=== PATIENT | male | born 1950 | race Caucasian/White ===

== ENCOUNTER → 2020-01-28 08:16 | Outpatient (BNVA) | payer MEDICARE, OTHER, SELFPAY | PROVIDERS: PCP Internal Medicine; Visit Provider Internal Medicine | DX: I48.0 Paroxysmal atrial fibrillation (principal); Z51.81 Encounter for therapeutic drug level monitoring; Z79.01 Long term (current) use of anticoagulants | CPT/HCPCS: 85610; 99211 ==

== ENCOUNTER → 2020-02-11 08:03 | Outpatient (BNVA) | payer MEDICARE, OTHER, SELFPAY | PROVIDERS: PCP Internal Medicine; Visit Provider Internal Medicine | DX: I48.0 Paroxysmal atrial fibrillation (principal); Z51.81 Encounter for therapeutic drug level monitoring; Z79.01 Long term (current) use of anticoagulants | CPT/HCPCS: 85610; 99211 ==

== ENCOUNTER → 2020-03-03 08:35 | Outpatient (BNVA) | payer MEDICARE, OTHER, SELFPAY | PROVIDERS: PCP Internal Medicine; Referring Provider Internal Medicine; Visit Provider Internal Medicine | DX: I48.0 Paroxysmal atrial fibrillation (principal); Z51.81 Encounter for therapeutic drug level monitoring; Z79.01 Long term (current) use of anticoagulants | CPT/HCPCS: 85610; 99211 ==

== ENCOUNTER → 2020-03-31 08:09 | Outpatient (BNVA) | payer MEDICARE, OTHER, SELFPAY | PROVIDERS: PCP Internal Medicine; Visit Provider Internal Medicine | DX: I48.0 Paroxysmal atrial fibrillation (principal); Z79.01 Long term (current) use of anticoagulants; Z51.81 Encounter for therapeutic drug level monitoring | CPT/HCPCS: 85610; 99211 ==

== ENCOUNTER → 2020-04-13 08:26 | Outpatient (REF) | payer MEDICARE, OTHER, SELFPAY ==
--- NOTE | 2020-04-13 08:30 | CA_ITS ---
Transthoracic Echocardiogram Patient (Last, First, Middle): Rashawn Pérez T Gender: Male Date of : 1950 Age: 70 Procedure Date: 04/13/2020 Procedure Type: Transthoracic Echocardiogram Location: OP Height: 175.26 cm Weight: 95.26 kg BSA: 2.11 m2 Heart Rate: bpm BP: 128 / 80 mmHg Regional Agronomist: Referring MD: Nam Sanches MD Symptoms: I48.19 PERSISTENT A FIB Study Quality: Fair ECG Rhythm: Atrial Fibrillation Conclusions: - The left ventricular systolic function is normal. The visually estimated ejection fraction is between 55-60%. - No obvious valvular pathology seen on this study. Findings Left Ventricle Normal left ventricular cavity size. There is normal left ventricular wall thickness. The left ventricular systolic function is normal. The visually estimated ejection fraction is between 55-60%. There is no evidence of regional wall motion abnormalities. Diastolic function is indeterminate on the basis of available data. Right Ventricle There is normal right ventricular systolic function. Top normal right ventricular size. Atria The left atrium is normal in size. The right atrium is normal in size. Aortic Valve There is a normal trileaflet aortic valve. There is no aortic valve stenosis. There is no aortic valve regurgitation. Mitral Valve The mitral valve appears normal. There is trace mitral valve regurgitation. There is no mitral valve stenosis. Pulmonic Valve The pulmonic valve was not well visualized. Tricuspid Valve Normal tricuspid valve structure. There is mild tricuspid valve regurgitation. The pulmonary artery systolic pressure is normal. Great Vessels The aortic annulus, sinuses of valsalva, and asc aorta are normal in size. Venous The inferior vena cava is mildly dilated and collapses greater than 50% with inspiration. Pericardium/Pleural There is no evidence of pericardial effusion. Prior Study Comparison No significant change compared to prior study dated: 04/15/2018. Recommendations, Care & Conclusions No obvious valvular pathology seen on this study. Measurements 2D Linear Measurements IVSd: 1.30 0.6-0.9/0.6-1.0 cm LVIDd: 4.16 3.9-5.3/4.2-5.9 cm LVIDd Index: 1.97 2.4-3.2/2.2-3.1 cm/m2 LVIDs: 2.67 2.0-3.6 cm LVPWd: 1.34 0.7-1.1 cm Ao Root: 3.60 2.1-3.5 cm LA Diam: 3.70 2.7-3.8/3.0-4.0 cm LAIDs Index: 1.75 1.5-2.3 cm/m2 LV Mass: 252.14 67-162/88-224 g LV Mass Index: 119.50 43-95/49-115 g/m2 LVOT Diam: 2.40 3.0+(-)1.3 cm Mitral Valve MV Pk E: 0.90 MV Decel Time: 174.00 E'Lateral: 13.80 E'Medial: 11.10 E/E' Med: 8.10 E/E' Lat: 6.50 PHT: 51.00 MVA PHT: 4.31 Decel Rush: 5.15 Aortic Valve AoV Pk Óscar: 1.18 AoV Mn Óscar: 0.87 AoV VTI: 0.27 AoV Pk Grad: 6.00 Aov Mn Grad: 4.00 LARYR Cont.VTI: 2.90 LVOT LVOT Pk Óscar: 0.84 LVOT Mn Óscar: 0.53 LVOT VTI: 0.17 LVOT Pk Grad: 3.00 LVOT Mn Grad: 1.00 LVOT Diam: 2.40 LVOT Area: 4.52 Diastolic Function MV Pk E: 0.90 E'Medial: 11.10 E/E' Med: 8.10 E' Laterial: 13.80 E/E' Lat: 6.50 Tricuspid Valve TR Pk Óscar: 2.44 TR Pk Grad: 24.00 RA Press: 8.00 RVSP: 32.00 Great Vessels Aorta Ao Root-2D: 3.60 2.0-3.7 cm Ao Asc: 3.10 2.1-3.4 cm Pulmonary Valve PV Pk Óscar: 1.17 Peak PV Grad: 5.00 Updated in Other Vendor System with Status of Final Nam Sanches MD electronically signed on 04/13/2020 12:55:23 PM with status of Final
--- NOTE | 2020-04-13 09:30 | ECG_ITS ---
Hook-up date: 2020-04-13 09:27:00 Duration: 27:20:00 Test Indications: PERSISTANT ATRIAL FIB Medications: 037039 QRS complexes 65 Ventricular ectopics which represent <1 % of total QRS comp. * Supraventricular ectopics which represent % of total QRS comp. * Paced QRS complexs which represent % of total QRS comp. VENTRICULAR ECTOPY 65 Isolated 0 Bigeminal Cycles 0 Couplets 0 Runs 0 Beats in Runs * Beats LONGEST at * BPM at :: -- * Beats FASTEST at * BPM at :: -- SUPRAVENTRICULAR ECTOPY * Isolated * Couplets * Runs * Beats in Runs * Beats LONGEST at * BPM at :: -- * Beats FASTEST at * BPM at :: -- HEART RATES 37 MIN at 10:37:44 2020-04-13 75 AVG 134 MAX at 06:21:37 2020-04-14 LONGEST RR 2.3360 secs at 05:13:14 2020-04-14 S-T LEVELS Channel 1 - 128 mm at 09:27:00 2020-04-13 - 128 mm at 09:27:00 2020-04-13 Channel 2 - 128 mm at 09:27:00 2020-04-13 - 128 mm at 09:27:00 2020-04-13 Channel 3 - 128 mm at 02:84:61 -- - 128 mm at 02:84:61 Basic rhythm Atrial fibrillation Rate is adequately controlled Rare Premature ventricular complexes Patient did not report any symptoms in the diary Referred By: Nam Sanches Overread By: MARGUERITE CASTILLO MD
== END ==
LOC: HO.CARD 08:26
PROVIDERS: PCP Internal Medicine; Visit Provider Internal Medicine
DX: I48.19 Other persistent atrial fibrillation (principal)
CPT/HCPCS: 93225; 93226; 93306

== ENCOUNTER 2020-04-14 06:08 | Outpatient (REF) | payer MEDICARE, OTHER, SELFPAY ==
[2020-04-14 11:16] LABS: MANUAL DIFF FLAG NO
[2020-04-14 11:31] LABS: Basophils Absolute Auto 0.1 X10*3/uL (0.0-0.2); Basophils Percent Auto 0.9 % (0-2); Eosinophils Absolute Auto 0.3 X10*3/uL (0.0-0.4); Eosinophils Percent Auto 3.8 % (0-4); Hematocrit 51.4 % (42-52); Hemoglobin 17.6 g/dl (14.0-18.0); Imm Gran Abs Auto 0.05 X10*3/uL (0.00-0.03); Imm Gran Pct Auto 0.6 % (0.0-0.4); Lymphocytes Absolute Auto 2.3 X10*3/uL (1.2-4.9); Lymphocytes Percent Auto 24.9 % (20-40); Mean Corpuscular HGB Conc 34.2 g/dl (31.0-36.0); Mean Corpuscular Hemoglobin 30.5 pg (27.0-33.0); Mean Corpuscular Volume 89.1 fL (80-98); Mean Platelet Volume 10.1 fL (9.4-12.4); Monocytes Absolute Auto 0.8 X10*3/uL (0.1-1.2); Monocytes Percent Auto 8.5 % (2-11); Neutrophils Absolute Auto 5.6 X10*3/uL (2.0-8.3); Neutrophils Percent Auto 61.3 % (45-73); Platelet Count 294 X10*3/uL (160-400); Red Blood Count 5.77 X10*6/uL (4.60-5.80); Red Cell Distribution Width 13.1 % (11.0-16.0); White Blood Count 9.1 X10*3/uL (4.8-10.8)
[2020-04-14 11:38] LABS: Glucose Urine UA NEG (NEG); Leukocyte Esterase Urine NEG (NEG); Nitrite Urine NEG (NEG); PH 6.5 (5.0-8.0); Urine Blood 2+ (NEG); Urine Ketones NEG (NEG); Urine Protein TRACE MG/DL (NEG-TRACE)
[2020-04-14 11:46] LABS: Appearance Urine CLEAR; Color Urine YELLOW
[2020-04-14 12:02] LABS: Squamous Epithelial Cell Urine TRACE /LPF; WBC Urine 0 /HPF (0-4)
[2020-04-14 12:16] LABS: Alanine Aminotransferase 35 U/L (0-40); Albumin Level 4.3 g/dL (3.5-5.0); Alkaline Phosphatase 86 U/L (39-117); Anion Gap 19 (12-20); Aspartate Amino Transferase 21 U/L (5-37); Bilirubin Total 0.7 mg/dL (0.0-1.0); Blood Urea Nitrogen 28 mg/dL (9-16); Calcium 8.9 mg/dL (8.4-10.2); Carbon Dioxide 22 mmol/L (22-29); Chloride 104 mmol/L (96-108); Cholesterol 235 mg/dL; Estimated Glomerular Filt Rate > 60; Glucose Random 94 mg/dL (60-115); HDL Cholesterol 33 mg/dL; LDL Cholesterol Calculated 124 mg/dl; Sodium 141 mmol/L (135-145); Total Protein 7.4 g/dL (6.5-8.0); Triglycerides 394 mg/dL
[2020-04-14 12:19] LABS: Prostate Specific Antigen < 0.05 ng/mL (<0.05-4.0)
== END 2020-04-14 06:09 | disposition home or self-care (01) ==
LOC: HO.HMGCLDS 06:08
PROVIDERS: PCP Internal Medicine; Visit Provider Urology
DX: C61 Malignant neoplasm of prostate (principal)
CPT/HCPCS: 36415; 80053; 80061; 81001; 84153; 84443; 85025

== ENCOUNTER → 2020-04-28 08:06 | Outpatient (BNVA) | payer MEDICARE, OTHER, SELFPAY | PROVIDERS: PCP Internal Medicine; Visit Provider Internal Medicine | DX: I48.0 Paroxysmal atrial fibrillation (principal); Z79.01 Long term (current) use of anticoagulants; Z51.81 Encounter for therapeutic drug level monitoring | CPT/HCPCS: 85610; 99211 ==

== ENCOUNTER → 2020-05-06 08:17 | Outpatient (BNVA) | payer MEDICARE, OTHER, SELFPAY | PROVIDERS: PCP Internal Medicine; Visit Provider Internal Medicine | DX: I48.19 Other persistent atrial fibrillation (principal); I48.3 Typical atrial flutter; I10 Essential (primary) hypertension | CPT/HCPCS: 93005; 99212 ==

== ENCOUNTER → 2020-05-26 08:04 | Outpatient (BNVA) | payer MEDICARE, OTHER, SELFPAY | PROVIDERS: PCP Internal Medicine; Visit Provider Internal Medicine | DX: I48.0 Paroxysmal atrial fibrillation (principal); Z51.81 Encounter for therapeutic drug level monitoring; Z79.01 Long term (current) use of anticoagulants | CPT/HCPCS: 85610; 99211 ==

== ENCOUNTER → 2020-06-09 08:20 | Outpatient (BNVA) | payer MEDICARE, OTHER, SELFPAY | PROVIDERS: PCP Internal Medicine; Visit Provider Internal Medicine | DX: I48.0 Paroxysmal atrial fibrillation (principal); Z51.81 Encounter for therapeutic drug level monitoring; Z79.01 Long term (current) use of anticoagulants | CPT/HCPCS: 85610; 99211 ==

== ENCOUNTER → 2020-07-07 08:07 | Outpatient (BNVA) | payer MEDICARE, OTHER, SELFPAY | PROVIDERS: PCP Internal Medicine; Visit Provider Internal Medicine | DX: I48.0 Paroxysmal atrial fibrillation (principal); Z51.81 Encounter for therapeutic drug level monitoring; Z79.01 Long term (current) use of anticoagulants | CPT/HCPCS: 85610; 99211 ==

== ENCOUNTER → 2020-08-04 08:08 | Outpatient (BNVA) | payer MEDICARE, OTHER, SELFPAY | PROVIDERS: PCP Internal Medicine; Visit Provider Internal Medicine | DX: I48.0 Paroxysmal atrial fibrillation (principal); Z51.81 Encounter for therapeutic drug level monitoring; Z79.01 Long term (current) use of anticoagulants | CPT/HCPCS: 85610; 99211 ==

== ENCOUNTER → 2020-09-01 08:02 | Outpatient (BNVA) | payer MEDICARE, OTHER, SELFPAY | PROVIDERS: PCP Internal Medicine; Visit Provider Internal Medicine | DX: I48.0 Paroxysmal atrial fibrillation (principal); Z51.81 Encounter for therapeutic drug level monitoring; Z79.01 Long term (current) use of anticoagulants | CPT/HCPCS: 85610; 99211 ==

== ENCOUNTER → 2020-09-29 08:02 | Outpatient (BNVA) | payer MEDICARE, OTHER, SELFPAY | PROVIDERS: PCP Internal Medicine; Visit Provider Internal Medicine | DX: I48.0 Paroxysmal atrial fibrillation (principal); Z51.81 Encounter for therapeutic drug level monitoring; Z79.01 Long term (current) use of anticoagulants | CPT/HCPCS: 85610; 99211 ==

== ENCOUNTER → 2020-10-13 08:45 | Outpatient (BNVA) | payer MEDICARE, OTHER, SELFPAY | PROVIDERS: PCP Internal Medicine; Visit Provider Internal Medicine | DX: I48.0 Paroxysmal atrial fibrillation (principal); Z51.81 Encounter for therapeutic drug level monitoring; Z79.01 Long term (current) use of anticoagulants | CPT/HCPCS: 85610; 99211 ==

== ENCOUNTER → 2020-11-17 08:01 | Outpatient (BNVA) | payer MEDICARE, OTHER, SELFPAY | PROVIDERS: PCP Internal Medicine; Visit Provider Internal Medicine | DX: I48.0 Paroxysmal atrial fibrillation (principal); Z51.81 Encounter for therapeutic drug level monitoring; Z79.01 Long term (current) use of anticoagulants | CPT/HCPCS: 85610; 99211 ==

== ENCOUNTER → 2020-12-22 08:04 | Outpatient (BNVA) | payer MEDICARE, OTHER, SELFPAY | PROVIDERS: PCP Internal Medicine; Visit Provider Internal Medicine | DX: I48.0 Paroxysmal atrial fibrillation (principal); Z51.81 Encounter for therapeutic drug level monitoring; Z79.01 Long term (current) use of anticoagulants | CPT/HCPCS: 85610; 99211 ==

== ENCOUNTER → 2020-12-31 12:53 | Outpatient (BNV) | payer MEDICARE, OTHER, SELFPAY | PROVIDERS: PCP Internal Medicine; Referring Provider Internal Medicine; Visit Provider Internal Medicine | DX: E83.110 Hereditary hemochromatosis (principal) | CPT/HCPCS: 99204; 99213; 99214 ==

== ENCOUNTER 2021-01-21 09:57 | Outpatient (REF) | payer MEDICARE, OTHER, SELFPAY | END 2021-01-21 09:58 | disposition home or self-care (01) | LOC: HO.BBR 09:57 | PROVIDERS: PCP Internal Medicine; Visit Provider Internal Medicine | DX: Z13.89 Encounter for screening for other disorder (principal) ==

== ENCOUNTER → 2021-01-26 08:01 | Outpatient (BNVA) | payer MEDICARE, OTHER, SELFPAY | PROVIDERS: PCP Internal Medicine; Visit Provider Internal Medicine | DX: I48.0 Paroxysmal atrial fibrillation (principal); Z51.81 Encounter for therapeutic drug level monitoring; Z79.01 Long term (current) use of anticoagulants | CPT/HCPCS: 85610; 99211 ==

== ENCOUNTER 2021-02-23 08:45 | Outpatient (REF) | payer MEDICARE, OTHER, SELFPAY | END 2021-02-23 08:46 | disposition home or self-care (01) | LOC: HO.BBR 08:45 | PROVIDERS: Visit Provider Internal Medicine | DX: I48.0 Paroxysmal atrial fibrillation (principal); E83.110 Hereditary hemochromatosis; Z51.81 Encounter for therapeutic drug level monitoring; Z79.01 Long term (current) use of anticoagulants | CPT/HCPCS: 85610; 99211 ==

== ENCOUNTER 2021-03-23 08:31 | Outpatient (REF) | payer MEDICARE, OTHER, SELFPAY | END 2021-03-23 08:32 | disposition home or self-care (01) | LOC: HO.BBR 08:31 | PROVIDERS: Visit Provider Internal Medicine | DX: I48.0 Paroxysmal atrial fibrillation (principal); E83.110 Hereditary hemochromatosis; Z51.81 Encounter for therapeutic drug level monitoring; Z79.01 Long term (current) use of anticoagulants | CPT/HCPCS: 85610; 99211 ==

== ENCOUNTER 2021-04-20 08:31 | Outpatient (REF) | payer MEDICARE, OTHER, SELFPAY | END 2021-04-20 08:32 | disposition home or self-care (01) | LOC: HO.BBR 08:31 | PROVIDERS: Visit Provider Internal Medicine | DX: E83.110 Hereditary hemochromatosis (principal) | CPT/HCPCS: 85610; 99211 ==

== ENCOUNTER → 2021-05-05 08:25 | Outpatient (BNVA) | payer MEDICARE, OTHER, SELFPAY | PROVIDERS: PCP Internal Medicine; Referring Provider Internal Medicine; Visit Provider Internal Medicine | DX: I48.19 Other persistent atrial fibrillation (principal); I48.3 Typical atrial flutter; I10 Essential (primary) hypertension; I45.4 Nonspecific intraventricular block; G47.33 Obstructive sleep apnea (adult) (pediatric) | CPT/HCPCS: 93005; 99212 ==

== ENCOUNTER 2021-05-18 08:34 | Outpatient (REF) | payer MEDICARE, OTHER, SELFPAY | END 2021-05-18 08:35 | disposition home or self-care (01) | LOC: HO.BBR 08:34 | PROVIDERS: Visit Provider Internal Medicine | DX: I48.0 Paroxysmal atrial fibrillation (principal); E83.110 Hereditary hemochromatosis; Z51.81 Encounter for therapeutic drug level monitoring; Z79.01 Long term (current) use of anticoagulants | CPT/HCPCS: 85610; 99211 ==

== ENCOUNTER → 2021-06-15 08:02 | Outpatient (BNVA) | payer MEDICARE, OTHER, SELFPAY | PROVIDERS: PCP Internal Medicine; Visit Provider Internal Medicine | DX: I48.0 Paroxysmal atrial fibrillation (principal); Z51.81 Encounter for therapeutic drug level monitoring; Z79.01 Long term (current) use of anticoagulants | CPT/HCPCS: 85610 ==

== ENCOUNTER 2021-07-13 08:50 | Outpatient (REF) | payer MEDICARE, OTHER, SELFPAY | END 2021-07-13 08:51 | disposition home or self-care (01) | LOC: HO.BBR 08:50 | PROVIDERS: Visit Provider Internal Medicine | DX: I48.0 Paroxysmal atrial fibrillation (principal); E83.119 Hemochromatosis, unspecified; Z51.81 Encounter for therapeutic drug level monitoring; Z79.01 Long term (current) use of anticoagulants | CPT/HCPCS: 85610; 99211 ==

== ENCOUNTER → 2021-07-27 08:07 | Outpatient (BNVA) | payer MEDICARE, OTHER, SELFPAY | PROVIDERS: PCP Internal Medicine; Visit Provider Internal Medicine | DX: I48.0 Paroxysmal atrial fibrillation (principal); Z79.01 Long term (current) use of anticoagulants; Z51.81 Encounter for therapeutic drug level monitoring | CPT/HCPCS: 85610; 99211 ==

== ENCOUNTER → 2021-08-10 08:05 | Outpatient (BNVA) | payer MEDICARE, OTHER, SELFPAY | PROVIDERS: PCP Internal Medicine; Visit Provider Internal Medicine | DX: I48.0 Paroxysmal atrial fibrillation (principal); Z79.01 Long term (current) use of anticoagulants; Z51.81 Encounter for therapeutic drug level monitoring | CPT/HCPCS: 85610; 99211 ==

== ENCOUNTER 2021-09-14 11:12 | Outpatient (REF) | payer MEDICARE, OTHER, SELFPAY | END 2021-09-14 11:13 | disposition home or self-care (01) | LOC: HO.BBR 11:12 | PROVIDERS: Visit Provider Internal Medicine | DX: E83.110 Hereditary hemochromatosis (principal); I48.0 Paroxysmal atrial fibrillation; Z51.81 Encounter for therapeutic drug level monitoring; Z79.01 Long term (current) use of anticoagulants | CPT/HCPCS: 85610; 99211 ==

== ENCOUNTER → 2021-10-12 08:17 | Outpatient (BNVA) | payer MEDICARE, OTHER, SELFPAY | PROVIDERS: PCP Internal Medicine; Visit Provider Internal Medicine | DX: I48.0 Paroxysmal atrial fibrillation (principal); Z51.81 Encounter for therapeutic drug level monitoring; Z79.01 Long term (current) use of anticoagulants | CPT/HCPCS: 85610; 99211 ==

== ENCOUNTER 2021-11-09 08:36 | Outpatient (REF) | payer MEDICARE, OTHER, SELFPAY | END 2021-11-09 08:37 | disposition home or self-care (01) | LOC: HO.BBR 08:36 | PROVIDERS: Visit Provider Internal Medicine | DX: E83.110 Hereditary hemochromatosis (principal); I48.0 Paroxysmal atrial fibrillation; Z51.81 Encounter for therapeutic drug level monitoring; Z79.01 Long term (current) use of anticoagulants | CPT/HCPCS: 85610; 99211 ==

== ENCOUNTER → 2021-12-07 08:05 | Outpatient (BNVA) | payer MEDICARE, OTHER, SELFPAY | PROVIDERS: PCP Internal Medicine; Visit Provider Internal Medicine | DX: I48.0 Paroxysmal atrial fibrillation (principal); Z51.81 Encounter for therapeutic drug level monitoring; Z79.01 Long term (current) use of anticoagulants | CPT/HCPCS: 85610; 99211 ==

== ENCOUNTER → 2022-01-04 08:06 | Outpatient (BNVA) | payer MEDICARE, OTHER, SELFPAY | PROVIDERS: PCP Internal Medicine; Visit Provider Internal Medicine | DX: I48.0 Paroxysmal atrial fibrillation (principal); Z79.01 Long term (current) use of anticoagulants; Z51.81 Encounter for therapeutic drug level monitoring | CPT/HCPCS: 85610; 99211 ==

== ENCOUNTER → 2022-02-01 08:21 | Outpatient (BNVA) | payer MEDICARE, OTHER, SELFPAY | PROVIDERS: PCP Internal Medicine; Visit Provider Internal Medicine | DX: I48.0 Paroxysmal atrial fibrillation (principal); Z79.01 Long term (current) use of anticoagulants; Z51.81 Encounter for therapeutic drug level monitoring | CPT/HCPCS: 85610; 99211 ==

== ENCOUNTER 2022-02-09 08:04 | Outpatient (REF) | payer MEDICARE, OTHER, SELFPAY | END 2022-02-09 08:05 | disposition home or self-care (01) | LOC: HO.BBR 08:04 | PROVIDERS: Visit Provider Internal Medicine | DX: Z13.89 Encounter for screening for other disorder (principal) ==

== ENCOUNTER → 2022-03-01 10:37 | Outpatient (BNVA) | payer MEDICARE, OTHER, SELFPAY | PROVIDERS: PCP Internal Medicine; Visit Provider Internal Medicine | DX: I48.0 Paroxysmal atrial fibrillation (principal); Z79.01 Long term (current) use of anticoagulants; Z51.81 Encounter for therapeutic drug level monitoring | CPT/HCPCS: 85610; 99211 ==

== ENCOUNTER 2022-03-22 09:57 | Inpatient (IN) | payer MEDICARE, OTHER, SELFPAY ==
--- NOTE | ~2022-03-22 | CT_ITS ---
EXAMINATION: CT ELBOW LEFT WITH IV CONTRAST CLINICAL INFORMATION: Swelling, pain, erythema. COMPARISON: Ultrasound imaging from 03/22/2022. TECHNIQUE: Multidetector CT imaging examination of the left elbow performed with intravenous administration of 80 mL Omnipaque 350. This CT examination was performed using dose optimization techniques as appropriate, variously including the following: *Automated exposure control. *Adjustment of mA and/or kV according to patient size (this includes techniques or standardized protocols for targeted exams where dose is matched to indication/reason for exam, i.e., extremities or head). *Use of iterative reconstruction technique. DLP: 114 mGy-cm FINDINGS: There is edema of subcutaneous tissues of the visualized upper arm, elbow and forearm. The edema is worst along the posterior aspect of the extremity and is most pronounced around the region of the posterior elbow and olecranon. The complex multiseptated collection located posterior to the olecranon on recent ultrasound imaging is not optimally visualized on this CT examination since it blends in with surrounding subcutaneous tissue edema and there is no evidence of a thickened hyperenhancing rim. The area of the collection measures approximately 5 x 1.8 x 6 cm. No soft tissue gas or radiopaque foreign body. The muscles of the extremity have normal attenuation. No evidence of intramuscular or intermuscular fluid collection. Alignment is normal at the elbow. The radiocapitellar and ulnohumeral joints are normal. No erosions or periostitis. No elbow joint effusion. CT/CT elbow LT w IV con IMPRESSION: * Diffuse edema of the visualized extremity is likely from cellulitis. * Complex fluid collection at the level of the olecranon bursa is more clearly seen on recent ultrasound images than on this CT examination. The collection does not appear to have a hyperenhancing thickened rim. Nevertheless, consider the possibility of an infected olecranon bursitis. * The underlying bones are normal. No evidence of septic arthritis or osteomyelitis.
--- NOTE | ~2022-03-22 | US_ITS ---
EXAMINATION: US VENOUS WITH DOPPLER UPPER EXTREMITY, LEFT CLINICAL INFORMATION: Pain, swelling, redness. COMPARISON: None TECHNIQUE: Ultrasound of the upper extremity is performed using compression sonography and color and pulse Doppler flow with assessment of augmentation of flow. There is also imaging and Doppler assessment of the jugular and subclavian veins. Spectral analysis with color-flow imaging is performed. FINDINGS: Grayscale images and duplex Doppler images show normal appearance of the left internal jugular, subclavian and axillary veins. Within the upper arm, the cephalic, basilic and brachial veins are normal. No superficial or deep vein thrombosis. Within the forearm, the radial and ulnar veins are compressible. There is edema within subcutaneous tissues of the arm. A complex collection located posterior to the olecranon measures 3.8 x 1.2 x 4.2 cm. If there was a recent fall/trauma, then this could represent hematoma. Alternatively, soft tissue abscess or infected or inflamed olecranon bursa would be considered. US/US venous duplex UE LT IMPRESSION: * No evidence of superficial or deep vein thrombosis in the left upper extremity. * There is soft tissue edema of the arm and a 3.8 x 1.2 x 4.2 cm complex collection is present in the expected location of the olecranon bursa. This could represent an infected olecranon bursa, if in the proper clinical context.
--- NOTE | 2022-03-22 10:04 | ED_ITS ---
HPI - General Adult General Chief complaint: General Medical Stated complaint: L Arm Redness Swelling Time Seen by Provider: 03/22/22 10:00 Source: patient Mode of arrival: wheelchair Limitations: no limitations History of Present Illness HPI narrative: Patient is a 72 year old assigned male at with a history of atrial fibrillation and hemochromatosis presenting to the emergency department today with left arm swelling. Patient states that he has been on antibiotics for cellulitis that he started on Sunday but it is not getting better. Patient states that his arm has continued to swell. Patient denies any dizziness, lightheadedness, abdominal pain, nausea, vomiting, fever, chills, blurry vision, double vision, loss of vision, chest pain, difficulty breathing, shortness of breath, back pain, night sweats, pain with urination, increased urinary frequency, increased urinary urgency, blood in his urine or stool, syncope or a near syncopal episode, recent trauma or falls, bowel incontinence, bladder incontinence, bowel retention, bladder retention, or any other complaints at this time. Onset (ago): day(s) Location: left and upper extremity Radiation: non-radiation Severity: moderate Severity scale (1-10): 5 Relieving factors: none Exacerbating factors: none Associated symptoms: denies other symptoms Treatments prior to arrival: none Related Data Home Medications Medication Instructions Recorded Confirmed dexlansoprazole 60 mg 60 mg PO BEDTIME 05/06/20 03/22/22 capsule,biphase delayed release (Dexilant) irbesartan 150 1 tab PO DAILY 05/06/20 03/22/22 mg-hydrochlorothiazide 12.5 mg tablet (Avalide) atorvastatin 10 mg tablet (Lipitor) 10 mg PO DAILY 12/22/20 03/22/22 warfarin 5 mg tablet (Jantoven) 5 mg PO DAILY 05/03/21 03/22/22 warfarin 5 mg tablet (Jantoven) 2.5 mg PO SUTUWEFRSA@1800 03/22/22 03/22/22 warfarin 5 mg tablet (Jantoven) 5 mg PO MOTH@1800 03/22/22 03/22/22 Previous Rx's Medication Instructions Recorded diltiazem HCl 360 mg 360 mg PO DAILY #90 caps 08/03/21 capsule,extended release 24 hr (Cardizem CD) cephalexin 500 mg capsule 1,000 mg PO BID 10 days #40 caps 03/20/22 Allergies Allergy/AdvReac Type Severity Reaction Status Date / Time lisinopril AdvReac Unknown cough Verified 03/20/22 10:24 Review of Systems Constitutional: Constitutional: Reports no additional constitutional complaints, Denies chills, Denies fever(s) and Denies night sweats Eyes: Eyes: Reports no additional eye complaints, Denies blurry vision, Denies change in vision, Denies diplopia, Denies eye discharge, Denies loss of vision and Denies eye pain ENT: Denies dizziness Cardiovascular: Cardiovascular: Reports no additional cardiovascular complaints, Denies chest pain, Denies lightheadedness, Denies Loss of Consciousness and Denies dyspnea Respiratory: Respiratory: Reports no additional respiratory complaints and Denies dyspnea Gastrointestinal: Gastrointestinal: Reports no additional gastrointestinal complaints, Denies abdominal pain, Denies melena, Denies hematochezia, Denies change in bowel habits and Denies change in stool character Genitourinary: Genitourinary: Reports no additional male genitourinary complaints, Denies hematuria, Denies oliguria, Denies difficulty urinating, Denies dysuria, Denies urinary frequency, Denies urinary hesitancy, Denies urinary incontinence and Denies urinary urgency Musculoskeletal: Musculoskeletal: Reports no additional musculoskeletal complaints, Denies numbness and Denies tingling Comments: left arm swelling Neurologic: Denies dizziness, Denies loss of vision, Denies numbness and Denies tingling Psychiatric: Psychiatric: Reports no additional psychiatric complaints Endocrine: Endocrine: Reports no additional endocrine complaints Hematologic/Lymphatic: Hematologic/Lymphatic: Reports no additional hematologic/lymphatic complaints Allergic/Immunologic: Allergic/Immunologic: Reports no additional allergic/immunologic complaints [facility] Past Medical History Attestation statement: The following information was validated with the patient. Source: old records reviewed and nursing notes reviewed Medical History Essential hypertension Hemochromatosis GABBIE (obstructive sleep apnea) Persistent atrial fibrillation Typical atrial flutter Surgical History History of prostate surgery (~10/2016) Family History Family History Father HTN (hypertension) Mother No problems noted. 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 [employer] Current occupational exposures/hazards: Yes (Stress) Sexual orientation: Straight/Heterosexual Gender identity: Male Physical Exam ED Vital Signs: Vital Signs - 24 hr 03/22/22 11:52 Temperature 97.9 F Pulse Rate 93 Respiratory Rate 18 Blood Pressure 112/71 Pulse Oximetry 95 Oxygen Delivery Method Room Air BMI result Body Mass Index 31.0 Const General: cooperative, no acute distress, alert and awake Nutritional Appearance: well nourished Orientation/consciousness: patient oriented x3 Limitations: no limitations HENMT Head: Yes normal to inspection and Yes atraumatic Ears: hearing grossly normal bilaterally and external ears normal General nose exam: Normal external nose present, no nasal discharge noted and no epistaxis Face and sinus: Yes normal facial exam, No abrasion and No laceration Mouth: Normal oral and palatal mucosa present, no drooling and no muffled voice Eyes General: appearance normal, both eyes and all related structures Periorbital: periorbital findings normal Eyelids: Yes eyelids normal Conjunctivae: conjunctivae normal Pupils: Equal, round and reactive pupils present EOM: EOMs intact bilaterally Neck Neck: Yes normal visual inspection, Yes full ROM and Yes no lymphadenopathy Chest Chest palpation & inspection: normal inspection of the chest Resp Effort & Inspection: normal respiratory effort and able to speak in complete sentences Auscultation: clear to auscultation bilaterally Cardio Rate: regular rate Rhythm: regular rhythm GI Inspection: Yes normal to inspection Skin Other: erythema, swelling, warmth present to the left elbow with diffuse swelling of the entire left upper extremity and streaking redness Neuro General: patient oriented x3 and moves all extremities Cranial nerves: Yes Equal, round and reactive pupils present Cognition (Neuro): normal cognition Motor exam (neuro): 5/5 motor strength present throughout Sensory Exam: Normal double simultaneous stimulation for sensation Coordination: cxmpxi-av-cpet test normal Extrem General: Yes normal to inspection, Yes full ROM and Yes capillary refill normal Psych Appearance: grossly normal Mental Status: mental status grossly normal Affect: normal affect Attitude: cooperative Thought process: Normal thought process present Thought content: Normal thought content present Insight: Good insight present (Psych) Medications Administered Discontinued Medications Generic Name Dose Route Start Last Admin Trade Name Ruma PRN Reason Stop Dose Admin Sodium Chloride 1,000 mls @ 999 mls/hr 03/22/22 12:30 03/22/22 15:35 Ns IV 03/22/22 13:30 Infused .Q1H1M TOMMY Infusion Piperacillin Sod/Tazobactam 50 mls @ 100 mls/hr 03/22/22 13:15 03/22/22 15:36 Sod 3.375 gm/ Sodium Chloride IV 03/22/22 13:44 Infused ONCE ONE Infusion Iohexol 100 ml 03/22/22 12:53 03/22/22 12:54 Iohexol 350 Mg/Ml 100 Ml Infus..Btl IV 03/22/22 12:54 80 ml ONCE ONE Administration Medical Decision Making Medical Decision Making MDM Narrative: Patient is a 72 year old assigned male at with a history of atrial fibrillation and hemochromatosis presenting to the emergency department today with left elbow pain. Patient's physical exam showed erythema and swelling of the left upper extremity. Patient's blood work showed an elevated WBC count of 15.5, ESR of 46, CRP of 22.67, and an initial lactic acid of 2.2 with a repeat of 1.4 after 1 liter of fluids.Patient's left upper extremity US showed soft tissue edema of the arm and a 3.8x1.2x4.2 complex collection in the expected location of the olecranon bursa which could represent an infected olecranon bursa. Patient's left elbow CT showed similar findings. I spoke to orthopedics who came and examined the patient and recommended not to tap the elbow but rather medically admit and they'd follow along on the case. Spoke to the hospitalist team who agreed to admission. Patient's clinical presentation is not consistent with sepsis. Patient was given IV Zosyn. I explained my physical exam findings as well as all test results to the patient. I answered all questions asked by the patient. Patient verbalized agreement and understanding with this treatment plan and admission. Differential Diagnosis Differential Diagnoses: The differential diagnosis associated with the presentation includes cellulitis Lab Data MDM Lab Attestation statement: I reviewed the patient's lab results. Result Diagrams: 03/22/22 11:37 03/22/22 11:37 Labs: Lab Results 03/22/22 03/22/22 03/22/22 Range/Units 11:37 11:37 11:37 WBC 15.5 H (4.8-10.8) X10*3/uL RBC 5.28 (4.60-5.80) X10*6/uL Hgb 13.8 L (14.0-18.0) g/dl Hct 42.4 (42.0-52.0) % MCV 80.3 (80.0-98.0) fL MCH 26.1 L (27.0-33.0) pg MCHC 32.5 (31.0-36.0) g/dl RDW 15.0 (11.0-16.0) % Plt Count 357 (160-400) X10*3/uL MPV 9.2 L (9.4-12.4) fL Immature Gran % (Auto) 0.7 H (0.0-0.4) % Neut % (Auto) 79.7 H (45-73) % Lymph % (Auto) 9.3 L (20-40) % [place] % (Auto) 9.2 (2-11) % Eos % (Auto) 0.6 (0-4) % Baso % (Auto) 0.5 (0-2) % Lymph # (Auto) 1.5 (1.2-4.9) X10*3/uL [place] # (Auto) 1.4 H (0.1-1.2) X10*3/uL Eos # (Auto) 0.1 (0.0-0.4) X10*3/uL Baso # (Auto) 0.1 (0.0-0.2) X10*3/uL Abs Immat Gran (auto) 0.11 H (0.00-0.03) X10*3/uL Absolute Neuts (auto) 12.4 H (2.0-8.3) x10*3/uL Absolute Nucleated RBC 0.000 (0.0-0.012) X10*3/uL Nucleated RBC % (auto) 0.0 (0.0-0.2) /100WBC ESR 46 H (0-15) MM/HR PT 32.6 H (10.0-13.1) SEC INR 2.7 H (0.9-1.1) APTT 48.7 H (26.0-36.4) SEC Sodium (135-145) mmol/L Potassium (3.3-5.1) mmol/L Chloride (96-108) mmol/L Carbon Dioxide (22-29) mmol/L Anion Gap (12-20) BUN (9-16) mg/dL Creatinine (0.5-1.4) mg/dL Estim Creat Clear Calc Estimated GFR Random Glucose (60-115) mg/dL Lactic Acid (0.5-2.0) mmol/L Lactic Acid F/U @ 2Hr (0.5-2.0) mmol/L Calcium (8.4-10.2) mg/dL Magnesium (1.6-2.6) mg/dL Total Bilirubin (0.0-1.0) mg/dL AST (5-37) U/L ALT (0-40) U/L Alkaline Phosphatase (39-117) U/L C-Reactive Protein (< or = 0.50) mg/dL Total Protein (6.5-8.0) g/dL Albumin (3.5-5.0) g/dL COVID-19 (BHANU) (Negative) COVID-19 Clin Com 03/22/22 03/22/22 03/22/22 Range/Units 11:37 11:37 11:39 WBC (4.8-10.8) X10*3/uL RBC (4.60-5.80) X10*6/uL Hgb (14.0-18.0) g/dl Hct (42.0-52.0) % MCV (80.0-98.0) fL MCH (27.0-33.0) pg MCHC (31.0-36.0) g/dl RDW (11.0-16.0) % Plt Count (160-400) X10*3/uL MPV (9.4-12.4) fL Immature Gran % (Auto) (0.0-0.4) % Neut % (Auto) (45-73) % Lymph % (Auto) (20-40) % [place] % (Auto) (2-11) % Eos % (Auto) (0-4) % Baso % (Auto) (0-2) % Lymph # (Auto) (1.2-4.9) X10*3/uL [place] # (Auto) (0.1-1.2) X10*3/uL Eos # (Auto) (0.0-0.4) X10*3/uL Baso # (Auto) (0.0-0.2) X10*3/uL Abs Immat Gran (auto) (0.00-0.03) X10*3/uL Absolute Neuts (auto) (2.0-8.3) x10*3/uL Absolute Nucleated RBC (0.0-0.012) X10*3/uL Nucleated RBC % (auto) (0.0-0.2) /100WBC ESR (0-15) MM/HR PT (10.0-13.1) SEC INR (0.9-1.1) APTT (26.0-36.4) SEC Sodium 138 (135-145) mmol/L Potassium 3.6 (3.3-5.1) mmol/L Chloride 102 (96-108) mmol/L Carbon Dioxide 25 (22-29) mmol/L Anion Gap 15 (12-20) BUN 24 H (9-16) mg/dL Creatinine 1.39 (0.5-1.4) mg/dL Estim Creat Clear Calc 56.3 Estimated GFR 51 Random Glucose 99 (60-115) mg/dL Lactic Acid 2.2 H* (0.5-2.0) mmol/L Lactic Acid F/U @ 2Hr (0.5-2.0) mmol/L Calcium 9.4 (8.4-10.2) mg/dL Magnesium 2.1 (1.6-2.6) mg/dL Total Bilirubin 0.9 (0.0-1.0) mg/dL AST 13 (5-37) U/L ALT 17 (0-40) U/L Alkaline Phosphatase 89 (39-117) U/L C-Reactive Protein 22.67 H (< or = 0.50) mg/dL Total Protein 7.1 (6.5-8.0) g/dL Albumin 4.2 (3.5-5.0) g/dL COVID-19 (BHANU) Negative (Negative) COVID-19 Clin Com See Note 03/22/22 Range/Units 14:09 WBC (4.8-10.8) X10*3/uL RBC (4.60-5.80) X10*6/uL Hgb (14.0-18.0) g/dl Hct (42.0-52.0) % MCV (80.0-98.0) fL MCH (27.0-33.0) pg MCHC (31.0-36.0) g/dl RDW (11.0-16.0) % Plt Count (160-400) X10*3/uL MPV (9.4-12.4) fL Immature Gran % (Auto) (0.0-0.4) % Neut % (Auto) (45-73) % Lymph % (Auto) (20-40) % [place] % (Auto) (2-11) % Eos % (Auto) (0-4) % Baso % (Auto) (0-2) % Lymph # (Auto) (1.2-4.9) X10*3/uL [place] # (Auto) (0.1-1.2) X10*3/uL Eos # (Auto) (0.0-0.4) X10*3/uL Baso # (Auto) (0.0-0.2) X10*3/uL Abs Immat Gran (auto) (0.00-0.03) X10*3/uL Absolute Neuts (auto) (2.0-8.3) x10*3/uL Absolute Nucleated RBC (0.0-0.012) X10*3/uL Nucleated RBC % (auto) (0.0-0.2) /100WBC ESR (0-15) MM/HR PT (10.0-13.1) SEC INR (0.9-1.1) APTT (26.0-36.4) SEC Sodium (135-145) mmol/L Potassium (3.3-5.1) mmol/L Chloride (96-108) mmol/L Carbon Dioxide (22-29) mmol/L Anion Gap (12-20) BUN (9-16) mg/dL Creatinine (0.5-1.4) mg/dL Estim Creat Clear Calc Estimated GFR Random Glucose (60-115) mg/dL Lactic Acid (0.5-2.0) mmol/L Lactic Acid F/U @ 2Hr 1.4 (0.5-2.0) mmol/L Calcium (8.4-10.2) mg/dL Magnesium (1.6-2.6) mg/dL Total Bilirubin (0.0-1.0) mg/dL AST (5-37) U/L ALT (0-40) U/L Alkaline Phosphatase (39-117) U/L C-Reactive Protein (< or = 0.50) mg/dL Total Protein (6.5-8.0) g/dL Albumin (3.5-5.0) g/dL COVID-19 (BHANU) (Negative) COVID-19 Clin Com Radiology Impression Discussion of test interpretation with radiology: I have reviewed the radiologist's reading. Radiologist Impression: EXAMINATION:? US VENOUS WITH DOPPLER UPPER EXTREMITY, LEFT CLINICAL INFORMATION:? Pain, swelling, redness. COMPARISON:? None TECHNIQUE: Ultrasound of the upper extremity is performed using compression sonography and color and pulse Doppler flow with assessment of augmentation of flow. There is also imaging and Doppler assessment of the jugular and subclavian veins. Spectral analysis with color-flow imaging is performed. FINDINGS: Grayscale images and duplex Doppler images show normal appearance of the left internal jugular, subclavian and axillary veins. Within the upper arm, the cephalic, basilic and brachial veins are normal. No superficial or deep vein thrombosis. Within the forearm, the radial and ulnar veins are compressible. There is edema within subcutaneous tissues of the arm. A complex collection located posterior to the olecranon measures 3.8 x 1.2 x 4.2 cm. If there was a recent fall/trauma, then this could represent hematoma. Alternatively, soft tissue abscess or infected or inflamed olecranon bursa would be considered. US/US venous duplex UE LT IMPRESSION: *? No evidence of superficial or deep vein thrombosis in the left upper extremity. *? There is soft tissue edema of the arm and a 3.8 x 1.2 x 4.2 cm complex collection is present in the expected location of the olecranon bursa. This could represent an infected olecranon bursa, if in the proper clinical context. Dictated By: Bobby Garcia MD Signed By: Electronically signed by Bobby Garcia MD 03/22/22 1156 EXAMINATION: CT ELBOW LEFT WITH IV CONTRAST CLINICAL INFORMATION: Swelling, pain, erythema.? COMPARISON: Ultrasound imaging from 03/22/2022.? TECHNIQUE: Multidetector CT imaging examination of the left elbow performed with intravenous administration of 80 mL Omnipaque 350. This CT examination was performed using dose optimization techniques as appropriate, variously including the following: *Automated exposure control. *Adjustment of mA and/or kV according to patient size (this includes techniques or standardized protocols for targeted exams where dose is matched to indication/reason for exam, i.e., extremities or head). *Use of iterative reconstruction technique. DLP: 114 mGy-cm FINDINGS: There is edema of subcutaneous tissues of the visualized upper arm, elbow and forearm. The edema is worst along the posterior aspect of the extremity and is most pronounced around the region of the posterior elbow and olecranon. The complex multiseptated collection located posterior to the olecranon on recent ultrasound imaging is not optimally visualized on this CT examination since it blends in with surrounding subcutaneous tissue edema and there is no evidence of a thickened hyperenhancing rim. The area of the collection measures approximately 5 x 1.8 x 6 cm. No soft tissue gas or radiopaque foreign body. The muscles of the extremity have normal attenuation. No evidence of intramuscular or intermuscular fluid collection. Alignment is normal at the elbow. The radiocapitellar and ulnohumeral joints are normal. No erosions or periostitis. No elbow joint effusion.? CT/CT elbow LT w IV con IMPRESSION: *? Diffuse edema of the visualized extremity is likely from cellulitis. ? *? Complex fluid collection at the level of the olecranon bursa is more clearly seen on recent ultrasound images than on this CT examination. The collection does not appear to have a hyperenhancing thickened rim. Nevertheless, consider the possibility of an infected olecranon bursitis. *? The underlying bones are normal. No evidence of septic arthritis or osteomyelitis. Dictated By: Bobby Garcia MD Signed By: Electronically signed by Bobby Garcia MD 03/22/22 5981 Critical Care Time Critical Care Time Critical Care Time: Yes Total Critical Care Time: 30 Attestation: I spent 30 minutes of Critical Care Time with this patient. This does not include time spent on separately reported billable procedures. Discharge Plan Discharge Clinical Impression: Cellulitis of left arm Patient Disposition: Admitted As Inpatient
[2022-03-22 11:52] VITALS: BP 112/71; PULSE 93; RESP 18; TEMP 36.6; O2SAT 95; BMI 31.0
[2022-03-22 11:54] LABS: MANUAL DIFF FLAG NO
--- NOTE | 2022-03-22 11:55 | PHA.MEDREC ---
Pharmacy Consult ? Medication Reconciliation Pharmacy has completed the medication reconciliation.
[2022-03-22 11:57] LABS: Basophils Absolute Auto 0.1 X10*3/uL (0.0-0.2); Basophils Percent Auto 0.5 % (0-2); Eosinophils Absolute Auto 0.1 X10*3/uL (0.0-0.4); Eosinophils Percent Auto 0.6 % (0-4); Hematocrit 42.4 % (42.0-52.0); Hemoglobin 13.8 g/dl (14.0-18.0); Imm Gran Abs Auto 0.11 X10*3/uL (0.00-0.03); Imm Gran Pct Auto 0.7 % (0.0-0.4); Lymphocytes Absolute Auto 1.5 X10*3/uL (1.2-4.9); Lymphocytes Percent Auto 9.3 % (20-40); Mean Corpuscular HGB Conc 32.5 g/dl (31.0-36.0); Mean Corpuscular Hemoglobin 26.1 pg (27.0-33.0); Mean Corpuscular Volume 80.3 fL (80.0-98.0); Mean Platelet Volume 9.2 fL (9.4-12.4); Monocytes Absolute Auto 1.4 X10*3/uL (0.1-1.2); Monocytes Percent Auto 9.2 % (2-11); Neutrophils Absolute Auto 12.4 x10*3/uL (2.0-8.3); Neutrophils Percent Auto 79.7 % (45-73); Platelet Count 357 X10*3/uL (160-400); Red Blood Count 5.28 X10*6/uL (4.60-5.80); White Blood Count 15.5 X10*3/uL (4.8-10.8)
[2022-03-22 11:59] LABS: INTERNATIONAL NORM RATIO 2.7 (0.9-1.1); Prothrombin Time 32.6 SEC (10.0-13.1)
[2022-03-22 12:01] LABS: Partial Thromboplastin Time 48.7 SEC (26.0-36.4)
[2022-03-22 12:22] LABS: Alanine Aminotransferase 17 U/L (0-40); Albumin Level 4.2 g/dL (3.5-5.0); Alkaline Phosphatase 89 U/L (39-117); Anion Gap 15 (12-20); Aspartate Amino Transferase 13 U/L (5-37); Blood Urea Nitrogen 24 mg/dL (9-16); C Reactive Protein 22.67 mg/dL (< or = 0.50); Calcium 9.4 mg/dL (8.4-10.2); Carbon Dioxide 25 mmol/L (22-29); Chloride 102 mmol/L (96-108); Creatinine Clr Calc Pharmacy 56.3; Estimated Glomerular Filt Rate 51; Glucose Random 99 mg/dL (60-115); Magnesium 2.1 mg/dL (1.6-2.6); Potassium 3.6 mmol/L (3.3-5.1); Sodium 138 mmol/L (135-145); Total Protein 7.1 g/dL (6.5-8.0)
[2022-03-22 12:28] LABS: Lactic Acid 2.2 mmol/L (0.5-2.0)
[2022-03-22 12:41] LABS: Erythrocyte Sedimentation Rate 46 MM/HR (0-15)
[2022-03-22 12:48] LABS: COVID-19 Test Negative (Negative); IDNOW Serial# BCCEAD1C
[2022-03-22] MEDS: iohexoL 350 MG/ML 100 ML INFUS..BTL IV (12:54)
[2022-03-22] MEDS: Piperacillin Sodium/Tazobactam 3.375 GM in 0.9 % Sodium Chloride 50 ML IV (13:16)
[2022-03-22] MEDS: 0.9 % Sodium Chloride 1,000 ML 999 ML IV (13:37)
[2022-03-22 13:50] LABS: Reflex Lactate? Lactic Acid Added
[2022-03-22 14:09] LABS: Bilirubin Total 0.9 mg/dL (0.0-1.0)
[2022-03-22 14:41] LABS: ~Lactic Acid-LAB USE ONLY 1.4 mmol/L (0.5-2.0)
--- NOTE | 2022-03-22 14:41 | PM.IMHP ---
History of Present Illness Date of Service: 03/22/22 Chief Complaint: arm and elbow swelling and pain, redness 72 year male with past medical history as noted below who present with pain, redness and swelling of the left arm, elbow since last weekend. He cannot point to any trauma or insect bite, on Sunday (2 days ago) he went to an urgent care clinic and was prescribed antibitoics but it has gotten worse and therefore came to ED. WBC is 15, lactic 2.2. CT of the arm/elbow show Complex fluid collection at the level of the olecranon bursa with posibility for infection. Ortho has assessed and recommend no intervention at this time. Given Zosyn Review of Systems Review of Systems: Gen: no fever Resp: no sob, no cough CV: no chest, no RAI, no leg edema GI: No n/v, no abd pain Neuro: No confusion MSK: left arm/wlbow swelling Yes all other systems are reviewed and are negative [facility] Medical History Essential hypertension Hemochromatosis GABBIE (obstructive sleep apnea) Persistent atrial fibrillation Typical atrial flutter Family History Father HTN (hypertension) Mother No problems noted. Surgical History History of prostate surgery (~10/2016) Social History Household Members: Spouse Housing: House Are you a primary workforce investment act career manager to a significant other at home: No Do you presently have visiting nurse or other home services: No Alcohol intake: never Patient Tobacco Use Status: Never used Tobacco Smoked in Last 30 Days: No Use of substances other than those prescribed or required for medical reasons: No Currently Displaying Signs/Symptoms of Drug Intoxication Withdrawal: No Have you been hit, kicked, punched, or otherwise hurt by someone within the past year? If so, by whom?: No Do you feel safe in your current relationship?: Yes Is there a partner from a previous relationship who is making you feel unsafe now?: No Are you made to feel afraid or neglected: No Advance Directives: Yes Advance Directives Information Provided: No Advance Directives on File: No Advance Directives Date on File: 03/23/22 Do you have thoughts of harming others: None Do you have a plan to hurt others: No Plan Recently lost weight without trying: No How much weight loss: Not applicable Eating poorly because of decreased appetite: No Nutrition screen score: 0 Nutrition Risks: No Nutritional Risk Poor oral hygiene: No service: No Current occupational status: retired 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 [employer] Current occupational exposures/hazards: Yes (Stress) Sexual orientation: Straight/Heterosexual Gender identity: Male Meds Allergies Allergy/AdvReac Type Severity Reaction Status Date / Time lisinopril AdvReac Unknown cough Verified 03/20/22 10:24 Active Medications: Current Medications Pharmacy Consult (Consult Rx Perform Med Rec) 1 each MISCELLANE ONCE PRN PRN Reason: Will be admitted Home Medications Medication Instructions Recorded Confirmed Last Taken Type dexlansoprazole 60 mg 60 mg PO BEDTIME 05/06/20 03/22/22 03/21/22 History capsule,biphase delayed release (Dexilant) irbesartan 150 1 tab PO DAILY 05/06/20 03/22/22 03/22/22 History mg-hydrochlorothiazide 12.5 mg tablet (Avalide) atorvastatin 10 mg tablet (Lipitor) 10 mg PO DAILY 12/22/20 03/22/22 03/22/22 History warfarin 5 mg tablet (Jantoven) 5 mg PO DAILY 05/03/21 03/22/22 Unknown History warfarin 5 mg tablet (Jantoven) 2.5 mg PO SUTUWEFRSA@1800 03/22/22 03/22/22 03/21/22 History warfarin 5 mg tablet (Jantoven) 5 mg PO MOTH@1800 03/22/22 03/22/22 03/20/22 History Physical Exam Vital Signs and Narrative: Vital Signs: Last Vital Signs Temp 97.9 F 03/22/22 11:52 Pulse 93 03/22/22 11:52 Resp 18 03/22/22 11:52 BP 112/71 03/22/22 11:52 Pulse Ox 95 03/22/22 11:52 O2 Del Method 03/22/22 11:52 BMI result Body Mass Index 31.0 Const: Other: Constitutional: Alert, in no distress, overweight. Mental Status: Oriented to person, place and time. Eyes: Pupils are equal, round and reactive to light. Ear, Nose and Throat: Oropharynx clear, mucous membranes moist. Ears and nose without eformities. Trachea midline. Respiratory: Clear to auscultation. No wheezing, rales or rhonchi. Cardiovascular: S1 S2 regular. No murmurs, rubs or gallops. Gastrointestinal: Abdomen soft, non-tender, non-distended. Normal bowel sounds.? Neurologic: Cranial nerves II-XII grossly intact. No focal neurological deficits. Moves all extremities spontaneously.? Skin: No rashes or lesions.? Musculoskeletal: No cyanosis or clubbing. marked swelling of the left arm with large effusion at the elbow with surface renedss extending to the arm Psychiatric: Normal mood and affect? Results Labs CBC and Chem 7: 03/22/22 11:37 03/22/22 11:37 Labs: Laboratory Results - last 24 hr 03/22/22 03/22/22 03/22/22 11:37 11:37 11:37 MCV 80.3 MCH 26.1 L MCHC 32.5 RDW 15.0 Plt Count 357 MPV 9.2 L Immature Gran % (Auto) 0.7 H Neut % (Auto) 79.7 H Lymph % (Auto) 9.3 L [place] % (Auto) 9.2 Eos % (Auto) 0.6 Baso % (Auto) 0.5 Lymph # (Auto) 1.5 [place] # (Auto) 1.4 H Eos # (Auto) 0.1 Baso # (Auto) 0.1 Abs Immat Gran (auto) 0.11 H Absolute Neuts (auto) 12.4 H Absolute Nucleated RBC 0.000 Nucleated RBC % (auto) 0.0 ESR 46 H PT 32.6 H INR 2.7 H APTT 48.7 H Anion Gap Estim Creat Clear Calc Estimated GFR Random Glucose Lactic Acid Calcium Magnesium Total Bilirubin AST ALT Alkaline Phosphatase C-Reactive Protein Total Protein Albumin COVID-19 (BHANU) COVID-19 Clin Com 03/22/22 03/22/22 03/22/22 11:37 11:37 11:39 MCV MCH MCHC RDW Plt Count MPV Immature Gran % (Auto) Neut % (Auto) Lymph % (Auto) [place] % (Auto) Eos % (Auto) Baso % (Auto) Lymph # (Auto) [place] # (Auto) Eos # (Auto) Baso # (Auto) Abs Immat Gran (auto) Absolute Neuts (auto) Absolute Nucleated RBC Nucleated RBC % (auto) ESR PT INR APTT Anion Gap 15 Estim Creat Clear Calc 56.3 Estimated GFR 51 Random Glucose 99 Lactic Acid 2.2 H* Calcium 9.4 Magnesium 2.1 Total Bilirubin 0.9 AST 13 ALT 17 Alkaline Phosphatase 89 C-Reactive Protein 22.67 H Total Protein 7.1 Albumin 4.2 COVID-19 (BHANU) Negative COVID-19 Clin Com See Note Imaging Radiologist's Impressions: Impressions Venous Duplex 03/22/22 11:11 IMPRESSION: * No evidence of superficial or deep vein thrombosis in the left upper extremity. * There is soft tissue edema of the arm and a 3.8 x 1.2 x 4.2 cm complex collection is present in the expected location of the olecranon bursa. This could represent an infected olecranon bursa, if in the proper clinical context. Elbow CT 03/22/22 12:52 IMPRESSION: * Diffuse edema of the visualized extremity is likely from cellulitis. * Complex fluid collection at the level of the olecranon bursa is more clearly seen on recent ultrasound images than on this CT examination. The collection does not appear to have a hyperenhancing thickened rim. Nevertheless, consider the possibility of an infected olecranon bursitis. * The underlying bones are normal. No evidence of septic arthritis or osteomyelitis. Assessment and Plan (1) Severe sepsis: Status: Acute (2) Cellulitis of left arm: Status: Acute Plan 72/m PAF, HTN, hereditary hemochomatosis, GABBIE here with Sepsis, left arm cellulitis and olecranon bursitisis 1/Severe sepsis (lactic 2.2, HR 99, WBC15) /dt 2/Left arm cellulitis and olecranon bursitis -Failed outpatient Abx -Vanco + Zosyn -follow cultures -Ortho consult -ID consult -APAP +Oxycodone for pain 3/Paroxysmal A-fib -continue cardizem for rate control -coumadin for stroke prevention -will discuss changing to eliquis or xarelto 4/HTN--continue Irbesartan, HCTZ and Cardizem 5/HLD-Lipitor 6/GABBIE--CPAP if uses one at home 6/DVT prophylaxis, coumadin [facility] 2 midnights for management of sepsis with IV Abx and monitoring for response, having faied oral Abx. Time Spent With Patient Time: Total time managing care of this patient today ____ minutes. Quality Stroke Does the patient have a stroke diagnosis?: No VTE Prior VTE?: No VTE Risk Level:: Medical - moderate - high VTE Device Contraindication: Treatment Not Indicated VTE Drug Contraindication: N/A - Med Ordered
[2022-03-22] MEDS: 0.9 % Sodium Chloride Flush 3 ML SYRINGE IVFLUSH (17:15)
[2022-03-22 18:20] VITALS: BP 121/62; PULSE 99; RESP 20; O2SAT 95
[2022-03-22] MEDS: Warfarin Sodium 2.5 MG TABLET PO (18:20)
[2022-03-22] MEDS: Omeprazole 40 MG CAPSULE.DR PO (20:35)
[2022-03-22 22:10] VITALS: BP 121/66; PULSE 101; TEMP 37.3; O2SAT 97
--- NOTE | 2022-03-22 22:20 | MHC.CM.PN ---
IMM 03/22. CM met with admitted patient with bed assignment pending. A&Ox4. Lives with /HCP Sari Pérez ([phone]). HCP not on file. Copy requested. Pfizer x4. No DME/services. D/C plan: Home without services. will transport. CM will follow for any discharge planning needs.
[2022-03-23] MEDS: Acetaminophen 325 MG TABLET 650 MG PO (00:40)
[2022-03-23] MEDS: Melatonin 3 MG TABLET 6 MG PO (00:42)
[2022-03-23 01:26] VITALS: BMI 31.8
[2022-03-23 01:36] VITALS: BP 138/64; PULSE 113; RESP 18; TEMP 36.7; O2SAT 94
[2022-03-23 06:01] LABS: INTERNATIONAL NORM RATIO 2.7 (0.9-1.1); Prothrombin Time 32.5 SEC (10.0-13.1)
[2022-03-23 08:00] VITALS: BP 118/59; PULSE 90; RESP 19; TEMP 37.1; O2SAT 97
[2022-03-23] MEDS: dilTIAZem HCL CD 180 MG CAP.ER.24H 360 MG PO (08:09)
[2022-03-23] MEDS: hydroCHLOROthiazide 12.5 MG TABLET PO (08:09)
[2022-03-23] MEDS: Atorvastatin Calcium 10 MG TABLET PO (08:09)
--- NOTE | 2022-03-23 09:57 | HO.PM.IMPN ---
Subjective Subjective Date of Service: 03/23/22 Interval History: f/u on cellulitis of the arm/elbow on left side interval history: swelling and pain is midly better Review of Systems Gen: no fever Resp: no sob, no cough CV: no chest, no RAI, no leg edema GI: No n/v, no abd pain Neuro: No confusion MSK: left arm/wlbow swelling Physical Exam Vital Signs: Vital Signs: Last Vital Signs Temp 98.8 F 03/23/22 08:00 Pulse 90 03/23/22 08:00 Resp 19 03/23/22 08:00 BP 118/59 L 03/23/22 08:00 Pulse Ox 97 03/23/22 08:00 O2 Del Method 03/23/22 08:00 O2 Flow Rate 2.0 03/23/22 08:00 BMI result Body Mass Index 31.8 Const: Other: General: AO X 3, no acute distress Resp: CTA bilateral CVS: S1,S2,RRR GI: +BS, NT, no distention Skin: No rash Neuro: motor grossly intact Musculoskeletal: No cyanosis or clubbing. marked swelling of the left arm with large effusion at the elbow with surface renedss extending to the arm--full ROM Psychiatric: Normal mood and affect? Objective Data Active Medications Acetaminophen (Acetaminophen 325 Mg Tablet) 650 mg PO Q6H PRN PRN Reason: Pain, Mild (Pain Scale 1-3) Last Admin: 03/23/22 00:40 Dose: 650 mg Documented By: RAAD Atorvastatin Calcium (Atorvastatin Calcium 10 Mg Tablet) 10 mg PO DAILY [facility] Last Admin: 03/23/22 08:09 Dose: 10 mg Documented By: GRETTA Diltiazem HCl (Diltiazem Hcl Cd 180 Mg Cap.Er.24h) 360 mg PO DAILY [facility]; Protocol Last Admin: 03/23/22 08:09 Dose: 360 mg Documented By: GRETTA Hydrochlorothiazide (Hydrochlorothiazide 12.5 Mg Tablet) 12.5 mg PO DAILY [facility]; Protocol Last Admin: 03/23/22 08:09 Dose: 12.5 mg Documented By: GRETTA Vancomycin HCl 1,250 mg/ (Sodium Chloride) 250 mls @ 166.667 mls/hr IV Q24H [facility] Vancomycin HCl (Vancomycin/Ns) 2,000 mg in 520 mls @ 260 mls/hr IV ONCE ONE Stop: 03/23/22 11:33 Piperacillin Sod/Tazobactam (Sod 3.375 gm/ Sodium Chloride) 50 mls @ 100 mls/hr IV Q6H [facility] Melatonin (Melatonin 3 Mg Tablet) 6 mg PO BEDTIME PRN PRN Reason: Insomnia Last Admin: 03/23/22 00:42 Dose: 6 mg Documented By: RAAD Omeprazole (Omeprazole 40 Mg Capsule.Dr) 40 mg PO DAILY@0630 [facility] Last Admin: 03/23/22 05:34 Dose: Not Given Documented By: JANET Non-Admin Reason: pt would like to take in the evening Ondansetron HCl (Ondansetron Hcl 4 Mg/2 Ml Vial) 4 mg IVPUSH Q8H PRN PRN Reason: Nausea and Vomiting Oxycodone HCl (Oxycodone Hcl Immed Release 5 Mg Tablet) 5 mg PO Q6H PRN PRN Reason: Pain, Severe (Pain Scale 7-10) Pharmacy Consult (Consult Rx Perform Med Rec) 1 each MISCELLANE ONCE PRN PRN Reason: Will be admitted Pharmacy Consult (Consult Rx Vancomycin Dosing) 1 each MISCELLANE DAILY PRN PRN Reason: Consult order Sodium Chloride (0.9 % Sodium Chloride Flush 3 Ml Syringe) 3 ml IVFLUSH QSHIFT [facility] Last Admin: 03/23/22 00:00 Dose: 3 ml Documented By: RAAD Comments: 3mL not available in carts. Given from 10 mL syringe Warfarin Sodium (Warfarin Sodium 2.5 Mg Tablet) 2.5 mg PO SUTUWEFRSA@1800 [facility] Last Admin: 03/22/22 18:20 Dose: 2.5 mg Documented By: CEDRIC-JAJAICL Warfarin Sodium (Warfarin Sodium 5 Mg Tablet) 5 mg PO MOTH@1800 [facility] Labs CBC & Chem 7: 03/22/22 11:37 03/22/22 11:37 Labs: Laboratory Results - last 24 hr 03/22/22 03/22/22 03/22/22 11:37 11:37 11:37 MCV 80.3 MCH 26.1 L MCHC 32.5 RDW 15.0 Plt Count 357 MPV 9.2 L Immature Gran % (Auto) 0.7 H Neut % (Auto) 79.7 H Lymph % (Auto) 9.3 L [place] % (Auto) 9.2 Eos % (Auto) 0.6 Baso % (Auto) 0.5 Lymph # (Auto) 1.5 [place] # (Auto) 1.4 H Eos # (Auto) 0.1 Baso # (Auto) 0.1 Abs Immat Gran (auto) 0.11 H Absolute Neuts (auto) 12.4 H Absolute Nucleated RBC 0.000 Nucleated RBC % (auto) 0.0 ESR 46 H PT 32.6 H INR 2.7 H APTT 48.7 H Anion Gap Estim Creat Clear Calc Estimated GFR Random Glucose Lactic Acid Lactic Acid F/U @ 2Hr Calcium Magnesium Total Bilirubin AST ALT Alkaline Phosphatase C-Reactive Protein Total Protein Albumin COVID-19 (BHANU) COVID-[employer] 03/22/22 03/22/22 03/22/22 11:37 11:37 11:39 MCV MCH MCHC RDW Plt Count MPV Immature Gran % (Auto) Neut % (Auto) Lymph % (Auto) [place] % (Auto) Eos % (Auto) Baso % (Auto) Lymph # (Auto) [place] # (Auto) Eos # (Auto) Baso # (Auto) Abs Immat Gran (auto) Absolute Neuts (auto) Absolute Nucleated RBC Nucleated RBC % (auto) ESR PT INR APTT Anion Gap 15 Estim Creat Clear Calc 56.3 Estimated GFR 51 Random Glucose 99 Lactic Acid 2.2 H* Lactic Acid F/U @ 2Hr Calcium 9.4 Magnesium 2.1 Total Bilirubin 0.9 AST 13 ALT 17 Alkaline Phosphatase 89 C-Reactive Protein 22.67 H Total Protein 7.1 Albumin 4.2 COVID-19 (BHANU) Negative COVID-[facility]DE[facility] [employer] See Note 03/22/22 03/23/22 14:09 05:25 MCV MCH MCHC RDW Plt Count MPV Immature Gran % (Auto) Neut % (Auto) Lymph % (Auto) [place] % (Auto) Eos % (Auto) Baso % (Auto) Lymph # (Auto) [place] # (Auto) Eos # (Auto) Baso # (Auto) Abs Immat Gran (auto) Absolute Neuts (auto) Absolute Nucleated RBC Nucleated RBC % (auto) ESR PT 32.5 H INR 2.7 H APTT Anion Gap Estim Creat Clear Calc Estimated GFR Random Glucose Lactic Acid Lactic Acid F/U @ 2Hr 1.4 Calcium Magnesium Total Bilirubin AST ALT Alkaline Phosphatase C-Reactive Protein Total Protein Albumin COVID-19 (BHANU) COVID-19 Clin Com Assessment and Plan (1) Cellulitis of left arm: Status: Acute (2) Severe sepsis: Status: Acute Plan 72/m PAF, HTN, hereditary hemochomatosis, GABBIE here with Sepsis, left arm cellulitis and olecranon bursitisis 1/Severe sepsis (lactic 2.2, HR 99, WBC15) /dt , sepsis now resolved. 2/Left arm cellulitis and olecranon bursitis -Failed outpatient Abx -Vanco + Zosyn -follow cultures -Ortho consult--no indication for tap -ID consult -APAP +Oxycodone for pain 3/Paroxysmal A-fib -continue cardizem for rate control -coumadin for stroke prevention -INR 2.7, decrease coumadin to 2.5 in light of Abx use 4/HTN--continue Irbesartan, HCTZ and Cardizem 5/HLD-Lipitor 6/GABBIE--CPAP if uses one at home 6/DVT prophylaxis, coumadin Need for inpatient: management of sepsis with IV Abx and monitoring for response, having faied oral Abx. Time Spent With Patient Time: Total time managing care of this patient today ____ minutes. Quality Stroke Does the patient have a stroke diagnosis?: No VTE Prior VTE?: No VTE Risk Level:: Medical - moderate - high VTE Device Contraindication: Treatment Not Indicated VTE Drug Contraindication: N/A - Med Ordered
[2022-03-23 09:58] LABS: Creatinine Clr Calc Pharmacy 62.8; Estimated Glomerular Filt Rate 57
--- NOTE | 2022-03-23 10:12 | PHA.PROG ---
Admission Date/Time: March 22, 2022 15:21 Indication: Left arm cellulitis/sepsis Weight in k.7 kg Adjusted body weight in K.5 kg [place] body weight in K.7 kg Obesity Dosing Indication % IBW: 138% Serum Creatinine - Last 168 Hours 03/22/22 03/23/22 11:37 05:40 Creatinine 1.39 1.26 Estimated CrCl and GFR - Last 168 Hours 03/22/22 03/23/22 11:37 05:40 Estim Creat Clear Calc 56.3 62.8 Estimated GFR 51 57 Vancomycin Loading Dose: 2000 mg (20.4 mg/kg) Current Vancomycin Dosing Regimen: 1250 mg Q24H Date and Time for next Vancomycin Level to be drawn: 03/25 @ 0800 Pharmacist Comments on Vancomycin Plan: Patient is obese due to %IBW > 130% therefore patient need careful monitor due to high volume of distribution. Patient received loading dose vancomycin 2000 mg on 03/23 2@ 0957. Maintenance dose vanco 1250 mg q24h is scheduld to start 03/24 @ 1000. Expected AUC 495 with a trough of 13.1. Pharmacy will monitor renal funcion daily Level to be drawn prior to 3rd to dose to [facility] for safety. Guillermina Avilez PharmD Vancomycin dosing will take advantage of [employer] as a clinical decision support tool that uses Bayesian modeling to calculate individual patient's pharmacokinetic parameters and forecast the patient's drug concentration time course with the target goal AUC 24 range of 400 - 600 mg/L/hr.
[2022-03-23 10:16] LABS: Hematocrit 39.5 % (42.0-52.0); Hemoglobin 13.1 g/dl (14.0-18.0); Mean Corpuscular HGB Conc 33.2 g/dl (31.0-36.0); Mean Corpuscular Hemoglobin 26.5 pg (27.0-33.0); Mean Platelet Volume 9.2 fL (9.4-12.4); Platelet Count 348 X10*3/uL (160-400); Red Blood Count 4.94 X10*6/uL (4.60-5.80); Red Cell Distribution Width 14.9 % (11.0-16.0); White Blood Count 11.6 X10*3/uL (4.8-10.8)
[2022-03-23] MEDS: Piperacillin Sodium/Tazobactam 3.375 GM in 0.9 % Sodium Chloride 50 ML IV ×3 (12:16→21:36)
[2022-03-23] MEDS: Valsartan 80 MG TABLET PO (12:48)
[2022-03-23 15:29] VITALS: BP 147/63; PULSE 87; RESP 16; TEMP 36.5; O2SAT 96
[2022-03-23] MEDS: 0.9 % Sodium Chloride Flush 3 ML SYRINGE IVFLUSH ×3 (16:16→21:37)
[2022-03-23] MEDS: Warfarin Sodium 5 MG TABLET PO (17:56)
[2022-03-23 19:39] VITALS: BP 132/58; PULSE 99; RESP 18; TEMP 36.8; O2SAT 97
[2022-03-24] MEDS: Piperacillin Sodium/Tazobactam 3.375 GM in 0.9 % Sodium Chloride 50 ML IV ×4 (05:24→21:05)
[2022-03-24] MEDS: Omeprazole 40 MG CAPSULE.DR PO (05:24)
[2022-03-24 06:18] LABS: Creatinine Clr Calc Pharmacy 55.4; Estimated Glomerular Filt Rate 49
[2022-03-24 06:29] LABS: INTERNATIONAL NORM RATIO 2.8 (0.9-1.1); Prothrombin Time 33.4 SEC (10.0-13.1)
--- NOTE | 2022-03-24 07:13 | HE.PHANOTE ---
MAGED CRAWFORD CONTINUE CURRENT DOSE, NEXT LEVEL DUE 03/25 @0800 WATCH SCR DUE TO RISE KURT
--- NOTE | 2022-03-24 07:34 | PM.PNORT ---
Subjective Subjective Date of Service: 03/24/22 Interval history: Left elbow continues to improve on IV abx. Patient reports he has less pain, redness and has regained more motion in the hand, wrist, and elbow. No overnight events. No additional complaints. Physical Exam Vital Signs: Vital Signs: Last Vital Signs Temp 98.2 F 03/23/22 19:39 Pulse 99 03/23/22 19:39 Resp 18 03/23/22 19:39 BP 132/58 L 03/23/22 19:39 Pulse Ox 97 03/23/22 19:39 O2 Del Method 03/23/22 19:39 O2 Flow Rate 2.0 03/23/22 08:00 BMI result Body Mass Index 31.8 Const: General: cooperative, healthy appearing and no acute distress Resp: Effort & Inspection: normal respiratory effort and able to speak in complete sentences Cardio: Rate: regular rate Peripheral pulses: Peripheral pulses 2+ throughout GI: Palpation (GI): Soft to palpation Skin: Lesions: no lesions Rashes: no rashes Extrem: Other: Left elbow and forearm erythema and edema. Improved since yesterdays exam. Left elbow able to flex, extend, pronate and supinate without discomfort. Able to flex and extend at the wrist. Able to make a closed fist. NVI. Procedures Date of Service Date of Service: 03/24/22 Progress Note: A&P Assessment and plan (1) Cellulitis of left arm: Status: Acute Assessment and Plan: Continue IV abx Continue gentle ROM of the elbow hand and wrist Elevate Pain management as needed No additional orthopedic intervention needed at this time Time Spent With Patient Time: Total time managing care of this patient today ____ minutes. Quality Stroke Does the patient have a stroke diagnosis?: No VTE Prior VTE?: No VTE Risk Level:: Medical - moderate - high VTE Device Contraindication: Treatment Not Indicated VTE Drug Contraindication: N/A - Med Ordered
--- NOTE | 2022-03-24 07:49 | PM.CNOR ---
History of Present Illness HPI Consult date: 03/23/22 Chief complaint: Sepsis Narrative: 72 year male who presented to the ED with pain, redness and swelling of the left arm, elbow since last weekend. He cannot point to any trauma or insect bite, on Sunday (2 days ago) he went to an urgent care clinic and was prescribed antibitoics but it has gotten worse and therefore came to ED.? WBC is 15, lactic 2.2. CT of the arm/elbow show?Complex fluid collection at the level of the olecranon bursa with posibility for infection. he was Given Zosyn in the ED, admission for continued iv abx and ortho was consulted for further recommendations. Review of Systems Constitutional: Constitutional: Reports as per [facility] Past Medical History Medical History Essential hypertension Hemochromatosis GABBIE (obstructive sleep apnea) Persistent atrial fibrillation Typical atrial flutter Family History Family History Father HTN (hypertension) Mother No problems noted. Surgical History Surgical History History of prostate surgery (~10/2016) Social History Social History Household Members: Spouse Housing: House Are you a primary nurse wound care to a significant other at home: No Do you presently have visiting nurse or other home services: No Alcohol intake: never Patient Tobacco Use Status: Never used Tobacco Smoked in Last 30 Days: No Use of substances other than those prescribed or required for medical reasons: No Currently Displaying Signs/Symptoms of Drug Intoxication Withdrawal: No Have you been hit, kicked, punched, or otherwise hurt by someone within the past year? If so, by whom?: No Do you feel safe in your current relationship?: Yes Is there a partner from a previous relationship who is making you feel unsafe now?: No Are you made to feel afraid or neglected: No Advance Directives: Yes Advance Directives Information Provided: No Advance Directives on File: No Advance Directives Date on File: 03/23/22 Do you have thoughts of harming others: None Do you have a plan to hurt others: No Plan Recently lost weight without trying: No How much weight loss: Not applicable Eating poorly because of decreased appetite: No Nutrition screen score: 0 Nutrition Risks: No Nutritional Risk Poor oral hygiene: No service: No Current occupational status: retired 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 [employer] Current occupational exposures/hazards: Yes (Stress) Sexual orientation: Straight/Heterosexual Gender identity: Male Meds Allergies Allergy/AdvReac Type Severity Reaction Status Date / Time lisinopril AdvReac Unknown cough Verified 03/20/22 10:24 Active Medications: Current Medications Acetaminophen (Acetaminophen 325 Mg Tablet) 650 mg PO Q6H PRN PRN Reason: Pain, Mild (Pain Scale 1-3) Last Admin: 03/23/22 00:40 Dose: 650 mg Atorvastatin Calcium (Atorvastatin Calcium 10 Mg Tablet) 10 mg PO DAILY [facility] Last Admin: 03/23/22 08:09 Dose: 10 mg Diltiazem HCl (Diltiazem Hcl Cd 180 Mg Cap.Er.24h) 360 mg PO DAILY [facility]; Protocol Last Admin: 03/23/22 08:09 Dose: 360 mg Hydrochlorothiazide (Hydrochlorothiazide 12.5 Mg Tablet) 12.5 mg PO DAILY [facility]; Protocol Last Admin: 03/23/22 08:09 Dose: 12.5 mg Vancomycin HCl 1,250 mg/ (Sodium Chloride) 250 mls @ 166.667 mls/hr IV Q24H [facility] Piperacillin Sod/Tazobactam (Sod 3.375 gm/ Sodium Chloride) 50 mls @ 100 mls/hr IV Q6H [facility] Last Infusion: 03/24/22 06:36 Dose: Infused Melatonin (Melatonin 3 Mg Tablet) 6 mg PO BEDTIME PRN PRN Reason: Insomnia Last Admin: 03/23/22 00:42 Dose: 6 mg Omeprazole (Omeprazole 40 Mg Capsule.Dr) 40 mg PO DAILY@0630 [facility] Last Admin: 03/24/22 05:24 Dose: 40 mg Ondansetron HCl (Ondansetron Hcl 4 Mg/2 Ml Vial) 4 mg IVPUSH Q8H PRN PRN Reason: Nausea and Vomiting Oxycodone HCl (Oxycodone Hcl Immed Release 5 Mg Tablet) 5 mg PO Q6H PRN PRN Reason: Pain, Severe (Pain Scale 7-10) Pharmacy Consult (Consult Rx Perform Med Rec) 1 each MISCELLANE ONCE PRN PRN Reason: Will be admitted Pharmacy Consult (Consult Rx Vancomycin Dosing) 1 each MISCELLANE DAILY PRN PRN Reason: Consult order Sodium Chloride (0.9 % Sodium Chloride Flush 3 Ml Syringe) 3 ml IVFLUSH QSHIFT [facility] Last Admin: 03/23/22 21:37 Dose: 3 ml Warfarin Sodium (Warfarin Sodium 2.5 Mg Tablet) 2.5 mg PO SUTUWEFRSA@1800 [facility] Last Admin: 03/22/22 18:20 Dose: 2.5 mg Warfarin Sodium (Warfarin Sodium 5 Mg Tablet) 5 mg PO MOTH@1800 [facility] Last Admin: 03/23/22 17:56 Dose: 5 mg Home Medications Medication Instructions Recorded Confirmed Last Taken Type dexlansoprazole 60 mg 60 mg PO BEDTIME 05/06/20 03/22/22 03/21/22 History capsule,biphase delayed release (Dexilant) irbesartan 150 1 tab PO DAILY 05/06/20 03/22/22 03/22/22 History mg-hydrochlorothiazide 12.5 mg tablet (Avalide) atorvastatin 10 mg tablet (Lipitor) 10 mg PO DAILY 12/22/20 03/22/22 03/22/22 History warfarin 5 mg tablet (Jantoven) 5 mg PO DAILY 05/03/21 03/22/22 Unknown History warfarin 5 mg tablet (Jantoven) 2.5 mg PO SUTUWEFRSA@1800 03/22/22 03/22/22 03/21/22 History warfarin 5 mg tablet (Jantoven) 5 mg PO MOTH@1800 03/22/22 03/22/22 03/20/22 History Physical Exam Vital Signs: Vital Signs: Last Vital Signs Temp 98.2 F 03/23/22 19:39 Pulse 99 03/23/22 19:39 Resp 18 03/23/22 19:39 BP 132/58 L 03/23/22 19:39 Pulse Ox 97 03/23/22 19:39 O2 Del Method 03/23/22 19:39 O2 Flow Rate 2.0 03/23/22 08:00 BMI result Body Mass Index 31.8 Const: General: cooperative, healthy appearing, comfortable and no acute distress Extrem: Other: ?Left elbow diffuse redness and swelling over the olecranon and into the forearm. No significant pain over the olecranon bura. No fluctulance. He is able to range the elbow without pain. He can flex and extend the wrist without pain. He is able to make a fist and extend all digits. NVI. Results Labs Result Diagrams: 03/23/22 10:06 03/24/22 05:17 Labs: Abnormal lab results 03/23/22 03/24/22 03/24/22 Range/Units 10:06 05:17 05:17 WBC 11.6 H (4.8-10.8) X10*3/uL Hgb 13.1 L (14.0-18.0) g/dl Hct 39.5 L (42.0-52.0) % MCH 26.5 L (27.0-33.0) pg MPV 9.2 L (9.4-12.4) fL PT 33.4 H (10.0-13.1) SEC INR 2.8 H (0.9-1.1) Creatinine 1.43 H (0.5-1.4) mg/dL H & H 03/22/22 03/23/22 Range/Units 11:37 10:06 Hgb 13.8 L 13.1 L (14.0-18.0) g/dl Hct 42.4 39.5 L (42.0-52.0) % Coagulation 03/22/22 03/23/22 03/24/22 Range/Units 11:37 05:25 05:17 INR 2.7 H 2.7 H 2.8 H (0.9-1.1) All other labs normal. Assessment and Plan (1) Cellulitis of left arm: Status: Acute Plan In the absence of pain with ROM or fluctulance, absence of pain over the olecranon, this does not appear to be a septic process, rather cellulitis. I would recommend continued ROM to tolerance, iv abx, elevation . He does feel his symptoms have improved since he started iv abx. If symptoms worsen, will re-eval. Time Spent With Patient Time: Total time managing care of this patient today ____ minutes. Procedures Date of Service Date of Service: 03/24/22
[2022-03-24 07:52] VITALS: BP 119/61; PULSE 89; RESP 17; TEMP 36.7; O2SAT 96
[2022-03-24] MEDS: hydroCHLOROthiazide 12.5 MG TABLET PO (09:19)
[2022-03-24] MEDS: Atorvastatin Calcium 10 MG TABLET PO (09:19)
[2022-03-24] MEDS: dilTIAZem HCL CD 180 MG CAP.ER.24H 360 MG PO (09:19)
[2022-03-24] MEDS: 0.9 % Sodium Chloride Flush 3 ML SYRINGE IVFLUSH ×3 (09:21→21:08)
--- NOTE | 2022-03-24 09:38 | HO.PM.IMPN ---
Subjective Subjective Date of Service: 03/24/22 Interval History: f/u on cellulitis of the arm/elbow on left side interval history: swelling and pain is better, better ROM Review of Systems Gen: no fever Resp: no sob, no cough CV: no chest, no RAI, no leg edema GI: No n/v, no abd pain Neuro: No confusion MSK: left arm/wlbow swelling Physical Exam Vital Signs: Vital Signs: Last Vital Signs Temp 98.1 F 03/24/22 07:52 Pulse 89 03/24/22 07:52 Resp 17 03/24/22 07:52 BP 119/61 03/24/22 07:52 Pulse Ox 96 03/24/22 07:52 O2 Del Method 03/24/22 07:52 O2 Flow Rate 2.0 03/23/22 08:00 BMI result Body Mass Index 31.8 Const: Other: General: AO X 3, no acute distress Resp: CTA bilateral CVS: S1,S2,RRR GI: +BS, NT, no distention Skin: No rash Neuro: motor grossly intact Musculoskeletal: No cyanosis or clubbing. less swelling of the left arm with large effusion at the elbow with surface renedss extending to the arm--full ROM Psychiatric: Normal mood and affect? Objective Data Active Medications Acetaminophen (Acetaminophen 325 Mg Tablet) 650 mg PO Q6H PRN PRN Reason: Pain, Mild (Pain Scale 1-3) Last Admin: 03/23/22 00:40 Dose: 650 mg Documented By: RAAD Atorvastatin Calcium (Atorvastatin Calcium 10 Mg Tablet) 10 mg PO DAILY [facility] Last Admin: 03/24/22 09:19 Dose: 10 mg Documented By: LEISA Diltiazem HCl (Diltiazem Hcl Cd 180 Mg Cap.Er.24h) 360 mg PO DAILY [facility]; Protocol Last Admin: 03/24/22 09:19 Dose: 360 mg Documented By: LEISA Hydrochlorothiazide (Hydrochlorothiazide 12.5 Mg Tablet) 12.5 mg PO DAILY [facility]; Protocol Last Admin: 03/24/22 09:19 Dose: 12.5 mg Documented By: LEISA Vancomycin HCl 1,250 mg/ (Sodium Chloride) 250 mls @ 166.667 mls/hr IV Q24H [facility] Piperacillin Sod/Tazobactam (Sod 3.375 gm/ Sodium Chloride) 50 mls @ 100 mls/hr IV Q6H [facility] Last Admin: 03/24/22 09:20 Dose: 100 mls/hr Documented By: LEISA Melatonin (Melatonin 3 Mg Tablet) 6 mg PO BEDTIME PRN PRN Reason: Insomnia Last Admin: 03/23/22 00:42 Dose: 6 mg Documented By: RAAD Omeprazole (Omeprazole 40 Mg Capsule.Dr) 40 mg PO DAILY@0630 [facility] Last Admin: 03/24/22 05:24 Dose: 40 mg Documented By: SANDIP Ondansetron HCl (Ondansetron Hcl 4 Mg/2 Ml Vial) 4 mg IVPUSH Q8H PRN PRN Reason: Nausea and Vomiting Oxycodone HCl (Oxycodone Hcl Immed Release 5 Mg Tablet) 5 mg PO Q6H PRN PRN Reason: Pain, Severe (Pain Scale 7-10) Pharmacy Consult (Consult Rx Perform Med Rec) 1 each MISCELLANE ONCE PRN PRN Reason: Will be admitted Pharmacy Consult (Consult Rx Vancomycin Dosing) 1 each MISCELLANE DAILY PRN PRN Reason: Consult order Sodium Chloride (0.9 % Sodium Chloride Flush 3 Ml Syringe) 3 ml IVFLUSH QSHIFT [facility] Last Admin: 03/24/22 09:21 Dose: 3 ml Documented By: LEISA Warfarin Sodium (Warfarin Sodium 2.5 Mg Tablet) 2.5 mg PO SUTUWEFRSA@1800 [facility] Last Admin: 03/22/22 18:20 Dose: 2.5 mg Documented By: CEDRIC-ANICL Warfarin Sodium (Warfarin Sodium 5 Mg Tablet) 5 mg PO MOTH@1800 [facility] Last Admin: 03/23/22 17:56 Dose: 5 mg Documented By: DABA Labs CBC & Chem 7: 03/23/22 10:06 03/24/22 05:17 Labs: Laboratory Results - last 24 hr 03/23/22 03/23/22 03/24/22 05:40 10:06 05:17 MCV 80.0 MCH 26.5 L MCHC 33.2 RDW 14.9 Plt Count 348 MPV 9.2 L Absolute Nucleated RBC 0.000 Nucleated RBC % (auto) 0.0 PT 33.4 H INR 2.8 H Estim Creat Clear Calc 62.8 Estimated GFR 57 03/24/22 05:17 MCV MCH MCHC RDW Plt Count MPV Absolute Nucleated RBC Nucleated RBC % (auto) PT INR Estim Creat Clear Calc 55.4 Estimated GFR 49 Microbiology Microbiology Results: Microbiology 03/22/22 11:45 Blood Culture - Preliminary Blood - Venous No growth after 24 hours. 03/22/22 11:37 Blood Culture - Preliminary Blood - Venous No growth after 24 hours. Assessment and Plan (1) Cellulitis of left arm: Status: Acute (2) Severe sepsis: Status: Acute Plan 72/m PAF, HTN, hereditary hemochomatosis, GABBIE here with Sepsis, left arm cellulitis and olecranon bursitisis 1/Severe sepsis (lactic 2.2, HR 99, WBC15) /dt , sepsis now resolved. 2/Left arm cellulitis and olecranon bursitis, improving -Failed outpatient Abx -Vanco + Zosyn D2, IV Abx for at least 1 more day then reassess for PO -follow cultures -Ortho consult--No indication for intervention -ID consult -APAP +Oxycodone for pain 3/Paroxysmal A-fib -continue cardizem for rate control -coumadin for stroke prevention -INR 2.7, coumadin adjust for INR 2 to 3 4/HTN--continue Irbesartan, HCTZ and Cardizem 5/HLD-Lipitor 6/GABBIE--CPAP if uses one at home 6/DVT prophylaxis, coumadin Need for inpatient: management of sepsis with IV Abx and monitoring for response, having faied oral Abx. Time Spent With Patient Time: Total time managing care of this patient today ____ minutes. Quality Stroke Does the patient have a stroke diagnosis?: No VTE Prior VTE?: No VTE Risk Level:: Medical - moderate - high VTE Device Contraindication: Treatment Not Indicated VTE Drug Contraindication: N/A - Med Ordered
[2022-03-24] MEDS: vancomycin HCL 1,250 MG in 0.9 % Sodium Chloride 250 ML 166.67 MG IV (10:16)
--- NOTE | 2022-03-24 11:29 | MHC.CM.PN ---
Addendum entered by Eula Wagner RN 03/24/22 11:34: IMM DELIVERED 03/24/22 IN ANTIC OF W/E D/C. Original Note: EMR REVIEWED, PER HOSPITALIST JALEN PT WILL REMAIN INPT OVERNIGHT FOR IV ABX AND WILL D/C TOMORROW 03/25 ON ORAL ABX W/ FOR TRANSPORT.
--- NOTE | 2022-03-24 12:25 | P.CNID_ITS ---
History of Present Illness Data of Consult Service Date: 03/24/22 Requesting physician: Horacio Garrido Primary Care Provider: Favian Davis MD HPI Reason for consult: left arm swelling,bursa He presents with left arm swelling and redness for last week. He reports being on antibiotics for three days. He has no fever or chills now. Review of Systems Review of Systems: Yes unobtainable due to endotracheal tube PMFSH Past Medical History Medical History Essential hypertension Hemochromatosis GABBIE (obstructive sleep apnea) Persistent atrial fibrillation Typical atrial flutter Family History Family History Father HTN (hypertension) Mother No problems noted. Family history: reviewed and not pertinent Surgical History Surgical History History of prostate surgery (~10/2016) Social History Social History Household Members: Spouse Housing: House Are you a primary vp care management to a significant other at home: No Do you presently have visiting nurse or other home services: No Alcohol intake: never Patient Tobacco Use Status: Never used Tobacco Smoked in Last 30 Days: No Use of substances other than those prescribed or required for medical reasons: No Currently Displaying Signs/Symptoms of Drug Intoxication Withdrawal: No Have you been hit, kicked, punched, or otherwise hurt by someone within the past year? If so, by whom?: No Do you feel safe in your current relationship?: Yes Is there a partner from a previous relationship who is making you feel unsafe now?: No Are you made to feel afraid or neglected: No Advance Directives: Yes Advance Directives Information Provided: No Advance Directives on File: No Advance Directives Date on File: 03/23/22 Do you have thoughts of harming others: None Do you have a plan to hurt others: No Plan Recently lost weight without trying: No How much weight loss: Not applicable Eating poorly because of decreased appetite: No Nutrition screen score: 0 Nutrition Risks: No Nutritional Risk Poor oral hygiene: No service: No Current occupational status: retired 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 [employer] Current occupational exposures/hazards: Yes (Stress) Sexual orientation: Straight/Heterosexual Gender identity: Male Meds Allergies Allergy/AdvReac Type Severity Reaction Status Date / Time lisinopril AdvReac Unknown cough Verified 03/20/22 10:24 Active Medications: Current Medications Acetaminophen (Acetaminophen 325 Mg Tablet) 650 mg PO Q6H PRN PRN Reason: Pain, Mild (Pain Scale 1-3) Last Admin: 03/23/22 00:40 Dose: 650 mg Atorvastatin Calcium (Atorvastatin Calcium 10 Mg Tablet) 10 mg PO DAILY [facility] Last Admin: 03/24/22 09:19 Dose: 10 mg Diltiazem HCl (Diltiazem Hcl Cd 180 Mg Cap.Er.24h) 360 mg PO DAILY [facility]; Protocol Last Admin: 03/24/22 09:19 Dose: 360 mg Hydrochlorothiazide (Hydrochlorothiazide 12.5 Mg Tablet) 12.5 mg PO DAILY [facility]; Protocol Last Admin: 03/24/22 09:19 Dose: 12.5 mg Vancomycin HCl 1,250 mg/ (Sodium Chloride) 250 mls @ 166.667 mls/hr IV Q24H [facility] Last Infusion: 03/24/22 11:57 Dose: Infused Piperacillin Sod/Tazobactam (Sod 3.375 gm/ Sodium Chloride) 50 mls @ 100 mls/hr IV Q6H [facility] Last Infusion: 03/24/22 10:21 Dose: Infused Melatonin (Melatonin 3 Mg Tablet) 6 mg PO BEDTIME PRN PRN Reason: Insomnia Last Admin: 03/23/22 00:42 Dose: 6 mg Omeprazole (Omeprazole 40 Mg Capsule.Dr) 40 mg PO DAILY@0630 [facility] Last Admin: 03/24/22 05:24 Dose: 40 mg Ondansetron HCl (Ondansetron Hcl 4 Mg/2 Ml Vial) 4 mg IVPUSH Q8H PRN PRN Reason: Nausea and Vomiting Oxycodone HCl (Oxycodone Hcl Immed Release 5 Mg Tablet) 5 mg PO Q6H PRN PRN Reason: Pain, Severe (Pain Scale 7-10) Pharmacy Consult (Consult Rx Perform Med Rec) 1 each MISCELLANE ONCE PRN PRN Reason: Will be admitted Pharmacy Consult (Consult Rx Vancomycin Dosing) 1 each MISCELLANE DAILY PRN PRN Reason: Consult order Sodium Chloride (0.9 % Sodium Chloride Flush 3 Ml Syringe) 3 ml IVFLUSH QSHIFT [facility] Last Admin: 03/24/22 09:21 Dose: 3 ml Warfarin Sodium (Warfarin Sodium 2.5 Mg Tablet) 2.5 mg PO SUTUWEFRSA@1800 [facility] Last Admin: 03/22/22 18:20 Dose: 2.5 mg Warfarin Sodium (Warfarin Sodium 5 Mg Tablet) 5 mg PO MOTH@1800 [facility] Last Admin: 03/23/22 17:56 Dose: 5 mg Home Medications Medication Instructions Recorded Confirmed Last Taken Type dexlansoprazole 60 mg 60 mg PO BEDTIME 05/06/20 03/22/22 03/21/22 History capsule,biphase delayed release (Dexilant) irbesartan 150 1 tab PO DAILY 05/06/20 03/22/22 03/22/22 History mg-hydrochlorothiazide 12.5 mg tablet (Avalide) atorvastatin 10 mg tablet (Lipitor) 10 mg PO DAILY 12/22/20 03/22/22 03/22/22 History warfarin 5 mg tablet (Jantoven) 5 mg PO DAILY 05/03/21 03/22/22 Unknown History warfarin 5 mg tablet (Jantoven) 2.5 mg PO SUTUWEFRSA@1800 03/22/22 03/22/22 03/21/22 History warfarin 5 mg tablet (Jantoven) 5 mg PO MOTH@1800 03/22/22 03/22/22 03/20/22 History Physical Exam Vital Signs: Vital Signs: Last Vital Signs Temp 98.1 F 03/24/22 07:52 Pulse 89 03/24/22 07:52 Resp 17 03/24/22 07:52 BP 119/61 03/24/22 07:52 Pulse Ox 96 03/24/22 07:52 O2 Del Method 03/24/22 07:52 O2 Flow Rate 2.0 03/23/22 08:00 BMI result Body Mass Index 31.8 Const: General: cooperative HEENT: Head: Yes normal to inspection Face and sinus: Yes normal facial exam Mouth: Normal oral and palatal mucosa present Teeth and gingiva: dentition normal Eyes: General: appearance normal, both eyes and all related structures Pupils: Equal, round and reactive pupils present Resp: Effort & Inspection: normal respiratory effort Cardio: Rate: regular rate Rhythm: regular rhythm GI: Palpation (GI): Soft to palpation and nontender : General: Yes no CVA tenderness Back/Spine/Pelvis: Back: no CVA tenderness Skin: Other: left arm reddened and swollen some bursa swelling as well Neuro: General: moves all extremities Cranial nerves: Yes Equal, round and reactive pupils present Extrem: General: Yes normal to inspection Psych: Appearance: grossly normal Results Labs CBC & Chem 7: 03/23/22 10:06 03/24/22 05:17 Labs: BMP 03/24/22 05:17 Creatinine 1.43 H Microbiology Microbiology Results: Microbiology 03/22/22 11:45 Blood - Venous Blood Culture - Preliminary No growth after 24 hours. 03/22/22 11:37 Blood - Venous Blood Culture - Preliminary No growth after 24 hours. Assessment and Plan (1) Cellulitis of left arm: Status: Acute He is immunocompromised due to hemochromatosis Gram positive and gram negative possible He has negative cultures (2) Hereditary hemochromatosis: Status: Chronic (3) Severe sepsis: Status: Acute Plan Would continue Zosyn and Vancomycin Await cultures Orthopedic or Surgery followup make sure no compartment syndrome or bursal drainage needed. Time Spent With Patient Time: Total time managing care of this patient today ____ minutes.
[2022-03-24 15:01] VITALS: BP 140/73; PULSE 85; RESP 18; TEMP 36.6; O2SAT 98
[2022-03-24] MEDS: Warfarin Sodium 2.5 MG TABLET PO (18:17)
[2022-03-24 19:20] VITALS: BP 137/62; PULSE 95; RESP 18; TEMP 37.6; O2SAT 95
[2022-03-25 04:00] VITALS: BP 110/48; PULSE 84; RESP 18; TEMP 37.2; O2SAT 94
[2022-03-25] MEDS: Piperacillin Sodium/Tazobactam 3.375 GM in 0.9 % Sodium Chloride 50 ML IV ×4 (05:05→20:07)
[2022-03-25] MEDS: Omeprazole 40 MG CAPSULE.DR PO (05:36)
[2022-03-25 08:00] VITALS: BP 129/65; PULSE 94; RESP 16; TEMP 36.2; O2SAT 97
[2022-03-25 09:00] LABS: INTERNATIONAL NORM RATIO 2.8 (0.9-1.1)
[2022-03-25] MEDS: 0.9 % Sodium Chloride Flush 3 ML SYRINGE IVFLUSH ×2 (09:02→16:10)
[2022-03-25] MEDS: Atorvastatin Calcium 10 MG TABLET PO (09:03)
[2022-03-25] MEDS: dilTIAZem HCL CD 180 MG CAP.ER.24H 360 MG PO (09:03)
[2022-03-25 09:09] LABS: Creatinine Clr Calc Pharmacy 62.8; Estimated Glomerular Filt Rate 57
[2022-03-25 09:13] LABS: Vancomycin Random 6.5 mcg/mL (15-20)
--- NOTE | 2022-03-25 10:03 | HE.PHANOTE ---
Vancomycin Dosing Addendum Patients Scr came back down from 1.43 to 1.26. PAtients level came back this morning at 6.5 mg/L. Increased dose to 1500mg Q24H. Will monitor renal function, next draw to be 03/26 @0800 to ensure efficacy vs safety. Predicted AUC 434 mg/L/hr.
[2022-03-25] MEDS: vancomycin HCL 1,500 MG in 0.9 % Sodium Chloride 500 ML 333.33 MG IV (10:11)
--- NOTE | 2022-03-25 10:31 | P.PNIM_ITS ---
Subjective Subjective Date of Service: 03/25/22 Interval History: f/u on cellulitis of the arm/elbow on left side Review of Systems swelling and pain is improving but still significant swellin/erythema, better ROM no fevers Physical Exam Vital Signs: Vital Signs: Last Vital Signs Temp 97.2 F 03/25/22 08:00 Pulse 94 03/25/22 08:00 Resp 16 03/25/22 08:00 BP 129/65 03/25/22 08:00 Pulse Ox 97 03/25/22 08:00 O2 Del Method 03/25/22 08:00 O2 Flow Rate 2.0 03/23/22 08:00 BMI result Body Mass Index 31.8 General: Awake ,alert, no acute distress Resp:?air enrty fair ,no rales or wheezin CVS: S1,S2,RRR GI: +BS, NT, no distention,soft. Musculoskeletal: No cyanosis or clubbing. less swelling of the left arm with large effusion at the elbow with surface renedss extending to the arm--full ROM Psychiatric: Normal mood and affect? Neuro:moves all ext Objective Data Active Medications Acetaminophen (Acetaminophen 325 Mg Tablet) 650 mg PO Q6H PRN PRN Reason: Pain, Mild (Pain Scale 1-3) Last Admin: 03/23/22 00:40 Dose: 650 mg Documented By: RAAD Atorvastatin Calcium (Atorvastatin Calcium 10 Mg Tablet) 10 mg PO DAILY [facility] Last Admin: 03/25/22 09:03 Dose: 10 mg Documented By: MASOOD Diltiazem HCl (Diltiazem Hcl Cd 180 Mg Cap.Er.24h) 360 mg PO DAILY [facility]; Protocol Last Admin: 03/25/22 09:03 Dose: 360 mg Documented By: MASOOD Hydrochlorothiazide (Hydrochlorothiazide 12.5 Mg Tablet) 12.5 mg PO DAILY [facility]; Protocol Last Admin: 03/24/22 09:19 Dose: 12.5 mg Documented By: LEISA Piperacillin Sod/Tazobactam (Sod 3.375 gm/ Sodium Chloride) 50 mls @ 100 mls/hr IV Q6H [facility] Last Infusion: 03/25/22 09:32 Dose: 0 mls/hr Documented By: MASOOD Vancomycin HCl 1,500 mg/ (Sodium Chloride) 500 mls @ 333.333 mls/hr IV Q24H [facility] Last Admin: 03/25/22 10:11 Dose: 333.33 mls/hr Documented By: MASOOD Melatonin (Melatonin 3 Mg Tablet) 6 mg PO BEDTIME PRN PRN Reason: Insomnia Last Admin: 03/23/22 00:42 Dose: 6 mg Documented By: RAAD Omeprazole (Omeprazole 40 Mg Capsule.Dr) 40 mg PO DAILY@0630 [facility] Last Admin: 03/25/22 05:36 Dose: 40 mg Documented By: SANDIP Ondansetron HCl (Ondansetron Hcl 4 Mg/2 Ml Vial) 4 mg IVPUSH Q8H PRN PRN Reason: Nausea and Vomiting Oxycodone HCl (Oxycodone Hcl Immed Release 5 Mg Tablet) 5 mg PO Q6H PRN PRN Reason: Pain, Severe (Pain Scale 7-10) Pharmacy Consult (Consult Rx Perform Med Rec) 1 each MISCELLANE ONCE PRN PRN Reason: Will be admitted Pharmacy Consult (Consult Rx Vancomycin Dosing) 1 each MISCELLANE DAILY PRN PRN Reason: Consult order Sodium Chloride (0.9 % Sodium Chloride Flush 3 Ml Syringe) 3 ml IVFLUSH QSHIFT [facility] Last Admin: 03/25/22 09:02 Dose: 3 ml Documented By: MASOOD Warfarin Sodium (Warfarin Sodium 2.5 Mg Tablet) 2.5 mg PO SUTUWEFRSA@1800 [facility] Last Admin: 03/24/22 18:17 Dose: 2.5 mg Documented By: LEISA Warfarin Sodium (Warfarin Sodium 5 Mg Tablet) 5 mg PO MOTH@1800 [facility] Last Admin: 03/23/22 17:56 Dose: 5 mg Documented By: GRETTA Labs CBC & Chem 7: 03/23/22 10:06 03/25/22 08:03 Labs: Laboratory Results - last 24 hr 03/25/22 03/25/22 03/25/22 08:03 08:03 08:03 PT 33.0 H INR 2.8 H Estim Creat Clear Calc 62.8 Estimated GFR 57 Random Vancomycin 6.5 L Microbiology Microbiology Results: Microbiology 03/22/22 11:37 Blood Culture - Preliminary Blood - Venous No growth after 48 hours. 03/22/22 11:45 Blood Culture - Preliminary Blood - Venous No growth after 48 hours. Assessment and Plan (1) Cellulitis of left arm: Status: Acute Plan 72/m PAF, HTN, hereditary hemochomatosis, GABBIE here with Sepsis, left arm cellulitis and olecranon bursitisis 1/Severe sepsis (lactic 2.2, HR 94,? WBC11) /dt , sepsis now resolved. 2/Left arm cellulitis and olecranon bursitis, improving -Failed outpatient Abx -Vanco + Zosyn D3. -follow cultures -Ortho consult--No indication for intervention -ID consult-continue iv antibiotics,pain management with APAP +Oxycodone for pain. 3/Paroxysmal A-fib -continue cardizem for rate control -coumadin for stroke prevention -INR 2.8, coumadin adjust for INR? 2 to 3 4/HTN--continue Irbesartan,? HCTZ and Cardizem 5/HLD-Lipitor 6/GABBIE--CPAP if uses one at home 6/DVT prophylaxis, coumadin Need for inpatient:? management of sepsis with IV Abx and monitoring for response, having faied oral Abx. Time Spent With Patient Time: Total time managing care of this patient today ____ minutes. Quality Stroke Does the patient have a stroke diagnosis?: No VTE Prior VTE?: No VTE Risk Level:: Medical - moderate - high VTE Device Contraindication: Treatment Not Indicated VTE Drug Contraindication: N/A - Med Ordered
[2022-03-25 15:04] VITALS: BP 113/53; PULSE 73; RESP 18; O2SAT 95
[2022-03-25] MEDS: Warfarin Sodium 2.5 MG TABLET PO (17:37)
[2022-03-25 19:40] VITALS: BP 114/60; PULSE 87; RESP 18; TEMP 36.9; O2SAT 99
[2022-03-26 03:13] VITALS: BP 121/78; PULSE 70; RESP 18; TEMP 37.2; O2SAT 95
[2022-03-26] MEDS: Omeprazole 40 MG CAPSULE.DR PO (05:39)
[2022-03-26] MEDS: Piperacillin Sodium/Tazobactam 3.375 GM in 0.9 % Sodium Chloride 50 ML IV ×4 (05:39→20:59)
[2022-03-26 06:16] LABS: INTERNATIONAL NORM RATIO 2.6 (0.9-1.1); Prothrombin Time 31.4 SEC (10.0-13.1)
[2022-03-26 06:45] LABS: Creatinine Clr Calc Pharmacy 61.4; Estimated Glomerular Filt Rate 55
[2022-03-26 07:34] VITALS: BP 145/65; PULSE 75; RESP 18; TEMP 36.5; O2SAT 97
[2022-03-26 08:23] LABS: Vancomycin Trough 7.7 mcg/mL (10.0-20.0)
--- NOTE | 2022-03-26 09:03 | HE.PHANOTE ---
VANCOMYCIN DOSING ADJUSTMENT BASED ON SCR OF 1.29 AND TROUGH OF 7.7 DOSE ADJUSTED TO 750Q 12 WITH POTENTIAL TO INCREASE TO 1000Q 12 ON 03/27 IF TROUGH COMES BACK LOW AGAIN. NEXT TROUGH 03/27 @ 0800
[2022-03-26] MEDS: dilTIAZem HCL CD 180 MG CAP.ER.24H 360 MG PO (09:20)
[2022-03-26] MEDS: Atorvastatin Calcium 10 MG TABLET PO (09:20)
[2022-03-26] MEDS: 0.9 % Sodium Chloride Flush 3 ML SYRINGE IVFLUSH ×3 (09:20→20:59)
[2022-03-26] MEDS: vancomycin HCL 750 MG in 0.9 % Sodium Chloride 250 ML 265 MG IV ×2 (10:04→21:29)
--- NOTE | 2022-03-26 11:03 | HO.PM.IMPN ---
Subjective Subjective Date of Service: 03/26/22 Interval History: f/u on cellulitis of the arm/elbow on left side Review of Systems swelling and pain is improving but still significant swellin/erythema, better ROM no fevers Physical Exam Vital Signs: Vital Signs: Last Vital Signs Temp 97.7 F 03/26/22 07:34 Pulse 75 03/26/22 07:34 Resp 18 03/26/22 07:34 BP 145/65 H 03/26/22 07:34 Pulse Ox 97 03/26/22 07:34 O2 Del Method 03/26/22 07:34 O2 Flow Rate 2.0 03/23/22 08:00 BMI result Body Mass Index 31.8 General: Awake ,alert, no acute distress Resp:?air enrty fair ,no rales or wheezin CVS: S1,S2,RRR GI: +BS, NT, no distention,soft. Musculoskeletal: No cyanosis or clubbing. less swelling of the left arm with large effusion at the elbow with surface renedss extending to the arm--full ROM Psychiatric: Normal mood and affect? Neuro:moves all ext Objective Data Active Medications Acetaminophen (Acetaminophen 325 Mg Tablet) 650 mg PO Q6H PRN PRN Reason: Pain, Mild (Pain Scale 1-3) Last Admin: 03/23/22 00:40 Dose: 650 mg Documented By: RAAD Atorvastatin Calcium (Atorvastatin Calcium 10 Mg Tablet) 10 mg PO DAILY [facility] Last Admin: 03/26/22 09:20 Dose: 10 mg Documented By: MASOOD Diltiazem HCl (Diltiazem Hcl Cd 180 Mg Cap.Er.24h) 360 mg PO DAILY [facility]; Protocol Last Admin: 03/26/22 09:20 Dose: 360 mg Documented By: MASOOD Hydrochlorothiazide (Hydrochlorothiazide 12.5 Mg Tablet) 12.5 mg PO DAILY [facility]; Protocol Last Admin: 03/24/22 09:19 Dose: 12.5 mg Documented By: LEISA Piperacillin Sod/Tazobactam (Sod 3.375 gm/ Sodium Chloride) 50 mls @ 100 mls/hr IV Q6H [facility] Last Infusion: 03/26/22 09:54 Dose: 0 mls/hr Documented By: MASOOD Vancomycin HCl 750 mg/ Sodium (Chloride) 265 mls @ 265 mls/hr IV Q12H [facility] Last Admin: 03/26/22 10:04 Dose: 265 mls/hr Documented By: MASOOD Melatonin (Melatonin 3 Mg Tablet) 6 mg PO BEDTIME PRN PRN Reason: Insomnia Last Admin: 03/23/22 00:42 Dose: 6 mg Documented By: RAAD Omeprazole (Omeprazole 40 Mg Capsule.Dr) 40 mg PO DAILY@0630 [facility] Last Admin: 03/26/22 05:39 Dose: 40 mg Documented By: SERGIO Ondansetron HCl (Ondansetron Hcl 4 Mg/2 Ml Vial) 4 mg IVPUSH Q8H PRN PRN Reason: Nausea and Vomiting Oxycodone HCl (Oxycodone Hcl Immed Release 5 Mg Tablet) 5 mg PO Q6H PRN PRN Reason: Pain, Severe (Pain Scale 7-10) Pharmacy Consult (Consult Rx Perform Med Rec) 1 each MISCELLANE ONCE PRN PRN Reason: Will be admitted Pharmacy Consult (Consult Rx Vancomycin Dosing) 1 each MISCELLANE DAILY PRN PRN Reason: Consult order Sodium Chloride (0.9 % Sodium Chloride Flush 3 Ml Syringe) 3 ml IVFLUSH QSHIFT [facility] Last Admin: 03/26/22 09:20 Dose: 3 ml Documented By: MASOOD Warfarin Sodium (Warfarin Sodium 2.5 Mg Tablet) 2.5 mg PO SUTUWEFRSA@1800 [facility] Last Admin: 03/25/22 17:37 Dose: 2.5 mg Documented By: MASOOD Warfarin Sodium (Warfarin Sodium 5 Mg Tablet) 5 mg PO MOTH@1800 [facility] Last Admin: 03/23/22 17:56 Dose: 5 mg Documented By: GRETTA Labs CBC & Chem 7: 03/23/22 10:06 03/26/22 05:43 Labs: Laboratory Results - last 24 hr 03/26/22 03/26/22 03/26/22 05:43 05:43 07:47 PT 31.4 H INR 2.6 H Estim Creat Clear Calc 61.4 Estimated GFR 55 Vancomycin Trough 7.7 L Assessment and Plan (1) Cellulitis of left arm: Status: Acute Plan 72/m PAF, HTN, hereditary hemochomatosis, GABBIE here with Sepsis, left arm cellulitis and olecranon bursitisis 1/Severe sepsis (lactic 2.2, HR 94,? WBC11) /dt , sepsis now resolved. 2/Left arm cellulitis and olecranon bursitis, improving -Failed outpatient Abx -Vanco + Zosyn D3. -follow cultures -Ortho consult--No indication for intervention -ID consult-continue iv antibiotics,pain management with APAP +Oxycodone for pain. 3/Paroxysmal A-fib -continue cardizem for rate control -coumadin for stroke prevention -INR 2.8, coumadin adjust for INR? 2 to 3 4/HTN--continue Irbesartan,? HCTZ and Cardizem 5/HLD-Lipitor 6/GABBIE--CPAP if uses one at home 6/DVT prophylaxis, coumadin Need for inpatient:? management of sepsis with IV Abx and monitoring for response, having faied oral Abx. Time Spent With Patient Time: Total time managing care of this patient today ____ minutes. Quality Stroke Does the patient have a stroke diagnosis?: No VTE Prior VTE?: No VTE Risk Level:: Medical - moderate - high VTE Device Contraindication: Treatment Not Indicated VTE Drug Contraindication: N/A - Med Ordered
[2022-03-26 15:12] VITALS: BP 111/51; PULSE 75; RESP 18; TEMP 36.8; O2SAT 95
[2022-03-26] MEDS: Warfarin Sodium 2.5 MG TABLET PO (17:09)
[2022-03-26 19:40] VITALS: BP 130/76; PULSE 82; RESP 18; TEMP 36.6; O2SAT 95
[2022-03-26] MEDS: Acetaminophen 325 MG TABLET 650 MG PO (22:38)
[2022-03-27 04:00] VITALS: BP 115/63; PULSE 99; RESP 18; TEMP 36.6; O2SAT 95
[2022-03-27] MEDS: Piperacillin Sodium/Tazobactam 3.375 GM in 0.9 % Sodium Chloride 50 ML IV ×2 (05:01→09:52)
[2022-03-27] MEDS: Omeprazole 40 MG CAPSULE.DR PO (05:37)
[2022-03-27 07:51] VITALS: BP 117/58; PULSE 82; RESP 18; TEMP 36.9; O2SAT 96
[2022-03-27] MEDS: dilTIAZem HCL CD 180 MG CAP.ER.24H 360 MG PO (08:29)
[2022-03-27] MEDS: Atorvastatin Calcium 10 MG TABLET PO (08:29)
[2022-03-27] MEDS: 0.9 % Sodium Chloride Flush 3 ML SYRINGE IVFLUSH ×2 (08:29→15:08)
[2022-03-27 08:31] LABS: INTERNATIONAL NORM RATIO 2.3 (0.9-1.1); Prothrombin Time 27.7 SEC (10.0-13.1)
[2022-03-27 08:47] LABS: Creatinine Clr Calc Pharmacy 66.5; Estimated Glomerular Filt Rate > 60; Vancomycin Random 9.9 mcg/mL (15-20)
--- NOTE | 2022-03-27 08:56 | HE.PHANOTE ---
Re: vanco dosing Trough came back at 9.9 and scr is decreased to 1.19. Increasing to 1000 mg q12 hours and will recheck trough tomorrow morning. Expecting AUC of 448 after 2 doses today.
[2022-03-27] MEDS: vancomycin HCL 1,000 MG in 0.9 % Sodium Chloride 250 ML 270 MG IV (10:28)
[2022-03-27] MEDS: Amoxicillin/Potassium Clav 875 MG TABLET PO (15:05)
[2022-03-27] MEDS: Doxycycline Monohydrate 100 MG CAPSULE PO (15:05)
[2022-03-27 15:32] VITALS: BP 125/68; PULSE 90; RESP 16; TEMP 36.7; O2SAT 97
--- NOTE | 2022-03-27 16:20 | P.DS_ITS ---
DS: Providers Provider Date of Service: 03/27/22 Date of admission: 03/22/22 15:21 Primary care physician: Favian Davis MD Consults: 03/22/22 15:21 Consult to Orthopedics Routine Consulting Provider: Uvaldo Cline Reason for consultation: Left elbow bursitis Has provider been notified: No 03/22/22 15:24 Consult to Infectious Diseases Routine Consulting Provider: Kennedi Rosario Reason for consultation: Cellulitis, bursitis Has provider been notified: No DS: Diagnosis Discharge Diagnosis (1) Cellulitis of left arm: Status: Acute DS: Summary Hospital Course Hospital Course: 72 year male with past medical history as noted below who present with pain, redness and swelling of the left arm, elbow since last weekend. He cannot point to any trauma or insect bite, on Sunday (2 days ago) he went to an urgent care clinic and was prescribed antibitoics but it has gotten worse and therefore came to ED.? WBC is 15, lactic 2.2. CT of the arm/elbow show?Complex fluid collection at the level of the olecranon bursa with posibility for infection. Ortho has assessed and recommend no intervention at this time. Given Zosyn. Hospital course: Patient was admitted for sepsis secondary to cellulitis: Started on IV antibiotics, seen by Ortho cellulitis area seems to be improved significantly, blood culture negative, no fever but WBC count trending down,seen by orthopedics and infectious disease upon discharge -patient cellulitis seems improved ,no further intervention at present, going home with p.o. antibiotics, please complete the course. Above management discussed the patient detail and he understand and in agreement with the above plan. Assessment and plan coordination time spent 50 minute. Time Spent with Patient Time attestation: Total time managing care of this patient today ____ minutes. Discharge coordination time: Greater than 30 minutes Quality: Safe Use of Opioids Does Pt have an Active Cancer Diagnosis on the Problem List?: No Quality: Stroke Does the patient have a stroke diagnosis?: No Physical Exam Vital Signs: Vital Signs: Last Vital Signs Temp 98.1 F 03/27/22 15:32 Pulse 90 03/27/22 15:32 Resp 16 03/27/22 15:32 BP 125/68 03/27/22 15:32 Pulse Ox 97 03/27/22 15:32 O2 Del Method 03/27/22 15:32 O2 Flow Rate 2.0 03/23/22 08:00 BMI result Body Mass Index 31.8 General: Awake ,alert, no acute distress Resp:?air enrty fair ,no rales or wheezin CVS: S1,S2,RRR GI: +BS, NT, no distention,soft. Musculoskeletal: arm erythema/swelling seems to be improved significantly. Psychiatric: Normal mood and affect? Neuro:moves all ext DS: Data Data Completed and Pending Labs on day of discharge: Laboratory Results - last 24 hr 03/27/22 03/27/22 03/27/22 08:02 08:02 08:02 PT 27.7 H INR 2.3 H Creatinine 1.19 Estim Creat Clear Calc 66.5 Estimated GFR > 60 Random Vancomycin 9.9 L Imaging Chest x-ray: Radiologist's impression: ITS Impressions Venous Duplex 03/22/22 11:11 IMPRESSION: * No evidence of superficial or deep vein thrombosis in the left upper extremity. * There is soft tissue edema of the arm and a 3.8 x 1.2 x 4.2 cm complex collection is present in the expected location of the olecranon bursa. This could represent an infected olecranon bursa, if in the proper clinical context. Elbow CT 03/22/22 12:52 IMPRESSION: * Diffuse edema of the visualized extremity is likely from cellulitis. * Complex fluid collection at the level of the olecranon bursa is more clearly seen on recent ultrasound images than on this CT examination. The collection does not appear to have a hyperenhancing thickened rim. Nevertheless, consider the possibility of an infected olecranon bursitis. * The underlying bones are normal. No evidence of septic arthritis or osteomyelitis. Discharge Plan Discharge Anticipated Discharge Date/Time: 03/27/22 10:26 Patient Disposition: Home, Self-Care Discharge Diagnosis: cellulitis Referrals: Favian Davis MD [Primary Care Provider] - 1 Week Discharge Medications: New doxycycline hyclate 100 mg capsule 100 mg PO BID Qty: 14 0RF amoxicillin-pot clavulanate 875-125 mg tablet 1 tab PO BID Qty: 14 0RF Continued diltiazem HCl [Cardizem CD] 360 mg capsule,extended release 24hr 360 mg PO DAILY Qty: 90 3RF warfarin [Jantoven] 5 mg tablet 5 mg PO DAILY Protocol: Dose Management Condition: Sunday (Week One) Dose/Route: 2.5 mg Instruction: 0.5 x 5 mg tablets Condition: Sunday Dose/Route: 5 mg Instruction: 1 x 5 mg tablet Condition: Sunday Dose/Route: 2.5 mg Instruction: 0.5 x 5 mg tablets Condition: Sunday Dose/Route: 2.5 mg Instruction: 0.5 x 5 mg tablets Condition: Dose/Route: 5 mg Instruction: 1 x 5 mg tablet Condition: Sunday Dose/Route: 2.5 mg Instruction: 0.5 x 5 mg tablets Condition: Sunday Dose/Route: 2.5 mg Instruction: 0.5 x 5 mg tablets Condition: Sunday ( Two) Dose/Route: 2.5 mg Instruction: 0.5 x 5 mg tablets Condition: Sunday Dose/Route: 5 mg Instruction: 1 x 5 mg tablet Condition: Sunday Dose/Route: 2.5 mg Instruction: 0.5 x 5 mg tablets Condition: Sunday Dose/Route: 2.5 mg Instruction: 0.5 x 5 mg tablets Condition: Dose/Route: 5 mg Instruction: 1 x 5 mg tablet Condition: Sunday Dose/Route: 2.5 mg Instruction: 0.5 x 5 mg tablets Condition: Sunday Dose/Route: 2.5 mg Instruction: 0.5 x 5 mg tablets Protocol Text: Adjustment Start Date: Sunday03/01/22 INR Value: 2.0 INR Date: 03/01/22 Recheck Date: 03/29/22 Rx Instructions: 2.5MG Sun, 5MG Sun SAT warfarin [Jantoven] 5 mg tablet 2.5 mg PO SUTUWEFRSA@1800 warfarin [Jantoven] 5 mg tablet 5 mg PO MOTH@1800 Dexilant 60 mg capsule,biphase delayed releas 60 mg PO BEDTIME irbesartan-hydrochlorothiazide [Avalide] 150-12.5 mg tablet 1 tab PO DAILY atorvastatin [Lipitor] 10 mg tablet 10 mg PO DAILY Discontinued cephalexin 500 mg capsule 1,000 mg PO BID 10 Days Qty: 40 0RF Discharge Orders: Discharge Order (Routine); Ordered 03/27/22 Ordered By: Seth Lares Diet: Advance to usual diet Activity on Discharge: As tolerated Stand Alone Forms: Patient Portal Discharge page Care Plan Goals: Patient was admitted for sepsis secondary to cellulitis: Started on IV a ntibiotics, seen by Ortho cellulitis area seems to be improved significantly, blood culture negative, no fever but WBC count trending down: Patient seems to be improving significantly, going home with p.o. antibiotics, please complete the course. Above management discussed the patient detail and he understand and in agreement with the above plan. Health Concerns: As above. Plan of Treatment: As above. Assessment: As above. Patient Instructions: Cellulitis (DC)
== END 2022-03-27 17:04 | disposition home or self-care (01) | DRG 872 ==
LOC: HO.ED 12:08 → HO.EDOVER 15:28 → HO.S3 03-23 00:43
PROVIDERS: Physician Assistant Medical; Admitting Provider Internal Medicine; Emergency Provider Student in an Organized Health Care Education/Training Program; PCP Internal Medicine; Visit Provider Internal Medicine
DX: A41.9 Sepsis, unspecified organism (principal); L03.114 Cellulitis of left upper limb; R65.20 Severe sepsis without septic shock; E83.110 Hereditary hemochromatosis; G47.33 Obstructive sleep apnea (adult) (pediatric); I48.0 Paroxysmal atrial fibrillation; E78.5 Hyperlipidemia, unspecified; I10 Essential (primary) hypertension; Z20.822 Contact with and (suspected) exposure to COVID-19; Z88.8 Allergy status to other drugs, medicaments and biological substances; Z79.01 Long term (current) use of anticoagulants; Z79.899 Other long term (current) drug therapy
CPT/HCPCS: 36415; 73201; 80053; 80202; 82565; 83605; 83735; 85025; 85027; 85610; 85652; 85730; 86140; 87040; 87635; 93971; 99285; J2543; J3370; Q9967

== ENCOUNTER → 2022-03-29 08:14 | Outpatient (BNVA) | payer MEDICARE, OTHER, SELFPAY | PROVIDERS: PCP Internal Medicine; Visit Provider Internal Medicine | DX: I48.0 Paroxysmal atrial fibrillation (principal); Z79.01 Long term (current) use of anticoagulants; Z51.81 Encounter for therapeutic drug level monitoring | CPT/HCPCS: 85610; 99211 ==

== ENCOUNTER → 2022-04-04 08:28 | Outpatient (BNVA) | payer MEDICARE, OTHER, SELFPAY | PROVIDERS: PCP Internal Medicine; Visit Provider Internal Medicine | DX: I48.0 Paroxysmal atrial fibrillation (principal); Z79.01 Long term (current) use of anticoagulants; Z51.81 Encounter for therapeutic drug level monitoring | CPT/HCPCS: 85610; 99211 ==

== ENCOUNTER → 2022-04-07 16:04 | Outpatient (BNVA) | payer MEDICARE, OTHER, SELFPAY | PROVIDERS: PCP Internal Medicine; Visit Provider Internal Medicine | DX: Z79.01 Long term (current) use of anticoagulants (principal) ==

== ENCOUNTER → 2022-04-12 13:20 | Outpatient (BNVA) | payer MEDICARE, OTHER, SELFPAY | PROVIDERS: PCP Internal Medicine; Visit Provider Internal Medicine | DX: I48.0 Paroxysmal atrial fibrillation (principal); Z79.01 Long term (current) use of anticoagulants; Z51.81 Encounter for therapeutic drug level monitoring | CPT/HCPCS: 85610; 99211 ==

== ENCOUNTER → 2022-04-19 08:07 | Outpatient (BNVA) | payer MEDICARE, OTHER, SELFPAY | PROVIDERS: PCP Internal Medicine; Visit Provider Internal Medicine | DX: I48.0 Paroxysmal atrial fibrillation (principal); Z79.01 Long term (current) use of anticoagulants; Z51.81 Encounter for therapeutic drug level monitoring | CPT/HCPCS: 85610; 99211 ==

== ENCOUNTER → 2022-05-08 08:02 | Outpatient (BNVA) | payer MEDICARE, OTHER, SELFPAY | PROVIDERS: PCP Internal Medicine; Referring Provider Internal Medicine; Visit Provider Internal Medicine | DX: I48.91 Unspecified atrial fibrillation (principal); I48.3 Typical atrial flutter; I45.4 Nonspecific intraventricular block; I10 Essential (primary) hypertension; G47.33 Obstructive sleep apnea (adult) (pediatric) | CPT/HCPCS: 93005; 99212 ==

== ENCOUNTER → 2022-05-17 08:19 | Outpatient (BNVA) | payer MEDICARE, OTHER, SELFPAY | PROVIDERS: PCP Internal Medicine; Visit Provider Internal Medicine | DX: I48.0 Paroxysmal atrial fibrillation (principal); Z79.01 Long term (current) use of anticoagulants; Z51.81 Encounter for therapeutic drug level monitoring | CPT/HCPCS: 85610; 99211 ==

== ENCOUNTER → 2022-05-31 08:34 | Outpatient (BNVA) | payer MEDICARE, OTHER, SELFPAY | PROVIDERS: PCP Internal Medicine; Visit Provider Internal Medicine | DX: I48.0 Paroxysmal atrial fibrillation (principal); Z79.01 Long term (current) use of anticoagulants; Z51.81 Encounter for therapeutic drug level monitoring | CPT/HCPCS: 85610; 99211 ==

== ENCOUNTER → 2022-06-28 08:16 | Outpatient (BNVA) | payer MEDICARE, OTHER, SELFPAY | PROVIDERS: PCP Internal Medicine; Visit Provider Internal Medicine | DX: I48.0 Paroxysmal atrial fibrillation (principal); Z79.01 Long term (current) use of anticoagulants; Z51.81 Encounter for therapeutic drug level monitoring | CPT/HCPCS: 85610; 99211 ==

== ENCOUNTER → 2022-07-12 08:43 | Outpatient (BNVA) | payer MEDICARE, OTHER, SELFPAY | PROVIDERS: PCP Internal Medicine; Visit Provider Internal Medicine | DX: I48.0 Paroxysmal atrial fibrillation (principal); Z79.01 Long term (current) use of anticoagulants; Z51.81 Encounter for therapeutic drug level monitoring | CPT/HCPCS: 85610; 99211 ==

== ENCOUNTER → 2022-08-09 08:33 | Outpatient (BNVA) | payer MEDICARE, OTHER, SELFPAY | PROVIDERS: PCP Internal Medicine; Visit Provider Internal Medicine | DX: I48.0 Paroxysmal atrial fibrillation (principal); Z79.01 Long term (current) use of anticoagulants; Z51.81 Encounter for therapeutic drug level monitoring | CPT/HCPCS: 85610; 99211 ==

== ENCOUNTER → 2022-09-06 08:34 | Outpatient (BNVA) | payer MEDICARE, OTHER, SELFPAY | PROVIDERS: PCP Internal Medicine; Visit Provider Internal Medicine | DX: I48.0 Paroxysmal atrial fibrillation (principal); Z79.01 Long term (current) use of anticoagulants; Z51.81 Encounter for therapeutic drug level monitoring | CPT/HCPCS: 85610; 99211 ==

== ENCOUNTER → 2022-10-04 08:07 | Outpatient (BNVA) | payer MEDICARE, OTHER, SELFPAY | PROVIDERS: PCP Internal Medicine; Visit Provider Internal Medicine | DX: I48.0 Paroxysmal atrial fibrillation (principal); Z79.01 Long term (current) use of anticoagulants; Z51.81 Encounter for therapeutic drug level monitoring | CPT/HCPCS: 85610; 99211 ==

== ENCOUNTER 2022-11-02 08:02 | Outpatient (AMB) | payer MEDICARE, OTHER, SELFPAY ==
--- NOTE | 2022-11-02 08:07 | MHC.OFFVISCO ---
Intake Intake Visit Reasons: Anticoagulation Allergies lisinopril Adverse Reaction (Unknown, Verified 11/02/22 08:03) cough Medication List - Last Reconciled 11/02/22 by Melissa Pierce RN atorvastatin (Lipitor) 10 mg PO DAILY dexlansoprazole (Dexilant) 60 mg PO BEDTIME diltiazem HCl (Cardizem CD) 360 mg PO DAILY irbesartan-hydrochlorothiazide 150-12.5 mg (Avalide) 1 tab PO DAILY warfarin (Jantoven) 5 mg See Protocol PO DAILY Nursing Note INR: 2.4- in therapeutic range Medications and supplements reviewed- no changes No changes in health, diet, medications, or supplements, Denies any signs and symptoms of bleeding or bruising or clotting. Bleeding, bruising, clotting discussed Nutritional guidance given Dose: 5mg x 2, 2.5mg x 5 F/U INR: 4 weeks Patient verbalizes understanding of instructions given Anti-Coag Initial Assessment Social Hx Patient Tobacco Use Status: Never used Tobacco alcohol intake: never Coding Level of Care Code Est Patient Level 1 Diagnoses Current use of anticoagulant therapy Z79.01 Assessment & Plan Assessment & Plan (1) Current use of anticoagulant therapy: Code(s): Z79.01 - manager terminal (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
[2022-11-02 08:08] LABS: Prothrombin Time Whole Bld POC 28.5 sec (11.1-13.5); ~PT, ~INR - Anti Coag Clinic 2.4 (0.9-1.1)
== END 2022-11-02 08:14 | disposition home or self-care (01) ==
LOC: HO.ACS 08:02
PROVIDERS: PCP Internal Medicine; Visit Provider Internal Medicine
DX: Z79.01 Long term (current) use of anticoagulants (principal)

== ENCOUNTER → 2022-11-02 08:02 | Outpatient (BNVA) | payer MEDICARE, OTHER, SELFPAY | PROVIDERS: PCP Internal Medicine; Visit Provider Internal Medicine | DX: I48.0 Paroxysmal atrial fibrillation (principal); Z79.01 Long term (current) use of anticoagulants; Z51.81 Encounter for therapeutic drug level monitoring | CPT/HCPCS: 85610; 99211 ==

== ENCOUNTER 2022-11-29 07:56 | Outpatient (AMB) | payer MEDICARE, OTHER, SELFPAY ==
[2022-11-29 08:12] LABS: Prothrombin Time Whole Bld POC 27.9 sec (11.1-13.5); ~PT, ~INR - Anti Coag Clinic 2.3 (0.9-1.1)
--- NOTE | 2022-11-29 08:19 | MHC.OFFVISCO ---
Intake Intake Visit Reasons: Anticoagulation Allergies lisinopril Adverse Reaction (Unknown, Verified 11/29/22 08:07) cough Medication List - Last Reconciled 11/29/22 by Yanni Hong RN atorvastatin (Lipitor) 10 mg PO DAILY dexlansoprazole (Dexilant) 60 mg PO BEDTIME diltiazem HCl (Cardizem CD) 360 mg PO DAILY irbesartan-hydrochlorothiazide 150-12.5 mg (Avalide) 1 tab PO DAILY warfarin (Jantoven) 5 mg See Protocol PO DAILY Nursing Note NO CP,SOB,DIET/MED CHANGES,FALLS OR SX OF BLEEDING. CONTINUE PRESDERNT DOSE AND FOLLOW-UP IN 4 WEEKS. GOOD UNDERSTANDING OF DOSING INSTR,. Anti-Coag Initial Assessment Social Hx Patient Tobacco Use Status: Never used Tobacco alcohol intake: never Coding Level of Care Code Est Patient Level 1 Diagnoses Current use of anticoagulant therapy Z79.01 Assessment & Plan Assessment & Plan (1) Current use of anticoagulant therapy: Code(s): Z79.01 - termination clerk (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
== END 2022-11-29 08:22 | disposition home or self-care (01) ==
LOC: HO.ACS 07:56
PROVIDERS: PCP Internal Medicine; Visit Provider Internal Medicine
DX: Z79.01 Long term (current) use of anticoagulants (principal)

== ENCOUNTER → 2022-11-29 07:56 | Outpatient (BNVA) | payer MEDICARE, OTHER, SELFPAY | PROVIDERS: PCP Internal Medicine; Visit Provider Internal Medicine | DX: I48.0 Paroxysmal atrial fibrillation (principal); Z51.81 Encounter for therapeutic drug level monitoring; Z79.01 Long term (current) use of anticoagulants | CPT/HCPCS: 85610; 99211 ==

== ENCOUNTER 2022-12-27 08:05 | Outpatient (AMB) | payer MEDICARE, OTHER, SELFPAY ==
--- NOTE | 2022-12-27 08:09 | MHC.OFFVISCO ---
Intake Intake Visit Reasons: Anticoagulation Allergies lisinopril Adverse Reaction (Unknown, Verified 12/27/22 08:06) cough Medication List - Last Reconciled 12/27/22 by Melissa Pierce RN atorvastatin (Lipitor) 10 mg PO DAILY dexlansoprazole (Dexilant) 60 mg PO BEDTIME diltiazem HCl (Cardizem CD) 360 mg PO DAILY irbesartan-hydrochlorothiazide 150-12.5 mg (Avalide) 1 tab PO DAILY warfarin (Jantoven) 5 mg See Protocol PO DAILY Nursing Note INR: 3.0- in therapeutic range Medications and supplements reviewed- no changes No changes in health, diet, medications, or supplements, Denies any signs and symptoms of bleeding or bruising or clotting. Bleeding, bruising, clotting discussed Nutritional guidance given - eat greens today Dose: 5mg x 2, 2.5mg x 5 F/U INR: 4 weeks Patient verbalizes understanding of instructions given Anti-Coag Initial Assessment Social Hx Patient Tobacco Use Status: Never used Tobacco alcohol intake: never Coding Level of Care Code Est Patient Level 1 Diagnoses Current use of anticoagulant therapy Z79.01 Results AMB INR Fingerstick AMB INR Fingerstick 3.0 Last Edit by Melissa Pierce RN on 12/27/22 08:11 Assessment & Plan Assessment & Plan (1) Current use of anticoagulant therapy: Code(s): Z79.01 - senior care (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
[2022-12-27 08:10] LABS: Prothrombin Time Whole Bld POC 35.5 sec (11.1-13.5)
== END 2022-12-27 08:14 | disposition home or self-care (01) ==
LOC: HO.ACS 08:05
PROVIDERS: PCP Internal Medicine; Visit Provider Internal Medicine
DX: Z79.01 Long term (current) use of anticoagulants (principal)

== ENCOUNTER → 2022-12-27 08:05 | Outpatient (BNVA) | payer MEDICARE, OTHER, SELFPAY | PROVIDERS: PCP Internal Medicine; Visit Provider Internal Medicine | DX: I48.0 Paroxysmal atrial fibrillation (principal); Z79.01 Long term (current) use of anticoagulants; Z51.81 Encounter for therapeutic drug level monitoring | CPT/HCPCS: 85610; 99211 ==

== ENCOUNTER 2023-01-24 08:01 | Outpatient (AMB) | payer MEDICARE, OTHER, SELFPAY ==
--- NOTE | 2023-01-24 08:11 | MHC.OFFVISCO ---
Intake Intake Visit Reasons: Anticoagulation Allergies lisinopril Adverse Reaction (Unknown, Verified 01/24/23 08:08) cough Medication List - Last Reconciled 01/24/23 by Melissa Pierce RN atorvastatin (Lipitor) 10 mg PO DAILY dexlansoprazole (Dexilant) 60 mg PO BEDTIME diltiazem HCl (Cardizem CD) 360 mg PO DAILY irbesartan-hydrochlorothiazide 150-12.5 mg (Avalide) 1 tab PO DAILY warfarin (Jantoven) 5 mg See Protocol PO DAILY Nursing Note INR: 2.3- in therapeutic range Medications and supplements reviewed- pt had flu and covid booster approx 2 weeks ago No changes in health, diet, medications, or supplements, Denies any signs and symptoms of bleeding or bruising or clotting. Bleeding, bruising, clotting discussed Nutritional guidance given Dose: 5mg x 2, 2.5mg x 5 F/U INR: 4 weeks Patient verbalizes understanding of instructions given Anti-Coag Initial Assessment Social Hx Patient Tobacco Use Status: Never used Tobacco alcohol intake: never Coding Level of Care Code Est Patient Level 1 Diagnoses Current use of anticoagulant therapy Z79.01 Results AMB INR Fingerstick AMB INR Fingerstick 2.3 Last Edit by Melissa Pierce RN on 01/24/23 08:13 Assessment & Plan Assessment & Plan (1) Current use of anticoagulant therapy: Code(s): Z79.01 - intermission coordinator (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
[2023-01-24 08:13] LABS: Prothrombin Time Whole Bld POC 27.4 sec (11.1-13.5); ~PT, ~INR - Anti Coag Clinic 2.3 (0.9-1.1)
== END 2023-01-24 08:16 | disposition home or self-care (01) ==
LOC: HO.ACS 08:01
PROVIDERS: PCP Internal Medicine; Visit Provider Internal Medicine
DX: Z79.01 Long term (current) use of anticoagulants (principal)

== ENCOUNTER → 2023-01-24 08:01 | Outpatient (BNVA) | payer MEDICARE, OTHER, SELFPAY | PROVIDERS: PCP Internal Medicine; Visit Provider Internal Medicine | DX: I48.0 Paroxysmal atrial fibrillation (principal); Z79.01 Long term (current) use of anticoagulants; Z51.81 Encounter for therapeutic drug level monitoring | CPT/HCPCS: 85610; 99211 ==

== ENCOUNTER 2023-02-21 08:05 | Outpatient (AMB) | payer MEDICARE, OTHER, SELFPAY ==
--- NOTE | 2023-02-21 08:14 | MHC.OFFVISCO ---
Intake Intake Visit Reasons: Anticoagulation Allergies lisinopril Adverse Reaction (Unknown, Verified 02/21/23 08:08) cough Medication List - Last Reconciled 02/21/23 by Melissa Pierce RN atorvastatin (Lipitor) 10 mg PO DAILY dexlansoprazole (Dexilant) 60 mg PO BEDTIME diltiazem HCl (Cardizem CD) 360 mg PO DAILY irbesartan-hydrochlorothiazide 150-12.5 mg (Avalide) 1 tab PO DAILY warfarin (Jantoven) 5 mg See Protocol PO DAILY Nursing Note INR 1.9-? out of therapeutic range of 2-3 denies missed dose, unsure why inr is low, may have not done correct dosing last week Medications and supplements reviewed Patient status: no c.o Medications or supplements: no changes Diet: same Denies any signs and symptoms of bleeding or clotting or unusual bruising Bleeding, bruising, clotting discussed Nutritional guidance given: no greens for 2 days, will eat a red today Dose: 5mg today then cont reg dosing 5mg x 2, 2.5mg x 5 F/U INR Date : pt req 4 weeks?? Patient verbalizing understanding of instructions given. Anti-Coag Initial Assessment Social Hx Patient Tobacco Use Status: Never used Tobacco alcohol intake: never Coding Level of Care Code Est Patient Level 1 Diagnoses Current use of anticoagulant therapy Z79.01 Results AMB INR Fingerstick AMB INR Fingerstick 1.9 Last Edit by Melissa Pierce RN on 02/21/23 08:15 Assessment & Plan Assessment & Plan (1) Current use of anticoagulant therapy: Code(s): Z79.01 - correction (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
[2023-02-22 13:34] LABS: Prothrombin Time Whole Bld POC 23.1 sec (11.1-13.5); ~PT, ~INR - Anti Coag Clinic 1.9 (0.9-1.1)
== END 2023-02-21 08:21 | disposition home or self-care (01) ==
LOC: HO.ACS 08:05
PROVIDERS: PCP Internal Medicine; Visit Provider Internal Medicine
DX: Z79.01 Long term (current) use of anticoagulants (principal)

== ENCOUNTER → 2023-02-21 08:05 | Outpatient (BNVA) | payer MEDICARE, OTHER, SELFPAY | PROVIDERS: PCP Internal Medicine; Visit Provider Internal Medicine | DX: I48.0 Paroxysmal atrial fibrillation (principal); Z79.01 Long term (current) use of anticoagulants; Z51.81 Encounter for therapeutic drug level monitoring | CPT/HCPCS: 85610; 99211 ==

== ENCOUNTER 2023-03-21 08:09 | Outpatient (AMB) | payer MEDICARE, OTHER, SELFPAY ==
--- NOTE | 2023-03-21 08:17 | MHC.OFFVISCO ---
Intake Intake Visit Reasons: Anticoagulation Allergies lisinopril Adverse Reaction (Unknown, Verified 03/21/23 08:09) cough Medication List - Last Reconciled 03/21/23 by Melissa Pierce RN amoxicillin 875 mg PO BID atorvastatin (Lipitor) 10 mg PO DAILY dexlansoprazole (Dexilant) 60 mg PO BEDTIME diltiazem HCl (Cardizem CD) 360 mg PO DAILY irbesartan-hydrochlorothiazide 150-12.5 mg (Avalide) 1 tab PO DAILY warfarin (Jantoven) 5 mg See Protocol PO DAILY Nursing Note INR: 2.1- in therapeutic range of 2-3 Medications and supplements reviewed- pt cont on amoxicillin- 2 more days for sinus infection No changes in health, diet, medications, or supplements, Denies any signs and symptoms of bleeding or bruising or clotting. Bleeding, bruising, clotting discussed Nutritional guidance given Dose: 2.5mg x 5, 5mg x 2 F/U INR: 2 weeks due to antibiotics Patient verbalizes understanding of instructions given Anti-Coag Initial Assessment Social Hx Patient Tobacco Use Status: Never used Tobacco alcohol intake: never Coding Level of Care Code Est Patient Level 1 Diagnoses Current use of anticoagulant therapy Z79.01 Assessment & Plan Assessment & Plan (1) Current use of anticoagulant therapy: Code(s): Z79.01 - rat exterminator (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
[2023-03-21 08:18] LABS: Prothrombin Time Whole Bld POC 25.3 sec (11.1-13.5); ~PT, ~INR - Anti Coag Clinic 2.1 (0.9-1.1)
== END 2023-03-21 08:23 | disposition home or self-care (01) ==
LOC: HO.ACS 08:09
PROVIDERS: PCP Internal Medicine; Visit Provider Internal Medicine
DX: Z79.01 Long term (current) use of anticoagulants (principal)

== ENCOUNTER → 2023-03-21 08:09 | Outpatient (BNVA) | payer MEDICARE, OTHER, SELFPAY | PROVIDERS: PCP Internal Medicine; Visit Provider Internal Medicine | DX: I48.0 Paroxysmal atrial fibrillation (principal); Z79.01 Long term (current) use of anticoagulants; Z51.81 Encounter for therapeutic drug level monitoring | CPT/HCPCS: 85610; 99211 ==

== ENCOUNTER 2023-04-03 08:19 | Outpatient (AMB) | payer MEDICARE, OTHER, SELFPAY ==
--- NOTE | 2023-04-03 08:25 | MHC.OFFVISCO ---
Intake Intake Visit Reasons: Anticoagulation Allergies lisinopril Adverse Reaction (Unknown, Verified 04/03/23 08:19) cough Medication List - Last Reconciled 04/03/23 by Melissa Pierce RN atorvastatin (Lipitor) 10 mg PO DAILY dexlansoprazole (Dexilant) 60 mg PO BEDTIME diltiazem HCl (Cardizem CD) 360 mg PO DAILY irbesartan-hydrochlorothiazide 150-12.5 mg (Avalide) 1 tab PO DAILY warfarin (Jantoven) 5 mg See Protocol PO DAILY Nursing Note INR: 2.4- in therapeutic range of 2-3 Medications and supplements reviewed- no changes- pt post antibiotics 2 weeks No changes in health, diet, medications, or supplements, Denies any signs and symptoms of bleeding or bruising or clotting. Bleeding, bruising, clotting discussed Nutritional guidance given Dose: 5mg x 2, 2.5mg x 5 F/U INR: 4 weeks Patient verbalizes understanding of instructions given Anti-Coag Initial Assessment Social Hx Patient Tobacco Use Status: Never used Tobacco alcohol intake: never Coding Level of Care Code Est Patient Level 1 Diagnoses Current use of anticoagulant therapy Z79.01 Results AMB INR Fingerstick AMB INR Fingerstick 2.4 Last Edit by Melissa Pierce RN on 04/03/23 08:26 Assessment & Plan Assessment & Plan (1) Current use of anticoagulant therapy: Code(s): Z79.01 - terminal block assembler (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
[2023-04-03 08:27] LABS: Prothrombin Time Whole Bld POC 28.3 sec (11.1-13.5); ~PT, ~INR - Anti Coag Clinic 2.4 (0.9-1.1)
== END 2023-04-03 08:30 | disposition home or self-care (01) ==
LOC: HO.ACS 08:19
PROVIDERS: PCP Internal Medicine; Visit Provider Internal Medicine
DX: Z79.01 Long term (current) use of anticoagulants (principal)

== ENCOUNTER → 2023-04-03 08:19 | Outpatient (BNVA) | payer MEDICARE, OTHER, SELFPAY | PROVIDERS: PCP Internal Medicine; Visit Provider Internal Medicine | DX: I48.0 Paroxysmal atrial fibrillation (principal); Z51.81 Encounter for therapeutic drug level monitoring; Z79.01 Long term (current) use of anticoagulants | CPT/HCPCS: 85610; 99211 ==

== ENCOUNTER 2023-05-02 08:00 | Outpatient (AMB) | payer MEDICARE, OTHER, SELFPAY ==
--- NOTE | 2023-05-02 08:09 | MHC.OFFVISCO ---
Intake Intake Visit Reasons: Anticoagulation Allergies lisinopril Adverse Reaction (Unknown, Verified 05/02/23 08:05) cough Medication List - Last Reconciled 05/02/23 by Melissa Pierce RN atorvastatin (Lipitor) 10 mg PO DAILY dexlansoprazole (Dexilant) 60 mg PO BEDTIME diltiazem HCl (Cardizem CD) 360 mg PO DAILY irbesartan-hydrochlorothiazide 150-12.5 mg (Avalide) 1 tab PO DAILY warfarin (Jantoven) 5 mg See Protocol PO DAILY Nursing Note INR: 2.6- in therapeutic range of 2-3 Medications and supplements reviewed- no changes No changes in health, diet, medications, or supplements, Denies any signs and symptoms of bleeding or bruising or clotting. Bleeding, bruising, clotting discussed Nutritional guidance given Dose: 5mg x 2, 2.5mg x 5 F/U INR: 4 weeks Patient verbalizes understanding of instructions given Anti-Coag Initial Assessment Social Hx Patient Tobacco Use Status: Never used Tobacco alcohol intake: never Coding Level of Care Code Est Patient Level 1 Diagnoses Current use of anticoagulant therapy Z79.01 Assessment & Plan Assessment & Plan (1) Current use of anticoagulant therapy: Code(s): Z79.01 - halfway (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
[2023-05-02 08:10] LABS: ~PT, ~INR - Anti Coag Clinic 2.6 (0.9-1.1)
== END 2023-05-02 08:32 | disposition home or self-care (01) ==
LOC: HO.ACS 08:00
PROVIDERS: PCP Internal Medicine; Visit Provider Internal Medicine
DX: Z79.01 Long term (current) use of anticoagulants (principal)

== ENCOUNTER → 2023-05-02 08:00 | Outpatient (BNVA) | payer MEDICARE, OTHER, SELFPAY | PROVIDERS: PCP Internal Medicine; Visit Provider Internal Medicine | DX: I48.0 Paroxysmal atrial fibrillation (principal); Z79.01 Long term (current) use of anticoagulants; Z51.81 Encounter for therapeutic drug level monitoring | CPT/HCPCS: 85610; 99211 ==

== ENCOUNTER 2023-05-09 08:02 | Outpatient (AMB) | payer MEDICARE, OTHER, SELFPAY ==
[2023-05-09 08:29] VITALS: BP 126/56; PULSE 94; BMI 31.3
--- NOTE | 2023-05-09 08:29 | MHC.OFFVIS ---
Intake Vital Signs 05/09/23 08:29 Height 5 ft 9 in Weight 211 lb 10.3 oz BMI 31.3 BP 126/56 L Blood Pressure Location Lt brachial Position Sitting Pulse 94 Intake Visit Reasons: 1Y follow up Intake Note: 1 year follow up w/ EKG Documentation Designer Required: No Accompanied by: Self / Same As Patient Allergies lisinopril Adverse Reaction (Unknown, Verified 05/09/23 08:29) cough Medication List - Last Reconciled 05/09/23 by Nam Sanches MD atorvastatin (Lipitor) 10 mg PO DAILY dexlansoprazole (Dexilant) 60 mg PO BEDTIME diltiazem HCl (Cardizem CD) 360 mg PO DAILY irbesartan-hydrochlorothiazide 150-12.5 mg (Avalide) 1 tab PO DAILY warfarin (Jantoven) 5 mg See Protocol PO DAILY HPI HPI Comments History of Present Illness Details Rashawn returns for follow-up regarding atrial fibrillation. He states that he is doing fine. He is playing golf, softball extra with no issues. No shortness of breath or palpitations or any other cardiac complaints. [facility] Medical History Essential hypertension Hemochromatosis GABBIE (obstructive sleep apnea) Persistent atrial fibrillation Typical atrial flutter Surgical History History of prostate surgery (~10/2016) Family History Father HTN (hypertension) Mother No problems noted. Social History Household Members: Spouse Housing: House Are you a primary progressive care manager to a significant other at home: No Do you presently have visiting nurse or other home services: No Alcohol intake: never Patient Tobacco Use Status: Never used Tobacco Advance Directives Date on File: 03/23/22 service: No Current occupational status: retired Current occupation: [employer] at [employer] Current occupational exposures/hazards: Yes (Stress) Sexual orientation: Straight/Heterosexual Gender identity: Male Review of Systems Const Denies weakness ENT Denies dizziness Card Denies chest pain, Denies chest pain with activity, Denies syncope, Denies rapid heart rate, Denies pedal edema, Denies edema, Denies leg edema, Denies lightheadedness, Denies palpitations, Denies dyspnea, Denies dyspnea on exertion and Denies orthopnea Resp Denies cough, Denies dyspnea and Denies dyspnea on exertion GI Denies hematochezia and Denies change in stool character Musc Denies abnormal gait, Denies muscle cramps, Denies muscle weakness, Denies numbness, Denies radiating pain into limb and Denies tingling Neuro Denies abnormal gait, Denies dizziness, Denies syncope, Denies numbness, Denies tingling and Denies weakness Endo Denies palpitations Physical Exam Vital Signs: Last Vital Signs Pulse 94 05/09/23 08:29 BP 126/56 L 05/09/23 08:29 BMI result Body Mass Index 31.3 Const General: comfortable and no acute distress Orientation/consciousness: patient oriented x3 HEENT Other: Unremarkable Head: Yes normal to inspection Neck Neck: Yes normal visual inspection Chest Chest palpation & inspection: normal inspection of the chest Resp Auscultation: clear to auscultation bilaterally Cardio Palpation: normal PMI Heart sounds: S1 normal heart sound present, S2 normal heart sound present, no gallops, no murmurs and no rubs GI Palpation (GI): Soft to palpation Back/Spine/Pelvis Other: unremarkable Skin General skin exam: no rashes or lesions noted Neuro General: patient oriented x3 Extrem General: Yes normal to inspection Psych Mental Status: mental status grossly normal Office Procedures EKG Details: EKG with atrial fibrillation, 94/Min; IVCD with left bundle-branch block pattern. [id number], Complete Assessment & Plan Assessment & Plan (1) Persistent atrial fibrillation: Code(s): I48.19 - Other persistent atrial fibrillation Plan: Continue diltiazem. In the past, has had some side effects from metoprolol. Continue warfarin. (2) Typical atrial flutter: Code(s): I48.3 - Typical atrial flutter Plan: Previously atrial flutter on EKG but then atrial fibrillation. Diltiazem/anticoagulation as above. (3) IVCD (intraventricular conduction defect): Code(s): I45.4 - Nonspecific intraventricular block Plan: Stable. Follow-up on EKGs. (4) Essential hypertension: Code(s): I10 - Essential (primary) hypertension Plan: On irbesartan/HCTZ. Blood pressure seems okay. Stable renal function. (5) GABBIE (obstructive sleep apnea): Code(s): G47.33 - Obstructive sleep apnea (adult) (pediatric) Plan: CPAP. Coding Level of Care Code Est Pt Level 4 (94572) Diagnoses Persistent atrial fibrillation I48.19 Typical atrial flutter I48.3 IVCD (intraventricular conduction defect) I45.4 Essential hypertension I10 GABBIE (obstructive sleep apnea) G47.33 CPT Codes EKG - CPT: [id number], Complete ([id number])
== END 2023-05-09 08:55 | disposition home or self-care (01) ==
PROVIDERS: PCP Internal Medicine; Visit Provider Internal Medicine
DX: I48.19 Other persistent atrial fibrillation (principal); I48.3 Typical atrial flutter; I45.4 Nonspecific intraventricular block; I10 Essential (primary) hypertension; G47.33 Obstructive sleep apnea (adult) (pediatric)
CPT/HCPCS: 93010; 99214

== ENCOUNTER → 2023-05-09 08:02 | Outpatient (BNVA) | payer MEDICARE, OTHER, SELFPAY | PROVIDERS: Visit Provider Internal Medicine | DX: I48.19 Other persistent atrial fibrillation (principal); I48.3 Typical atrial flutter; I45.4 Nonspecific intraventricular block; I10 Essential (primary) hypertension; G47.33 Obstructive sleep apnea (adult) (pediatric); Z79.01 Long term (current) use of anticoagulants; Z79.899 Other long term (current) drug therapy | CPT/HCPCS: 93005; 99212 ==

== ENCOUNTER 2023-05-30 07:56 | Outpatient (AMB) | payer MEDICARE, OTHER, SELFPAY ==
[2023-05-30 08:02] LABS: Prothrombin Time Whole Bld POC 25.1 sec (11.1-13.5); ~PT, ~INR - Anti Coag Clinic 2.1 (0.9-1.1)
--- NOTE | 2023-05-30 08:03 | MHC.OFFVISCO ---
Intake Intake Visit Reasons: Anticoagulation Allergies lisinopril Adverse Reaction (Unknown, Verified 05/30/23 07:57) cough Medication List - Last Reconciled 05/30/23 by Kamryn Martinez RN atorvastatin (Lipitor) 10 mg PO DAILY dexlansoprazole (Dexilant) 60 mg PO BEDTIME diltiazem HCl (Cardizem CD) 360 mg PO DAILY fluticasone propionate 50 mcg/actuation 1 spray intranasal DAILY irbesartan-hydrochlorothiazide 150-12.5 mg (Avalide) 1 tab PO DAILY warfarin (Jantoven) 5 mg See Protocol PO DAILY Nursing Note INR: 2.1 in therapeutic range Medications and supplements reviewed No changes in health, diet, medications, or supplements, Denies any signs and symptoms of bleeding or bruising or clotting. Bleeding, bruising, clotting discussed Nutritional guidance given Dose: 5MG X 2 DAYS/ 2.5MG X 5 DAYS F/U INR: 4 WEEKS Patient verbalizes understanding of instructions given Anti-Coag Initial Assessment Social Hx Patient Tobacco Use Status: Never used Tobacco alcohol intake: never Coding Level of Care Code Est Patient Level 1 Diagnoses Current use of anticoagulant therapy Z79.01 Assessment & Plan Assessment & Plan (1) Current use of anticoagulant therapy: Code(s): Z79.01 - shelter (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
== END 2023-05-30 08:06 | disposition home or self-care (01) ==
LOC: HO.ACS 07:56
PROVIDERS: PCP Internal Medicine; Visit Provider Internal Medicine
DX: Z79.01 Long term (current) use of anticoagulants (principal)

== ENCOUNTER → 2023-05-30 07:56 | Outpatient (BNVA) | payer MEDICARE, OTHER, SELFPAY | PROVIDERS: PCP Internal Medicine; Visit Provider Internal Medicine | DX: I48.0 Paroxysmal atrial fibrillation (principal); Z79.01 Long term (current) use of anticoagulants; Z51.81 Encounter for therapeutic drug level monitoring | CPT/HCPCS: 85610; 99211 ==

== ENCOUNTER 2023-06-27 08:04 | Outpatient (AMB) | payer MEDICARE, OTHER, SELFPAY ==
[2023-06-27 08:12] LABS: Prothrombin Time Whole Bld POC 29.9 sec (11.1-13.5); ~PT, ~INR - Anti Coag Clinic 2.5 (0.9-1.1)
--- NOTE | 2023-06-27 08:19 | MHC.OFFVISCO ---
Intake Intake Visit Reasons: Anticoagulation Allergies lisinopril Adverse Reaction (Unknown, Verified 06/27/23 08:08) cough Medication List - Last Reconciled 06/27/23 by Yanni Hong RN atorvastatin (Lipitor) 10 mg PO DAILY dexlansoprazole (Dexilant) 60 mg PO BEDTIME diltiazem HCl (Cardizem CD) 360 mg PO DAILY fluticasone propionate 50 mcg/actuation 1 spray intranasal DAILY irbesartan-hydrochlorothiazide 150-12.5 mg (Avalide) 1 tab PO DAILY warfarin (Jantoven) 5 mg See Protocol PO DAILY Nursing Note NO CP,SOB,DIET/MED CHANGES,FALLS OR SX OF BLEEDING. CONTINUE PRESENT DOSE AND FOLLOW-UP IN 4 WEEKS. GOOD UNDERSTANDING OF DOSING INSTR. 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
== END 2023-06-27 08:24 | disposition home or self-care (01) ==
LOC: HO.ACS 08:04
PROVIDERS: PCP Internal Medicine; Visit Provider Internal Medicine
DX: Z79.01 Long term (current) use of anticoagulants (principal)

== ENCOUNTER → 2023-06-27 08:04 | Outpatient (BNVA) | payer MEDICARE, OTHER, SELFPAY | PROVIDERS: PCP Internal Medicine; Visit Provider Internal Medicine | DX: I48.0 Paroxysmal atrial fibrillation (principal); Z79.01 Long term (current) use of anticoagulants; Z51.81 Encounter for therapeutic drug level monitoring | CPT/HCPCS: 85610; 99211 ==

== ENCOUNTER 2023-07-25 08:01 | Outpatient (AMB) | payer MEDICARE, OTHER, SELFPAY ==
[2023-07-25 08:10] LABS: Prothrombin Time Whole Bld POC 31.2 sec (11.1-13.5); ~PT, ~INR - Anti Coag Clinic 2.6 (0.9-1.1)
--- NOTE | 2023-07-25 08:16 | MHC.OFFVISCO ---
Intake Intake Visit Reasons: Anticoagulation Allergies lisinopril Adverse Reaction (Unknown, Verified 07/25/23 08:04) cough Medication List - Last Reconciled 07/25/23 by Yanni Hong RN atorvastatin (Lipitor) 10 mg PO DAILY dexlansoprazole (Dexilant) 60 mg PO BEDTIME diltiazem HCl CD (Cardizem CD) 360 mg PO DAILY fluticasone propionate 50 mcg/actuation 1 spray intranasal DAILY irbesartan-hydrochlorothiazide 150-12.5 mg (Avalide) 1 tab PO DAILY warfarin (Jantoven) 5 mg See Protocol PO DAILY Nursing Note NO CP,SOB,DIET/MED CHANGES,FALLS OR SX OF BLEEDING. CONTINUE PRESENT DOSE AND FOLLOW-UP IN 4 WEEKS. GOOD UNDERSTANDING OF DOSING INSTR,. 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
== END 2023-07-25 08:17 | disposition home or self-care (01) ==
LOC: HO.ACS 08:01
PROVIDERS: PCP Internal Medicine; Visit Provider Internal Medicine
DX: Z79.01 Long term (current) use of anticoagulants (principal)

== ENCOUNTER → 2023-07-25 08:01 | Outpatient (BNVA) | payer MEDICARE, OTHER, SELFPAY | PROVIDERS: PCP Internal Medicine; Visit Provider Internal Medicine | DX: I48.0 Paroxysmal atrial fibrillation (principal); Z79.01 Long term (current) use of anticoagulants; Z51.81 Encounter for therapeutic drug level monitoring | CPT/HCPCS: 85610; 99211 ==

== ENCOUNTER 2023-08-22 08:08 | Outpatient (AMB) | payer MEDICARE, OTHER, SELFPAY ==
[2023-08-22 08:14] LABS: Prothrombin Time Whole Bld POC 30.6 sec (11.1-13.5); ~PT, ~INR - Anti Coag Clinic 2.6 (0.9-1.1)
--- NOTE | 2023-08-22 08:18 | MHC.OFFVISCO ---
Intake Intake Visit Reasons: Anticoagulation Allergies lisinopril Adverse Reaction (Unknown, Verified 08/22/23 08:09) cough Medication List - Last Reconciled 08/22/23 by Yanni Hong RN atorvastatin (Lipitor) 10 mg PO DAILY dexlansoprazole (Dexilant) 60 mg PO BEDTIME diltiazem HCl CD (Cardizem CD) 360 mg PO DAILY fluticasone propionate 50 mcg/actuation 1 spray intranasal DAILY irbesartan-hydrochlorothiazide 150-12.5 mg (Avalide) 1 tab PO DAILY warfarin (Jantoven) 5 mg See Protocol PO DAILY Nursing Note NO CP,SOB,DIET/MED CHANGES,FALLS OR SX OF BLEEDING. CONTINUE PRESENT DOSE AND FOLLOW-UP IN 4 WEEKS. GOOD UNDERSTANDING OF DOSING INSTR. 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
== END 2023-08-22 08:19 | disposition home or self-care (01) ==
LOC: HO.ACS 08:08
PROVIDERS: PCP Internal Medicine; Visit Provider Internal Medicine
DX: Z79.01 Long term (current) use of anticoagulants (principal)

== ENCOUNTER → 2023-08-22 08:08 | Outpatient (BNVA) | payer MEDICARE, OTHER, SELFPAY | PROVIDERS: PCP Internal Medicine; Visit Provider Internal Medicine | DX: I48.0 Paroxysmal atrial fibrillation (principal); Z79.01 Long term (current) use of anticoagulants; Z51.81 Encounter for therapeutic drug level monitoring | CPT/HCPCS: 85610; 99211 ==

== ENCOUNTER 2023-09-19 08:02 | Outpatient (AMB) | payer MEDICARE, OTHER, SELFPAY ==
--- NOTE | 2023-09-19 08:11 | MHC.OFFVISCO ---
Intake Intake Visit Reasons: Anticoagulation Allergies lisinopril Adverse Reaction (Unknown, Verified 09/19/23 08:07) cough Medication List - Last Reconciled 09/19/23 by Melissa Pierce RN atorvastatin (Lipitor) 10 mg PO DAILY dexlansoprazole (Dexilant) 60 mg PO BEDTIME diltiazem HCl CD (Cardizem CD) 360 mg PO DAILY fluticasone propionate 50 mcg/actuation 1 spray intranasal DAILY irbesartan-hydrochlorothiazide 150-12.5 mg (Avalide) 1 tab PO DAILY warfarin (Jantoven) 5 mg See Protocol PO DAILY Nursing Note INR 3.1-? out of therapeutic range of 2-3 Medications and supplements reviewed Patient status: pt states trigger finger right hand, awaiting ortho Medications or supplements: no changes, taking tylenol prn Diet: same Denies any signs and symptoms of bleeding or clotting or unusual bruising Bleeding, bruising, clotting discussed Nutritional guidance given: eat a green today Dose: 5mg x 2, 2.5mg x 5 F/U INR Date : 4 weeks?? Patient verbalizing understanding of instructions given. 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
[2023-09-19 08:13] LABS: Prothrombin Time Whole Bld POC 37.5 sec (11.1-13.5); ~PT, ~INR - Anti Coag Clinic 3.1 (0.9-1.1)
== END 2023-09-19 08:18 | disposition home or self-care (01) ==
LOC: HO.ACS 08:02
PROVIDERS: PCP Internal Medicine; Visit Provider Internal Medicine
DX: Z79.01 Long term (current) use of anticoagulants (principal)

== ENCOUNTER → 2023-09-19 08:02 | Outpatient (BNVA) | payer MEDICARE, OTHER, SELFPAY | PROVIDERS: PCP Internal Medicine; Visit Provider Internal Medicine | DX: I48.0 Paroxysmal atrial fibrillation (principal); Z79.01 Long term (current) use of anticoagulants; Z51.81 Encounter for therapeutic drug level monitoring | CPT/HCPCS: 85610; 99211 ==

== ENCOUNTER 2023-10-17 08:04 | Outpatient (AMB) | payer MEDICARE, OTHER, SELFPAY ==
[2023-10-17 08:11] LABS: Prothrombin Time Whole Bld POC 23.8 sec (11.1-13.5)
--- NOTE | 2023-10-17 08:13 | MHC.OFFVISCO ---
Intake Intake Visit Reasons: Anticoagulation Allergies lisinopril Adverse Reaction (Unknown, Verified 10/17/23 08:05) cough Medication List - Last Reconciled 10/17/23 by Kamryn Martinez RN atorvastatin (Lipitor) 10 mg PO DAILY dexlansoprazole (Dexilant) 60 mg PO BEDTIME diltiazem HCl CD (Cardizem CD) 360 mg PO DAILY fluticasone propionate 50 mcg/actuation 1 spray intranasal DAILY irbesartan-hydrochlorothiazide 150-12.5 mg (Avalide) 1 tab PO DAILY warfarin (Jantoven) 5 mg See Protocol PO DAILY Nursing Note INR: 2.0 in therapeutic range Medications and supplements reviewed No changes in health, diet, medications, or supplements, Denies any signs and symptoms of bleeding or bruising or clotting. Bleeding, bruising, clotting discussed Nutritional guidance given Dose: 5MG X 2 DAYS/ 2.5MG X 5 DAYS F/U INR: 1 MONTH Patient verbalizes understanding of instructions given Anti-Coag Initial Assessment Social Hx Patient Tobacco Use Status: Never used Tobacco alcohol intake: never Coding Level of Care Code Est Patient Level 1 Diagnoses Current use of anticoagulant therapy Z79.01 Assessment & Plan Assessment & Plan (1) Current use of anticoagulant therapy: Code(s): Z79.01 - director long term care (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
== END 2023-10-17 08:15 | disposition home or self-care (01) ==
LOC: HO.ACS 08:04
PROVIDERS: PCP Internal Medicine; Visit Provider Internal Medicine
DX: Z79.01 Long term (current) use of anticoagulants (principal)

== ENCOUNTER → 2023-10-17 08:04 | Outpatient (BNVA) | payer MEDICARE, OTHER, SELFPAY | PROVIDERS: PCP Internal Medicine; Visit Provider Internal Medicine | DX: I48.0 Paroxysmal atrial fibrillation (principal); Z79.01 Long term (current) use of anticoagulants; Z51.81 Encounter for therapeutic drug level monitoring | CPT/HCPCS: 85610; 99211 ==

== ENCOUNTER 2023-11-14 08:03 | Outpatient (AMB) | payer MEDICARE, OTHER, SELFPAY ==
--- NOTE | 2023-11-14 08:15 | MHC.OFFVISCO ---
Intake Intake Visit Reasons: Anticoagulation Allergies lisinopril Adverse Reaction (Unknown, Verified 11/14/23 08:03) cough Medication List - Last Reconciled 11/14/23 by Yanni Hong RN atorvastatin (Lipitor) 10 mg PO DAILY dexlansoprazole (Dexilant) 60 mg PO BEDTIME diltiazem HCl CD (Cardizem CD) 360 mg PO DAILY fluticasone propionate 50 mcg/actuation 1 spray intranasal DAILY irbesartan-hydrochlorothiazide 150-12.5 mg (Avalide) 1 tab PO DAILY warfarin (Jantoven) 5 mg See Protocol PO DAILY Nursing Note PT.HAS HAD INCREASED STRESS AT HOME AND EATING HABITS HAVE BEEN OFF KILTER A BIT. PT.HAS HAD NO CP,SOB,MED VCHANGES OR SX OF BLKEEDING. HOLD WARFARIN TODAY THEN RESUME USUAL DOSER AND FOLLOW-UP IN 2 WEEKSD. GOOD UNDERSTANDING OF DOSING INSTR. 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
[2023-11-14 10:22] LABS: Prothrombin Time Whole Bld POC 48.1 sec (11.1-13.5)
== END 2023-11-14 08:17 | disposition home or self-care (01) ==
LOC: HO.ACS 08:03
PROVIDERS: PCP Internal Medicine; Visit Provider Internal Medicine
DX: Z79.01 Long term (current) use of anticoagulants (principal)

== ENCOUNTER → 2023-11-14 08:03 | Outpatient (BNVA) | payer MEDICARE, OTHER, SELFPAY | PROVIDERS: PCP Internal Medicine; Visit Provider Internal Medicine | DX: I48.0 Paroxysmal atrial fibrillation (principal); Z79.01 Long term (current) use of anticoagulants; Z51.81 Encounter for therapeutic drug level monitoring | CPT/HCPCS: 85610; 99211 ==

== ENCOUNTER 2023-11-28 08:22 | Outpatient (AMB) | payer MEDICARE, OTHER, SELFPAY ==
[2023-11-28 08:32] LABS: Prothrombin Time Whole Bld POC 32.4 sec (11.1-13.5); ~PT, ~INR - Anti Coag Clinic 2.7 (0.9-1.1)
--- NOTE | 2023-11-28 08:35 | MHC.OFFVISCO ---
Intake Intake Visit Reasons: Anticoagulation Allergies lisinopril Adverse Reaction (Unknown, Verified 11/28/23 08:23) cough Medication List - Last Reconciled 11/28/23 by Yanni Hong RN atorvastatin (Lipitor) 10 mg PO DAILY dexlansoprazole (Dexilant) 60 mg PO BEDTIME diltiazem HCl CD (Cardizem CD) 360 mg PO DAILY fluticasone propionate 50 mcg/actuation 1 spray intranasal DAILY irbesartan-hydrochlorothiazide 150-12.5 mg (Avalide) 1 tab PO DAILY warfarin (Jantoven) 5 mg See Protocol PO DAILY Nursing Note NO CP,SOB,DIET/MED CHYANGES,FALLS OR SX OF BLEEDING. CONTINUE PRESENT DOSE AND FOLLOW-UP IN 4 WEEKS,. GOOD UNDERSTANDING OF DOSING INSTR. Anti-Coag Initial Assessment Social Hx Patient Tobacco Use Status: Never used Tobacco alcohol intake: never Coding Level of Care Code Est Patient Level 1 Diagnoses Current use of anticoagulant therapy Z79.01 Assessment & Plan Assessment & Plan (1) Current use of anticoagulant therapy: Code(s): Z79.01 - USP (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
== END 2023-11-28 08:37 | disposition home or self-care (01) ==
LOC: HO.ACS 08:22
PROVIDERS: PCP Internal Medicine; Visit Provider Internal Medicine
DX: Z79.01 Long term (current) use of anticoagulants (principal)

== ENCOUNTER → 2023-11-28 08:22 | Outpatient (BNVA) | payer MEDICARE, OTHER, SELFPAY | PROVIDERS: PCP Internal Medicine; Visit Provider Internal Medicine | DX: I48.0 Paroxysmal atrial fibrillation (principal); Z79.01 Long term (current) use of anticoagulants; Z51.81 Encounter for therapeutic drug level monitoring | CPT/HCPCS: 85610; 99211 ==

== ENCOUNTER 2023-12-26 08:06 | Outpatient (AMB) | payer MEDICARE, OTHER, SELFPAY ==
--- NOTE | 2023-12-26 08:10 | MHC.OFFVISCO ---
Intake Intake Visit Reasons: Anticoagulation Allergies lisinopril Adverse Reaction (Unknown, Verified 12/26/23 08:07) cough Medication List - Last Reconciled 12/26/23 by Melissa Pierce RN atorvastatin (Lipitor) 10 mg PO DAILY dexlansoprazole (Dexilant) 60 mg PO BEDTIME diltiazem HCl CD (Cardizem CD) 360 mg PO DAILY fluticasone propionate 50 mcg/actuation 1 spray intranasal DAILY irbesartan-hydrochlorothiazide 150-12.5 mg (Avalide) 1 tab PO DAILY warfarin (Jantoven) 5 mg See Protocol PO DAILY Nursing Note INR: 2.9- in therapeutic range 2-3 Medications and supplements reviewed- no new meds No changes in health, diet, medications, or supplements, Denies any signs and symptoms of bleeding or bruising or clotting. 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
[2023-12-26 08:11] LABS: Prothrombin Time Whole Bld POC 34.3 sec (11.1-13.5); ~PT, ~INR - Anti Coag Clinic 2.9 (0.9-1.1)
== END 2023-12-26 08:46 | disposition home or self-care (01) ==
LOC: HO.ACS 08:06
PROVIDERS: PCP Internal Medicine; Visit Provider Internal Medicine
DX: Z79.01 Long term (current) use of anticoagulants (principal)

== ENCOUNTER → 2023-12-26 08:06 | Outpatient (BNVA) | payer MEDICARE, OTHER, SELFPAY | PROVIDERS: PCP Internal Medicine; Visit Provider Internal Medicine | DX: I48.0 Paroxysmal atrial fibrillation (principal); Z79.01 Long term (current) use of anticoagulants; Z51.81 Encounter for therapeutic drug level monitoring | CPT/HCPCS: 85610; 99211 ==

== ENCOUNTER 2024-01-23 08:04 | Outpatient (AMB) | payer MEDICARE, OTHER, SELFPAY ==
[2024-01-23 08:09] LABS: Prothrombin Time Whole Bld POC 38.9 sec (11.1-13.5); ~PT, ~INR - Anti Coag Clinic 3.2 (0.9-1.1)
--- NOTE | 2024-01-23 08:13 | MHC.OFFVISCO ---
Intake Intake Visit Reasons: Anticoagulation Allergies lisinopril Adverse Reaction (Unknown, Verified 01/23/24 08:04) cough Medication List - Last Reconciled 01/23/24 by Yanni Hong RN atorvastatin (Lipitor) 10 mg PO DAILY dexlansoprazole (Dexilant) 60 mg PO BEDTIME diltiazem HCl CD (Cardizem CD) 360 mg PO DAILY fluticasone propionate 50 mcg/actuation 1 spray intranasal DAILY irbesartan-hydrochlorothiazide 150-12.5 mg (Avalide) 1 tab PO DAILY warfarin (Jantoven) 5 mg See Protocol PO DAILY Nursing Note NO CP,SOB,DIET/MED CHANGES,FALLS OR SX OF BLEEDING. CONTINUE PRESENT DOSE AND FOLLOW-UP IN 4 WEEKS. GOOD UNDERSTANDING OF DOSING INSTR. 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
== END 2024-01-23 08:15 | disposition home or self-care (01) ==
LOC: HO.ACS 08:04
PROVIDERS: PCP Internal Medicine; Visit Provider Internal Medicine
DX: Z79.01 Long term (current) use of anticoagulants (principal)

== ENCOUNTER → 2024-01-23 08:04 | Outpatient (BNVA) | payer MEDICARE, OTHER, SELFPAY | PROVIDERS: PCP Internal Medicine; Visit Provider Internal Medicine | DX: I48.0 Paroxysmal atrial fibrillation (principal); Z79.01 Long term (current) use of anticoagulants; Z51.81 Encounter for therapeutic drug level monitoring | CPT/HCPCS: 85610; 99211 ==

== ENCOUNTER 2024-02-20 08:08 | Outpatient (AMB) | payer MEDICARE, OTHER, SELFPAY ==
[2024-02-20 08:14] LABS: Prothrombin Time Whole Bld POC 35.2 sec (11.1-13.5); ~PT, ~INR - Anti Coag Clinic 2.9 (0.9-1.1)
--- NOTE | 2024-02-20 08:24 | MHC.OFFVISCO ---
Intake Intake Visit Reasons: Anticoagulation Allergies lisinopril Adverse Reaction (Unknown, Verified 02/20/24 08:08) cough Medication List - Last Reconciled 02/20/24 by Yanni Hong RN atorvastatin (Lipitor) 10 mg PO DAILY dexlansoprazole (Dexilant) 60 mg PO BEDTIME diltiazem HCl CD (Cardizem CD) 360 mg PO DAILY fluticasone propionate 50 mcg/actuation 1 spray intranasal DAILY irbesartan-hydrochlorothiazide 150-12.5 mg (Avalide) 1 tab PO DAILY warfarin (Jantoven) 5 mg See Protocol PO DAILY Nursing Note NO CP,SOB,DIET/MED CHANGES,FALLS OR SX OF BLEEDING. HOLD WARFARIN 5 DAYS FOR COLONOSCOPY ON 03/04 PER ADVENTURE GUIDE IN MEANTIME CONTINUE PRESENT DOSE AND FOLLOW-UP IN 4 WEEKS RESUME WARFARIN WHEN DIRECTED BY MD CULLEN TO BOOST TO 5MGM FIRST DOSE. GOOD UNDERSTANDING OF DOSING INSTR. Anti-Coag Initial Assessment Social Hx Patient Tobacco Use Status: Never used Tobacco alcohol intake: never Coding Level of Care Code Est Patient Level 1 Diagnoses Current use of anticoagulant therapy Z79.01 Assessment & Plan Assessment & Plan (1) Current use of anticoagulant therapy: Code(s): Z79.01 - long-term (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
== END 2024-02-20 09:07 | disposition home or self-care (01) ==
LOC: HO.ACS 08:08
PROVIDERS: PCP Internal Medicine; Visit Provider Internal Medicine
DX: Z79.01 Long term (current) use of anticoagulants (principal)

== ENCOUNTER → 2024-02-20 08:08 | Outpatient (BNVA) | payer MEDICARE, OTHER, SELFPAY | PROVIDERS: PCP Internal Medicine; Visit Provider Internal Medicine | DX: I48.0 Paroxysmal atrial fibrillation (principal); Z79.01 Long term (current) use of anticoagulants; Z51.81 Encounter for therapeutic drug level monitoring | CPT/HCPCS: 85610; 99211 ==

== ENCOUNTER 2024-03-04 07:07 | Day surgery (SDC) | payer MEDICARE, OTHER, SELFPAY ==
[2024-02-29 10:52] VITALS: BMI 31.0
[2024-03-04 07:21] VITALS: BMI 30.5
[2024-03-04 07:37] VITALS: BP 133/69; PULSE 104; RESP 16; TEMP 36.2; O2SAT 96
[2024-03-04 07:40] LABS: INTERNATIONAL NORM RATIO 1.2 (0.9-1.1); Prothrombin Time 14.1 SEC (10.9-12.4)
--- NOTE | 2024-03-04 07:41 | P.CONAN_ITS ---
HPI - Anesthesia Eval Consult details Narrative: for colon screen [facility] Active Problems Active Problems: All Active Problems Cellulitis of left arm (Acute) Severe sepsis (Acute) IVCD (intraventricular conduction defect) (Acute) Hereditary hemochromatosis (Chronic) Paroxysmal A-fib (Acute) Current use of anticoagulant therapy (Acute) GABBIE (obstructive sleep apnea) (Acute) Essential hypertension (Acute) Typical atrial flutter (Acute) Persistent atrial fibrillation (Acute) Past Medical History Medical History GABBIE (obstructive sleep apnea) Hemochromatosis Essential hypertension Typical atrial flutter Persistent atrial fibrillation Family History Family History Father HTN (hypertension) Mother No problems noted. Family history of problems with anesthesia: No Surgical History Surgical History History of esophagogastroduodenoscopy (EGD) H/O colonoscopy History of prostate surgery (~10/2016) History of Problems with Anesthesia: No Social History Social History Household Members: Spouse Housing: House Are you a primary chronic care nurse to a significant other at home: No Do you presently have visiting nurse or other home services: No Alcohol intake: never Patient Tobacco Use Status: Never used Tobacco Use of substances other than those prescribed or required for medical reasons: No Have you been hit, kicked, punched, or otherwise hurt by someone within the past year? 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 [employer] Current occupational exposures/hazards: Yes (Stress) Sexual orientation: Straight/Heterosexual Gender identity: Male Meds Allergies Allergy/AdvReac Type Severity Reaction Status Date / Time lisinopril AdvReac Unknown cough Verified 02/20/24 08:08 Active Medications: Current Medications Lactated Ringer's (Lr) 1,000 mls @ 100 mls/hr IVCONT .Q10H TOMMY Home Medications ?Medication ?Instructions ?Recorded ?Confirmed ?Last Taken ?Type dexlansoprazole 60 mg 60 mg PO BEDTIME 05/06/20 02/29/24 03/21/22 History capsule,biphase delayed release (Dexilant) irbesartan 150 1 tab PO DAILY 05/06/20 03/04/24 03/04/24 05:30 History mg-hydrochlorothiazide 12.5 mg tablet (Avalide) atorvastatin 10 mg tablet (Lipitor) 10 mg PO DAILY 12/22/20 02/29/24 03/22/22 History warfarin 5 mg tablet (Jantoven) 5 mg PO DAILY 05/03/21 03/04/24 02/27/24 History fluticasone propionate 50 1 spray intranasal DAILY 05/30/23 10/17/23 Unknown History mcg/actuation nasal spray,suspension Exam Height,Weight and Vital Signs: Height 5 ft 10 in Weight 96.332 kg Last Vital Signs Temp 97.2 F 03/04/24 07:37 Pulse 104 H 03/04/24 07:37 Resp 16 03/04/24 07:37 BP 133/69 03/04/24 07:37 Pulse Ox 96 03/04/24 07:37 O2 Del Method Room Air 03/04/24 07:37 Pertinent Lab Results Pertinent Lab Results: Laboratory Tests 03/04/24 07:29 PT 14.1 H INR 1.2 H Airway Mallampati Class: II TM Dist: >3cm Neck ROM: Full Heart: rrr Lungs: cta Assessment and Plan Assessment Anesthesia Assessment: Anesthesia Plan Discussed Final Anesthetic Review Family History of Problems with Anesthesia: No History of Problems with Anesthesia: No NPO: Yes ASA Class: III Final Preanesthetic Review: No Changes in Pt Med Stat, Meds/Allgs Chart Reviewed, Consent Obtained/Reviewed and Anes Risks/Benef Reviewed Patient Risk: Intermediate Procedure Risk: Low Anesthetic Plan Anesthetic Plan: MAC: Disposition: Standard PACU
[2024-03-04 07:43] VITALS: BP 117/59; PULSE 78; RESP 16; TEMP 36.1; O2SAT 96
[2024-03-04] MEDS: Lactated Ringers 1,000 ML 100 ML IVCONT (07:48)
--- NOTE | 2024-03-04 08:18 | MHC.SHP ---
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 Details of Present Illness: see H&P no changes Relevant Family History (Specify if Yes): No Relevant Social History: None Present Medications: see Short Stay Collaborative assessment Medical History: No relevant PMH History of Previous Operations: No relevant previous surgery Allergies: Allergies Allergy/AdvReac Type Severity Reaction Status Date / Time lisinopril AdvReac Unknown cough Verified 02/20/24 08:08 Review of Systems Sugical H&P ROS: Negative: Constitution, Cardiovascular, Respiratory, Neurological, Psychiatric, Hem-Onc, Allergic/Immunologic, Gastrointestinal, Genitourinary, Musculoskeletal, Integumentary, Endocrine and Eyes/Ears/Nose/Throat Exam Surgical H&P Exam: Normal: HEENT, Normal: Heart, Normal: Lungs, Normal: Extremities, Normal: Abdomen, Normal: Skin and Normal: Neurological Plan Diagnosis/Plan: Unchanged I have reviewed the history and physical and performed a pertinent physical examination on my patient. No changes have occurred unless specified. Time Spent With Patient Time: Total time managing care of this patient today ____ minutes.
[2024-03-04 09:20] VITALS: BP 98/50; PULSE 74; RESP 16; TEMP 36.1; O2SAT 99
[2024-03-04 09:35] VITALS: BP 99/46; PULSE 83; RESP 16; O2SAT 98
[2024-03-04 09:50] VITALS: BP 93/55; PULSE 75; RESP 16; O2SAT 94
--- NOTE | 2024-03-04 10:04 | OP_ITS ---
DATE OF SERVICE: 03/04/2024 SURGEON: Lazaro Lyn MD INDICATIONS: 1. Carmona's esophagus. 2. Colon cancer screening. PREOPERATIVE DIAGNOSIS: POSTOPERATIVE DIAGNOSIS: PROCEDURE PERFORMED: Upper endoscopy with biopsy, colonoscopy to the terminal ileum. ESTIMATED BLOOD LOSS: COMPLICATIONS: ANESTHESIA: Monitored anesthesia care. ASSISTANTS: SPECIMENS: DESCRIPTION OF PROCEDURE: A history and physical performed. The risks and benefits of the procedure explained to the patient. Informed consent was obtained. The patient was placed in the left lateral decubitus position. The Olympus video gastroscope was introduced into the esophagus, stomach, and duodenum. Examination was performed. The scope was removed. He was repositioned for colonoscopy. A digital rectal exam was performed and was found to be normal. The Olympus pediatric video colonoscope was introduced into the rectum and advanced to the cecum. The cecum was identified by transillumination, palpation, and identification of ileocecal valve. Examination was performed. The scope was removed. He tolerated the procedure well and was taken to recovery area in stable condition. FINDINGS: Upper endoscopy, esophagus, there was 2 cm area of Carmona esophagus in the distal esophagus with small hiatal hernia. Biopsies were obtained at the EG junction and at 40 cm. Below the EG junction in the stomach were multiple benign-appearing gastric polyps, 2 of these appeared somewhat ulcerated, likely from their location just below the EG junction. No definite level evidence of malignancy was identified. Biopsies were obtained from the 2 inflamed polyps. Duodenum, the bulb and 2nd portion were normal. Colonoscopy: The terminal ileum was normal. There was some retained stool mainly in the right colon and transverse colon. This limited the sensitivity of the examination for detection of small polyps. No polyps were identified. There was mild sigmoid diverticulosis. Retroflexed examination showed small internal hemorrhoids and the mucosa was otherwise normal. IMPRESSION: 1. Carmona esophagus. 2. Gastric polyps. 3. Normal colonoscopy. RECOMMENDATIONS: 1. Follow up with biopsy results. 2. Repeat colonoscopy is recommended in 10 years for average-risk individuals. MD DENISE Whatley/MIHAI / [id number]
== END 2024-03-04 11:05 | disposition home or self-care (01) ==
PROVIDERS: Anesthesiology; PCP Internal Medicine; Visit Provider Internal Medicine Gastroenterology
PROC: (CPT 43239; principal; 2024-03-04 08:20)
DX: K22.70 Barrett's esophagus without dysplasia (principal); K31.7 Polyp of stomach and duodenum; K44.9 Diaphragmatic hernia without obstruction or gangrene; Z12.11 Encounter for screening for malignant neoplasm of colon; K57.30 Diverticulosis of large intestine without perforation or abscess without bleeding; K64.8 Other hemorrhoids; Z86.0101 Personal history of adenomatous and serrated colon polyps; I10 Essential (primary) hypertension; I48.0 Paroxysmal atrial fibrillation; G47.33 Obstructive sleep apnea (adult) (pediatric); Z85.46 Personal history of malignant neoplasm of prostate; Z79.02 Long term (current) use of antithrombotics/antiplatelets; Z79.01 Long term (current) use of anticoagulants; Z79.899 Other long term (current) drug therapy
CPT/HCPCS: 43239; G0105; 36415; 85610; 88305; 88313; 88342; J1100; J2003; J2250; J2371; J2704

== ENCOUNTER 2024-03-19 08:04 | Outpatient (AMB) | payer MEDICARE, OTHER, SELFPAY ==
--- NOTE | 2024-03-19 08:10 | MHC.OFFVISCO ---
Intake Intake Visit Reasons: Anticoagulation Allergies lisinopril Adverse Reaction (Unknown, Verified 03/19/24 08:07) cough Medication List - Last Reconciled 03/19/24 by Melissa Pierce RN atorvastatin (Lipitor) 10 mg PO DAILY dexlansoprazole (Dexilant) 60 mg PO BEDTIME diltiazem HCl CD (Cardizem CD) 360 mg PO DAILY fluticasone propionate 50 mcg/actuation 1 spray intranasal DAILY irbesartan-hydrochlorothiazide 150-12.5 mg (Avalide) 1 tab PO DAILY warfarin (Jantoven) 5 mg See Protocol PO DAILY Nursing Note INR: 2.3- in therapeutic range of 2-3 Medications and supplements reviewed No changes in health, diet, medications, or supplements, Denies any signs and symptoms of bleeding or bruising or clotting. Bleeding, bruising, clotting discussed Nutritional guidance given Dose: 5mg x 2, 2.5mg x 5 F/U INR: 4 weeks Patient verbalizes understanding of instructions given pt s/p colonoscopy on 03/04/24- states one polyp Anti-Coag Initial Assessment Social Hx Patient Tobacco Use Status: Never used Tobacco alcohol intake: never Coding Level of Care Code Est Patient Level 1 Diagnoses Current use of anticoagulant therapy Z79.01 Results AMB INR Fingerstick AMB INR Fingerstick 2.3 Last Edit by Melissa Pierce RN on 03/19/24 08:11 interface delay Assessment & Plan Assessment & Plan (1) Current use of anticoagulant therapy: Code(s): Z79.01 - exterminator 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
[2024-03-19 08:11] LABS: Prothrombin Time Whole Bld POC 27.5 sec (11.1-13.5); ~PT, ~INR - Anti Coag Clinic 2.3 (0.9-1.1)
== END 2024-03-19 08:48 | disposition home or self-care (01) ==
LOC: HO.ACS 08:04
PROVIDERS: PCP Internal Medicine; Visit Provider Internal Medicine
DX: Z79.01 Long term (current) use of anticoagulants (principal)

== ENCOUNTER → 2024-03-19 08:04 | Outpatient (BNVA) | payer MEDICARE, OTHER, SELFPAY | PROVIDERS: PCP Internal Medicine; Visit Provider Internal Medicine | DX: I48.0 Paroxysmal atrial fibrillation (principal); Z79.01 Long term (current) use of anticoagulants; Z51.81 Encounter for therapeutic drug level monitoring | CPT/HCPCS: 85610; 99211 ==

== ENCOUNTER 2024-04-16 08:06 | Outpatient (AMB) | payer MEDICARE, OTHER, SELFPAY ==
--- NOTE | 2024-04-16 08:11 | MHC.OFFVISCO ---
Intake Intake Visit Reasons: Anticoagulation Allergies lisinopril Adverse Reaction (Unknown, Verified 04/16/24 08:07) cough Medication List - Last Reconciled 04/16/24 by Melissa Pierce RN atorvastatin (Lipitor) 10 mg PO DAILY dexlansoprazole (Dexilant) 60 mg PO BEDTIME diltiazem HCl CD (Cardizem CD) 360 mg PO DAILY fluticasone propionate 50 mcg/actuation 1 spray intranasal DAILY irbesartan-hydrochlorothiazide 150-12.5 mg (Avalide) 1 tab PO DAILY warfarin (Jantoven) 5 mg See Protocol PO DAILY Nursing Note INR: 2.5- in therapeutic range of 2-3 Medications and supplements reviewed- no changes No changes in health, diet, medications, or supplements, Denies any signs and symptoms of bleeding or bruising or clotting. Bleeding, bruising, clotting discussed Nutritional guidance given Dose: 5mg x 2, 2.5mg x 5 F/U INR: 4 weeks Patient verbalizes understanding of instructions given Anti-Coag Initial Assessment Social Hx Patient Tobacco Use Status: Never used Tobacco alcohol intake: never Coding Level of Care Code Est Patient Level 1 Diagnoses Current use of anticoagulant therapy Z79.01 Results AMB INR Fingerstick AMB INR Fingerstick 2.5 Last Edit by Melissa Pierce RN on 04/16/24 08:12 interface delay Assessment & Plan Assessment & Plan (1) Current use of anticoagulant therapy: Code(s): Z79.01 - [facility] (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
[2024-04-16 08:12] LABS: ~PT, ~INR - Anti Coag Clinic 2.5 (0.9-1.1)
== END 2024-04-16 08:18 | disposition home or self-care (01) ==
LOC: HO.ACS 08:06
PROVIDERS: PCP Internal Medicine; Visit Provider Internal Medicine
DX: Z79.01 Long term (current) use of anticoagulants (principal)

== ENCOUNTER → 2024-04-16 08:06 | Outpatient (BNVA) | payer MEDICARE, OTHER, SELFPAY | PROVIDERS: PCP Internal Medicine; Visit Provider Internal Medicine | DX: I48.0 Paroxysmal atrial fibrillation (principal); Z79.01 Long term (current) use of anticoagulants; Z51.81 Encounter for therapeutic drug level monitoring | CPT/HCPCS: 85610; 99211 ==

== ENCOUNTER 2024-05-01 08:28 | Outpatient (AMB) | payer MEDICARE, OTHER, SELFPAY ==
--- NOTE | 2024-05-01 08:36 | MHC.OFFVIS ---
Vital Signs 05/01/24 08:37 Height 5 ft 9 in Weight 221 lb 5.506 oz BMI 32.7 BP 122/58 L Blood Pressure Location Lt brachial Position Sitting Pulse 74 Intake Visit Reasons: 1 yr f/up [employer] Generator Required: No Accompanied by: Self / Same As Patient Allergies lisinopril Adverse Reaction (Unknown, Verified 04/16/24 08:07) cough Medication List - Last Reconciled 05/01/24 by Nam Sanches MD atorvastatin (Lipitor) 10 mg PO DAILY dexlansoprazole (Dexilant) 60 mg PO BEDTIME diltiazem HCl CD (Cardizem CD) 360 mg PO DAILY fluticasone propionate 50 mcg/actuation 1 spray intranasal DAILY irbesartan-hydrochlorothiazide 150-12.5 mg (Avalide) 1 tab PO DAILY prednisone 40 mg PO DAILY warfarin (Jantoven) 5 mg See Protocol PO DAILY HPI Comments Details: Rashawn returns for follow-up regarding atrial fibrillation. Quite active with absolutely no limitations. Continues to play golf, softball extra with no cardiac symptoms. [facility] Medical History GABBIE (obstructive sleep apnea) Hemochromatosis Essential hypertension Typical atrial flutter Persistent atrial fibrillation Surgical History History of esophagogastroduodenoscopy (EGD) H/O colonoscopy History of prostate surgery (~10/2016) Family History Father HTN (hypertension) Mother No problems noted. 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[employer] Current occupational exposures/hazards: Yes (Stress) Sexual orientation: Straight/Heterosexual Gender identity: Male Review of Systems Const Denies chills, Denies fatigue, Denies fever(s), Denies weight gain and Denies weight loss ENT Denies dizziness Card Denies chest pain, Denies leg edema, Denies lightheadedness, Denies palpitations, Denies dyspnea on exertion, Denies orthopnea and Denies other Resp Denies cough and Denies dyspnea on exertion GI Denies hematochezia and Denies change in stool character Musc Denies abnormal gait, Denies muscle weakness, Denies numbness, Denies radiating pain into limb and Denies tingling Neuro Denies abnormal gait, Denies dizziness, Denies numbness and Denies tingling Endo Denies fatigue and Denies palpitations Physical Exam Vital Signs: Last Vital Signs Pulse 74 05/01/24 08:37 BP 122/58 L 05/01/24 08:37 BMI result Body Mass Index 32.7 Const General: comfortable and no acute distress Orientation/consciousness: patient oriented x3 HEENT Other: Unremarkable Head: Yes normal to inspection Neck Neck: Yes normal visual inspection Chest Chest palpation & inspection: normal inspection of the chest Resp Auscultation: clear to auscultation bilaterally Cardio Palpation: normal PMI Heart sounds: S1 normal heart sound present, S2 normal heart sound present, no gallops, no murmurs and no rubs GI Palpation (GI): Soft to palpation Back/Spine/Pelvis Other: unremarkable Skin General skin exam: no rashes or lesions noted Neuro General: patient oriented x3 Extrem General: Yes normal to inspection Psych Mental Status: mental status grossly normal Office Procedures EKG Details: EKG with atrial fibrillation at a rate of 74/Min; leftward axis; left ventricular hypertrophy with QRS widening. 96803-[id number], Complete Assessment & Plan Assessment & Plan (1) Persistent atrial fibrillation: Code(s): I48.19 - Other persistent atrial fibrillation Category: Medical Plan: Continue diltiazem. In the past, has had some side effects from metoprolol. Continue warfarin. (2) Typical atrial flutter: Code(s): I48.3 - Typical atrial flutter Category: Medical Plan: Previously atrial flutter on EKG but then atrial fibrillation. Diltiazem/anticoagulation as above. (3) IVCD (intraventricular conduction defect): Code(s): I45.4 - Nonspecific intraventricular block Category: Medical Plan: Stable. Follow-up on EKGs. (4) Essential hypertension: Code(s): I10 - Essential (primary) hypertension Category: Medical Plan: On irbesartan/HCTZ. Stable. Labs on patient portal from PCP look unremarkable. We can get a copy for our records. (5) GABBIE (obstructive sleep apnea): Code(s): G47.33 - Obstructive sleep apnea (adult) (pediatric) Category: Medical Plan: CPAP. Coding Level of Care Code Est Pt Level 4 (15827) Diagnoses Persistent atrial fibrillation I48.19 Typical atrial flutter I48.3 IVCD (intraventricular conduction defect) I45.4 Essential hypertension I10 GABBIE (obstructive sleep apnea) G47.33 CPT Codes EKG - CPT: 24842-Tfemhswqlugjhrxdb, Complete ([id number])
[2024-05-01 08:37] VITALS: BP 122/58; PULSE 74; BMI 32.7
== END 2024-05-01 08:57 | disposition home or self-care (01) ==
PROVIDERS: PCP Internal Medicine; Visit Provider Internal Medicine
DX: I48.19 Other persistent atrial fibrillation (principal); I48.3 Typical atrial flutter; I45.4 Nonspecific intraventricular block; I10 Essential (primary) hypertension; G47.33 Obstructive sleep apnea (adult) (pediatric)
CPT/HCPCS: 93010; 99214

== ENCOUNTER → 2024-05-01 08:28 | Outpatient (BNVA) | payer MEDICARE, OTHER, SELFPAY | PROVIDERS: PCP Internal Medicine; Visit Provider Internal Medicine | DX: I48.19 Other persistent atrial fibrillation (principal); I48.3 Typical atrial flutter; I45.4 Nonspecific intraventricular block; I10 Essential (primary) hypertension; G47.33 Obstructive sleep apnea (adult) (pediatric); R94.31 Abnormal electrocardiogram [ECG] [EKG]; I51.7 Cardiomegaly | CPT/HCPCS: 93005; 99212 ==

== ENCOUNTER → 2024-05-14 08:00 | Outpatient (BNVA) | payer MEDICARE, OTHER, SELFPAY | PROVIDERS: PCP Internal Medicine; Visit Provider Internal Medicine | DX: I48.0 Paroxysmal atrial fibrillation (principal); Z79.01 Long term (current) use of anticoagulants; Z51.81 Encounter for therapeutic drug level monitoring | CPT/HCPCS: 85610; 99211 ==

== ENCOUNTER 2024-06-11 08:07 | Outpatient (AMB) | payer MEDICARE, OTHER, SELFPAY ==
[2024-06-11 08:14] LABS: Prothrombin Time Whole Bld POC 36.1 sec (11.1-13.5)
--- NOTE | 2024-06-11 08:16 | MHC.OFFVISCO ---
Intake Intake Visit Reasons: Anticoagulation Allergies lisinopril Adverse Reaction (Unknown, Verified 06/11/24 08:08) cough Medication List - Last Reconciled 06/11/24 by Yanni Hong RN atorvastatin (Lipitor) 10 mg PO DAILY dexlansoprazole (Dexilant) 60 mg PO BEDTIME diltiazem HCl CD (Cardizem CD) 360 mg PO DAILY fluticasone propionate 50 mcg/actuation 1 spray intranasal DAILY irbesartan-hydrochlorothiazide 150-12.5 mg (Avalide) 1 tab PO DAILY warfarin (Jantoven) 5 mg See Protocol PO DAILY Nursing Note NO CP,SOB,DIET/MED CHANGES,FALLS OR SX OF BLEEDING. CONTINUE PRESERNT DOSE AND FOLLOW-UP IN 4 WEEKS. GOOD UNDERSTANDING OF DOSING INSTR. Anti-Coag Initial Assessment Social Hx Patient Tobacco Use Status: Never used Tobacco alcohol intake: never Coding Level of Care Code Est Patient Level 1 Diagnoses Current use of anticoagulant therapy Z79.01 Assessment & Plan Assessment & Plan (1) Current use of anticoagulant therapy: Code(s): Z79.01 - long term care pharmacist (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
--- OUTSIDE RECORDS SUMMARY | 2024-06-11 08:21 | XMS_ITS | Patient Health Record ---
Author Organization [facility] Address [address] [place] [address] Care Team Providers Care Tong Setter Name Role Phone Favian Davis MD Primary Care Provider Lazaro Babin Jr Allergies No Known Allergies Results Component Value Reference Range Notes Prothrombin Time INR Reviewed date:03/04/2024 03:58:51 PM Interpretation: Performing Lab:[facility], [address] [place] [phone] Notes/Report: Prothrombin Time 14.1 10.9-12.4 SEC INTERNATIONAL NORM RATIO 1.2 0.9-1.1 INTERNATIONAL NORMALIZED RATIO (INR) REFERENCE RANGES Reference Range For patients not on anticoagulant therapy: 0.9 - 1.1 INR ranges for oral anticoagulant therapy: For prevention and treatment of venous thrombosis and pulmonary embolism: 2.0 - 3.0 For acute myocardial infarction with aspirin therapy: 2.0 - 3.0 For acute myocardial infarction without aspirin therapy: 3.0 - 4.0 For patients with mechanical prosthetic heart valves: 2.5 - 3.5 Pathology Reviewed date:03/11/2024 03:56:38 PM Interpretation: Performing Lab:[facility], [address] [place] [phone] Notes/Report: ----- Name: Tristan Pérez Age/Sex: 73/M : 1950 Unit#: [id number] Attend Dr: Lazaro Lyn MD Re03/04/24 Statu s: [facility]P [facility] Location: [facility] Disch: ----- SPEC : [id number] RECD : 03/04/24 STATUS: MAX COLLADO NUM: [id number] LIZA: 03/04/24 [facility] DR: Lazaro Lyn MD ENTERED: 03/04/24 SP TYPE: Surgical OTHR DR: Favian Davis MD ORDERED: HE Stain/9, Gross Micro L4/3, IHC, Special st. 2, H. pylori, Eso bx BA w/exc, AB/PAS Addendum Addendum 1 Entered: 03/10/24-1703 Immunostain for H. p ylori on C is negative. Additional level with AB/PAS on A is negative for intestinal metaplasia. Controls stain appropriately. Addendum Signed (signature on file) Laurel Pablo 03/10/24 1705 ----- Diagnosis A. Esophagogastric junction, biopsy: Squamocolumnar mucosa with minimal chronic inflammation and no intestinal metaplasia seen on initial levels; negative for dysplasia. B. Esophagus, at 40 cm, biopsy: Squamous mucosa with hyperplasia and focal intraepithelial eosinophils (up to 3 per high-power field, consistent with esophagitis and columnar mucosa with mild chronic inflammation and focal intestinal metaplasia consistent with Shah ett's mucosa; negative for dysplasia. C. Gastric polyp, bi opsy: Hyperplastic polyp with active inflammation and erosion; negative for intesti nal metaplasia and dysplasia. Comment: (A): Additional leve l with AB/PAS stain pending; addendum to follow. (C): Immunostain for H. pylori pending; addendum to follow. 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 CONTINUED ON NEXT PAGE ----- Name: Tristan Pérez Age/Sex: 73/M : 1950 Unit#: [id number] Attend Dr: Lazaro Lyn MD Re03/04/24 Status : [facility] Location: [facility] Disch: ----- SPEC : [id number] RECD : 03/04/24 STATUS: MAX COLLADO NUM: [id number] LIZA: 03/04/2438 [facility] DR: Lazaro Lyn MD ENTERED: 03/04/24-01 13 SP TYPE: Surgical OTHR DR: Favian Davis MD ORDERED: HE Stain/9, Gross Micro L4/3, IHC, Special st. 2, H. pylori, Eso bx BA w/exc, AB/PAS Material Received A. EG junction bx's B. Esophagus @ 40 cm C. Bx's gastric polyp Gross Description Received in three parts. Part A: Received in formalin labeled ?EG junction bx's? are 4 andrews-pink irregular and rectangular tissue fragments ranging from 0.2-0.35 cm, submitted in toto in a cassette labeled A. Part B: Received in formalin labeled ?esophagus at 40 cm? are 4 andrews irregular tissue fragments ranging fr om 0.15-0.25 cm, submitted in toto in a cassette labeled B. Part C: Received in formalin labeled ?bx's gastric polyp? are 3 hyperemic and congested, pink-red irregular t issue fragments ranging from minute to 0.25 cm with scant blood, submitted in toto in a cassette labeled C. CEDS Special studies orde red and performed: Immunostain for H. pylori on C1; AB/PAS stains on A1. Copies To: Favian Davis MD [address] [id number] Lazaro Lyn MD [facility] [address] [place] [address] [address] [place], [place] [id number] ----- Signed (signature on file) Laurel Pablo 03/05/24 1359 ----- END OF REPORT Reason For Referral No Information Medications Medication SIG (Take, Route, Frequency, Duration) Notes Start Date End Date Status Coumadin 5 MG 1 tablet Orally Once a day Active dilTIAZem HCl ER Coated Beads 360 MG 1 capsule Orally Once a day Active Colyte with Flavor Packs 240 GM As directed Orally Over the specified time. 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 of anticoagulants (Z79.01) Active confirmed Problem 950550967 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 Problem Benign neoplasm of stomach (69319168) Gastric polyps (K31.7) Active confirmed Problem Carmona esophagus (652679911) 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 Vital Signs Temperature 97.7 degrees Fahrenheit 01/14/2024 Blood pressure diastolic 00 mm Hg 01/14/2024 Height 70 in 01/14/2024 Blood pressure systolic 000 mm Hg 01/14/2024 Weight 216 lb 6 oz lbs 01/14/2024 BMI 31.04 kg/m2 01/14/2024 Encounters Encounter Location Date Provider Diagnosis [facility] [address] [place] [phone] 03/04/2024 Lazaro Lyn Jr Colon cancer screening Z12.11 ; Gastric polyps K31.7 and Carmona esophagus K22.70 [facility] [address] [facility] [address] [place] [phone] 01/14/2024 Lazaro Lyn Jr Barretts esophagus without dysplasia K22.70 ; Colon cancer screening Z12.11 and senior living (current) use of anticoagulants Z79.01 [facility] [address] [place] [phone] 03/10/2024 Lazaro Lyn Jr Assessments Encounter Date Diagnosis (ICD Code) Assessment Notes Treatment Notes Treatment Clinical Notes Section Notes 03/04/2024 Colon cancer screening (ICD-10 - Z12.11) 03/04/2024 Gastric polyps (ICD-10 - K31.7) 01/14/2024 Colon cancer screening (ICD-10 - Z12.11) We discussed gastroesophageal reflux disease today. We discussed Carmona's esophagus. We discussed diet, lifestyle modifications, and weight management regarding the treatment of reflux. He will continue Dexilant. He is due for followup endoscopy. This will be arranged. We discussed colonoscopy. This will be done at the same time. He is aware of risks and benefits of both procedures. He'll stop Coumadin one week before the procedures. 01/14/2024 Barretts esophagus without dysplasia (ICD-10 - K22.70) Endoscopy material was printed We discussed gastroesophageal reflux disease today. We discussed Carmona's esophagus. We discussed diet, lifestyle modifications, and weight management regarding the treatment of reflux. He will continue Dexilant. He is due for followup endoscopy. This will be arranged. We discussed colonoscopy. This will be done at the same time. He is aware of risks and benefits of both procedures. He'll stop Coumadin one week before the procedures. 03/04/2024 Carmona esophagus (ICD-10 - K22.70) 01/14/2024 terminal superintendent (current) use of anticoagulants (ICD-10 - Z79.01) We discussed gastroesophageal reflux disease today. We discussed Carmona's esophagus. We discussed diet, lifestyle modifications, and weight management regarding the treatment of reflux. He will continue Dexilant. He is due for followup endoscopy. This will be arranged. We discussed colonoscopy. This will be done at the same time. He is aware of risks and benefits of both procedures. He'll stop Coumadin one week before the procedures. Plan Of Treatment Future Test Test Name Order Date UPPER GI ENDOSCOPY 06/25/2013 UPPER GI ENDOSCOPY 09/15/2015 COLONOSCOPY 09/15/2015 UPPER GI ENDOSCOPY 07/03/2018 COLONOSCOPY 07/03/2018 UPPER GI ENDOSCOPY 01/14/2024 COLONOSCOPY 01/14/2024 Next Appt Details Provider Name:Lazaro dickson Jr, 03/16/2025 09:00:00 AM, [address] [place] [address], [address], [place], [address], Insurance Providers Payer Name Payer Address Payer Phone Subscriber Number Group Number Insured Name Patient Relationship to Insured Coverage Start Date Coverage End Date MEDICARE OF [place] [employer] [address] [place] [address] [id number] MINERVA JAY Self - patient is the insured [employer] [address] [place] [phone] [id number] REBEKAH Masterson MINERVA Self - patient is the insured Medical (General) History Medical History History ICD Code Colon polyps, colonoscopy 09/25, tubular adenoma, five-year followup Elevated liver function test s, 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
--- OUTSIDE RECORDS SUMMARY | 2024-06-11 08:21 | XMS_ITS | Clinical Summary ---
Author Organization [facility] ity Address [address] [place] [address] Care Team Providers Care Cut File Clerk Name Role Phone Unavailable Primary Care Provider Unavailabl e Social History Tobacco Use Types Packs/Day Years Used Date Smoking Tobacco: Never Assessed Sex and Gender Information Value Date Recorded Sex Assigned at Not on file Legal Sex Male 1:38 AM EST Gender Identity Not on file Sexual Orientation Not on file Plan of Treatment Health Maintenance Due Date Last Done Comments DTaP,Tdap,and Td Vaccines (1 - Tdap) 1971 Pneumococcal Vaccine: 50+ Ye ars (1 of 1 - PCV) 2002 Zoster Vaccines (1 of 2) 2002 COVID-19 Vaccine (1 - 2023-2 5 season) 2023 Influenza Vaccine (#1) 2023 RSV Immunization Patients 60 + Years Old (1 - 1-dose 75+ series) 2027 HIB Vaccines Aged Out No longer eligi ble based on patient's age to complete this topic HPV Vaccines Aged Out No longer eligi ble based on patient's age to complete this topic Hepatitis A Vaccines Aged Out No long er eligible based on patient's age to complete this topic Hepatitis B Vaccines Aged Out No long er eligible based on patient's age to complete this topic IPV Vaccines Aged Out No longer eligi ble based on patient's age to complete this topic MMR Vaccines Aged Out No longer eligi ble based on patient's age to complete this topic Meningococcal ACWY Vaccine Aged Out N o longer eligible based on patient's age to complete this topic Meningococcal B Vacine Aged Out No lo nger eligible based on patient's age to complete this topic RSV Immunization Patients Un yesenia 20 months Aged Out No longer eligible b ased on patient's age to complete this topic Varicella Vaccines Aged Out No longer eligible based on patient's age to complete this topic
--- OUTSIDE RECORDS SUMMARY | 2024-06-11 08:21 | XMS_ITS ---
Author Organization [facility] Address [address] [facility] [address] [place] [phone] Care Team Providers Care Big Data Analytics Lead Name Role Phone Favian Davis MD Primary Care Provider Lazaro Babin Jr REASON FOR VISIT barretts, screening Problems Problem Type SNOMED Code ICD Code Onset Dates Problem Status W/U Status Risk Notes Problem Benign neoplasm of stomach (91158299) Gastric polyps (K31.7) Active confirmed Problem Carmona esophagus (547453372) 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 Encounters Encounter Location Date Provider Diagnosis [facility] [address] [place] [phone] 03/04/2024 Lazaro Lyn Jr Colon cancer screening [...] Name:Lazaro dickson Jr, 03/16/2025 09:00:00 AM, [address] [facility], [address], [place], [address], Progress Notes * MINERVA GIRARD TDOB:[birth year] (74 yo M)Acc No.[id number]:03/04/2024 EGD&COL/MAC Patient:?MINERVA GIRARD Provider:?Lazaro Lyn MD :1950???Age:73 Y???Sex:Male Farshad e:03/04/2024 Address:[address] [place], [place] [phone] Pcp:Favian Davis MD Subjective: * Chief Complaints: * ???1. Barretts, screening. * Medical History:? Objective: * Vitals:? Assessment: * Assessment: 1.?Colon cancer screening - Z12.11 (Primary)???2.?Gastric polyps - K31.7???3.?Carmona esophagus - K22.70??? Plan: * Treatment: * Procedure Codes:?67260 DIAGN OSTIC COLONOSCOPY, 0529F INTRVL 3+YRS PTS CLNSCP DOCD, 0528F RCMND FLW-UP 10 YRS DOCD, 84102 UPPER GI ENDOSCOPY, BIOPSY * * The named appointment provid er may or may not be the originator of this progress note, and it is not deemed complete until electronically signed by the appointment provider. Sign off status: Pending * Provider:?Lazaro Lyn MD Date:?1 05/04/2023 Generated for Lisa noguera/Onur/eTvickysmitting on:?06/11/2024 08:20 AM EST
--- OUTSIDE RECORDS SUMMARY | 2024-06-11 08:21 | XMS_ITS ---
Author Organization [facility] Address [address] [place] [address] Care Team Providers Care Brace End Mainspring Former Name Role Phone Favian Davis MD Primary Care Provider Khoi Lyn Jr, Lazaro Reyes REASON FOR VISIT pathology Encounters Encounter Location Date Provider Diagnosis [facility] [address] [place] [address] 03/10/2024 Lazaro Lyn Jr Plan Of Treatment Next Appt Details Provider Name:Lazaro dickson Jr, 03/16/2025 09:00:00 AM, [address], [address], [place], [address], Progress Notes * MINERVA GIRARD TDOB:[birth year] (73 yo M)Acc No.[id number]:03/10/2024 Patient:?MINERVA GIRARD :1950???Age:73 Y???Sex:Male Address:[place] [address] * true * Date:? Generated for Lisa noguera/Onur/eTransmitting on:?06/11/2024 08:20 AM EST
--- OUTSIDE RECORDS SUMMARY | 2024-06-11 08:21 | XMS_ITS ---
Author Organization [facility] Address [address] [place] [address] Care Team Providers Care Party Plan Dealer Name Role Phone Favian Davis MD Primary Care Provider Lazaro Babin Jr Allergies No Known Allergies REASON FOR VISIT Patient presents today for consultation Medications Medication SIG (Take, Route, Frequency, Duration) [...] Once a day for 30 day(s) Active Problems Problem Type SNOMED Code ICD Code Onset Dates Problem Status W/U Status Risk Notes Problem 536162773 assisted (curre nt) use of anticoagulants (Z79.01) Active confirmed Vital Signs Temperature 97.7 degrees Fahrenheit 01/14/20 24 Blood pressure systolic 000 mm Hg 01/14/20 24 Blood pressure diastolic 00 mm Hg 024 Height 70 in 01/14/2024 Weight 216 lb 6 oz lbs 01/14/2024 BMI 31.04 kg/m2 01/14/2024 Encounters Encounter Location Date Provider Diagnosis [facility] [address] [place] [address] 01/14/2024 Lazaro Lyn Jr Barretts esophagus without dysplasia K22.70 ; Colon cancer screening Z12.11 and assisted (current) use of anticoagulants Z79.01 Assessments Encounter Date Diagnosis (ICD Code) Assessment Notes Treatment Notes Treatment Clinical Notes Section Notes 01/14/2024 Barretts esophagus without dysplasia (ICD-10 - [...] Coumadin one week before the procedures. 01/14/2024 Colon cancer screening (ICD-10 - Z12.11) [...] Coumadin one week before the procedures. 01/14/2024 medical terminologist (current) use of anticoagulants (ICD-10 - Z79.01) [...] week before the procedures. Plan Of Treatment Treatment Notes Assessment Notes Barretts esophagus without dysplasia End oscopy material was printed Future Test Test Name Order Date UPPER GI ENDOSCOPY 01/14/2024 COLONOSCOPY 01/14/2024 Next Appt Details Follow Up: 1 Year, Reason: Provider Name:Lazaro dickson Jr, 03/16/2025 09:00:00 AM, [address] [place] [address], [address], [place], [address], Progress Notes * MINERVA GIRARD TDOB:[birth year] (73 yo M)Acc No.[id number]:01/14/2024 Progress Notes Patient:?MINERVA GIRARD Provider:?Lazaro Lyn MD :1950???Age:73 Y???Sex:Male Farshad e:01/14/2024 Address:[address] [place] [address] [facility] Pcp:Favian Davis MD Subjective: * Chief Complaints: * ???1. Patient presents today for consultation. * HPI: ???New symptom(s):? The patient is a pleasant 73-year-old man seen today in consultation. He has a long-standing history of gastroesophageal reflux disease with Carmona's esophagus. Reflux symptoms include substernal burning precipitated by typical foods including spicy foods and fatty foods. Symptoms have been well-controlled on Dexilant 60 mg daily. He has no dysphagia, hematemesis, or melena. EGD in 2019 showed short segment Carmona's with no dysplasia and five-year followup was recommended. ?He also has a history of colon polyps, and last underwent colonoscopy in 2019. This showed a small tubular adenoma and five-year followup was recommended. He has no complaints of abdominal or rectal pain. He has no diarrhea or rectal bleeding. * ROS:?General/Constitutional:?Change in appetite?denies.?Fatigue?denies.?ENT:?Patient denies?difficulty swallowing.?Respiratory:?Patient denies?shortness of breath.?Cardiovascular:?Patient denies?chest pain.?Gastrointestinal:?Comments?See HPI for details.?Genitourinary:?Difficulty urinating?denies.?Incontinence?denies.?Musculoskeletal:?Patient denies?muscle aches.?Skin:?Patient denies?pruritis.?Neurologic:?Patient denies?low back pain.?Psychiatric:?Patient denies?mental or physical abuse.? 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 * Surgical History:?appendecto my , prostatectomy . * Family History:?Father: dece ased, diagnosed with HTN (hypertension).?Mother: , diagnosed with Heart disease.? The patient has no family history of hemachromatosis or liver disease that he is aware of. No family history of colon cancer or liver cancer. * Social History:?Tobacco Use:?Tobacco Use/Smoking?Are you a: nonsmoker.?Drugs/Alcohol:?Alcohol Screen?Points: 1, Interpretation: Negative.?Miscellaneous:?Marital status: . 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 * Medications:?Taking Dexilant 60mg Capsule Delayed Release 1 capsule Orally Once a day, Taking Irbesartan-hydroCHLOROthiazide 150-12.5 MG Tablet 1 tablet Orally Once a day, Taking Coumadin 5 MG Tablet 1 tablet Orally Once a day, Taking dilTIAZem HCl ER Coated Beads 360 MG Capsule Extended Release 24 Hour 1 capsule Orally Once a day, Taking Colyte with Flavor Packs 240 GM Solution Reconstituted As directed Orally Over the specified time., Medication List reviewed and reconciled with the patient * Allergies:?N.K.D.A. Objective: * Vitals:?Wt: 216 lb 6 oz, Ht: 70 in, BMI:31.04 Index, BP: 000/00 mm Hg, Temp: 97.7. * Examination: ???General Examination: ?GENERAL APPEARANCE:?in no acute distress.?HEAD:?normocephalic.?EYES:?sclera non-icteric.?ORAL CAVITY:?mucosa moist.?NECK/THYROID:?no lymphadenopathy.?SKIN:?anicteric.?HEART:?S1, S2 normal, no murmurs.?LUNGS:?clear to auscultation bilaterally.?CHEST:?normal shape and expansion.?ABDOMEN:?soft, nontender, nondistended, bowel sounds present, no organomegaly .?EXTREMITIES:?no clubbing, cyanosis, or edema.?PSYCH:?cognitive function intact.? Assessment: * Assessment: 1.?Barretts esophagus withou t dysplasia - K22.70 (Primary)?2.?Colon cancer screening - Z12.11?3.?assisted (current) use of anticoagulants - Z79.01? We discussed gastroesophagea l reflux disease today. We discussed Carmona's esophagus. We discussed diet, lifestyle modifications, and weight management regarding the treatment of reflux. He will continue Dexilant. He is due for followup endoscopy. This will be arranged. We discussed colonoscopy. This will be done at the same time. He is aware of risks and benefits of both procedures. He'll stop Coumadin one week before the procedures. Plan: * Treatment: 2.?Colon cancer screening?Procedure: UPPER GI ENDOSCOPY (Ordered for 01/14/2024) ?Procedure: COLONOSCOPY (Ordered for 01/14/2024) * Procedure Codes:?3017F COLOR ECTAL CA SCREEN DOC REV, G9903 Pt scrn tbco id as non user, G9744 PATIENT NOT ELIG D/T ACTIVE DX HTN * Preventive Medicine:? ??Counseling:?Care goal follow-up plan:?Above Normal BMI Follow-up?Giving encouragement to exercise,?BMI management provided?Yes.? ??Screenings:?Fall Risk Screening?Fall Risk Assessment:?No falls in the past year,?Screening:?No falls in the past year,?Assessment:?Not performed, no reason specified,?Plan of Care:?Not documented, no reason specified.? * Follow Up:?1 Year * * Sign off status: Completed true * Provider:?Lazaro Lyn MD Date:?1 Generated for Lisa noguera/Onur/Rubinitting on:?06/11/2024 08:20 AM EST History and Physical Notes * HPI (History of Present Illness) Category Sub-Category Detail Notes Category Not es New symptom(s) The patient is a pleasant 73-year-old man seen today in consultation. He has a long-standing history of gastroesophageal reflux disease with Carmona's esophagus. Reflux symptoms include substernal burning precipitated by typical foods including spicy foods and fatty foods. Symptoms have been well-controlled on Dexilant 60 mg daily. He has no dysphagia, hematemesis, or melena. EGD in 2019 showed short segment Carmona's with no dysplasia and five-year followup was recommended. He also has a history of colon polyps, and last underwent colonoscopy in 2019. This showed a small tubular adenoma and five-year followup was recommended. He has no complaints of abdominal or rectal pain. He has no diarrhea or rectal bleeding. Examination Category Sub-Category Detail Notes Category Not es General Examination GENERAL APPEARANCE: in no acute di stress HEAD: normocephalic EYES: sclera non-icteric NECK/THYROID: no lymphadenopathy HEART: S1, S2 normal, no mu rmurs CHEST: normal shape and exp ansion LUNGS: clear to auscultatio n bilaterally ABDOMEN: soft, nontender, non distended, bowel sounds present, no organomegaly SKIN: anicteric EXTREMITIES: no clubbing, cyanosi s, or edema PSYCH: cognitive function i ntact ORAL CAVITY: mucosa moist
== END 2024-06-11 08:26 | disposition home or self-care (01) ==
LOC: HO.ACS 08:07
PROVIDERS: PCP Internal Medicine; Visit Provider Internal Medicine
DX: Z79.01 Long term (current) use of anticoagulants (principal)

== ENCOUNTER → 2024-06-11 08:07 | Outpatient (BNVA) | payer MEDICARE, OTHER, SELFPAY | PROVIDERS: PCP Internal Medicine; Visit Provider Internal Medicine | DX: I48.0 Paroxysmal atrial fibrillation (principal); Z79.01 Long term (current) use of anticoagulants; Z51.81 Encounter for therapeutic drug level monitoring | CPT/HCPCS: 85610; 99211 ==

== ENCOUNTER 2024-07-09 08:07 | Outpatient (AMB) | payer MEDICARE, OTHER, SELFPAY ==
--- NOTE | 2024-07-09 08:14 | MHC.OFFVISCO ---
Intake Intake Visit Reasons: Anticoagulation Allergies lisinopril Adverse Reaction (Unknown, Verified 07/09/24 08:08) cough Medication List - Last Reconciled 07/09/24 by Melissa Pierce RN atorvastatin (Lipitor) 10 mg PO DAILY dexlansoprazole (Dexilant) 60 mg PO BEDTIME diltiazem HCl CD (Cardizem CD) 360 mg PO DAILY fluticasone propionate 50 mcg/actuation 1 spray intranasal DAILY irbesartan-hydrochlorothiazide 150-12.5 mg (Avalide) 1 tab PO DAILY warfarin (Jantoven) 5 mg See Protocol PO DAILY Nursing Note INR: 2.8- in therapeutic range of 2-3 Medications and supplements reviewed- no changes pt states may start fish oil for dry eye- aware it can raise inr and to let acs know if he starts for more freq monitoring No changes in health, diet, medications, or supplements, Denies any signs and symptoms of bleeding or bruising or clotting. Bleeding, bruising, clotting discussed Nutritional guidance given Dose: 5mg x 2, 2.5mg x 5 F/U INR: 4 weeks Patient verbalizes understanding of instructions given Anti-Coag Initial Assessment Social Hx Patient Tobacco Use Status: Never used Tobacco alcohol intake: never Coding Level of Care Code Est Patient Level 1 Diagnoses Current use of anticoagulant therapy Z79.01 Results AMB INR Fingerstick AMB INR Fingerstick 2.8 Last Edit by Melissa Pierce RN on 07/09/24 08:17 Assessment & Plan Assessment & Plan (1) Current use of anticoagulant therapy: Code(s): Z79.01 - long term care social worker (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
--- OUTSIDE RECORDS SUMMARY | 2024-07-09 08:14 | XMS_ITS | Patient Health Record ---
Author Organization [facility] Address [address] [place] [address] Care Team Providers Care Chisel Grinder Name Role Phone Favian Davis MD Primary Care Provider Lazaro Babin Jr Allergies No Known Allergies Results Component Value Reference Range Notes Prothrombin Time INR Reviewed date:03/04/2024 03:58:51 PM Interpretation: Performing Lab:[facility], [address] [place] [id number] Notes/Report: Prothrombin Time 14.1 10.9-12.4 [employer] [...] Pathology Reviewed date:03/11/2024 03:56:38 PM Interpretation: Performing Lab:[facility], [address] [place] [phone] Notes/Report: ----- Name: Tristan Pérez Age/Sex: 73/M : 1950 Unit#: [id number] Attend Dr: Lazaro Lyn MD Re03/04/24 [place]u s[place] [facility] [place]: [facility] Disch: ----- SPEC : [id number] RECD : 03/04/24 STATUS: AMX COLLADO NUM: [id number] LIZA: 03/04/[address] [facility] [address]: Lazaro Lyn MD ENTERED: 03/04/24 SP [...] Tristan Pérez Age/Sex: 73/M : 1950 Unit#: [id number] Attend Dr: Lazaro Lyn MD Re03/04/24 Status : [facility] Location: [facility] Disch: ----- SPEC : [id number] RECD : 03/04/24 STATUS: MAX COLLADO NUM: [id number] LIZA: 03/04/[address] [facility] [address]: Lazaro Lyn MD ENTERED: 03/04/24-01 13 [...] on A1. 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 Problem Benign neoplasm of stomach (91554172) Gastric polyps (K31.7) Active confirmed Problem 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 [address] [place] [address] 01/14/2024 Lazaro Lyn Jr Barretts esophagus without dysplasia K22.70 ; Colon cancer screening Z12.11 and [facility] (current) use of anticoagulants Z79.01 [facility] [address] [facility] [address] [address] [place] [phone] 03/10/2024 Lazaro Lyn Jr Assessments Encounter Date [...] 03/04/2024 Carmona esophagus (ICD-10 - K22.70) 01/14/2024 terminologist (current) use of anticoagulants (ICD-10 - [...] Provider Name:Lazaro dickson Jr, 03/16/2025 09:00:00 AM, [address] [place] [address], [address], [place], [address], Insurance Providers Payer Name Payer Address Payer Phone Subscriber Number Group Number Insured Name Patient Relationship to Insured Coverage Start Date Coverage End Date MED[employer] OF [place] [address] [place] [address] [id number] MINERVA JAY Self - patient is the insured [employer] [address] [place] [phone] [id number] REBEKAH Masterson MINERVA Self - patient is [...]
[2024-07-09 08:15] LABS: ~PT, ~INR - Anti Coag Clinic 2.8 (0.9-1.1)
--- OUTSIDE RECORDS SUMMARY | 2024-07-09 08:15 | XMS_ITS | Clinical Summary ---
Author Organization [facility] Address [address] [place] [address] Care Team Providers Care Program Architect Name Role Phone Unavailable Primary Care Provider [...] 2023 Influenza Vaccine (#1) 2023 RSV Immunization Adult Patie nts (1 - 1-dose 75+ series) 2027 HIB [...]
--- OUTSIDE RECORDS SUMMARY | 2024-07-09 08:15 | XMS_ITS ---
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 Encounters Encounter Location Date Provider Diagnosis [facility] [place] [address] [place] [phone] 03/04/2024 Lazaro Lyn Jr Colon cancer screening [...] Name:Lazaro dickson Jr, 03/16/2025 09:00:00 AM, [address] [facility], [address], [place], [address], Progress Notes * MINERVA GIRARD TDOB:[birth year] (74 yo M)Acc No.[id number]:03/04/2024 EGD and COL/MAC Patient:?MINERVA GIRARD Provider:?Lazaro Lyn MD :1950???Age:73 Y???Sex:Male Farshad e:03/04/2024 Address:[address] [place], [place] [phone] Pcp:Favian Davis MD Subjective: * Chief Complaints: * ???1. Barretts, screening. * Medical History:? Objective: * Vitals:? Assessment: * Assessment: 1.?Colon cancer screening - Z12.11 (Primary)???2.?Gastric polyps - K31.7???3.?Carmona esophagus - K22.70??? Plan: * Treatment: * Procedure Codes:?17964 DIAGN OSTIC COLONOSCOPY, 0529F INTRVL 3+YRS PTS CLNSCP DOCD, 0528F RCMND FLW-UP 10 YRS DOCD, [address]70 UPPER GI ENDOSCOPY, BIOPSY * * The named appointment provid er may or may not be the originator of this progress note, and it is not deemed complete until electronically signed by the appointment provider. Sign off status: Pending * Provider:?Lazaro Lyn MD Date:?1 05/04/2023 Generated for Lisa noguera/Onur/eTvickysmitting on:?07/09/2024 08:14 AM EDT
--- OUTSIDE RECORDS SUMMARY | 2024-07-09 08:15 | XMS_ITS ---
Author Organization [facility] Address [address] [place] [address] Care Team Providers Care Seasonal Retail Merchandiser Name Role Phone Favian Davis MD Primary Care Provider Khoi Lyn Jr, Lazaro Reyes REASON FOR VISIT pathology Encounters Encounter Location Date Provider Diagnosis [facility] [address] [place] [address] 03/10/2024 Lazaro Lyn Jr Plan Of Treatment Next Appt Details Provider Name:Lazaro dickson Jr, 03/16/2025 09:00:00 AM, [address], [address], [place], [address], Progress Notes * MINERVA GIRARD TDOB:[birth year] (73 yo M)Acc No.[id number]:03/10/2024 Patient:?MINERVA GIRARD :1950???Age:73 Y???Sex:Male Address:[place] [address] * true * Date:? Generated for Michellei poornima/Onur/eTransmitting on:?07/09/2024 08:14 AM EDT
--- OUTSIDE RECORDS SUMMARY | 2024-07-09 08:15 | XMS_ITS ---
Author Organization [facility] Address [address] [place] [address] Care Team Providers Care Log Sawyer Name Role Phone Favian Davis MD Primary [...] Problem Status W/U Status Risk Notes Problem 499138472 shelter (curre nt) use of anticoagulants (Z79.01) Active confirmed Vital Signs Temperature 97.7 degrees Fahrenheit 01/14/20 24 Blood pressure systolic 000 mm Hg 01/14/20 24 Blood pressure diastolic 00 mm Hg 024 Height 70 in 01/14/2024 Weight 216 lb 6 oz lbs 01/14/2024 BMI 31.04 kg/m2 01/14/2024 Encounters Encounter Location Date Provider Diagnosis [facility] [address] [place] [address] 01/14/2024 Lazaro Lyn Jr Barretts esophagus without dysplasia K22.70 ; Colon cancer screening Z12.11 and shelter (current) use of anticoagulants Z79.01 Assessments Encounter [...] Coumadin one week before the procedures. 01/14/2024 local intermodal truck driver (current) use of anticoagulants (ICD-10 - Z79.01) [...] Provider Name:Lazaro dickson Jr, 03/16/2025 09:00:00 AM, [address] [place] [address], [address], [place], [address], Progress Notes * MINERVA GIRARD TDOB:[birth year] (73 yo M)Acc No.[id number]:01/14/2024 Progress Notes Patient:?MINERVA GIRARD Provider:?Lazaro Lyn MD :1950???Age:73 Y???Sex:Male Farshad e:01/14/2024 Address:[address] [place] [address] [facility] Pcp:Favian Davis MD Subjective: * Chief Complaints: [...] 1, Interpretation: Negative.?Miscellaneous:?Marital status: . 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 * Medications:?Taking Dexilant 60mg Capsule Delayed Release [...] dysplasia - K22.70 (Primary)?2.?Colon cancer screening - Z12.11?3.?shelter (current) use of anticoagulants - Z79.01? We [...] Lyn MD Date:?1 Generated for Lisa noguera/Onur/Rubinitting on:?07/09/2024 08:14 AM EDT History and Physical Notes * HPI (History [...]
== END 2024-07-09 08:32 | disposition home or self-care (01) ==
LOC: HO.ACS 08:07
PROVIDERS: PCP Internal Medicine; Visit Provider Internal Medicine Medical Oncology
DX: Z79.01 Long term (current) use of anticoagulants (principal)

== ENCOUNTER → 2024-07-09 08:07 | Outpatient (BNVA) | payer MEDICARE, OTHER, SELFPAY | PROVIDERS: PCP Internal Medicine; Visit Provider Internal Medicine Medical Oncology | DX: I48.0 Paroxysmal atrial fibrillation (principal); Z79.01 Long term (current) use of anticoagulants; Z51.81 Encounter for therapeutic drug level monitoring | CPT/HCPCS: 85610; 99211 ==

== ENCOUNTER 2024-08-06 08:00 | Outpatient (AMB) | payer MEDICARE, OTHER, SELFPAY ==
--- OUTSIDE RECORDS SUMMARY | 2024-08-06 08:04 | XMS_ITS | Clinical Summary ---
Author Organization [facility] ity Address [address] [place] [address] Care Team Providers Care Transitional Care Nurse Name Role Phone Unavailable Primary Care Provider [...] Vaccines (1 of 2) 2002 COVID-19 Vaccine ( - 2023-2 5 season) 2023 Influenza Vaccine (Season Ended) 2024 RSV Immunization Adult Patie nts (1 - [...] age to complete this topic Meningococcal B Vaccine Aged Out No l onger eligible based on patient's age to complete this topic RSV Immunization Patients Un yesenia 20 months Aged Out No longer eligible b ased on patient's age to complete this topic Varicella Vaccines Aged Out No longer eligible based on patient's age to complete this topic
[2024-08-06 08:09] LABS: Prothrombin Time Whole Bld POC 26.5 sec (11.1-13.5); ~PT, ~INR - Anti Coag Clinic 2.2 (0.9-1.1)
--- NOTE | 2024-08-06 08:25 | MHC.OFFVISCO ---
Intake Intake Visit Reasons: Anticoagulation Allergies lisinopril Adverse Reaction (Unknown, Verified 08/06/24 08:05) cough Medication List - Last Reconciled 08/06/24 by Yanni Hong RN atorvastatin (Lipitor) 10 mg PO DAILY dexlansoprazole (Dexilant) 60 mg PO BEDTIME diltiazem HCl CD 360 mg PO DAILY fluticasone propionate 50 mcg/actuation 1 spray intranasal DAILY irbesartan-hydrochlorothiazide 150-12.5 mg (Avalide) 1 tab PO DAILY warfarin (Jantoven) 5 mg See Protocol PO DAILY Nursing Note NO CP,SOB,DIET/MED CHANGES,FALLS OR SX OF BLEEDING. CONTINUE PRESENT DOSE AND FOLLOW-UP IN 4 WEEKS GOOD UNDERSTANDING OF DOSING INSTR. Anti-Coag Initial Assessment Social Hx Patient Tobacco Use Status: Never used Tobacco alcohol intake: never Coding Level of Care Code Est Patient Level 1 Diagnoses Current use of anticoagulant therapy Z79.01 Assessment & Plan Assessment & Plan (1) Current use of anticoagulant therapy: Code(s): Z79.01 - correction (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
== END 2024-08-06 08:30 | disposition home or self-care (01) ==
LOC: HO.ACS 08:00
PROVIDERS: PCP Internal Medicine; Visit Provider Internal Medicine Medical Oncology
DX: Z79.01 Long term (current) use of anticoagulants (principal)

== ENCOUNTER → 2024-08-06 08:00 | Outpatient (BNVA) | payer MEDICARE, OTHER, SELFPAY | PROVIDERS: PCP Internal Medicine; Visit Provider Internal Medicine Medical Oncology | DX: I48.0 Paroxysmal atrial fibrillation (principal); Z79.01 Long term (current) use of anticoagulants; Z51.81 Encounter for therapeutic drug level monitoring | CPT/HCPCS: 85610; 99211 ==

== ENCOUNTER → 2024-08-25 15:40 | Outpatient (BNVA) | payer MEDICARE, OTHER, SELFPAY | PROVIDERS: PCP Internal Medicine; Visit Provider Internal Medicine Medical Oncology ==

== ENCOUNTER → 2024-09-03 08:05 | Outpatient (BNVA) | payer MEDICARE, OTHER, SELFPAY | PROVIDERS: PCP Internal Medicine; Visit Provider Internal Medicine Medical Oncology | DX: I48.0 Paroxysmal atrial fibrillation (principal); Z79.01 Long term (current) use of anticoagulants; Z51.81 Encounter for therapeutic drug level monitoring | CPT/HCPCS: 85610; 99211 ==

== ENCOUNTER 2024-10-01 08:06 | Outpatient (AMB) | payer MEDICARE, OTHER, SELFPAY ==
--- NOTE | 2024-10-01 08:15 | MHC.OFFVISCO ---
Intake Intake Visit Reasons: Anticoagulation Allergies lisinopril Adverse Reaction (Unknown, Verified 10/01/24 08:07) cough Medication List - Last Reconciled 10/01/24 by Melissa Pierce RN atorvastatin (Lipitor) 10 mg PO DAILY dexlansoprazole (Dexilant) 60 mg PO BEDTIME diltiazem HCl CD 360 mg PO DAILY ferrous sulfate 325 mg PO DAILY fluticasone propionate 50 mcg/actuation 1 spray intranasal DAILY irbesartan-hydrochlorothiazide 150-12.5 mg (Avalide) 1 tab PO DAILY warfarin (Jantoven) 5 mg See Protocol PO DAILY Nursing Note INR 4.2- out of therapeutic range of 2-3 Medications and supplements reviewed Patient status: no c.o, pt denies tylenol or etoh, states had grapes and strawberries Medications or supplements: new med ferrous sulfate- no interaction per micromedex and up to date Diet: appetite is same, less greens Denies any signs and symptoms of bleeding or clotting or unusual bruising Bleeding, bruising, clotting discussed Nutritional guidance given: eat greens to lower, no reds for 2-3 days Dose: no warfarin today then cont reg dosing, 5mg x 2, 2.5mg x 5 F/U INR Date : pt req 2 weeks?? Patient verbalizing understanding of instructions given. Anti-Coag Initial Assessment Social Hx Patient Tobacco Use Status: Never used Tobacco alcohol intake: never Coding Level of Care Code Est Patient Level 1 Diagnoses Current use of anticoagulant therapy Z79.01 Results AMB INR Fingerstick AMB INR Fingerstick 4.2 Last Edit by Melissa Pierce RN on 10/01/24 08:20 interface delay Assessment & Plan Assessment & Plan (1) Current use of anticoagulant therapy: Code(s): Z79.01 - lan administrator (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
--- OUTSIDE RECORDS SUMMARY | 2024-10-01 08:17 | XMS_ITS | Patient Health Record ---
Author Organization [facility] Address [address] [place] [address] Care Team Providers Care Hydramatic Specialist Name Role Phone Favian Davis MD Primary Care Provider Lazaro Babin Jr Unavailable Allergies No Known Allergies Results Component Value Reference Range Notes Prothrombin Time INR Reviewed date:03/04/2024 03:58:51 PM Interpretation: Performing Lab:[facility] [place], [address] [place] [phone] Notes/Report: Prothrombin Time 14.1 10.9-12.4 SEC INTERNATIONAL [...] Pathology Reviewed date:03/11/2024 03:56:38 PM Interpretation: Performing Lab:[facility] [place], [address] [place] [phone] Notes/Report: Reason For Referral No Information Medications Medication [...] Problem Status W/U Status Risk Notes Problem 804780630 Colon cancer screening (Z12.11) Active confirmed Problem 279093046 ferry terminal agent (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) use of anticoagulants (Z79.01) Active confirmed Problem 632835960 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 Problem Benign neoplasm of stomach (27333319) Gastric polyps (K31.7) Active confirmed Problem Carmona esophagus (495402405) 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 Vital Signs Temperature 97.7 degrees Fahrenheit 01/14/2024 Blood pressure diastolic 00 mm Hg 01/14/2024 Height 70 in 01/14/2024 Blood pressure systolic 000 mm Hg 01/14/2024 Weight 216 lb 6 oz lbs 01/14/2024 BMI 31.04 kg/m2 01/14/2024 Encounters Encounter Location Date Provider Diagnosis [facility] Outpatient [address] [place] [id number] 03/04/2024 Lazaro Lyn Jr Colon cancer screening Z12.11 ; Gastric polyps K31.7 and Carmona esophagus K22.70 [facility] [address] [place] [phone] 01/14/2024 Lazaro Lyn Jr Barretts esophagus without dysplasia K22.70 ; Colon cancer screening Z12.11 and group home (current) use of anticoagulants Z79.01 [facility] [address] [place] [phone] 03/10/2024 Lazaro Lyn Jr Assessments Encounter Date [...] 03/04/2024 Carmona esophagus (ICD-10 - K22.70) 01/14/2024 ferry terminal agent (current) use of anticoagulants (ICD-10 - Z79.01) [...] 01/14/2024 Next Appt Details Provider Name:Lazaro dickson , 03/16/2025 09:00:00 AM, [address] [place] [address], [address], [place], [address], Insurance Providers Payer Name Payer Address Payer Phone Subscriber Number Group Number Insured Name Patient Relationship to Insured Coverage Start Date Coverage End Date MEDICARE OF [facility] [address] [place] [address] [id number] [place]A JAY Self - patient is the insured [facility] [address] [place] [phone] [id number] MINERVA JAY Self - patient is the insured Medical [...]
[2024-10-01 08:18] LABS: ~PT, ~INR - Anti Coag Clinic 4.2 (0.9-1.1)
== END 2024-10-01 08:28 | disposition home or self-care (01) ==
LOC: HO.ACS 08:06
PROVIDERS: PCP Internal Medicine; Visit Provider Internal Medicine Medical Oncology
DX: Z79.01 Long term (current) use of anticoagulants (principal)

== ENCOUNTER → 2024-10-01 08:06 | Outpatient (BNVA) | payer MEDICARE, OTHER, SELFPAY | PROVIDERS: PCP Internal Medicine; Visit Provider Internal Medicine Medical Oncology | DX: I48.0 Paroxysmal atrial fibrillation (principal); Z79.01 Long term (current) use of anticoagulants; Z51.81 Encounter for therapeutic drug level monitoring | CPT/HCPCS: 85610; 99211 ==

== ENCOUNTER 2024-10-15 08:10 | Outpatient (AMB) | payer MEDICARE, OTHER, SELFPAY ==
--- OUTSIDE RECORDS SUMMARY | 2024-10-15 08:13 | XMS_ITS | Clinical Summary ---
Author Organization [facility] ity Address [address] [place] [address] Care Team Providers Care Special Services Supervisor Name Role Phone Unavailable Primary Care Provider [...] 2023-2 5 season) 2023 Influenza Vaccine (#1) 2024 RSV Immunization Adult Patie nts (1 [...]
--- OUTSIDE RECORDS SUMMARY | 2024-10-15 08:13 | XMS_ITS | Patient Health Record ---
Author Organization [facility] Address [address] [place] [address] Care Team Providers Care Senior Sales Director Name Role Phone Favian Davis MD Primary Care Provider Lazaro Babin Jr Unavailable [phone] Allergies No Known Allergies Results Component Value Reference Range Notes Prothrombin Time INR Reviewed date:03/04/2024 03:58:51 PM Interpretation: Performing Lab:[facility], [address] [place] [phone] Notes/Report: Prothrombin Time 14.1 10.9-12.4 SEC INTERNATIONAL [...] Pathology Reviewed date:03/11/2024 03:56:38 PM Interpretation: Performing Lab:[facility], [address] [place] [phone] Notes/Report: Reason For Referral No Information Medications [...] Problem Status W/U Status Risk Notes Problem 971058012 Colon cancer screening (Z12.11) Active confirmed Problem 608525061 group home (current) use of anticoagulants (Z79.01) Active confirmed Problem 468125191 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 Problem Gastric polyps (K31.7) Active confirmed Problem Carmona esophagus (709087397) 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 Vital Signs Temperature 97.7 degrees Fahrenheit 01/14/2024 Blood pressure diastolic 00 mm Hg 01/14/2024 Height 70 in 01/14/2024 Blood pressure systolic 000 mm Hg 01/14/2024 Weight 216 lb 6 oz lbs 01/14/2024 BMI 31.04 kg/m2 01/14/2024 Encounters Encounter Location Date Provider Diagnosis [facility] [address] [place] [id number] 03/04/2024 Lazaro Lyn Jr Colon cancer screening Z12.11 ; Gastric polyps K31.7 and Carmona esophagus K22.70 [facility] [address] [place] [phone] 01/14/2024 Lazaro Lyn Jr Barretts esophagus without dysplasia K22.70 ; Colon cancer screening Z12.11 and keno terminal operator (current) use of anticoagulants Z79.01 [facility] [address] [place] [phone] 03/10/2024 Lazaro Lyn Jr Assessments Encounter Date [...] 03/04/2024 Carmona esophagus (ICD-10 - K22.70) 01/14/2024 keno terminal operator (current) use of anticoagulants (ICD-10 - Z79.01) [...] Provider Name:Lazaro dickson , 03/16/2025 09:00:00 AM, [address] [place] [address], [address], [place], [address], Insurance Providers Payer Name Payer Address Payer Phone Subscriber Number Group Number Insured Name Patient Relationship to Insured Coverage Start Date Coverage End Date MEDICARE OF [place] [address] [place] [address] [phone] [id number] MINERVA JAY Self - patient is the insured [facility] [address] [place] [phone] [id number] MINERVA JAY Self - patient is the [...]
--- NOTE | 2024-10-15 08:15 | MHC.OFFVISCO ---
Intake Intake Visit Reasons: Anticoagulation Allergies lisinopril Adverse Reaction (Unknown, Verified 10/15/24 08:11) cough Medication List - Last Reconciled 10/15/24 by Melissa Pierce RN atorvastatin (Lipitor) 10 mg PO DAILY dexlansoprazole (Dexilant) 60 mg PO BEDTIME diltiazem HCl CD 360 mg PO DAILY ferrous sulfate 325 mg PO DAILY fluticasone propionate 50 mcg/actuation 1 spray intranasal DAILY irbesartan-hydrochlorothiazide 150-12.5 mg (Avalide) 1 tab PO DAILY warfarin (Jantoven) 5 mg See Protocol PO DAILY Anti-Coag Initial Assessment Social Hx Patient Tobacco Use Status: Never used Tobacco alcohol intake: never Questionnaires HAS-BLED Does the patient had uncontrolled Hypertension?: No Does the patient have renal disease?: No Does the patient have liver disease?: No Does the patient have a history of stroke?: No Has the patient had major bleeding or predisposition to bleeding?: No Does the patient have labile INRs?: No Is the patient over 65 years of age?: Yes Is the patient on medications that gives them a predisposition to bleeding?: Yes Does the patient use alcohol?: No HAS-BLED Score: 2 CHADSVASC Age: 66-74 Gender: Male Does the patient have a history of CHF?: No Does the patient have a history of Hypertension?: Yes Does the patient have a history of Stroke/TIA/Thromboembolism?: No Does the patient have a history of Vascular Disease (prior PA, PAD or aortic plaque)?: Yes (CHOLESTEROL , AFIB, AFLUTTER ,INTRAVENTRICULAR CONDUCTION DEFECT) Does the patient have a history of Diabetes?: No CHADS VACS Score: 3 Markie Prediction Score Rsk VTE Active Cancer: No Previous VTE, excluding superficial vein thrombosis: No Reduced mobility: No 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 , HEMACHROMATOSIS) With-in last month Trauma and/or Surgery: No Elderly 70 year or older: Yes Heart and/or Respiratory Failure: No Acute Myocardial infarction and/or Ischemic Stroke: No Acute Infection and/or Rheumatologic Disorder: No Obesity (BMI 30 or greater): No Ongoing Hormonal Treatment: No Score: 4 Markie Score less than 4; Low Risk of VTE Markie Score 4 or greater; High Risk of VTE Coding Level of Care Code Est Patient Level 1 Diagnoses Current use of anticoagulant therapy Z79.01 Assessment & Plan Assessment & Plan (1) Current use of anticoagulant therapy: Code(s): Z79.01 - halfway (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
[2024-10-15 08:16] LABS: Prothrombin Time Whole Bld POC 32.0 sec (11.1-13.5); ~PT, ~INR - Anti Coag Clinic 2.7 (0.9-1.1)
== END 2024-10-15 08:29 | disposition home or self-care (01) ==
LOC: HO.ACS 08:10
PROVIDERS: PCP Internal Medicine; Visit Provider Internal Medicine Medical Oncology
DX: Z79.01 Long term (current) use of anticoagulants (principal)

== ENCOUNTER → 2024-10-15 08:10 | Outpatient (BNVA) | payer MEDICARE, OTHER, SELFPAY | PROVIDERS: PCP Internal Medicine; Visit Provider Internal Medicine Medical Oncology | DX: I48.0 Paroxysmal atrial fibrillation (principal); Z79.01 Long term (current) use of anticoagulants; Z51.81 Encounter for therapeutic drug level monitoring | CPT/HCPCS: 85610; 99211 ==

== ENCOUNTER 2024-11-12 08:07 | Outpatient (AMB) | payer MEDICARE, OTHER, SELFPAY ==
--- OUTSIDE RECORDS SUMMARY | 2024-11-12 08:10 | XMS_ITS | Clinical Summary ---
Author Organization [facility] Address [address] [address] Phone Care Team Providers Care Song Plugger Name Role Phone Favian Davis MD Primary Care Provider Favian Davis MD Unavailable [phone] Sherman Cha MD Unavailable [phone] Allergies Active Allergy Reactions Criticality Noted Date Comments Lisinopril Cough 03/20/2017 Other reaction(s): cough Medications dilTIAZem 360 mg 24hr Take 360 mg by mouth daily. 8 Active atorvastatin (LIPITOR) 10 MG tabletIndications: Mixed hyperlipidemia take one tablet by mouth every day 90 tablet 3 4 Active dexlansoprazole delayed release (DEXILANT) 60 mg capsule take one capsule by mouth every day 90 capsule 3 4 Active warfarin (JANTOVEN) 5 MG tabletIndications: Paroxysmal atrial fibrillation Take 1 tablet (5 mg total) by mouth daily. Based on INR results 90 tablet 3 4 Active irbesartan-hydroCH LOROthiazide (AVALIDE) 150-12.5 mg per tabletIndications: Essential hypertension take one tablet by mouth every day 90 tablet 3 4 Active triamcinolone acetonide 0.1 % cream APPLY TOPICALLY TO THE AFFECTED AREA(S) TWO TIMES A DAY 30 g 5 Active TYRVAYA 0.03 mg/spray nasal spray 1 spray by Each Nare route 2 (two) times a day. 5 Active cyclobenzaprine (FLEXERIL) 5 MG tabletIndications: Cervicalgia 1-2 tablets qhs prn neck pain 20 tablet 5 Active ferrous sulfate 325 mg (65 mg saxman iron) EC tablet [facility]i Hospital, Clinic, or Other Facility Administered Medication Ordered Dose Route Frequency Start Date End Date Status lidocaine (XYLOCAINE) 1% injection 1 mL 1 mL See Adm Inst See admin instructions 10/16/2023 Active betamethasone acetate-betamethas one sodium phosphate (CELESTONE) 6 mg/mL injection 6 mg 6 mg See Adm Inst See admin instructions 10/16/2023 Active triamcinolone acetonide (KENALOG-40) 40 mg/mL injection 20 mg 20 mg See Adm Inst See admin instructions 07/11/2024 Active lidocaine (XYLOCAINE) 1% injection 0.5 mL 0.5 mL See Adm Inst See admin instructions 07/11/2024 Active Active Problems Problem Noted Date Diagnosed Date Irritant contact dermatitis due to other agents 04/24/2024 Assessment & Plan (04/24/2024 11:26 AM EST): Based on history and physical exam, most likely contact dermatitis. Likely triggers do include change in his CPAP hose which could have touched his arm as well as contact with something at the gym. He denies any changes in soaps/detergents/fabrics. He states that he will be aware of upcoming triggers. Advised that he can take Claritin/Zyrtec for symptomatic treatment and to reduce inflammation to the area. Will order triamcinolone cream, discussed with the patient that he should apply only to the area of the rash. Discussed that some of the vesicles may become weeping. Discussed that if the rash worsens or he does not improve, can prescribe short steroid burst. Advised patient to call the office if it worsens or does not improve. Patient in agreement. Trigger ring finger of right hand 09/17/2023 Assessment & Plan (09/17/2023 9:08 AM EDT): His signs and symptoms along with physical exam are consistent with right ring trigger finger -Will obtain an x-ray of the right hand -Referral to [facility]- Dr Rudolph for possible cortisone injection -Tylenol for pain Adenomatous polyp of colon 07/19/2023 Obstructive sleep apnea of adult 07/19/2023 Prostate cancer 06/26/2022 Overview (12/12/2023): Fol w pv uro last ov 11/22/23 post RALP in 2017 plan f/u 6m for PSA and 1 yr for US saw Andre Hou PA-C Paroxysmal atrial fibrillation 06/08/2020 Kidney stones 05/06/2019 Hypertension 03/20/2017 Hyperlipidemia 03/20/2017 Hereditary hemochromatosis 03/20/2017 Encounters Date Type Department Care Team Description 10/06/2024 9:00 AM EDT Office Visit [facility] [address] [facility] 3rd Floor, [address] [place] [address] Chago Reynaga MD, MS GABBIE on CPAP (Primary Dx); Obesity (BMI 30.0-34.9) 09/12/2024 9:00 AM EDT Office Visit [facility] Internal Medicine [address] [place] [address] Favian Davis MD Routine general medical examination at a health care facility (Primary Dx); Hypertension; Paroxysmal atrial fibrillation; Obstructive sleep apnea of adult; Hereditary hemochromatosis; Kidney stones; Cervicalgia; Anemia, unspecified type; Low TSH level 09/04/2024 8:07 AM EDT - 09/04/2024 11:59 PM EDT Hospital Encounter [facility] [address] [place] [address] Favian Davis MD Discharge Disposition: Home or Self Care from Last 3 Months Immunizations Immunization Administration Dates Next Due COVID-19 (Pre-01/29) Pfizer Vaccine, mRNA, PF 02/02/2021,05/30/2020,05/10/2020 Influenza High-Dose Quadriva lent Preservative Free IM 01/11/2023,01/29/2022,02/18/2021,02/17 Influenza High-Dose Trivalen t Preservative Free IM 02/01/2024 Pneumococcal conjugate PCV13 04/19/2017 Pneumococcal polysaccharide PPSV23 05/02/2018 Tdap 09/07/2008 Zoster live 02/25/2015 Family History Medical History Relation Comments Hypertension Father 2 Stroke Father 2 Relation Status Comments Father 1 Father 2 Social History Tobacco Use Types Packs/Day Years Used Date Smoking Tobacco: Never Smokeless Tobacco: Never Alcohol Use Standard Drinks/Week Comments Yes 0 (1 standard drink = 0.6 oz pur e alcohol) 0-1 drink, monthly or less Education Answer Date Recorded Are you interested in more education? Not on kendall e 08/04/2022 Are you concerned about learning? Not on file 08/04/2022 No 08/04/2022 No 08/04/2022 Digital Access Answer Date Recorded No 08/31/2022 No 08/31/2022 Reliable internet access at home? Not on file 08/31/2022 Device with a working camera? Not on file Intimate Partner Violence Answer Date R ecorded Denied Basic Needs Not on file 09/05/2024 In the past 12 months have y ou been in a relationship with a person who hurts, threatens, or tries to control you? No 09/05/2024 Worried food would run out Not on file 09/05 In the past 12 months have y ou been in a relationship with a person who hurts, threatens, or tries to control you? No 09/05/2024 Sex and Gender Information Value Date Recorded Sex Assigned at Not on file Legal Sex Male 1:58 PM EST Gender Identity Not on file Sexual Orientation Not on file Last Filed Vital Signs Vital Sign Reading Time Taken Comments Blood Pressure 128/62 10/06/2024 9:02 AM EDT Pulse 79 10/06/2024 9:02 AM EDT Temperature 36.6 C (97.9 F) 09/12/2024 9:10 AM EDT Respiratory Rate 16 09/12/2024 9:10 AM EDT Oxygen Saturation 97% 10/06/2024 9:02 AM EDT Inhaled Oxygen Concentration - - Weight 94.8 kg (209 lb) 10/06/2024 9:02 AM EDT Height 174.1 cm (5' 8.54 ) 10/06/2024 9:02 AM ED T Body Mass Index 31.28 10/06/2024 9:02 AM EDT Plan of Treatment Upcoming Encounters Date Type Department Care Team (Late st Contact Info) Description 03/16/2025 9:30 AM EST Office Visit [facility] Internal Medicine [address], [place] [phone] Favian Davis MD [address] [place], [place] [phone] 09/14/2025 8:30 AM EDT Office Visit [facility] Internal Medicine [address], [place] [phone] Favian Davis MD [address] [place], [place] [phone] 10/12/2025 9:00 AM EDT Office Visit [facility] [address] [place] [address] 3rd Floor, [address] [place] [address] Chago Reynaga MD, MS [address] [facility], [address] [place] [phone] 03/16/2026 8:00 AM EST Office Visit [facility] Internal Medicine [address], [place] [phone] Pedro Lyon PA-C [address] [place], [place] [phone] [email or web address] Health Maintenance Due Date Last Done Comments COLOGUARD 1997 FIT TEST 1997 FOBT 1997 SIGMOIDOSCOPY 1997 VIRTUAL COLONOSCOPY 1997 RSV VACCINE (1 - Risk 60-74 years 1-dose series) 2012 ZOSTER VACCINES (1 of 2) 04/22/2015 02/25/2015 Adult Td,Tdap Booster 09/07/2018 09/07/2008 COVID-19 VACCINE (7 - 2024-25 season) 2024 05/22/2024, 01/11/2023, 01/11/2022, Additional history exists BLOOD PRESSURE 04/07/2025 10/06/2024 CREATININE LEVEL 09/04/2025 09/04/2024, 10/2023, 07/13/2023, Additional history exists POTASSIUM LEVEL 09/04/2025 09/04/2024, 100 10/2023, 07/13/2023, Additional history exists DEPRESSION SCREENING 09/05/2025 09/05/2024 COLONOSCOPY 03/04/2029 03/04/2024, 0 10/2018, 09/05/2006 COLORECTAL CANCER SCREENING 03/04/2029 LIPID PANEL 09/04/2029 09/04/2024, 0 08/2023, 06/13/2022, Additional history exists PNEUMOCOCCAL VACCINES (50+ years) Completed 05/02/2018, 04/19/2017 HEPATITIS C SCREENING Completed 04/28/2019, 020 SMOKING STATUS SCREENING (Once After 26 Yrs) Completed 10/06/2024 HEPATITIS A VACCINES Aged Out No long er eligible based on patient's age to complete this topic HIB VACCINES Aged Out No longer eligi ble based on patient's age to complete this topic MENINGOCOCCAL VACCINES (ACWY) Aged Out No longer eligible based on patient's age to complete this topic MENINGOCOCCAL VACCINES (B) Aged Out N o longer eligible based on patient's age to complete this topic Medical Devices Not on file Procedures Procedure Name Priority Date/Time Associated Diagnosis Comments URINALYSIS WITH SEDIMENT Routine 09/04/2024 8:19 AM EDT Essential hypertension COMPREHENSIVE METABOLIC PANEL Routine 09/04/2024 8:06 AM EDT Mixed hyperlipidemia Essential hypertension CBC AND DIFFERENTIAL Routine 09/04/2024 8:06 AM EDT Essential hypertension LIPID PANEL Routine 09/04/2024 8:06 AM EDT Mixed hyperlipidemia TSH Routine 09/04/2024 8:06 AM EDT Essential hypertension HEMOGLOBIN A1C Routine 09/04/2024 8:06 AM EDT Impaired fasting glucose HM COLONOSCOPY FOR RESULT ENTRY ONLY Routine 03/04/2024 10:54 AM EST OUTSIDE HEPATITIS C VIRUS SCREENING Routine 04/28/2019 from Last 3 Months or Most Recently Relevant to Health Maintenance Results * (ABNORMAL) URINALYSIS WITH SEDIMENT (09/04/2024 8:19 AM EDT) WBC 0-4(A) NONE SEEN /hpf [facility] RBC 0-2(A) NONE SEEN /hpf [facility] URINE EPITHELIAL 0-4(A) NONE SEEN [facility] MUCUS NONE SEEN NONE SEEN /hpf [facility] BACTERIA Trace(A) NONE SEEN /hpf [facility] COLOR STRAW(A) Yellow [facility] CLARITY Clear [facility] GLUCOSE Negative Negative [facility] BILI Negative Negative [facility] KETONES Negative Negative [facility] SPECIFIC GRAVITY <1.005 1.005 - 1.030 [facility] BLOOD 1+(A) Negative [facility] PH 6.0 5.0 - 8.0 [facility] Protein-UA Negative Negative [facility] NITRITE Negative Negative [facility] Leukocyte esterase, ur Negative Negative [facility] Urine (Urine) 09/04/2024 8:1 9 AM EDT 09/04/2024 8:22 AM EDT us Favian Davis MD URINE ORDERABLES Final Result Performing Organization Address City/State/[facility] Co de Phone Number [address] [address] * (ABNORMAL) Comprehensive metabolic panel (09/04/2024 8:06 AM EDT) SODIUM 136 133 - 146 mmol/L [facility] POTASSIUM 3.9 3.3 - 5.1 mmol/L [facility] CHLORIDE 101 96 - 108 mmol/L [facility] CO2 27 21 - 35 mmol/L [facility] BUN 17 6 - 19 mg/dL [facility] CREATININE 1.10 0.5 - 1.5 mg/dL [facility] GLUCOSE 108(H) 70 - 99 mg/dL [facility] ALBUMIN 4.1 3.9 - 4.8 g/dL [facility] TOTAL PROTEIN 6.9 6.5 - 8.0 g/dL [facility] CALCIUM 9.7 8.4 - 10.3 mg/dL [facility] ALKALINE PHOSPHATASE 94 39 - 117 U/L [facility] TOTAL BILIRUBIN 0.5 0.0 - 1.2 mg/dL [facility] AST 22 0 - 37 U/L [facility] ALT 24 0 - 40 U/L [facility] GLOBULIN 2.8 1 - 4.8 g/dL [facility] EGFR 71 >59 mL/min/1.7 3m2 [facility] Comment:Estimated glomerular filtration rate calculated using the CKD-EPI refit equation. ANION GAP 12 10 - 20 mmol/L [facility] Blood 09/04/2024 8:06 AM EDT 09/04/2024 8:11 AM EDT us Favian Davis MD LAB BLOOD ORDERABLES Final Re sult [facility] [address] [place] [address] * (ABNORMAL) CBC and differential (09/04/2024 8:06 AM EDT) WBC 5.50 4.00 - 11.00 K/uL [facility] RBC 5.17 4.50 - 5.90 M/uL [facility] HGB 12.8(L) 13.5 - 17.5 g/dL [facility] HCT 40.7(L) 41.0 - 53.0 % [facility] PLT 311 150 - 450 K/uL [facility] MCV 78.7(L) 80.0 - 100.0 fL [facility] MCH 24.8(L) 27.0 - 31.0 pg [facility] MCHC 31.4(L) 32.0 - 36.0 g/dL [facility] RDW 15.9(H) 11.5 - 14.5 % [facility] MPV 9.1 8.4 - 12.0 fL [facility] NRBC 0.00 0.00 /100 WBCs [facility] ABSOLUTE NRBC 0.00 0.00 K/uL [facility] DIFF METHOD Auto [facility] NEUTS 59.6 48.0 - 76.0 % [facility] LYMPHS 22.7 18.0 - 41.0 % [facility] MONOS 11.5(H) 4.0 - 11.0 % [facility] EOS 4.5 0.0 - 5.0 % [facility] BASOS 1.5 0.0 - 1.5 % [facility] Granulocytes, immature (%) 0.2 0.0 - 0.9 % [facility] ABSOLUTE NEUTS 3.28 1.92 - 7.60 K/uL [facility] ABSOLUTE LYMPHS 1.25 0.72 - 4.10 K/uL [facility] ABSOLUTE MONOS 0.63 0.16 - 1.10 K/uL [facility] ABSOLUTE EOS 0.25 0.00 - 0.50 K/uL [facility] ABSOLUTE BASOS 0.08 0.00 - 0.15 K/uL [facility] Granulocytes, immature 0.01 0.00 - 0.09 K/uL [facility] Blood 09/04/2024 8:06 AM EDT 09/04/2024 8:11 AM EDT us Favian Davis MD LAB BLOOD ORDERABLES Final Re sult Performing Organization Address City/[facility]/ZIP Co de Phone Number [address] [address] * TSH (09/04/2024 8:06 AM EDT) TSH 0.39 0.27 - 4.20 uIU/mL [facility] Blood 09/04/2024 8:06 AM EDT 09/04/2024 8:11 AM EDT us Favian Davis MD LAB BLOOD ORDERABLES Final Re sult [address] [address] * (ABNORMAL) Hemoglobin A1c (09/04/2024 8:06 AM EDT) HEMOGLOBIN A1C 6.2(H) 4.3 - 5.8 % [facility] Blood 09/04/2024 8:06 AM EDT 09/04/2024 8:11 AM EDT us Favian Davis MD LAB BLOOD ORDERABLES Final Re sult Performing Organization Address [facility]/ZIP Co de Phone Number [address] [address] * Lipid panel (09/04/2024 8:06 AM EDT) HDL 41 mg/dL [facility] Comment: Interpretation <40 mg/dL: Low HDL cholesterol (major risk factor for CHD) Greater than or equal to 60 mg/dL: High HDL cholesterol ( negative risk factor for CHD) HDL - cholesterol is affected by a number of factors, e.g. smoking, excerise, hormones, sex and age. CHOLESTEROL 144 0 - 240 mg/dL [facility] TRIGLYCERIDES 143 30 - 160 mg/dL [facility] LDL 74 50 - 129 mg/dL [facility] Comment: LDL levels in terms of risk for coronary heart disease: <100 mg/dL: Optimal 100-129 mg/dL: Near or above optimal 130-159 mg/dL: Borderline high 160-189 mg/dL: High >190 mg/dL: Very High CARDIAC RISK RATIO 3.5 3.4 - 5.0 [facility] Blood 09/04/2024 8:06 AM EDT 09/04/2024 8:11 AM EDT us Favian Davis MD LAB BLOOD ORDERABLES Final Re sult Performing Organization Address City/[facility]/ZIP Co de Phone Number [address] [address] * HM COLONOSCOPY FOR RESULT ENTRY ONLY (03/04/2024 10:54 AM EST) us Historical Provider HEALTH MAINTENANCE Final Result * Outside Hepatitis C Virus Screening (04/28/2019) Hepatitis C Screening - External Neg us Historical Provider LAB BLOOD ORDERABLES Sumaya l Result from Last 3 Months or Most Recently Relevant to Health Maintenance Insurance MEDICARE PART A & B [facility] [employer] ENHANCE SUPPLEMENT MEDICARE PART A & B [facility] MEDICARE ENHANCE SUPPLEMENT MEDICARE PART A & B [facility] MEDICARE ENHANCE SUPPLEMENT MEDICARE PART A & B [facility] MEDICARE ENHANCE SUPPLEMENT MEDICARE PART A & B [facility] MEDICARE ENHANCE SUPPLEMENT MEDICARE PART A & B MEDICARE ENHANCE SUPPLEMENT MEDICARE PART A & B Member Subscriber Plan / Payer ( fective 2017-Present) Name:Beto Rashawn Calderón Member ID:[id number] Relation to Subscriber:Self Name:Rashawn Pérez Subscriber ID:[id number] Payer ID:[id number] Group ID:Not on file Type:Medicare Address: [employer] [address] MEDICARE ENHANCE SUPPLEMENT MEDICARE PART A & B [facility] MEDICARE ENHANCE SUPPLEMENT MEDICARE PART A & B [facility] MEDIC[employer] ENHANCE SUPPLEMENT Care Teams Song Plugger Relationship Specialty Start Date End Date Favian Davis MD [address] [place] [address] [email or web address] PCP - General Internal Medicine 03/19/17 Favian Davis MD [address] [place] [address] Insurance Assigned Provider 07/14/23 Sherman Cha MD [address] [address] Internal Medicine 10/30/19 Additional Source Comments The information contained in this document represents components of the legal health record. It is not the complete legal health record.[facility]
--- OUTSIDE RECORDS SUMMARY | 2024-11-12 08:10 | XMS_ITS | Patient Health Record ---
Author Organization [facility] Address [address] [place] [address] Care Team Providers Care Claims Configuration Analyst Name Role Phone Favian Davis MD Primary Care Provider Lazaro Babin Jr Unavailable [phone] Allergies No Known Allergies Results Component Value Reference Range Notes Prothrombin Time INR Reviewed date:03/04/2024 03:58:51 PM Interpretation: Performing Lab:[facility], [address] [place] [phone] Notes/Report: Prothrombin Time 14.1 10.9-12.4 [employer] [...] Pathology Reviewed date:03/11/2024 03:56:38 PM Interpretation: Performing Lab:[facility], [address] [place] [id number] Notes/Report: Reason For Referral No Information Medications [...] Problem Status W/U Status Risk Notes Problem 143548346 Colon cancer screening (Z12.11) Active confirmed Problem 177356256 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 (Z79.01) Active confirmed Problem 615498360 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 Problem Benign neoplasm of stomach (07034398) Gastric polyps (K31.7) Active confirmed Problem Carmona esophagu s (K22.70) Active confirmed Vital Signs Temperature 97.7 degrees Fahrenheit 01/14/2024 Blood pressure diastolic 00 mm Hg 01/14/2024 Height 70 in 01/14/2024 Blood pressure systolic 000 mm Hg 01/14/2024 Weight 216 lb 6 oz lbs 01/14/2024 BMI 31.04 kg/m2 01/14/2024 Encounters Encounter Location Date Provider Diagnosis [facility] Outpatient [address] [place] [id number] 03/04/2024 Lazaro Lyn Jr Colon cancer screening Z12.11 ; Gastric polyps K31.7 and Carmona esophagus K22.70 [facility] [address] [place] [phone] 01/14/2024 Lazaro Lyn Jr Barretts esophagus without dysplasia K22.70 ; Colon cancer screening Z12.11 and 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 Z79.01 [facility] [address] [place] [phone] 03/10/2024 Lazaro Lyn Jr Assessments Encounter Date [...] Carmona esophagus (ICD-10 - K22.70) 01/14/2024 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 (ICD-10 - [...] Provider Name:Lazaro dickson , 03/16/2025 09:00:00 AM, [address], [address], [place], [address], Insurance Providers Payer Name Payer Address Payer Phone Subscriber Number Group Number Insured Name Patient Relationship to Insured Coverage Start Date Coverage End Date MED[place] OF [place] [address] [place] [address] [id number] [place] JAY Self - patient is the insured [facility] [address] [place] [phone] [id number] MINERVA JAY Self - patient is the [...]
--- OUTSIDE RECORDS SUMMARY | 2024-11-12 08:11 | XMS_ITS | Clinical Summary ---
Author Organization [facility] Address [address] [place] [address] Care Team Providers Care Youth Officer Name Role Phone Unavailable Primary Care Provider [...] Vaccine (1 - 2023-2 5 season) 2023 Depression Screening 04/09/2024 Influenza Vaccine (#1) 2024 RSV Immunization Adult [...]
[2024-11-12 08:13] LABS: Prothrombin Time Whole Bld POC 32.3 sec (11.1-13.5); ~PT, ~INR - Anti Coag Clinic 2.7 (0.9-1.1)
--- NOTE | 2024-11-12 08:21 | MHC.OFFVISCO ---
Intake Intake Visit Reasons: Anticoagulation Allergies lisinopril Adverse Reaction (Unknown, Verified 11/12/24 08:08) cough Medication List - Last Reconciled 11/12/24 by Yanni Hong RN atorvastatin (Lipitor) 10 mg PO DAILY dexlansoprazole (Dexilant) 60 mg PO BEDTIME diltiazem HCl CD 360 mg PO DAILY ferrous sulfate 325 mg PO DAILY fluticasone propionate 50 mcg/actuation 1 spray intranasal DAILY irbesartan-hydrochlorothiazide 150-12.5 mg (Avalide) 1 tab PO DAILY warfarin (Jantoven) 5 mg See Protocol PO DAILY Nursing Note NO CP,SOB,DIET/MED CHANGES,FALLS OR SX OF BLEEDING. CONTINUE PRESENT DOSE AND FOLLOW-UP IN 4 WEEKS GOOD UNDERSTANDING OF DOSING INSTR. Anti-Coag Initial Assessment Social Hx Patient Tobacco Use Status: Never used Tobacco alcohol intake: never Coding Level of Care Code Est Patient Level 1 Diagnoses Current use of anticoagulant therapy Z79.01 Assessment & Plan Assessment & Plan (1) Current use of anticoagulant therapy: Code(s): Z79.01 - senior living (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
== END 2024-11-12 08:24 | disposition home or self-care (01) ==
LOC: HO.ACS 08:07
PROVIDERS: PCP Internal Medicine; Visit Provider Internal Medicine Medical Oncology
DX: Z79.01 Long term (current) use of anticoagulants (principal)

== ENCOUNTER → 2024-11-12 08:07 | Outpatient (BNVA) | payer MEDICARE, OTHER, SELFPAY | PROVIDERS: PCP Internal Medicine; Visit Provider Internal Medicine Medical Oncology | DX: Z51.81 Encounter for therapeutic drug level monitoring (principal); Z79.01 Long term (current) use of anticoagulants | CPT/HCPCS: 85610; 99211 ==

== ENCOUNTER 2024-12-10 08:01 | Outpatient (AMB) | payer MEDICARE, OTHER, SELFPAY ==
--- OUTSIDE RECORDS SUMMARY | 2024-03-04 04:20 | XMS_ITS ---
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 Encounters Encounter Location Date Provider Diagnosis [facility] Outpatient [address] [place] [id number] 03/04/2024 Lazaro Lyn Jr Colon cancer screening Z12.11 ; Gastric polyps K31.7 and Carmona esophagus K22.70 Assessments Encounter Date Diagnosis (ICD Code) Assessment Notes Treatment Notes Treatment Clinical Notes Section Notes 03/04/2024 Colon cancer screening (ICD-10 - Z12.11) 03/04/2024 Gastric polyps (ICD-10 - K31.7) 03/04/2024 Carmona esophagus (ICD-10 - K22.70) Plan Of Treatment Next Appt Details Provider Name:Lazaro dickson Jr, 03/16/2025 09:00:00 AM, [address] [place] [address], Suite [facility], [place], [address], Progress Notes * MINERVA GIRARD TDOB:[birth year] (74 yo M)Acc No.[id number]:03/04/2024 EGD and COL/MAC Patient: MINERVA TREVINO Provider: Pedro Luis Lyn MD :1950 A ge:73 Y S ex:Male Date:03/04/2024 Address:[address] [place], [place] [phone] Pcp:Favian Davis MD Subjective: * Chief Complaints: [...] DOCD, 0528F RCMND FLW-UP 10 YRS DOCD, [address] UPPER GI ENDOSCOPY, BIOPSY * * The named appointment provid er may or may not be the originator of this progress note, and it is not deemed complete until electronically signed by the appointment provider. Sign off status: Pending * Provider: Pedro Luis Lyn MD Date: 05/04/2023 Generated for Lisa noguera/Onur/Jaswantsmitting on: 0 12/10/2024 08:14 AM EDT
--- OUTSIDE RECORDS SUMMARY | 2024-12-10 08:11 | XMS_ITS | Encounter Summary ---
Author Organization [facility] Address [address] [place] [address] Phone Care Team Providers Care Swatcher Name Role Phone Favian Davis MD Primary Care Provider [phone] Favian Davis MD Unavailable [phone] Sherman Cha MD Unavailable [phone] Encounter Details Date Type Department Care Team (Late st Contact Info) Description 12/09/2024 Orders Only [facility] Internal Medicine [address] [place] [address] Provider, MD Keren [address] [place] [address] Social History Tobacco Use Types Packs/Day Years [...] on file Sexual Orientation Not on file documented as of this encounter Plan of Treatment Upcoming Encounters Date Type Department Care Team (Late st Contact Info) Description 12/12/2024 9:00 AM EDT Office Visit [facility] Internal Medicine [address] [place] [address] Favian Davis MD [address] [place] [address] 03/16/2025 9:30 AM EST Office Visit [facility] Internal Medicine [address] [place] [address] Favian Davis MD [address] [place] [address] 09/14/2025 8:30 AM EDT Office Visit [facility] Internal Medicine [address] [place] [address] Favian Davis MD [address] [place] [address] 10/12/2025 9:00 AM EDT Office Visit [facility] [address] [place] [address] 3rd Floor, [address] [place], [place] [phone] Chago Reynaga MD, MS 22 [facility], [address] [place] [address] 03/16/2026 8:00 AM EST Office Visit [facility] Internal Medicine [address] [place], [place] [phone] Pedro Lyon PA-C [address] [place], [place] documented as of this encounter Procedures Procedure Name Priority Date/Time Associated Diagnosis Comments OUTSIDE LAB Routine 12/05/2024 10:52 AM EDT OUTSIDE ECG Routine 12/04/2024 10:55 AM EDT OUTSIDE US IMAGING REPORT ONLY Routine 11/19/2024 10:53 AM EDT documented in this encounter Results * Outside Lab (12/05/2024 10:52 AM EDT) Historical Provider LAB BLOOD ORDERABLES Edit ed Result - Final * Outside ECG Report Only (12/04/2024 10:55 AM EDT) us Historical Provider ECG ORDERABLES Edited Re sult - Final * Outside US Imaging??Report Only (11/19/2024 10:53 AM EDT) Historical Provider IMG US OP Edited Re sult - Final documented in this encounter Visit Diagnoses Not on filedocumented in this encounter Additional Health Concerns Assessment Noted Time PHQ-2 Depression Total Score: 0 09/06/19 25 12:36 PM EDT documented as of this encounter Care Teams Swatcher Relationship Specialty Start Date End Date Favian Davis MD [address] [place], [place] [email or web address] PCP - General Internal Medicine 03/19/17 Favian Davis MD [address] [place], [place] [email or web address] Insurance Assigned Provider 07/14/23 Sherman hCa MD [address] [place] [address] Internal Medicine 10/30/19 documented as of this encounter Additional Source Comments The information contained in this document represents components of the legal health record. It is not the complete legal health record.[facility]
--- OUTSIDE RECORDS SUMMARY | 2024-12-10 08:11 | XMS_ITS | Clinical Summary ---
Author Organization [facility] Address [address] [facility] [address] [place] [address] Phone Care Team Providers Care Completion Engineer Name Role Phone Favian Davis MD Primary Care Provider [phone] Favian Davis MD Unavailable [phone] Sherman Cha MD Unavailable Allergies Active Allergy Reactions Criticality Noted Date Comments Lisinopril Cough 03/20/2017 Other reaction(s): cough Medications dilTIAZem 360 mg 24hr Take 360 mg by mouth daily. 08/08/19 18 Active dexlansoprazole delayed release (DEXILANT) 60 mg capsule take one capsule by mouth every day 90 capsule 3 12/17/19 24 Active warfarin (JANTOVEN) 5 MG tabletIndications :Paroxysmal atrial fibrillation Take 1 tablet (5 mg total) by mouth daily. Based on INR results 90 tablet 3 12/24/19 24 Active irbesartan-hydroC HLOROthiazide (AVALIDE) 150-12.5 mg per tabletIndications :Essential hypertension take one tablet by mouth every day 90 tablet 3 12/24/19 24 Active triamcinolone acetonide 0.1 % cream APPLY TOPICALLY TO THE AFFECTED AREA(S) TWO TIMES A DAY 30 g 05/15/19 25 Active TYRVAYA 0.03 mg/spray nasal spray 1 spray by Each Nare route 2 (two) times a day. 09/04/19 25 Active cyclobenzaprine (FLEXERIL) 5 MG tabletIndications :Cervicalgia 1-2 tablets qhs prn neck pain 20 tablet 09/13/19 25 Active ferrous sulfate 325 mg (65 mg pala iron) EC tablet Active atorvastatin (LIPITOR) 10 MG tabletIndications :Mixed hyperlipidemia TAKE ONE TABLET BY MOUTH EVERY DAY 90 tablet 3 11/18/19 25 Active atorvastatin (LIPITOR) 10 MG tabletIndications :Mixed hyperlipidemia take one tablet by mouth every day 90 tablet 3 11/26/19 24 025 Discontinued Hospital, Clinic, or Other Facility Administered Medication [...] x-ray of the right hand -Referral to [facility]- Dr Rudolph for possible cortisone injection [...] Encounters Date Type Department Care Team Description 12/10/2024 Orders Only [facility] Internal Medicine [address] [place] [address] ProviderKeren MD 12/09/2024 Orders Only [facility] Internal Medicine [address] [place] [address] ProviderKeren MD 12/09/2024 Telephone [facility] Internal Medicine [address] [place] [address] Favian Davis MD TCM Visit 11/16/2024 Refill [facility] Internal Medicine [address] [place] [address] Favian Davis MD Medication Refill 10/06/2024 9:00 AM EDT Office Visit [facility] [address] 3rd Floor, [address] [place], [place] [phone] Chago Reynaga MD, MS GABBIE on CPAP (Primary Dx); Obesity (BMI 30.0-34.9) 09/12/2024 9:00 AM EDT Office Visit [facility] Internal Medicine [address] [place] [address] Favian Davis MD Routine general medical examination at a health care facility (Primary Dx); Hypertension; Paroxysmal atrial fibrillation; Obstructive sleep apnea of adult; Hereditary hemochromatosis; Kidney stones; Cervicalgia; Anemia, unspecified type; Low TSH level from Last 3 Months Immunizations Immunization Administration [...] Description 12/12/2024 9:00 AM EDT Office Visit [facility] Internal Medicine [address] [place] [address] Favian Davis MD [address] [place] [address] 03/16/2025 9:30 AM EST Office Visit [facility] Internal Medicine [address] [place] [address] Favian Davis MD [address] [place] [address] 09/14/2025 8:30 AM EDT Office Visit [facility] Internal Medicine [address] [place] [address] Favian Davis MD 40 [place] [address] 10/12/2025 9:00 AM EDT Office Visit [facility] 3rd Floor, [address] [place] [address] Chago Reynaga MD, MS 22 [facility], [address] [place] [address] [email or web address] 03/16/2026 8:00 AM EST Office Visit [facility] Internal Medicine [address] [place] [address] Pedro Lyon PA-C [address] [place] [address] [email or web address] Health Maintenance Due Date Last Done Comments COLOGUARD 1997 FIT TEST 1997 FOBT 1997 SIGMOIDOSCOPY 1997 VIRTUAL COLONOSCOPY 1997 RSV VACCINE (1 - Risk 60-74 years 1-dose series) 2012 ZOSTER VACCINES (1 of 2) 04/22/2015 02/25/2015 Adult Td,Tdap Booster 09/07/2018 09/07/2008 INFLUENZA VACCINE (#1) 2024 , 01/11/2023, 01/11/2023, Additional history exists COVID-19 VACCINE ( season) 2024 05/22/2024, 01/11/2023, 01/11/2022, Additional history exists BLOOD PRESSURE 04/07/2025 10/06/2024 CREATININE LEVEL 09/04/2025 09/04/2024, 10/2023, 07/13/2023, Additional history exists POTASSIUM LEVEL 09/04/2025 09/04/2024, 10/2023, 07/13/2023, Additional history exists DEPRESSION SCREENING 09/05/2025 09/05/2024 COLONOSCOPY 03/04/2029 03/04/2024, 10/2018, 09/05/2006 COLORECTAL CANCER SCREENING 03/04/2029 LIPID [...] Name Priority Date/Time Associated Diagnosis Comments OUTSIDE PROCEDURE Routine 12/10/2024 7:4 1 AM EDT OUTSIDE LAB Routine 12/05/2024 10:52 AM EDT OUTSIDE ECG Routine 12/04/2024 10:55 AM EDT OUTSIDE US IMAGING REPORT ONLY Routine 11/19/2024 10:53 AM EDT LIPID PANEL Routine 09/04/2024 8:06 AM EDT Mixed hyperlipidemia COMPREHENSIVE METABOLIC PANEL Routine 09/04/2024 8:06 AM EDT Mixed hyperlipidemia Essential hypertension HM COLONOSCOPY FOR RESULT ENTRY ONLY Routine 03/04/2024 10:54 AM EST OUTSIDE HEPATITIS C VIRUS SCREENING Routine 04/28/2019 from Last 3 Months or Most Recently Relevant to Health Maintenance Results * Outside Procedure (12/10/2024 7:41 AM EDT) us Historical Provider PROCEDURE/MINOR SURGICAL PERFORMABLES Final Result * Outside Lab (12/05/2024 10:52 AM EDT) us Historical Provider LAB BLOOD ORDERABLES Edit ed Result - Final * Outside ECG Report Only (12/04/2024 10:55 AM EDT) us Historical Provider ECG ORDERABLES Edited Re sult - Final * Outside US Imaging??Report Only (11/19/2024 10:53 AM EDT) us Historical Provider MD LEWIS OP Edited Re sult - Final * (ABNORMAL) Comprehensive metabolic panel (09/04/2024 8:06 AM EDT) SODIUM 136 133 - 146 mmol/L [facility] POTASSIUM 3.9 3.3 - 5.1 mmol/L [facility] CHLORIDE 101 96 - 108 mmol/L [facility] CO2 27 21 - 35 mmol/L [facility] BUN 17 6 - 19 mg/dL [facility] CREATININE 1.10 0.5 - 1.5 mg/dL [facility] GLUCOSE 108(H) 70 - 99 mg/dL [facility] ALBUMIN 4.1 3.9 - 4.8 g/dL [facility] TOTAL PROTEIN 6.9 6.5 - 8.0 g/dL [facility] CALCIUM 9.7 8.4 - 10.3 mg/dL [facility] ALKALINE PHOSPHATASE 94 39 - 117 U/L [facility] TOTAL BILIRUBIN 0.5 0.0 - 1.2 mg/dL [facility] AST 22 0 - 37 U/L [facility] ALT 24 0 - 40 U/L [facility] GLOBULIN 2.8 1 - 4.8 g/dL [facility] EGFR 71 >59 mL/min/1.7 3m2 [facility] Comment:Estimated glomerular filtration rate calculated using the CKD-EPI refit equation. ANION GAP 12 10 - 20 mmol/L [facility] Blood 09/04/2024 8:06 AM EDT 09/04/2024 8:11 AM EDT us Favian Davis MD LAB BLOOD ORDERABLES Final Re sult [facility] [address] [place] [address] * Lipid panel (09/04/2024 8:06 AM EDT) HDL 41 mg/dL [facility] Comment: Interpretation <40 mg/dL: Low HDL cholesterol (major risk factor for CHD) Greater than or equal to 60 mg/dL: High HDL cholesterol ( negative risk factor for CHD) HDL - cholesterol is affected by a number of factors, e.g. smoking, excerise, hormones, sex and age. CHOLESTEROL 144 0 - 240 mg/dL [facility] TRIGLYCERIDES 143 30 - 160 mg/dL [facility] LDL 74 50 - 129 mg/dL [facility] Comment: LDL levels in terms of risk for coronary heart disease: <100 mg/dL: Optimal 100-129 mg/dL: Near or above optimal 130-159 mg/dL: Borderline high 160-189 mg/dL: High >190 mg/dL: Very High CARDIAC RISK RATIO 3.5 3.4 - 5.0 [facility] Blood 09/04/2024 8:06 AM EDT 09/04/2024 8:11 AM EDT Favian Davis MD LAB BLOOD ORDERABLES Final Re sult [facility] [address] [place] [address] * COLONOSCOPY FOR RESULT ENTRY ONLY (03/04/2024 10:54 AM EST) Historical Provider HEALTH MAINTENANCE Final Result * Outside Hepatitis C Virus Screening (04/28/2019) Hepatitis C Screening - External Neg Keren Ivey MD LAB BLOOD ORDERABLES Sumaya l Result from Last 3 Months or Most Recently Relevant to Health Maintenance Insurance MEDICARE PART A & B [facility] MEDICARE ENHANCE SUPPLEMENT MEDICARE PART A & B [facility] MEDICARE ENHANCE [place] [address] MEDICARE PART A & B Member Subscriber Plan / Payer (Ef fective 2017-) Name:Rashawn Pérez Member ID:[id number] Relation to Subscriber:Self Name:Rashawn Pérez Subscriber ID:[id number] Payer ID:[id number] Group ID:Not on file Type:Medicare Address: [employer] [address] [place] [address] [place] [address] MEDICARE ENHANCE SUPPLEMENT MEDICARE PART A & B [facility] MEDICARE ENHANCE SUPPLEMENT MEDICARE PART A & B [facility] MEDICARE [place] [address] MEDICARE PART A & B [facility] MEDICARE ENHANCE SUPPLEMENT MEDICARE PART A & B [facility] MEDICARE ENHANCE SUPPLEMENT [facility] Address: [address] [place] [address] MEDICARE PART A & B [facility] MEDICARE ENHANCE SUPPLEMENT MEDICARE PART A & B [facility] MEDICARE ENHANCE SUPPLEMENT Care Teams Completion Engineer Relationship Specialty Start Date End Date Favian Davis MD [address] [place], [place] [address] [place] [address] [email or web address] - General Internal Medicine 03/19/17 Favian Davis MD [address] [place] [address] [email or web address] Insurance Assigned Provider 07/14/23 Sherman Cha MD [address] [place] [address] Internal Medicine 10/30/19 Additional Source Comments The information contained in this document represents components of the legal health record. It is not the complete legal health record.[facility]
--- OUTSIDE RECORDS SUMMARY | 2024-12-10 08:12 | XMS_ITS | Encounter Summary ---
Author Organization [facility] Address [address] [place] [address] Phone Care Team Providers Care Carding Machine Operator Name Role Phone Favian Davis MD Primary Care Provider [phone] Favian Davis MD Unavailable [phone] Sherman Cha MD Unavailable [phone] Encounter Details Date Type Department Care Team (Late st Contact Info) Description 12/10/2024 Orders Only [facility] Internal Medicine [address] [place] [address] Provider, MD Keren [address] [place] [address] Social History Tobacco Use Types Packs/Day [...] Description 12/12/2024 9:00 AM EDT Office Visit [facility] Internal Medicine [address] [place] [address] Favian Davis MD [address] [place] [address] 03/16/2025 9:30 AM EST Office Visit [facility] Internal Medicine [address] [place] [address] Favian Davis MD [address] [place] [address] 09/14/2025 8:30 AM EDT Office Visit [facility] Internal Medicine [address] [place] [address] Favian Davis MD [address] [place] [address] 10/12/2025 9:00 AM EDT Office Visit [facility] [address] [place] [address] 3rd Floor, [address] [place], [place] [phone] Chago Reynaga MD, MS 22 [facility], [address] [place] [address] 03/16/2026 8:00 AM EST Office Visit [facility] Internal Medicine [address] [place] [address] Pedro Lyon PA-C [address] [place] [address] documented as of this encounter Procedures Procedure Name Priority Date/Time Associated Diagnosis Comments OUTSIDE PROCEDURE Routine 12/10/2024 7:4 1 AM EDT documented in this encounter Results * Outside Procedure (12/10/2024 7:41 AM EDT) us Historical Provider PROCEDURE/MINOR SURGICAL PERFORMABLES Final Result documented in this encounter Visit Diagnoses Not on filedocumented in this encounter Additional Health Concerns Assessment Noted Time PHQ-2 Depression Total Score: 0 09/06/19 25 12:36 PM EDT documented as of this encounter Care Teams Carding Machine Operator Relationship Specialty Start Date End Date Favian Davis MD [address] [place] [address] PCP - General Internal Medicine 03/19/17 Favian Davis MD [address] [place] [address] Insurance Assigned Provider 07/14/23 Sherman Cha MD [address] [address] Internal Medicine 10/30/19 documented as of this encounter Additional Source Comments The information contained in this document represents components of the legal health record. It is not the complete legal health record.[facility]
--- OUTSIDE RECORDS SUMMARY | 2024-12-10 08:12 | XMS_ITS | Encounter Summary ---
Author Organization [facility] Address [facility] [address] [place] [address] Phone Care Team Providers Care Window Shade Cutter Name Role Phone Favian Davis MD Primary Care Provider [phone] Favian Davis MD Unavailable [phone] Sherman Cha MD Unavailable [phone] Reason for Visit * Reason Onset Date Comments TCM Visit 12/09/2024 Encounter Details Date Type Department Care Team (Late st Contact Info) Description 12/09/2024 Telephone [facility] Internal Medicine [address] [place], [place] [phone] Favian Davis MD [address] [place] [address] [email or web address] TCM Visit Social History Tobacco Use Types Packs/Day Years [...] on file documented as of this encounter Progress Notes * Gayla Jensen RN - 12/09/2024 11:04 AM EDT Post Discharge Summary: Post discharge call documentation: Is a post discharge call required?: Yes Please indicate post discharge status: 1st attempt not reached General: Discharge information: Discharge date: 12/08/24 [place] [facility] [place] and self care: Assistive devices/equipment and home services: Medication review: Follow up/conclusion: Was a follow up appointment scheduled with the patient's PCP office?: Yes Date of next appointment with the PCP: 12/12/24 * Carmita Echeverria - 12/09/2024 10:31 AM EDT Patient scheduled for TCM visit on 12/12 with PCP. Patient was [place] [facility] and discharged on 12/08/2024 for a GI bleed. Records from [facility] have been obtained and scanned into chart. documented in this encounter Plan of Treatment Upcoming Encounters Date Type Department Care Team (Late st Contact Info) Description 12/12/2024 9:00 AM EDT Office Visit [facility] Internal Medicine [address] [place] [address] Favian Davis MD [address] [place] [address] 03/16/2025 9:30 AM EST Office Visit [facility] Internal Medicine [address] [place] [address] Favian Davis MD [address] [place] [address] 09/14/2025 8:30 AM EDT Office Visit [facility] Internal Medicine [address] [place], [place] [phone] Favian Davis MD [address] [place] [address] 10/12/2025 9:00 AM EDT Office Visit [facility] [address] [place] [address] 3rd Floor, [address] [place] [address] Chago Reynaga MD, MS 22 [facility], [address] [place] [address] 03/16/2026 8:00 AM EST Office Visit [facility] Internal Medicine [address] [place] [address] Pedro Lyon PA-C [address] [place] [address] documented as of this encounter Visit Diagnoses Not on filedocumented in this encounter Additional Health Concerns Assessment Noted Time PHQ-2 Depression Total Score: 0 09/06/19 25 12:36 PM EDT documented as of this encounter Care Teams Window Shade Cutter Relationship Specialty Start Date End Date Favian Davis MD [address] [place] [address] [email or web address] PCP - General Internal Medicine 03/19/17 Favian Davis MD [address] [place] [address] [email or web address] Insurance Assigned Provider 07/14/23 Sherman Cha MD [facility] [address] [address] Internal Medicine 10/30/19 documented as of this encounter Additional Source Comments The information contained in this document represents components of the legal health record. It is not the complete legal health record.[facility]
--- OUTSIDE RECORDS SUMMARY | 2024-12-10 08:14 | XMS_ITS | Clinical Summary ---
Author Organization [facility] Address [address] [place] [address] Care Team Providers Care Bond Clerk Name Role Phone Unavailable Primary Care [...] 2002 Zoster Vaccines (1 of 2) 2002 Depression Screening 04/09/2024 COVID-19 Vaccine (1 - 2023-2 5 season) 2024 Influenza Vaccine (#1) 2024 RSV Immunization Adult [...]
--- OUTSIDE RECORDS SUMMARY | 2024-12-10 08:14 | XMS_ITS | Patient Health Record ---
Author Organization [facility] Address [address] [place] [address] Care Team Providers Care Housing Liaison Name Role Phone Favian Davis MD Primary Care Provider Lazaro Babin Jr Unavailable Allergies No Known Allergies Results Component Value Reference Range Notes Prothrombin Time INR Reviewed date:03/04/2024 03:58:51 PM Interpretation: Performing Lab:[facility], [address] [place] [phone] Notes/Report: Prothrombin Time 14.1 10.9-12.4 [employer] [...] Pathology Reviewed date:03/11/2024 03:56:38 PM Interpretation: Performing Lab:[facility], [address] [place] [phone] Notes/Report: Reason For Referral No Information Medications [...] Problem Status W/U Status Risk Notes Problem 341214002 Colon cancer screening (Z12.11) Active confirmed Problem 923311034 penitentiary (current) use of anticoagulants (Z79.01) Active confirmed Problem 254500263 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 Problem 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) Gastric polyps (K31.7) Active confirmed Problem Carmona esophagu s (K22.70) Active confirmed Vital Signs Temperature 97.7 degrees Fahrenheit 01/14/2024 Blood pressure diastolic 00 mm Hg 01/14/2024 Height 70 in 01/14/2024 Blood pressure systolic 000 mm Hg 01/14/2024 Weight 216 lb 6 oz lbs 01/14/2024 BMI 31.04 kg/m2 01/14/2024 Encounters Encounter Location Date Provider Diagnosis [facility] Outpatient [address] [place] [id number] 03/04/2024 Lazaro Lyn Jr Colon cancer screening Z12.11 ; Gastric polyps K31.7 and Carmona esophagus K22.70 [facility] [address] [place] [phone] 01/14/2024 Lazaro Lyn Jr Barretts esophagus without dysplasia K22.70 ; Colon cancer screening Z12.11 and penitentiary (current) use of anticoagulants Z79.01 [facility] [address] [place] [phone] 03/10/2024 Lazaro Lyn Jr Assessments Encounter Date [...] 03/04/2024 Carmona esophagus (ICD-10 - K22.70) 01/14/2024 penitentiary (current) use of anticoagulants (ICD-10 - Z79.01) [...] Name:Lazaro dickson , 03/16/2025 09:00:00 AM, [address], [address], [place], [address], Insurance Providers Payer Name Payer Address Payer Phone Subscriber Number Group Number Insured Name Patient Relationship to Insured Coverage Start Date Coverage End Date [place] [address] [place] [address] [id number] MINERVA JAY Self - patient is the insured [facility] [address] [place] [phone] [id number] MINERVA JAY Self - patient is the [...]
[2024-12-10 08:15] LABS: Prothrombin Time Whole Bld POC 19.3 sec (11.1-13.5); ~PT, ~INR - Anti Coag Clinic 1.6 (0.9-1.1)
--- NOTE | 2024-12-10 09:01 | MHC.OFFVISCO ---
Intake Intake Visit Reasons: Anticoagulation Allergies lisinopril Adverse Reaction (Unknown, Verified 12/10/24 08:05) cough Medication List - Last Reconciled 12/10/24 by Yanni Hong, RN atorvastatin (Lipitor) 10 mg PO DAILY dexlansoprazole (Dexilant) 60 mg PO BEDTIME diltiazem HCl CD 360 mg PO DAILY ferrous sulfate 325 mg PO DAILY fluticasone propionate 50 mcg/actuation 1 spray intranasal DAILY irbesartan-hydrochlorothiazide 150-12.5 mg (Avalide) 1 tab PO DAILY warfarin (Jantoven) 5 mg See Protocol PO DAILY Nursing Note PT.STATES THAT HE WAS ADM.TO [facility] ON 12/07 WITH UGI BLEEDING. PT. SUDDENLY DEVELOPED EXTREME WEAKNESS AND SOB AT HOME, AND WAS UNABLE TO GET UP FROM THE FLOOR. CALLED 911. PT.STATES THAT HE HAD DARK RED EMESIS AND DIARRHEA. AFTER UPPER ENDOSCOPY, HE WAS TOLD THAT HE HAD LEAKING POLYPS . WARFARIN WAS HELD THRU THE WEEKEND, AND PT.WAS DC'D HOME ON 12/08/24 WITH INSTRUCTIONS TO RESUME THE WARFARIN. HE RESTARTED ON 12/08 AT USUAL DOSE. HE HAS ALSO STARTED PANTOPRAZOLE. PT.STATES THAT HE IS STARTING TO FEEL STRONGER, AND APPETITE HAS RETURNED. THERE IS NO CP OR FURTHER SX OF BLEEDING. STILL SLIGHT SOB WITH EXERTION. WILL BOOST WARFARIN SLIGHTLY TODAY AND FOLLOW-UP IN 1 WEEK. PT.AGREES TO CALL [facility] IN MEANTIME IF ANY FURTHER CONCERNS ARISE. Anti-Coag Initial Assessment Social Hx Patient Tobacco Use Status: Never used Tobacco alcohol intake: never Coding Level of Care Code Est Patient Level 1 Diagnoses Current use of anticoagulant therapy Z79.01 Assessment & Plan Assessment & Plan (1) Current use of anticoagulant therapy: Code(s): Z79.01 - USP (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
== END 2024-12-10 09:37 | disposition home or self-care (01) ==
LOC: HO.ACS 08:01
PROVIDERS: PCP Internal Medicine; Visit Provider Internal Medicine Medical Oncology
DX: Z79.01 Long term (current) use of anticoagulants (principal)

== ENCOUNTER → 2024-12-10 08:01 | Outpatient (BNVA) | payer MEDICARE, OTHER, SELFPAY | PROVIDERS: PCP Internal Medicine; Visit Provider Internal Medicine Medical Oncology | DX: Z51.81 Encounter for therapeutic drug level monitoring (principal); Z79.01 Long term (current) use of anticoagulants | CPT/HCPCS: 85610; 99211 ==

== ENCOUNTER 2024-12-18 08:18 | Outpatient (AMB) | payer MEDICARE, OTHER, SELFPAY ==
--- OUTSIDE RECORDS SUMMARY | 2024-03-04 04:20 | XMS_ITS ---
Author Organization 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 Encounters Encounter Location Date Provider Diagnosis [facility] Outpatient [address] [place] [phone] 03/04/2024 Lazaro Lyn Jr Colon cancer screening Z12.11 ; Gastric polyps K31.7 and Carmona esophagus K22.70 Assessments Encounter Date Diagnosis (ICD Code) Assessment Notes Treatment Notes Treatment Clinical Notes Section Notes 03/04/2024 Colon cancer screening (ICD-10 - Z12.11) 03/04/2024 Gastric polyps (ICD-10 - K31.7) 03/04/2024 Carmona esophagus (ICD-10 - K22.70) Plan Of Treatment Next Appt Details Provider Name:Lazaro dickson Jr, 03/16/2025 09:00:00 AM, [address] [facility], [address], [place], [address], Progress Notes * MINERVA GIRARD TDOB:[birth year] (74 yo M)Acc No.[id number]:03/04/2024 EGD and COL/MAC Patient: MINERVA TREVINO Provider: Pedro Luis Lyn MD :1950 A ge:73 Y S ex:Male Date:03/04/2024 Address:[address] [place], [place] [phone] Pcp:Favian Davis MD Subjective: * Chief Complaints: [...] DOCD, 0528F RCMND FLW-UP 10 YRS DOCD, [address] UPPER GI ENDOSCOPY, BIOPSY * * The named appointment provid er may or may not be the originator of this progress note, and it is not deemed complete until electronically signed by the appointment provider. Sign off status: Pending * Provider: Pedro Luis Lyn MD Date: 1 05/04/2023 Generated for Lisa noguera/Onur/Rubinitting on: 0 12/18/2024 09:15 AM EDT
--- OUTSIDE RECORDS SUMMARY | 2024-12-12 09:54 | XMS_ITS | Encounter Summary ---
Author Organization [facility] Address [address] [place] [address] Phone Care Team Providers Care Noteman Name Role Phone Favian Davis MD Primary Care Provider [phone] Favian Davis MD Unavailable [phone] Sherman Cha MD Unavailable [phone] Encounter Details Date Type Department Care Team (Latest Contact Info) Description 12/12/2024 9:54 AM EDT - 12/12/2024 11:59 PM EDT Hospital Encounter [facility] [address] [place] [address] Favian Davis MD [address] [place] [address] [email or web address] Discharge Disposition: Home or Self Care Social History Tobacco Use Types Packs/Day Years [...] on file documented as of this encounter Medications at Time of Discharge atorvastatin (LIPITOR) 10 MG tabletIndications:Mi xed hyperlipidemia TAKE ONE TABLET BY MOUTH EVERY DAY 90 tablet 3 11/17/2024 cyclobenzaprine (FLEXERIL) 5 MG tabletIndications:Ce rvicalgia 1-2 tablets qhs prn neck pain 20 tablet 09/12/2024 dilTIAZem 360 mg 24hr Take 360 mg by mouth daily. 08/07/2017 ferrous sulfate 325 mg (65 mg wiyot iron) tabletIndications:An emia, unspecified type Take 1 tablet (325 mg total) by mouth daily with breakfast. 30 tablet 1 12/12/2024 irbesartan-hydroCHLO ROthiazide (AVALIDE) 150-12.5 mg per tabletIndications:Es sential hypertension take one tablet by mouth every day 90 tablet 3 12/24/2023 pantoprazole (PROTONIX) 40 MG tablet Take 40 mg by mouth 2 (two) times a day. triamcinolone acetonide 0.1 % cream APPLY TOPICALLY TO THE AFFECTED AREA(S) TWO TIMES A DAY 30 g 05/15/2024 TYRVAYA 0.03 mg/spray nasal spray 1 spray by Each Nare route 2 (two) times a day. 09/03/2024 warfarin (JANTOVEN) 5 MG tabletIndications:Pa roxysmal atrial fibrillation Take 1 tablet (5 mg total) by mouth daily. Based on INR results 90 tablet 3 12/24/2023 dexlansoprazole delayed release (DEXILANT) 60 mg capsule take one capsule by mouth every day 90 capsule 3 12/17/2023 documented as of this encounter Plan of Treatment Upcoming Encounters Date Type Department Care Team (Late st Contact Info) Description 03/16/2025 9:30 AM EST Office Visit [facility] [address] [place] [address] Favian Davis MD [address] [place] [address] 09/14/2025 8:30 AM EDT Office Visit [facility] [address] [place] [address] Favian Davis MD [address] [place] [address] 10/12/2025 9:00 AM EDT Office Visit [facility] [address] [place] [address] 3rd Floor, [address] [place] [address] Chago Reynaga MD, MS 22 [facility], [address] [place] [address] 03/16/2026 8:00 AM EST Office Visit [facility] [address] [place], [place] [phone] Pedro Lyon PA-C [address] [place], [place] [phone] documented as of this encounter Procedures Procedure Name Priority Date/Time Associated Diagnosis Comments COMPREHENSIVE METABOLIC PANEL Routine 12/12/2024 9:55 AM EDT Acute upper GI bleed TSH WITH REFLEX Routine 12/12/2024 9:55 AM EDT Paroxysmal atrial fibrillation Essential hypertension IRON AND IRON BINDING CAPACITY Routine 12/12/2024 9:55 AM EDT Acute upper GI bleed CBC AND DIFFERENTIAL Routine 12/12/2024 9:55 AM EDT Acute upper GI bleed HEMOGLOBIN A1C Routine 12/12/2024 9:55 AM EDT Impaired fasting glucose FERRITIN Routine 12/12/2024 9:55 AM EDT Acute upper GI bleed documented in this encounter Results * (ABNORMAL) CBC and differential (12/12/2024 9:55 AM EDT) WBC 7.15 4.00 - 11.00 K/uL [facility] RBC 3.73(L) 4.50 - 5.90 M/uL [facility] HGB 10.5(L) 13.5 - 17.5 g/dL [facility] HCT 32.8(L) 41.0 - 53.0 % [facility] PLT 329 150 - 450 K/uL [facility] MCV 87.9 80.0 - 100.0 fL [facility] MCH 28.2 27.0 - 31.0 pg [facility] MCHC 32.0 32.0 - 36.0 g/dL [facility] RDW 17.9(H) 11.5 - 14.5 % [facility] MPV 10.1 8.4 - 12.0 fL [facility] NRBC 0.00 0.00 /100 WBCs [facility] ABSOLUTE NRBC 0.00 0.00 K/uL [facility] DIFF METHOD Auto [facility] NEUTS 66.1 48.0 - 76.0 % [facility] LYMPHS 16.9(L) 18.0 - 41.0 % [facility] MONOS 12.4(H) 4.0 - 11.0 % [facility] EOS 3.4 0.0 - 5.0 % [facility] BASOS 0.8 0.0 - 1.5 % [facility] Granulocytes, immature (%) 0.4 0.0 - 0.9 % [facility] ABSOLUTE NEUTS 4.72 1.92 - 7.60 K/uL [facility] ABSOLUTE LYMPHS 1.21 0.72 - 4.10 K/uL [facility] ABSOLUTE MONOS 0.89 0.16 - 1.10 K/uL [facility] ABSOLUTE EOS 0.24 0.00 - 0.50 K/uL [facility] ABSOLUTE BASOS 0.06 0.00 - 0.15 K/uL [facility] Granulocytes, immature 0.03 0.00 - 0.09 K/uL [facility] Blood 12/12/2024 9:55 AM EDT 12/12/2024 10:05 AM EDT us Favian Davis MD LAB BLOOD ORDERABLES Final Re sult [facility] [address] [place] [address] * (ABNORMAL) Comprehensive metabolic panel (12/12/2024 9:55 AM EDT) SODIUM 140 133 - 146 mmol/L [facility] POTASSIUM 3.5 3.3 - 5.1 mmol/L [facility] CHLORIDE 105 96 - 108 mmol/L [facility] CO2 25 21 - 35 mmol/L [facility] BUN 17 6 - 19 mg/dL [facility] CREATININE 1.10 0.5 - 1.5 mg/dL [facility] GLUCOSE 109(H) 70 - 99 mg/dL [facility] ALBUMIN 4.3 3.9 - 4.8 g/dL [facility] TOTAL PROTEIN 6.9 6.5 - 8.0 g/dL [facility] CALCIUM 9.7 8.4 - 10.3 mg/dL [facility] ALKALINE PHOSPHATASE 95 39 - 117 U/L [facility] TOTAL BILIRUBIN 0.5 0.0 - 1.2 mg/dL [facility] AST 26 0 - 37 U/L [facility] ALT 20 0 - 40 U/L [facility] GLOBULIN 2.6 1 - 4.8 g/dL [facility] EGFR 71 >59 mL/min/1.7 3m2 [facility] Comment:Estimated glomerular filtration rate calculated using the CKD-EPI refit equation. ANION GAP 14 10 - 20 mmol/L [facility] Blood 12/12/2024 9:55 AM EDT 12/12/2024 10:05 AM EDT us Favian Davis MD LAB BLOOD ORDERABLES Final Re sult Performing Organization Address City/[facility]/ZIP Co de Phone Number [address] [address] * (ABNORMAL) Iron and iron binding capacity (12/12/2024 9:55 AM EDT) IRON 22(L) 45 - 160 ug/dL [facility] IRON BINDING CAPACITY 322 228 - 428 ug/dL [facility] TRANSFERRIN SATURAT. 7(L) 20 - 55 % [facility] Blood 12/12/2024 9:55 AM EDT 12/12/2024 10:05 AM EDT us Favian Davis MD LAB BLOOD ORDERABLES Final Re sult Performing Organization Address City/[facility]/ZIP Co de Phone Number [address] [address] * Ferritin (12/12/2024 9:55 AM EDT) FERRITIN 68 30 - 400 ug/L [facility] Blood 12/12/2024 9:55 AM EDT 12/12/2024 10:05 AM EDT us Favian Davis MD LAB BLOOD ORDERABLES Final Re sult Performing Organization Address City/[facility]/ZIP Co de Phone Number [address] [address] * Hemoglobin A1c (12/12/2024 9:55 AM EDT) HEMOGLOBIN A1C 5.4 4.3 - 5.8 % [facility] Blood 12/12/2024 9:55 AM EDT 12/12/2024 10:06 AM EDT us Favian Davis MD LAB BLOOD ORDERABLES Final Re sult Performing Organization Address City/[facility]/ZIP Co de Phone Number [address] [address] * TSH with reflex (12/12/2024 9:55 AM EDT) TSH 0.50 0.27 - 4.20 uIU/mL [facility] Blood 12/12/2024 9:55 AM EDT 12/12/2024 10:05 AM EDT us Favian Davis MD LAB BLOOD ORDERABLES Final Re sult Performing Organization Address [facility] Co de Phone Number [address] [address] documented in this encounter Visit Diagnoses Diagnosis Paroxysmal atrial fibrillation Atrial fibrillation Essential hypertension Unspecified essential hypertension Impaired fasting glucose Acute upper GI bleed Unspecified, hemorrhage of gastrointestinal tract documented in this encounter Additional Health Concerns Assessment Noted Time PHQ-2 Depression Total Score: 0 09/06/19 25 12:36 PM EDT documented as of this encounter Care Teams Noteman Relationship Specialty Start Date End Date Favian Davis MD [address] [place] [address] [email or web address] PCP - General Internal Medicine 03/19/17 Favian Davis MD [address] [place] [address] Insurance Assigned Provider 07/14/23 Sherman Cha MD [address] [address] Internal Medicine 10/30/19 documented as of this encounter Additional Source Comments The information contained in this document represents components of the legal health record. It is not the complete legal health record.[facility]
[2024-12-18 08:33] LABS: Prothrombin Time Whole Bld POC 27.4 sec (11.1-13.5); ~PT, ~INR - Anti Coag Clinic 2.3 (0.9-1.1)
--- NOTE | 2024-12-18 08:49 | MHC.OFFVISCO ---
Intake Intake Visit Reasons: Anticoagulation Allergies lisinopril Adverse Reaction (Unknown, Verified 12/18/24 08:23) cough Medication List - Last Reconciled 12/18/24 by Kamryn Martinez RN atorvastatin (Lipitor) 10 mg PO DAILY dexlansoprazole (Dexilant) 60 mg PO BEDTIME diltiazem HCl CD 360 mg PO DAILY ferrous sulfate 325 mg PO DAILY fluticasone propionate 50 mcg/actuation 1 spray intranasal DAILY irbesartan-hydrochlorothiazide 150-12.5 mg (Avalide) 1 tab PO DAILY pantoprazole 40 mg PO BID warfarin (Jantoven) 5 mg See Protocol PO DAILY Nursing Note PREVIOUS NOTE: PT.STATES THAT HE WAS ADM.TO [facility] ON 12/07 WITH UGI BLEEDING. PT. SUDDENLY DEVELOPED EXTREME WEAKNESS AND SOB AT HOME, AND WAS UNABLE TO GET UP FROM THE FLOOR. CALLED 911. PT.STATES THAT HE HAD DARK RED EMESIS AND DIARRHEA. AFTER UPPER ENDOSCOPY, HE WAS TOLD THAT HE HAD LEAKING POLYPS . WARFARIN WAS HELD THRU THE WEEKEND, AND PT.WAS DC'D HOME ON 12/08/24 WITH INSTRUCTIONS TO RESUME THE WARFARIN. HE RESTARTED ON 12/08 AT USUAL DOSE. HE HAS ALSO STARTED PANTOPRAZOLE. PT.STATES THAT HE IS STARTING TO FEEL STRONGER, AND APPETITE HAS RETURNED. THERE IS NO CP OR FURTHER SX OF BLEEDING. STILL SLIGHT SOB WITH EXERTION. WILL BOOST WARFARIN SLIGHTLY TODAY AND FOLLOW-UP IN 1 WEEK. PT.AGREES TO CALL [facility] IN MEANTIME IF ANY FURTHER CONCERNS ARISE. Pt comes in today feeling well played soft ball over the weekend INR 2.3 Meds: started on iron, his dixelent was swithced to pantoprazole x 2 months- both can raise the INR - one may have more affect than another - will check INR again in 1 week Diet: appetite is good- enc greens over the weekend Warfarin:- pt took 5mg yesterday instead of today Dose: will keep same dose for now 5mg daily F/U: 1 Anti-Coag Initial Assessment Social Hx Patient Tobacco Use Status: Never used Tobacco alcohol intake: never Coding Level of Care Code Est Patient Level 1 Diagnoses Current use of anticoagulant therapy Z79.01 Results AMB INR Fingerstick AMB INR Fingerstick 2.3 Last Edit by Kamryn Martinez RN on 12/18/24 08:35 manual entry Assessment & Plan Assessment & Plan (1) Current use of anticoagulant therapy: Code(s): Z79.01 - manager terminal (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
--- OUTSIDE RECORDS SUMMARY | 2024-12-18 09:15 | XMS_ITS | Encounter Summary ---
Author Organization [facility] Address [address] [place] [address] Phone Care Team Providers Care Sales Planning Coordinator Name Role Phone Favian Davis MD Primary Care Provider [phone] Favian Davis MD Unavailable [phone] Sherman Cha MD Unavailable [phone] Encounter Details Date Type Department Care Team (Late st Contact Info) Description 12/12/2024 Orders Only [facility] Medical [facility] Internal Medicine [address] [place] [address] Provider, MD Keren [address] [place] [address] Social History Tobacco Use Types Packs/Day [...] Description 03/16/2025 9:30 AM EST Office Visit [facility] [address] [place] [address] Favian Davis MD [address] [place] [address] 09/14/2025 8:30 AM EDT Office Visit [facility] [address] [place] [address] Favian Davis MD [address] [place] [address] 10/12/2025 9:00 AM EDT Office Visit [facility] [address] [place] [address] 3rd Floor, [address] [place] [address] Chago Reynaga MD, MS 22 [facility], [address] [place] [phone] 03/16/2026 8:00 AM EST Office Visit [facility] [address] [place] [address] Pedro Lyon PA-C [address] [place], [place] [phone] documented as of this encounter Procedures Procedure Name Priority Date/Time Associated Diagnosis Comments OUTSIDE LAB Routine 12/12/2024 10:59 AM EDT OUTSIDE PATHOLOGY Routine 12/12/2024 10:37 AM EDT documented in this encounter Results * Outside Lab (12/12/2024 10:59 AM EDT) us Historical Provider MD LAB BLOOD ORDERABLES Sumaya l Result * Outside Pathology (12/12/2024 10:37 AM EDT) us Historical Provider MD PATHOLOGY ORDERABLES Sumaya l Result documented in this encounter Visit Diagnoses Not on filedocumented in this encounter Additional Health Concerns Assessment Noted Time PHQ-2 Depression Total Score: 0 09/06/19 25 12:36 PM EDT documented as of this encounter Care Teams Sales Planning Coordinator Relationship Specialty Start Date End Date Favian Davis MD [address] [place] [address] PCP - General Internal Medicine 03/19/17 Favian Davis MD [address] [place] [address] Insurance Assigned Provider 07/14/23 Sherman Cha MD [address] [facility] [address] [place] [address] Internal Medicine 10/30/19 documented as of this encounter Additional Source Comments The information contained in this document represents components of the legal health record. It is not the complete legal health record.[facility]
--- OUTSIDE RECORDS SUMMARY | 2024-12-18 09:15 | XMS_ITS | Encounter Summary ---
Author Organization [facility] Address [address] [place] [address] Phone Care Team Providers Care Marriage Counselor Minister Name Role Phone Favian Davis MD Primary Care Provider [phone] Favian Davis MD Unavailable [phone] Sherman Cha MD Unavailable [phone] Encounter Details Date Type Department Care Team (Late st Contact Info) Description 12/10/2024 Orders Only [facility] Medical [facility] Internal Medicine [address] [place] [address] Provider, MD Keren [address] [place] [address] Social History Tobacco Use Types Packs/Day [...] Description 03/16/2025 9:30 AM EST Office Visit [facility] Internal Medicine [address] [place] [address] Favian Davis MD [address] [place] [address] 09/14/2025 8:30 AM EDT Office Visit [facility] Internal Medicine [address] [place] [address] Favian Davis MD [address] [place] [address] 10/12/2025 9:00 AM EDT Office Visit [facility] [address] [place] [address] 3rd Floor, [address] [place] [address] Chago Reynaga MD, MS 22 [facility], [address] [place] [address] [phone] 03/16/2026 8:00 AM EST Office Visit [facility] Internal Medicine [address] [place] [address] Pedro Lyon PA-C [address] [place], [place] [phone] documented as of this encounter Procedures Procedure [...] documented as of this encounter Care Teams Marriage Counselor Minister Relationship Specialty Start Date End Date Favian Davis MD [address] [place] [address] PCP - General Internal Medicine 03/19/17 Favian Davis MD [address] [place] [address] Insurance Assigned Provider 07/14/23 Sherman Cha MD [address] [facility] [address] [place] [address] Internal Medicine 10/30/19 documented as of this encounter Additional Source Comments The information contained in this document represents components of the legal health record. It is not the complete legal health record.[facility]
--- OUTSIDE RECORDS SUMMARY | 2024-12-18 09:15 | XMS_ITS | Patient Health Record ---
Author Organization [facility] Address [address] [place] [address] Care Team Providers Care Dedicated Local Truck Driver Name Role Phone Favian Davis MD Primary Care Provider Lazaro Babin Jr Unavailable Allergies No Known Allergies Results Component Value Reference Range Notes Prothrombin Time INR Reviewed date:03/04/2024 03:58:51 PM Interpretation: Performing Lab:[facility], [address] [place] [phone] Notes/Report: Prothrombin Time 14.1 10.9-12.4 [employer] [...] Pathology Reviewed date:03/11/2024 03:56:38 PM Interpretation: Performing Lab:[facility], [address] [place] [phone] Notes/Report: Reason For Referral No Information Medications [...] Problem Status W/U Status Risk Notes Problem 754732013 Colon cancer screening (Z12.11) Active confirmed Problem 170345339 chairman emeritus (current) use of anticoagulants (Z79.01) Active confirmed Problem [id number] 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 Problem 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) Gastric polyps (K31.7) 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 Vital Signs Temperature 97.7 degrees Fahrenheit 01/14/2024 Blood pressure diastolic 00 mm Hg 01/14/2024 Height 70 in 01/14/2024 Blood pressure systolic 000 mm Hg 01/14/2024 Weight 216 lb 6 oz lbs 01/14/2024 BMI 31.04 kg/m2 01/14/2024 Encounters Encounter Location Date Provider Diagnosis [facility] Outpatient [address] [place] [id number] 03/04/2024 Lazaro Lyn Jr Colon cancer screening Z12.11 ; Gastric polyps K31.7 and Carmona esophagus K22.70 [facility] [address] [place] [phone] 01/14/2024 Lazaro Lyn Jr Barretts esophagus without dysplasia K22.70 ; Colon cancer screening Z12.11 and prison (current) use of anticoagulants Z79.01 [facility] [address] [place] [phone] 03/10/2024 Lazaro Lyn Jr Assessments Encounter Date [...] 03/04/2024 Carmona esophagus (ICD-10 - K22.70) 01/14/2024 prison (current) use of anticoagulants (ICD-10 - Z79.01) [...] Provider Name:Lazaro dickson , 03/16/2025 09:00:00 AM, [address] [place] [address], [address], [place], [address], Insurance Providers Payer Name Payer Address Payer Phone Subscriber Number Group Number Insured Name Patient Relationship to Insured Coverage Start Date Coverage End Date MEDICARE OF [facility] [address] [place] [address] [phone] [id number] MINERVA JAY Self - patient is the insured [facility] [address] [place] [id number] MINERVA JAY Self - patient is the [...]
--- OUTSIDE RECORDS SUMMARY | 2024-12-18 09:15 | XMS_ITS | Encounter Summary ---
Author Organization [facility] Address [address] [place] [address] Phone Care Team Providers Care Elderly Caregiver Name Role Phone Favian Davis MD Primary Care Provider [phone] Favian Davis MD Unavailable Sherman Cha MD Unavailable [phone] Encounter Details Date Type Department Care Team (Late st Contact Info) Description 12/09/2024 Orders Only [facility] [place] [facility] Internal Medicine [address] [place] [address] Provider, MD Keren [address] [place] [address] Social History Tobacco Use Types Packs/Day [...] Description 03/16/2025 9:30 AM EST Office Visit [facility] Internal Medicine [address] [place] [address] Favian Davis MD [address] [place] [address] 09/14/2025 8:30 AM EDT Office Visit [facility] Internal Medicine [address] [place] [address] Favian Davis MD [address] [place] [address] 10/12/2025 9:00 AM EDT Office Visit [facility] [address] [place] [address] 3rd Floor, [address] [place] [address] Chago Reynaga MD, MS 22 [facility], [address] [place] [phone] 03/16/2026 8:00 AM EST Office Visit [facility] Internal Medicine [address] [place] [address] Pedro Lyon PA-C [address] [place], [place] [phone] documented as of this encounter Procedures Procedure [...] ECG Report Only (12/04/2024 10:55 AM EDT) Historical Provider ECG ORDERABLES Edited Re sult - Final * Outside US Imaging??Report Only (11/19/2024 10:53 AM EDT) Historical Provider IMG US OP Edited Re sult - Final documented in this encounter Visit Diagnoses Not on filedocumented in this encounter Additional Health Concerns Assessment Noted Time PHQ-2 Depression Total Score: 0 09/06/19 25 12:36 PM EDT documented as of this encounter Care Teams Elderly Caregiver Relationship Specialty Start Date End Date Favian Davis MD [address] [place] [address] PCP - General Internal Medicine 03/19/17 Favian Davis MD [address] [place] [address] Insurance Assigned Provider 07/14/23 Sherman Cha MD [address] [address] Internal Medicine 10/30/19 documented as of this encounter Additional Source Comments The information contained in this document represents components of the legal health record. It is not the complete legal health record.[facility]
--- OUTSIDE RECORDS SUMMARY | 2024-12-18 09:15 | XMS_ITS | Encounter Summary ---
Author Organization [facility] Address [facility] [employer] [facility] [address] [place] [address] Phone Care Team Providers Care Front End Java Developer Name Role Phone Favian Davis MD Primary Care Provider [phone] Favian Davis MD Unavailable [phone] Sherman Cha MD Unavailable [phone] Reason for Visit * Reason Comments Medication Refill Encounter Details Date Type Department Care Team (Late st Contact Info) Description 12/14/2024 Refill [facility] [place] [facility] [address] [place] [address] Favian Davis MD [address] [place] [address] [email or web address] Medication Refill Social History Tobacco Use Types Packs/Day Years [...] as of this encounter Progress Notes * Sheryl Mccarthy CMA - 12/15/2024 9:25 AM EDT Rx Care Gap Status - Instructions for Clinical Staff (prescriber discretion applies): > Mismatch review guide > N/a - No action needed Visit Info Last visit: 12/12/2024 Favian Davis MD - Internal Medicine [facility] > Requested f/u: Not specified Upcoming visit: 03/16/2025 Favian Davis MD - Internal Medicine [facility] ACTIONS TAKEN BY Sheryl Mccarthy CMA - Criteria met. Gastrointestinal Rx Protocol (H2 blockers, PPIs, stool softeners, laxatives) - dexlansoprazole Criteria met; renew for up to 12 months. Visit in the past 24 months: Yes documented in this encounter Plan of Treatment Upcoming Encounters Date Type Department Care Team (Late st Contact Info) Description 03/16/2025 9:30 AM EST Office Visit [facility] Internal Medicine [address] [place] [address] Favian Davis MD [address] [place] [address] 09/14/2025 8:30 AM EDT Office Visit [facility] Internal Medicine [address] [place], [place] [phone] Favian Davis MD [address] [place] [address] 10/12/2025 9:00 AM EDT Office Visit [facility] [address] [facility] 3rd Floor, [address] [place] [address] Chago Reynaga MD, MS 22 [facility], [address] [place], [place] [phone] 03/16/2026 8:00 AM EST Office Visit [facility] Internal Medicine [address], [place] [phone] Pedro Lyon PA-C [address] [place], [place] [phone] documented as of this encounter Visit Diagnoses Not on filedocumented in this encounter Additional Health Concerns Assessment Noted Time PHQ-2 Depression Total Score: 0 09/06/19 25 12:36 PM EDT documented as of this encounter Care Teams Front End Java Developer Relationship Specialty Start Date End Date Favian Davis MD [address] [place] [address] PCP - General Internal Medicine 03/19/17 Favian Davis MD [address] [place] [address] [phone] Insurance Assigned Provider 07/14/23 Sherman Cha MD [facility] [address] [address] Internal Medicine 10/30/19 documented as of this encounter Additional Source Comments The information contained in this document represents components of the legal health record. It is not the complete legal health record.[facility]
--- OUTSIDE RECORDS SUMMARY | 2024-12-18 09:15 | XMS_ITS | Clinical Summary ---
Author Organization [facility] Address [facility] [employer] [address] [address] Phone Care Team Providers Care Retail Event And Sales Assistant Name Role Phone Favian Davis MD Primary Care Provider [phone] Favian Davis MD Unavailable [phone] Sherman Cha MD Unavailable [phone] Allergies Active Allergy Reactions Criticality Noted Date Comments Lisinopril Cough 03/20/2017 Other reaction(s): cough Medications dilTIAZem 360 mg 24hr Take 360 mg by mouth daily. 018 Active warfarin (JANTOVEN) 5 MG tabletIndications :Paroxysmal atrial fibrillation Take 1 tablet (5 mg total) by mouth daily. Based on INR results 90 tablet 3 024 Active irbesartan-hydroC HLOROthiazide (AVALIDE) 150-12.5 mg per tabletIndications :Essential hypertension take one tablet by mouth every day 90 tablet 3 024 Active triamcinolone acetonide 0.1 % cream APPLY TOPICALLY TO THE AFFECTED AREA(S) TWO TIMES A DAY 30 g 025 Active Additional Information Patient not taking.Reported on 12/12/2024 TYRVAYA 0.03 mg/spray nasal spray 1 spray by Each Nare route 2 (two) times a day. 025 Active cyclobenzaprine (FLEXERIL) 5 MG tabletIndications :Cervicalgia 1-2 tablets qhs prn neck pain 20 tablet 025 Active atorvastatin (LIPITOR) 10 MG tabletIndications :Mixed hyperlipidemia TAKE ONE TABLET BY MOUTH EVERY DAY 90 tablet 3 025 Active pantoprazole (PROTONIX) 40 MG tablet Take 40 mg by mouth 2 (two) times a day. Active ferrous sulfate 325 mg (65 mg [place] iron) tabletIndications :Anemia, unspecified type Take 1 tablet (325 mg total) by mouth daily with breakfast. 30 tablet 1 025 Active dexlansoprazole delayed release (DEXILANT) 60 mg capsule TAKE ONE CAPSULE BY MOUTH EVERY DAY 90 capsule 3 025 Active dexlansoprazole delayed release (DEXILANT) 60 mg capsule take one capsule by mouth every day 90 capsule 3 024 2024 Discontinued ferrous sulfate 325 mg (65 mg [place] iron) EC tablet Take 325 mg by mouth every evening. 2024 Discontinued Hospital, Clinic, or Other Facility Administered [...] x-ray of the right hand -Referral to [facility]- Dr Rudolph for possible cortisone injection [...] Encounters Date Type Department Care Team Description 12/14/2024 Refill [facility] Internal Medicine [address] [place] [address] Favian Davis MD Medication Refill 12/12/2024 9:54 AM EDT - 12/12/2024 11:59 PM EDT Hospital Encounter [facility] [address] [place] [address] Favian Davis MD Discharge Disposition: Home or Self Care 12/12/2024 9:00 AM EDT Office Visit [facility] Internal Medicine 40 [facility] [place] [address] Favian Davis MD Acute upper GI bleed (Primary Dx); Primary hypertension; Paroxysmal atrial fibrillation; Hereditary hemochromatosis; Anemia, unspecified type; Impaired fasting glucose; Essential hypertension 12/12/2024 Orders Only [facility] Internal Medicine [address] [place] [address] Keren Ivey MD 12/10/2024 Orders Only [facility] Internal [facility] 40 [facility] [place] [address] Keren Ivey MD 12/09/2024 Orders Only [facility] Internal [facility] [place] [address] Keren Ivey MD 12/09/2024 Telephone [facility] Internal [facility] [address] [place] [address] Favian Davis MD TCM Visit 11/16/2024 Refill [facility] 40 [facility] [place] [address] Favian Davis MD Medication Refill 10/06/2024 9:00 AM EDT Office Visit [facility] [address] [place] [address] 3rd Floor, [address] [place] [address] Chago Reynaga MD, MS GABBIE on CPAP (Primary Dx); Obesity (BMI 30.0-34.9) from Last 3 Months Immunizations Immunization Administration [...] Sign Reading Time Taken Comments Blood Pressure 132/60 12/12/2024 9:41 AM EDT Pulse 90 12/12/2024 9:07 AM EDT Temperature 36.2 C (97.2 F) 12/12/2024 9:07 AM EDT Respiratory Rate 16 09/12/2024 9:10 AM EDT Oxygen Saturation 97% 12/12/2024 9:07 AM EDT Inhaled Oxygen Concentration - - Weight 96.8 kg (213 lb 6.4 oz) 12/12/2024 9:07 A M EDT Height 174.1 cm (5' 8.54 ) 12/12/2024 9:07 AM ED T Body Mass Index 31.94 12/12/2024 9:07 AM EDT Plan of Treatment Upcoming Encounters Date Type Department Care Team (Late st Contact Info) Description 03/16/2025 9:30 AM EST [facility] [address] [place] [address] Favian Davis MD [address] [place] [address] 09/14/2025 8:30 AM EDT Office Visit [facility] Internal Medicine [address] [place] [address] Favian Davis MD [address] [place] [address] 10/12/2025 9:00 AM EDT Office Visit [facility] [address] [facility] 3rd Floor, [address] [place], [place] [phone] Chago Reynaga MD, MS 22 [facility], [address] [place] [phone] 03/16/2026 8:00 AM EST Office Visit [facility] Internal Medicine [address] [place] [address] Pedro Lyon PA-C [address] [place] [address] [email or web address] Health Maintenance Due Date Last Done Comments [...] 01/11/2023, 01/11/2022, Additional history exists BLOOD PRESSURE 06/11/2025 12/12/2024 DEPRESSION SCREENING 09/05/2025 09/05/2024 CREATININE LEVEL 12/12/2025 12/12/2024, , 01/14/2024, Additional history exists POTASSIUM LEVEL 12/12/2025 12/12/2024, 08/08, 01/14/2024, Additional history exists COLONOSCOPY 03/04/2029 03/04/2024, 06/0 10/2018, 09/05/2006 COLORECTAL CANCER SCREENING 03/04/2029 LIPID PANEL 09/04/2029 09/04/2024, 04/0 08/2023, 06/13/2022, Additional history exists PNEUMOCOCCAL VACCINES (50+ years) Completed 05/02/2018, 04/19/2017 HEPATITIS C SCREENING Completed 04/28/2019, 020 SMOKING STATUS SCREENING (Once After 26 Yrs) Completed 12/12/2024 HEPATITIS A VACCINES Aged Out No long [...] 10:59 AM EDT OUTSIDE PATHOLOGY Routine 12/12/2024 10: 37 AM EDT CBC AND DIFFERENTIAL Routine 12/12/2024 9:55 AM EDT Acute upper GI bleed COMPREHENSIVE METABOLIC PANEL Routine 12/12/2024 9:55 AM EDT Acute upper GI bleed IRON AND IRON BINDING CAPACITY Routine 12/12/2024 9:55 AM EDT Acute upper GI bleed FERRITIN Routine 12/12/2024 9:55 AM EDT Acute upper GI bleed HEMOGLOBIN A1C Routine 12/12/2024 9:55 AM EDT Impaired fasting glucose TSH WITH REFLEX Routine 12/12/2024 9:55 AM EDT Paroxysmal atrial fibrillation Essential hypertension OUTSIDE PROCEDURE Routine 12/10/2024 7:4 1 AM EDT OUTSIDE LAB Routine 12/05/2024 10:52 AM EDT OUTSIDE ECG Routine 12/04/2024 10:55 AM EDT OUTSIDE US IMAGING REPORT ONLY Routine 11/19/2024 10:53 AM EDT LIPID PANEL Routine 09/04/2024 8:06 AM EDT Mixed hyperlipidemia HM COLONOSCOPY FOR RESULT ENTRY ONLY Routine 03/04/2024 10:54 AM EST OUTSIDE HEPATITIS C VIRUS SCREENING Routine 04/28/2019 from Last 3 Months or Most Recently Relevant to Health Maintenance Results * Outside Lab (12/12/2024 10:59 AM EDT) Only the most recent of2 resultswithin the time period is included. us Historical Provider MD LAB BLOOD ORDERABLES Sumaya l Result * Outside Pathology (12/12/2024 10:37 AM EDT) us Historical Provider MD PATHOLOGY ORDERABLES Sumaya l Result * (ABNORMAL) Comprehensive metabolic panel (12/12/2024 9:55 AM EDT) SODIUM 140 133 - 146 mmol/L [facility] POTASSIUM 3.5 3.3 - 5.1 mmol/L [facility] CHLORIDE 105 96 - 108 mmol/L [facility] CO2 25 21 - 35 mmol/L [facility] BUN 17 6 - 19 mg/dL [facility] CREATININE 1.10 0.5 - 1.5 mg/dL [facility] GLUCOSE 109(H) 70 - 99 mg/dL [facility] ALBUMIN 4.3 3.9 - 4.8 g/dL [facility] TOTAL PROTEIN 6.9 6.5 - 8.0 g/dL [facility] CALCIUM 9.7 8.4 - 10.3 mg/dL [facility] ALKALINE PHOSPHATASE 95 39 - 117 U/L [facility] TOTAL BILIRUBIN 0.5 0.0 - 1.2 mg/dL [facility] AST 26 0 - 37 U/L [facility] ALT 20 0 - 40 U/L [facility] GLOBULIN 2.6 1 - 4.8 g/dL [facility] EGFR 71 >59 mL/min/1.7 3m2 [facility] Comment:Estimated glomerular filtration rate calculated using the CKD-EPI refit equation. ANION GAP 14 10 - 20 mmol/L [facility] Blood 12/12/2024 9:55 AM EDT 12/12/2024 10:05 AM EDT us Favian Davis MD LAB BLOOD ORDERABLES Final Re sult Performing Organization Address City/[facility]/ZIP Co de Phone Number [address] [address] * TSH with reflex (12/12/2024 9:55 AM EDT) TSH 0.50 0.27 - 4.20 uIU/mL [facility] Blood 12/12/2024 9:55 AM EDT 12/12/2024 10:05 AM EDT us Favian Davis MD LAB BLOOD ORDERABLES Final Re sult Performing Organization Address [facility] Co de Phone Number [address] [address] * (ABNORMAL) Iron and iron binding capacity (12/12/2024 9:55 AM EDT) IRON 22(L) 45 - 160 ug/dL [facility] IRON BINDING CAPACITY 322 228 - 428 ug/dL [facility] TRANSFERRIN SATURAT. 7(L) 20 - 55 % [facility] Blood 12/12/2024 9:55 AM EDT 12/12/2024 10:05 AM EDT us Favian Davis MD LAB BLOOD ORDERABLES Final Re sult Performing Organization Address City/[facility]/ZIP Co de Phone Number [address] [address] * (ABNORMAL) CBC and differential (12/12/2024 9:55 AM EDT) WBC 7.15 4.00 - 11.00 K/uL [facility] RBC 3.73(L) 4.50 - 5.90 M/uL [facility] HGB 10.5(L) 13.5 - 17.5 g/dL [facility] HCT 32.8(L) 41.0 - 53.0 % [facility] PLT 329 150 - 450 K/uL [facility] MCV 87.9 80.0 - 100.0 fL [facility] MCH 28.2 27.0 - 31.0 pg [facility] MCHC 32.0 32.0 - 36.0 g/dL [facility] RDW 17.9(H) 11.5 - 14.5 % [facility] MPV 10.1 8.4 - 12.0 fL [facility] NRBC 0.00 0.00 /100 WBCs [facility] ABSOLUTE NRBC 0.00 0.00 K/uL [facility] DIFF METHOD Auto [facility] NEUTS 66.1 48.0 - 76.0 % [facility] LYMPHS 16.9(L) 18.0 - 41.0 % [facility] MONOS 12.4(H) 4.0 - 11.0 % [facility] EOS 3.4 0.0 - 5.0 % [facility] BASOS 0.8 0.0 - 1.5 % [facility] Granulocytes, immature (%) 0.4 0.0 - 0.9 % [facility] ABSOLUTE NEUTS 4.72 1.92 - 7.60 K/uL [facility] ABSOLUTE LYMPHS 1.21 0.72 - 4.10 K/uL [facility] ABSOLUTE MONOS 0.89 0.16 - 1.10 K/uL [facility] ABSOLUTE EOS 0.24 0.00 - 0.50 K/uL [facility] ABSOLUTE BASOS 0.06 0.00 - 0.15 K/uL [facility] Granulocytes, immature 0.03 0.00 - 0.09 K/uL [facility] Blood 12/12/2024 9:55 AM EDT 12/12/2024 10:05 AM EDT Favian Davis MD LAB BLOOD ORDERABLES Final Re sult Performing Organization Address [facility] Co de Phone Number [address] [address] * Hemoglobin A1c (12/12/2024 9:55 AM EDT) HEMOGLOBIN A1C 5.4 4.3 - 5.8 % [facility] Blood 12/12/2024 9:55 AM EDT 12/12/2024 10:06 AM EDT Result [facility] Favian Davis MD LAB BLOOD ORDERABLES Final Re sult Performing Organization Address [facility] de Phone Number [address] [address] * Ferritin (12/12/2024 9:55 AM EDT) FERRITIN 68 30 - 400 ug/L [facility] Blood 12/12/2024 9:55 AM EDT 12/12/2024 10:05 AM EDT Result [facility] Favian Davis MD LAB BLOOD ORDERABLES Final Re sult Performing Organization Address [facility] de Phone Number [address] [address] * Outside Procedure (12/10/2024 7:41 AM EDT) Historical Provider PROCEDURE/MINOR SURGICAL PERFORMABLES Final Result * Outside ECG Report Only (12/04/2024 10:55 AM EDT) Historical Provider ECG ORDERABLES Edited Re sult - Final * Outside US Imaging??Report Only (11/19/2024 10:53 AM EDT) Historical Provider IM US OP Edited Re sult - Final * Lipid panel (09/04/2024 8:06 AM EDT) HDL 41 mg/dL [facility] Comment: Interpretation <40 mg/dL: Low HDL cholesterol (major risk factor for CHD) Greater than or equal to 60 mg/dL: High HDL cholesterol ( negative risk factor for CHD) HDL - cholesterol is affected by a number of factors, e.g. smoking, excerise, hormones, sex and age. CHOLESTEROL 144 0 - 240 mg/dL [facility] TRIGLYCERIDES 143 30 - 160 mg/dL [facility] LDL 74 50 - 129 mg/dL [facility] Comment: LDL levels in terms of risk for coronary heart disease: <100 mg/dL: Optimal 100-129 mg/dL: Near or above optimal 130-159 mg/dL: Borderline high 160-189 mg/dL: High >190 mg/dL: Very High CARDIAC RISK RATIO 3.5 3.4 - 5.0 [facility] Blood 09/04/2024 8:06 AM EDT 09/04/2024 8:11 AM EDT Favian Davis MD LAB BLOOD ORDERABLES Final Re keshiat [facility] [address] [place] [address] * HM COLONOSCOPY FOR RESULT ENTRY ONLY (03/04/2024 10:54 AM EST) Historical Provider HEALTH MAINTENANCE Final Result * Outside Hepatitis C Virus Screening (04/28/2019) Hepatitis C Screening - External Neg Historical [facility] LAB BLOOD ORDERABLES Sumaya l Result from Last 3 Months or Most Recently Relevant to Health Maintenance Insurance MEDICARE PART A & B [id number] [place] [address] MEDICARE ENHANCE SUPPLEMENT MEDICARE PART A & B [facility] MEDICARE ENHANCE SUPPLEMENT MEDICARE PART A & B [facility] MEDICARE ENHANCE SUPPLEMENT MEDICARE PART A & B [facility] MEDICARE ENHANCE SUPPLEMENT MEDICARE PART A & B [facility] MEDICARE ENHANCE SUPPLEMENT MEDICARE PART A & B [facility] MEDICARE ENHANCE SUPPLEMENT MEDICARE PART A & B [facility] MEDICARE ENHANCE SUPPLEMENT MEDICARE PART A & B [facility] MEDICARE ENHANCE SUPPLEMENT MEDICARE PART A & B [facility] MEDICARE ENHANCE SUPPLEMENT Care Teams Retail Event And Sales Assistant Relationship Specialty Start Date End Date Favian Davis MD [address] [place] [address] PCP - General Internal Medicine 03/19/17 Favian Davis MD [address] [place] [address] Insurance Assigned Provider 07/14/23 Sherman Cha MD [address] [address] Internal Medicine 10/30/19 Additional Source Comments The information contained in this document represents components of the legal health record. It is not the complete legal health record.[facility]
--- OUTSIDE RECORDS SUMMARY | 2024-12-18 09:15 | XMS_ITS | Clinical Summary ---
Author Organization [facility] ity Address [address] [place] [address] Care Team Providers Care [employer]ence Specialists Name Role Phone Unavailable Primary Care Provider [...]
== END 2024-12-18 08:55 | disposition home or self-care (01) ==
LOC: HO.ACS 08:18
PROVIDERS: PCP Internal Medicine; Visit Provider Internal Medicine Medical Oncology
DX: Z79.01 Long term (current) use of anticoagulants (principal)

== ENCOUNTER → 2024-12-18 08:18 | Outpatient (BNVA) | payer MEDICARE, OTHER, SELFPAY | PROVIDERS: PCP Internal Medicine; Visit Provider Internal Medicine Medical Oncology | DX: Z51.81 Encounter for therapeutic drug level monitoring (principal); Z79.01 Long term (current) use of anticoagulants | CPT/HCPCS: 85610; 99211 ==

== ENCOUNTER 2024-12-25 08:27 | Outpatient (AMB) | payer MEDICARE, OTHER, SELFPAY ==
--- OUTSIDE RECORDS SUMMARY | 2024-03-04 04:20 | XMS_ITS ---
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 Encounters Encounter Location Date Provider Diagnosis [facility] Outpatient [address] [place] [id number] 03/04/2024 Lazaro Lyn Jr Colon cancer screening Z12.11 ; Gastric polyps K31.7 and Carmona esophagus K22.70 Assessments Encounter Date Diagnosis (ICD Code) Assessment Notes Treatment Notes Treatment Clinical Notes Section Notes 03/04/2024 Colon cancer screening (ICD-10 - Z12.11) 03/04/2024 Gastric polyps (ICD-10 - K31.7) 03/04/2024 Carmona esophagus (ICD-10 - K22.70) Plan Of Treatment Next Appt Details Provider Name:Lazaro dickson Jr, 03/16/2025 09:00:00 AM, [address] [place] [address], [address], [place], [address], Progress Notes * MINERVA GIRARD TDOB:[birth year] (74 yo M)Acc No.[id number]:03/04/2024 EGD and COL/MAC Patient: MINERVA TREVINO Provider: Pedro Luis Lyn MD :1950 A ge:73 Y S ex:Male Date:03/04/2024 Address:[address] [place], [place] [phone] Pcp:Favian Davis MD Subjective: * Chief Complaints: [...] DOCD, 0528F RCMND FLW-UP 10 YRS DOCD, [address] UPPER GI ENDOSCOPY, BIOPSY * * The named appointment provid er may or may not be the originator of this progress note, and it is not deemed complete until electronically signed by the appointment provider. Sign off status: Pending * Provider: Pedro Luis Lyn MD Date: 1 05/04/2023 Generated for Lisa noguera/Onur/Rubinitting on: 0 12/25/2024 09:33 AM EDT
--- NOTE | 2024-12-25 08:39 | MHC.OFFVISCO ---
Intake Intake Visit Reasons: Anticoagulation Allergies lisinopril Adverse Reaction (Unknown, Verified 12/25/24 08:32) cough Medication List - Last Reconciled 12/25/24 by Kamryn Martinez RN atorvastatin (Lipitor) 10 mg PO DAILY dexlansoprazole (Dexilant) 60 mg PO BEDTIME diltiazem HCl CD 360 mg PO DAILY ferrous sulfate 325 mg PO DAILY fluticasone propionate 50 mcg/actuation 1 spray intranasal DAILY irbesartan-hydrochlorothiazide 150-12.5 mg (Avalide) 1 tab PO DAILY pantoprazole 40 mg PO BID varenicline tartrate (Tyrvaya) intranasal warfarin (Jantoven) 5 mg See Protocol PO DAILY Nursing Note INR: 2.0 in therapeutic range Medications and supplements reviewed * Pt feeling well - recovered from polyp leak, will have f/u with Dr Lyn some time in future, the poylp was caterized - question if plan to remove polyp- unknow at this time. Denies any signs and symptoms of bleeding or bruising or clotting. 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
[2024-12-25 08:50] LABS: Prothrombin Time Whole Bld POC 24.0 sec (11.1-13.5); ~PT, ~INR - Anti Coag Clinic 2.0 (0.9-1.1)
--- OUTSIDE RECORDS SUMMARY | 2024-12-25 09:32 | XMS_ITS | Encounter Summary ---
Author Organization [facility] Address [address] [place] [address] Phone Care Team Providers Care Manager Of Data Name Role Phone Favian Davis MD Primary Care Provider [phone] Favian Davis MD Unavailable Sherman Cha MD Unavailable [phone] Encounter Details Date Type Department Care Team (Late st Contact Info) Description 12/10/2024 Orders Only [facility] Internal Medicine [address] [place] [address] Provider, MD Keren [address] [place] [id number] Social History Tobacco Use Types Packs/Day [...] Description 03/16/2025 9:30 AM EST Office Visit [facility] Internal Medicine [address] [place] [address] Favian Davis MD [address] [place] [address] 09/14/2025 8:30 AM EDT Office Visit [facility] Internal Medicine [address] [place] [address] Favian Davis MD [address] [place] [phone] 10/12/2025 9:00 AM EDT Office Visit [facility] [address] [place] [address] 3rd Floor, [address] [place] [address] Chago Reynaga MD, MS 22 [facility], [address] [place] [address] [phone] 03/16/2026 8:00 AM EST Office Visit [facility] Internal Medicine [address] [place] [address] Pedro Lyon PA-C [address] [place], [place] [phone] documented as of this encounter Procedures Procedure [...] documented as of this encounter Care Teams Manager Of Data Relationship Specialty Start Date End Date Favian Davis MD [address] [place] [address] PCP - General Internal Medicine 03/19/17 Favian Davis MD [address] [place] [address] Insurance Assigned Provider 07/14/23 Sherman Cha MD [address] [facility] [address] [place] [address] Internal Medicine 10/30/19 documented as of this encounter Additional Source Comments The information contained in this document represents components of the legal health record. It is not the complete legal health record.[facility]
--- OUTSIDE RECORDS SUMMARY | 2024-12-25 09:32 | XMS_ITS | Encounter Summary ---
Author Organization [facility] Address [email or web address] [place] [address] Phone Care Team Providers Care Resource Conservation Manager Name Role Phone Favian Davis MD Primary Care Provider [phone] Favian Davis MD Unavailable [phone] Sherman Cha MD Unavailable [phone] Encounter Details Date Type Department Care Team (Late st Contact Info) Description 12/09/2024 Orders Only [facility] Medical [facility] Internal Medicine [address] [place] [address] Provider, MD Keren [address] [place] [address] Social History Tobacco Use Types Packs/Day [...] Description 03/16/2025 9:30 AM EST Office Visit [facility] Internal Medicine [address] [place] [address] Favian Davis MD [address] [place] [address] 09/14/2025 8:30 AM EDT Office Visit [facility] Internal Medicine [address] [place] [address] Favian Davis MD [address] [place] [address] 10/12/2025 9:00 AM EDT Office Visit [facility] [address] [place] [address] 3rd Floor, [address] [place] [address] Chago Reynaga MD, MS 22 [facility], [address] [place] [address] [phone] 03/16/2026 8:00 AM EST Office Visit [facility] Internal Medicine [address] [place] [address] Pedro Lyon PA-C [address] [place], [place] [phone] documented as of this encounter Procedures Procedure [...] documented as of this encounter Care Teams Resource Conservation Manager Relationship Specialty Start Date End Date Favian Davis MD 40 [place] [address] PCP - General Internal Medicine 03/19/17 Favian Davis MD [address] [place] [address] Insurance Assigned Provider 07/14/23 Sherman Cha MD [address] [address] Internal Medicine 10/30/19 documented as of this encounter Additional Source Comments The information contained in this document represents components of the legal health record. It is not the complete legal health record.[facility]
--- OUTSIDE RECORDS SUMMARY | 2024-12-25 09:32 | XMS_ITS | Encounter Summary ---
Author Organization [facility] Address [facility] [address] [place] [address] Phone Care Team Providers Care Manager Critical Care Name Role Phone Favian Davis MD Primary Care Provider [phone] Favian Davis MD Unavailable [phone] Sherman Cha MD Unavailable [phone] Reason for Visit * Reason Comments Medication Refill Encounter Details Date Type Department Care Team (Late st Contact Info) Description 12/21/2024 Refill [facility] [place] Internal Medicine [address] [place] [address] Favian Davis MD [address] [place] [address] [email or web address] Medication Refill Social History Tobacco Use Types [...] Progress Notes * Sheryl Mccarthy CMA - 12/22/2024 12:04 PM EDT Rx Care Gap Status - Instructions for Clinical Staff (prescriber discretion applies): > Mismatch review guide > N/a - No action needed Visit Info Last visit: 12/12/2024 Favian Davis MD - Internal Medicine [facility] > Requested f/u: Not specified Upcoming visit: 03/16/2025 Favian Davis MD - Internal Medicine [facility] ACTIONS TAKEN BY Sheryl Mccatrhy CMA - Criteria met. ACEi / ARBs / Diuretic Rx Protocol (on HTN Registry) - irbesartan/hydrochlorothiazide Criteria met; renew for up to 12 months. Visit in the past 14 months: Yes Clinical criteria: - BP within last 6 months: 132/60 on 12/12/2024 - BMP within past year: Yes - Cr, GFR and K are normal: Yes Lab Results Component Value Date SODIUM 140 12/12/2024 POTASSIUM 3.5 12/12/2024 CHLORIDE 105 12/12/2024 CO2 25 12/12/2024 BUN 17 12/12/2024 CREATININE 1.10 12/12/2024 EGFR 71 12/12/2024 documented in this encounter Plan of Treatment Upcoming Encounters Date Type Department Care Team (Late st Contact Info) Description 03/16/2025 9:30 AM EST Office Visit [facility] Internal Medicine [address] [place] [address] Favian Davis MD [address] [place] [address] 09/14/2025 8:30 AM EDT Office Visit [facility] Internal Medicine [address] [place] [address] Favian Davis MD [address] [place] [address] 10/12/2025 9:00 AM EDT Office Visit [facility] [address] [place] [address] 3rd Floor, [address] [place] [address] Chago Reynaga MD, MS 22 [facility], [address] [address] 03/16/2026 8:00 AM EST Office Visit [facility] Internal Medicine [address] [place], [place] [phone] Pedro Lyon PA-C [address] [place], [place] [phone] documented as of this encounter Visit Diagnoses Diagnosis Essential hypertension Unspecified essential hypertension documented in this encounter Additional Health Concerns Assessment Noted Time PHQ-2 Depression Total Score: 0 09/06/19 25 12:36 PM EDT documented as of this encounter Care Teams Manager Critical Care Relationship Specialty Start Date End Date Favian Davis MD [address] [place] [address] PCP - General Internal Medicine 03/19/17 Favian Davis MD [address] [place] [address] Insurance Assigned Provider 07/14/23 Sherman Cha MD [address] [address] Internal Medicine 10/30/19 documented as of this encounter Additional Source Comments The information contained in this document represents components of the legal health record. It is not the complete legal health record.[facility]
--- OUTSIDE RECORDS SUMMARY | 2024-12-25 09:32 | XMS_ITS | Clinical Summary ---
Author Organization [facility] Address [address] [facility] [address] [place] [address] Phone Care Team Providers Care Health Unit Clerk Name Role Phone Favain Davis MD Primary Care Provider [phone] Favian Davis MD Unavailable [phone] Sherman Cha MD Unavailable [phone] Allergies Active Allergy Reactions Criticality Noted Date Comments Lisinopril Cough 03/20/2017 Other reaction(s): cough Medications dilTIAZem 360 mg 24hr Take 360 mg by mouth daily. 018 Active warfarin (JANTOVEN) 5 MG tabletIndications :Paroxysmal atrial fibrillation Take 1 tablet (5 mg total) by mouth daily. Based on INR results 90 tablet 3 024 Active triamcinolone acetonide [...] Active ferrous sulfate 325 mg (65 mg hoopa iron) tabletIndications :Anemia, unspecified type Take 1 tablet (325 mg total) by mouth daily with breakfast. 30 tablet 1 Active dexlansoprazole delayed release (DEXILANT) 60 mg capsule TAKE ONE CAPSULE BY MOUTH EVERY DAY 90 capsule 3 025 Active irbesartan-hydroC HLOROthiazide (AVALIDE) 150-12.5 mg per tabletIndications :Essential hypertension TAKE ONE TABLET BY MOUTH EVERY DAY 90 tablet 3 025 Active dexlansoprazole delayed release (DEXILANT) 60 mg capsule take one capsule by mouth every day 90 capsule 3 024 2024 Discontinued irbesartan-hydroC HLOROthiazide (AVALIDE) 150-12.5 mg per tabletIndications :Essential hypertension take one tablet by mouth every day 90 tablet 3 024 2024 Discontinued ferrous sulfate 325 mg (65 mg hoopa iron) EC tablet Take 325 mg by [...] x-ray of the right hand -Referral to [facility]- Dr Rudolph for possible cortisone injection [...] Encounters Date Type Department Care Team Description 12/21/2024 Telephone [facility] Internal Medicine [address] [place] [address] Favian Davis MD 12/21/2024 Telephone [facility] Internal Medicine 40 [facility] [place] [address] Favian Davis MD Results 12/21/2024 Refill [facility] Internal Medicine 40 [facility] [place] [address] Favian Davis MD Medication Refill 12/18/2024 10:35 AM EDT - 12/18/2024 11:59 PM EDT Hospital Encounter [facility] [address] [place] [address] Favian Davis MD Discharge Disposition: Home or Self Care 12/14/2024 Refill [facility] Internal Medicine [address] [place] [address] Favian Davis MD Medication Refill 12/12/2024 9:54 AM EDT - 12/12/2024 11:59 PM EDT Hospital Encounter [facility] [address] [place] [address] [place] [address] Favian Davis MD Discharge Disposition: Home or Self Care 12/12/2024 9:00 AM EDT Office Visit [facility] Internal Medicine [address] [place] [address] Favian Davis MD Acute upper GI bleed (Primary Dx); Primary hypertension; Paroxysmal atrial fibrillation; Hereditary hemochromatosis; Anemia, unspecified type; Impaired fasting glucose; Essential hypertension 12/12/2024 Orders Only [facility] Internal Medicine [address] [place] [address] Keren Ivey MD 12/10/2024 Orders Only [facility] Internal Medicine [address] [place] [address] Keren Ivey MD 12/09/2024 Orders Only [facility] Internal Medicine [address] [place] [address] Keren Ivey MD 12/09/2024 Telephone [facility] Internal Medicine [address] [place] [address] Favian Davis MD TCM Visit 11/16/2024 Refill [facility] Internal Medicine [address] [place] [address] Favian Davis MD Medication Refill 10/06/2024 9:00 AM EDT Office Visit [facility] [place] 3rd Floor, [address] [place] [address] Chago Reynaga MD, MS GABBIE on CPAP [...] Description 03/16/2025 9:30 AM EST Office Visit [facility] Internal Medicine [address] [place] [address] Favian Davis MD [address] [place] [address] [email or web address] 09/14/2025 8:30 AM EDT Office Visit [facility] Internal Medicine [address] [place] [address] Favian Davis MD [address] [place] [address] 10/12/2025 9:00 AM EDT Office Visit [facility] 22 [facility] 3rd Floor, [address] [place] [address] Chago Reynaga MD, MS 22 [facility], [address] [address] 03/16/2026 8:00 AM EST Office Visit [facility] Internal Medicine [address] [place] [address] Pedro Lyon PA-C [address] [place] [address] [email or web address] Due Date Last Done Comments [...] Procedure Name Priority Date/Time Associated Diagnosis Comments CBC AND DIFFERENTIAL Routine 12/18/2024 10:26 AM EDT Anemia, unspecified type IRON AND IRON BINDING CAPACITY Routine 12/18/2024 10:26 AM EDT Anemia, unspecified type FERRITIN Routine 12/18/2024 10:26 AM EDT Anemia, unspecified type VITAMIN B12 Routine 12/18/2024 10:26 AM EDT Anemia, unspecified type FOLATE Routine 12/18/2024 10:26 AM EDT Anemia, unspecified type TSH Routine 12/18/2024 10:26 AM EDT Anemia, unspecified type Low TSH level FREE T4 Routine 12/18/2024 10:26 AM EDT Anemia, unspecified type OUTSIDE LAB Routine 12/12/2024 10:59 AM EDT [...] Relevant to Health Maintenance Results * (ABNORMAL) Iron and iron binding capacity (12/18/2024 10:26 AM EDT) Only the most recent of2 resultswithin the time period is included. IRON 20(L) 45 - 160 ug/dL [facility] IRON BINDING CAPACITY 316 228 - 428 ug/dL [facility] TRANSFERRIN SATURAT. 6(L) 20 - 55 % [facility] Blood 12/18/2024 10:2 6 AM EDT 12/18/2024 1:27 PM EDT us Favian Davis MD LAB BLOOD ORDERABLES Final Re sult [address] [address] * (ABNORMAL) CBC and differential (12/18/2024 10:26 AM EDT) Only the most recent of2 resultswithin the time period is included. WBC 5.33 4.00 - 11.00 K/uL [facility] RBC 3.78(L) 4.50 - 5.90 M/uL [facility] HGB 10.2(L) 13.5 - 17.5 g/dL [facility] HCT 32.7(L) 41.0 - 53.0 % [facility] PLT 396 150 - 450 K/uL [facility] MCV 86.5 80.0 - 100.0 fL [facility] MCH 27.0 27.0 - 31.0 pg [facility] MCHC 31.2(L) 32.0 - 36.0 g/dL [facility] RDW 16.9(H) 11.5 - 14.5 % [facility] MPV 9.2 8.4 - 12.0 fL [facility] NRBC 0.00 0.00 /100 WBCs [facility] ABSOLUTE NRBC 0.00 0.00 K/uL [facility] DIFF METHOD Auto [facility] NEUTS 54.6 48.0 - 76.0 % [facility] LYMPHS 27.4 18.0 - 41.0 % [facility] MONOS 12.0(H) 4.0 - 11.0 % [facility] EOS 4.3 0.0 - 5.0 % [facility] BASOS 1.3 0.0 - 1.5 % [facility] Granulocytes, immature (%) 0.4 0.0 - 0.9 % [facility] ABSOLUTE NEUTS 2.91 1.92 - 7.60 K/uL [facility] ABSOLUTE LYMPHS 1.46 0.72 - 4.10 K/uL [facility] ABSOLUTE MONOS 0.64 0.16 - 1.10 K/uL [facility] ABSOLUTE EOS 0.23 0.00 - 0.50 K/uL [facility] ABSOLUTE BASOS 0.07 0.00 - 0.15 K/uL [facility] Granulocytes, immature 0.02 0.00 - 0.09 K/uL [facility] Blood 12/18/2024 10:2 6 AM EDT 12/18/2024 1:27 PM EDT us Favian Davis MD LAB BLOOD ORDERABLES Final Re sult [facility] [address] [place] [address] * TSH (12/18/2024 10:26 AM EDT) TSH 0.48 0.27 - 4.20 uIU/mL [facility] Blood 12/18/2024 10:2 6 AM EDT 12/18/2024 1:27 PM EDT us Favian Davis MD LAB BLOOD ORDERABLES Final Re sult Performing Organization Address [facility]/ZIP Co de Phone Number [address] [address] * Free T4 (12/18/2024 10:26 AM EDT) FREE T4 1.4 0.9 - 1.7 ng/dL [facility] Blood 12/18/2024 10:2 6 AM EDT 12/18/2024 1:27 PM EDT us Favian Davis MD LAB BLOOD ORDERABLES Final Re sult Performing Organization Address [facility] Co de Phone Number [address] [address] * Folate (12/18/2024 10:26 AM EDT) FOLIC ACID 15.8 4.2 - 19.9 ng/mL [facility] Blood 12/18/2024 10:2 6 AM EDT 12/18/2024 1:27 PM EDT us Favian Davis MD LAB BLOOD ORDERABLES Final Re sult Performing Organization Address [facility] Co de Phone Number [address] [address] * Ferritin (12/18/2024 10:26 AM EDT) Only the most recent of2 resultswithin the time period is included. FERRITIN 33 30 - 400 ug/L [facility] Blood 12/18/2024 10:2 6 AM EDT 12/18/2024 1:27 PM EDT us Favian Davis MD LAB BLOOD ORDERABLES Final Re sult [facility] [address] [place] [address] * Vitamin B12 (12/18/2024 10:26 AM EDT) VITAMIN B12 353 232 - 1,245 pg/mL [facility] Blood 12/18/2024 10:2 6 AM EDT 12/18/2024 1:27 PM EDT us Favian Davis MD LAB BLOOD ORDERABLES Final Re sult Performing Organization Address City/[facility]/ZIP Co de Phone Number [address] [address] * Outside Lab (12/12/2024 10:59 AM EDT) Only the most recent of2 resultswithin the time period is included. us Historical Provider MD LAB BLOOD ORDERABLES Sumaya l Result * Outside Pathology (12/12/2024 10:37 AM EDT) Historical Provider MD PATHOLOGY ORDERABLES Sumaya l Result * (ABNORMAL) Comprehensive metabolic panel (12/12/2024 9:55 AM EDT) SODIUM 140 133 - 146 mmol/L [facility] POTASSIUM 3.5 3.3 - 5.1 mmol/L [facility] CHLORIDE 105 96 - 108 mmol/L [facility] CO2 25 21 - 35 mmol/L [facility] BUN 17 6 - 19 mg/dL [facility] CREATININE 1.10 0.5 - 1.5 mg/dL [facility] GLUCOSE 109(H) 70 - 99 mg/dL [facility] ALBUMIN 4.3 3.9 - 4.8 g/dL [facility] TOTAL PROTEIN 6.9 6.5 - 8.0 g/dL [facility] CALCIUM 9.7 8.4 - 10.3 mg/dL [facility] ALKALINE PHOSPHATASE 95 39 - 117 U/L [facility] TOTAL BILIRUBIN 0.5 0.0 - 1.2 mg/dL [facility] AST 26 0 - 37 U/L [facility] ALT 20 0 - 40 U/L [facility] GLOBULIN 2.6 1 - 4.8 g/dL [facility] EGFR 71 >59 mL/min/1.7 3m2 [facility] Comment:Estimated glomerular filtration rate calculated using the CKD-EPI refit equation. ANION GAP 14 10 - 20 mmol/L [facility] Blood 12/12/2024 9:55 AM EDT 12/12/2024 10:05 AM EDT us Favian Davis MD LAB BLOOD ORDERABLES Final Re sult Performing Organization Address [facility]/ZIP Co de Phone Number [address] [address] * TSH with reflex (12/12/2024 9:55 AM EDT) TSH 0.50 0.27 - 4.20 uIU/mL [facility] Blood 12/12/2024 9:55 AM EDT 12/12/2024 10:05 AM EDT us Favian Davis MD LAB BLOOD ORDERABLES Final Re sult Performing Organization Address [facility] Co de Phone Number [address] [address] * Hemoglobin A1c (12/12/2024 9:55 AM EDT) HEMOGLOBIN A1C 5.4 4.3 - 5.8 % [facility] Blood 12/12/2024 9:55 AM EDT 12/12/2024 10:06 AM EDT us Favian Davis MD LAB BLOOD ORDERABLES Final Re sult Performing Organization Address [facility] Co de Phone Number [address] [address] * Outside Procedure (12/10/2024 7:41 AM EDT) Historical Provider PROCEDURE/MINOR SURGICAL PERFORMABLES Final Result * Outside ECG Report Only (12/04/2024 10:55 AM EDT) Historical Provider ECG ORDERABLES Edited Re sult - Final * Outside US Imaging??Report Only (11/19/2024 10:53 AM EDT) Historical Provider IMG US OP Edited Re sult - Final * Lipid panel (09/04/2024 8:06 AM EDT) HDL 41 mg/dL [facility] Comment: Interpretation <40 mg/dL: Low HDL cholesterol (major risk factor for CHD) Greater than or equal to 60 mg/dL: High HDL cholesterol ( negative risk factor for CHD) HDL - cholesterol is affected by a number of factors, e.g. smoking, excerise, hormones, sex and age. CHOLESTEROL 144 0 - 240 mg/dL [facility] TRIGLYCERIDES 143 30 - 160 mg/dL [facility] LDL 74 50 - 129 mg/dL [facility] Comment: LDL levels in terms of risk for coronary heart disease: <100 mg/dL: Optimal 100-129 mg/dL: Near or above optimal 130-159 mg/dL: Borderline high 160-189 mg/dL: High >190 mg/dL: Very High CARDIAC RISK RATIO 3.5 3.4 - 5.0 [facility] Blood 09/04/2024 8:06 AM EDT 09/04/2024 8:11 AM EDT Result [facility] Favian Davis MD LAB BLOOD ORDERABLES Final Re sult [address] [address] * COLONOSCOPY FOR RESULT ENTRY ONLY (03/04/2024 10:54 AM EST) Historical Provider HEALTH MAINTENANCE Final Result * Outside Hepatitis C Virus Screening (04/28/2019) Hepatitis C Screening - External Neg us Historical Provider LAB BLOOD ORDERABLES [facility] Result from Last 3 Months or Most Recently Relevant to Health Maintenance Insurance MEDICARE PART A & B [facility] [employer] ENHANCE SUPPLEMENT MEDICARE PART A & B [facility] MEDICARE ENHANCE SUPPLEMENT MEDICARE PART A & B [facility] MEDICARE ENHANCE SUPPLEMENT [facility] Address: [address] [place] [address] MEDICARE PART A & [place] [address] MEDICARE ENHANCE SUPPLEMENT [facility] Address: [facility] [id number] [place] [address] MEDICARE PART A & B [facility] MEDICARE ENHANCE SUPPLEMENT [facility] Address: [facility] [id number] [place] [address] MEDICARE PART A & B [facility] MEDICARE ENHANCE SUPPLEMENT MEDICARE PART A & B [facility] MEDICARE ENHANCE SUPPLEMENT [facility] Address: [address] [place] [address] MEDICARE PART A & B [facility] MEDICARE ENHANCE SUPPLEMENT [facility] Address: [facility] [id number] [place] [address] [place] [address] MEDICARE PART A & B [facility] MEDIC[employer] ENHANCE SUPPLEMENT Care Teams Health Unit Clerk Relationship Specialty Start Date End Date Favian Davis MD [address] [place] [address] PCP - General Internal Medicine 03/19/17 Favian Davis MD [address] [place] [address] Insurance Assigned Provider 07/14/23 Sherman Cha MD [address] [address] Internal Medicine 10/30/19 Additional Source Comments The information contained in this document represents components of the legal health record. It is not the complete legal health record.[facility]
--- OUTSIDE RECORDS SUMMARY | 2024-12-25 09:32 | XMS_ITS | Encounter Summary ---
Author Organization [facility] Address [address] [place] [address] Phone Care Team Providers Care Bridge Toll Collector Name Role Phone Favian Davis MD Primary Care Provider Favian Davis MD Unavailable [phone] Sherman Cha MD Unavailable [phone] Encounter Details Date Type Department Care Team (Late st Contact Info) Description 12/12/2024 Orders Only [facility] Medical [facility] Internal Medicine [address] [place] [address] Provider, MD Keren [address] [place] [address] Social History Tobacco Use Types Packs/Day [...] Description 03/16/2025 9:30 AM EST Office Visit [facility] Internal Medicine [address] [place] [address] Favian Davis MD [address] [place] [address] 09/14/2025 8:30 AM EDT Office Visit [facility] Internal Medicine [address] [place] [address] Favian Davis MD [address] [place] [address] 10/12/2025 9:00 AM EDT Office Visit [facility] [address] [place] [address] 3rd Floor, [address] [place] [address] Chago Reynaga MD, MS 22 [facility], [address] [place] [address] [phone] 03/16/2026 8:00 AM EST Office Visit [facility] Internal Medicine [address] [place] [address] Pedro Lyon PA-C [address] [place], [place] [phone] documented as of this encounter Procedures Procedure [...] documented as of this encounter Care Teams Bridge Toll Collector Relationship Specialty Start Date End Date Favian Davis MD [address] [place] [address] PCP - General Internal Medicine 03/19/17 Favian Davis MD [address] [place] [address] Insurance Assigned Provider 07/14/23 Sherman Cha MD 3640 [facility] [address] [place] [address] Internal Medicine 10/30/19 documented as of this encounter Additional Source Comments The information contained in this document represents components of the legal health record. It is not the complete legal health record.[facility]
--- OUTSIDE RECORDS SUMMARY | 2024-12-25 09:33 | XMS_ITS | Encounter Summary ---
Author Organization [facility] Address [address] [place] [address] Phone Care Team Providers Care Senior Bi Developer Name Role Phone Favian Davis MD Primary Care Provider [phone] Favian Davis MD Unavailable [phone] Sherman Cha MD Unavailable [phone] Encounter Details Date Type Department Care Team (Late st Contact Info) Description 12/21/2024 Telephone [facility] Internal Medicine [address] [place], [place] [phone] Favian Davis MD [address] [place] [address] [email or web address] Social History Tobacco Use Types Packs/Day Years [...] as of this encounter Progress Notes * Favian Davis MD - 12/21/2024 1:21 PM EDT Needs labs 01/01. See results documented in this encounter Plan of Treatment Upcoming Encounters Date Type Department Care Team (Late st Contact Info) Description 03/16/2025 9:30 AM EST Office Visit [facility] Internal Medicine [address] [place] [address] Favian Davis MD [address] [place] [address] 09/14/2025 8:30 AM EDT Office Visit [facility] Internal Medicine [address] [place] [address] Favian Davis MD [address] [place] [address] 10/12/2025 9:00 AM EDT Office Visit [facility] [address] [place] [address] 3rd Floor, [address] [place] [address] Chago Reynaga MD, MS 22 [facility], [address] [place] [address] [phone] 03/16/2026 8:00 AM EST Office Visit [facility] Internal Medicine [address] [place], [place] [phone] Pedro Lyon PA-C [address] [place], [place] [phone] Scheduled Orders Name Type Priority Associated Diagnoses Orde r Schedule CBC and differential Lab Routine Anemia, unspecified type Expected: 12/21/2024, Expires: 12/21/2025 Iron and iron binding capacity Lab Routine Anemia, unspecified type Expected: 12/21/2024, Expires: 12/21/2025 documented as of this encounter Visit Diagnoses Diagnosis Anemia, unspecified type- Primary documented in this encounter Additional Health Concerns Assessment Noted Time PHQ-2 Depression Total Score: 0 09/06/19 25 12:36 PM EDT documented as of this encounter Care Teams Senior Bi Developer Relationship Specialty Start Date End Date Favian Davis MD [address] [place] [address] PCP - General Internal Medicine 03/19/17 Favian Davis MD [address] [place] [address] Insurance Assigned Provider 07/14/23 Sherman Cha MD 3640 [facility] [address] [place] [address] Internal Medicine 10/30/19 documented as of this encounter Additional Source Comments The information contained in this document represents components of the legal health record. It is not the complete legal health record.[facility]
--- OUTSIDE RECORDS SUMMARY | 2024-12-25 09:33 | XMS_ITS | Patient Health Record ---
Author Organization [facility] Address [address] [place] [address] Care Team Providers Care Senior Biostatistician/Group Leader Name Role Phone Favian Davis MD Primary Care Provider Lazaro Babin Jr Unavailable [phone] Allergies No Known Allergies Results Component Value Reference Range Notes Prothrombin Time INR Reviewed date:03/04/2024 03:58:51 PM Interpretation: Performing Lab:[facility], [address] [place] [phone] Notes/Report: Prothrombin Time 14.1 10.9-12.4 SEC INTERNATIONAL [...] Pathology Reviewed date:03/11/2024 03:56:38 PM Interpretation: Performing Lab:[facility], [address] [place] [phone] Notes/Report: Reason For Referral No Information Medications [...] Problem Status W/U Status Risk Notes Problem 527848541 Colon cancer screening (Z12.11) Active confirmed Problem 063886855 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) Active confirmed Problem 552309412 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 Problem 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 polyps (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 Vital Signs Temperature 97.7 degrees Fahrenheit 01/14/2024 Blood pressure diastolic 00 mm Hg 01/14/2024 Height 70 in 01/14/2024 Blood pressure systolic 000 mm Hg 01/14/2024 Weight 216 lb 6 oz lbs 01/14/2024 BMI 31.04 kg/m2 01/14/2024 Encounters Encounter Location Date Provider Diagnosis [facility] [place] [address] [place] [phone] 03/04/2024 Lazaro Lyn Jr Colon cancer screening Z12.11 ; Gastric polyps K31.7 and Carmona esophagus K22.70 [facility] [address] [place] [phone] 01/14/2024 Lazaro Lyn Jr Barretts esophagus without dysplasia K22.70 ; Colon cancer screening Z12.11 and prison (current) use of anticoagulants Z79.01 [facility] [address] [place] [phone] 03/10/2024 Lazaro Lyn Jr Assessments Encounter Date [...] Provider Name:Lazaro dickson , 03/16/2025 09:00:00 AM, [address] [place] [address], [address], [place], [address], Insurance Providers Payer Name Payer Address Payer Phone Subscriber Number Group Number Insured Name Patient Relationship to Insured Coverage Start Date Coverage End Date MEDICARE OF [facility] [address] [place] [address] [phone] [id number] MINERVA JAY Self - patient is the insured [facility] [address] [place] [phone] [id number] MINERVA JAY Self - patient is the [...]
--- OUTSIDE RECORDS SUMMARY | 2024-12-25 09:33 | XMS_ITS | Encounter Summary ---
Author Organization [facility] Address [facility] [address] [place] [address] Phone Care Team Providers Care Assistant Manager Of Operations Name Role Phone Favian Davis MD Primary Care Provider [phone] Favian Davis MD Unavailable [phone] Sherman Cha MD Unavailable [phone] Reason for Visit * Reason Onset Date Comments Results 12/21/2024 Encounter Details Date Type Department Care Team (Late st Contact Info) Description 12/21/2024 Telephone [facility] Internal Medicine [address] [place] [address] Favian Davis MD [address] [place] [address] [email or web address] Results Social History Tobacco Use Types Packs/Day Years [...] as of this encounter Progress Notes * Valerie Corley RN - 12/22/2024 9:58 AM EDTAddended by: VALERIE CORLEY on: 12/22/2024 09:58 AM Modules accepted: Orders * Valerie Corley RN - 12/22/2024 9:56 AM EDT Spoke to Rashawn and advised. He states understanding, agreeable to plan. Has not been contacted by Dr Lindo's office. Upon chart review, looks like the referral is . * Valerie Corley RN - 12/22/2024 9:54 AM EDT Images from the original note were not included. Favian Davis MD P Jensg Corey Mosquera Rn Anemia and low iron. Re check cbc and iron level around 01/01 and send copy of labs to dr lindo. Also when is pt appt with dr lindo. He should take some vit b12 1000 units a day * Favian Davis MD - 12/21/2024 1:25 PM EDT Needs labs 01/01 documented in this encounter Plan of Treatment Upcoming Encounters Date Type Department Care Team (Late st Contact Info) Description 03/16/2025 9:30 AM EST Office Visit [facility] Internal Medicine [address] [place] [address] Favian Davis MD [address] [place] [address] 09/14/2025 8:30 AM EDT Office Visit [facility] Internal Medicine [address] [place] [address] Favian Davis MD [address] [place] [address] [email or web address] 10/12/2025 9:00 AM EDT Office Visit [facility] [address] [place] [address] 3rd Floor, [address] [place] [address] Chago Reynaga MD, MS 22 [facility], [address] [place] [address] 03/16/2026 8:00 AM EST Office Visit [facility] Internal Medicine [address] [place] [address] Pedro Lyon PA-C [address] [place] [address] [email or web address] documented as of this encounter Visit Diagnoses Diagnosis Adenovillous polyp of colon- Primary documented in this encounter Additional Health Concerns Assessment Noted Time PHQ-2 Depression Total Score: 0 09/06/19 25 12:36 PM EDT documented as of this encounter Care Teams Assistant Manager Of Operations Relationship Specialty Start Date End Date Favian Davis MD [address] [place] [address] [email or web address] PCP - General Internal Medicine 03/19/17 Favian Davis MD [address] [place] [address] [email or web address] Insurance Assigned Provider 07/14/23 Sherman Cha MD [address] [address] Internal Medicine 10/30/19 documented as of this encounter Additional Source Comments The information contained in this document represents components of the legal health record. It is not the complete legal health record.[facility]
--- OUTSIDE RECORDS SUMMARY | 2024-12-25 09:33 | XMS_ITS | Clinical Summary ---
Author Organization [facility] Address [address] [place] [address] Care Team Providers Care Supervisor Coffee Name Role Phone Unavailable Primary Care Provider [...]
== END 2024-12-25 08:53 | disposition home or self-care (01) ==
LOC: HO.ACS 08:27
PROVIDERS: PCP Internal Medicine; Visit Provider Internal Medicine Medical Oncology
DX: Z79.01 Long term (current) use of anticoagulants (principal)

== ENCOUNTER → 2024-12-25 08:27 | Outpatient (BNVA) | payer MEDICARE, OTHER, SELFPAY | PROVIDERS: PCP Internal Medicine; Visit Provider Internal Medicine Medical Oncology | DX: Z51.81 Encounter for therapeutic drug level monitoring (principal); Z79.01 Long term (current) use of anticoagulants | CPT/HCPCS: 85610; 99211 ==

== ENCOUNTER 2025-01-07 08:10 | Outpatient (AMB) | payer MEDICARE, OTHER, SELFPAY ==
--- OUTSIDE RECORDS SUMMARY | 2024-03-04 04:20 | XMS_ITS ---
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 Outpatient [address] [place] [id number] 03/04/2024 Lazaro Lyn Jr Colon cancer screening Z12.11 ; Gastric polyps K31.7 and Carmona esophagus K22.70 Assessments Encounter Date Diagnosis (ICD Code) Assessment Notes Treatment Notes Treatment Clinical Notes Section Notes 03/04/2024 Colon cancer screening (ICD-10 - Z12.11) 03/04/2024 Gastric polyps (ICD-10 - K31.7) 03/04/2024 Carmona esophagus (ICD-10 - K22.70) Plan Of Treatment Next Appt Details Provider Name:Lazaro dickson Jr, 03/16/2025 09:00:00 AM, [address] [place] [address], [address], [place], [address], Progress Notes * MINERVA GIRARD TDOB:[birth year] (74 yo M)Acc No.[id number]:03/04/2024 EGD and COL/MAC Patient: MINERVA TREVINO Provider: Pedro Luis Lyn MD :1950 A ge:73 Y S ex:Male Date:03/04/2024 Address:[address] [place], [place] [phone] Pcp:Favian Davis MD Subjective: * Chief Complaints: * 1 . Barretts, screening. * Medical History: Objective: * Vitals: Assessment: * Assessment: 1. C olon cancer screening - Z12.11 (Primary) 2 . G astric polyps - K31.7? 3. 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 Sign off status: Pending * Provider: Pedro Luis Lyn MD Date: 05/04/2023 Generated for Lisa noguera/Onur/Rubinitting on: 08:26 AM EDT
--- OUTSIDE RECORDS SUMMARY | 2025-01-01 10:10 | XMS_ITS | Encounter Summary ---
Author Organization [facility] Address [address] [place] [address] Phone Care Team Providers Care Residential Assistant Name Role Phone Favian Davis MD Primary Care Provider [phone] Favian Davis MD Unavailable [phone] Sherman Cha MD Unavailable [phone] Encounter Details Date Type Department Care Team (Latest Contact Info) Description 01/01/2025 10:10 AM EDT - 01/01/2025 11:59 PM EDT Hospital Encounter [facility] [address] [place] [address] Favian Davis MD [address] [place] [address] [email or web address] Discharge Disposition: Home or Self Care Social [...] qhs prn neck pain 20 tablet 09/12/2024 dexlansoprazole delayed release (DEXILANT) 60 mg capsule TAKE ONE CAPSULE BY MOUTH EVERY DAY 90 capsule 3 12/15/2024 dilTIAZem 360 mg 24hr Take 360 mg by mouth daily. 08/07/2017 ferrous sulfate 325 mg (65 mg [place] iron) tabletIndications:An emia, unspecified type Take 1 tablet (325 mg total) by mouth daily with breakfast. 30 tablet 1 12/12/2024 irbesartan-hydroCHLO ROthiazide (AVALIDE) 150-12.5 mg per tabletIndications:Es sential hypertension TAKE ONE TABLET BY MOUTH EVERY DAY 90 tablet 3 12/22/2024 pantoprazole (PROTONIX) 40 MG tablet Take 40 [...] on INR results 90 tablet 3 12/24/2023 documented as of this encounter Plan of Treatment Upcoming Encounters Date Type Department Care Team (Late st Contact Info) Description 03/16/2025 9:30 AM EST Office Visit [facility] Internal Medicine [address] [place] [address] Favian Davis MD [address] [place] [address] 09/14/2025 8:30 AM EDT Office Visit [facility] Internal Medicine [address] [place] [address] Favian Davis MD [address] [place] [address] [phone] 10/12/2025 9:00 AM EDT Office Visit [facility] [address] [place] [address] 3rd Floor, [address] [place] [address] Chago Reynaga MD, MS 22 [facility], [address] [phone] 03/16/2026 8:00 AM EST Office Visit [facility] Internal Medicine [address] [place], [place] [phone] Pedro Lyon PA-C [address] [place] [address] [phone] documented as of this encounter Procedures Procedure Name Priority Date/Time Associated Diagnosis Comments IRON AND IRON BINDING CAPACITY Routine 01/01/2025 10:10 AM EDT Anemia, unspecified type CBC AND DIFFERENTIAL Routine 01/01/2025 10:10 AM EDT Anemia, unspecified type documented in this encounter Results * (ABNORMAL) CBC and differential (01/01/2025 10:10 AM EDT) WBC 5.84 4.00 - 11.00 K/uL [facility] RBC 4.32(L) 4.50 - 5.90 M/uL [facility] HGB 11.4(L) 13.5 - 17.5 g/dL [facility] HCT 36.5(L) 41.0 - 53.0 % [facility] PLT 348 150 - 450 K/uL [facility] MCV 84.5 80.0 - 100.0 fL [facility] MCH 26.4(L) 27.0 - 31.0 pg [facility] MCHC 31.2(L) 32.0 - 36.0 g/dL [facility] RDW 15.1(H) 11.5 - 14.5 % [facility] MPV 9.7 8.4 - 12.0 fL [facility] NRBC 0.00 0.00 /100 WBCs [facility] ABSOLUTE NRBC 0.00 0.00 K/uL [facility] DIFF METHOD Auto [facility] NEUTS 54.1 48.0 - 76.0 % [facility] LYMPHS 27.6 18.0 - 41.0 % [facility] MONOS 11.3(H) 4.0 - 11.0 % [facility] EOS 5.5(H) 0.0 - 5.0 % [facility] BASOS 1.2 0.0 - 1.5 % [facility] Granulocytes, immature (%) 0.3 0.0 - 0.9 % [facility] ABSOLUTE NEUTS 3.16 1.92 - 7.60 K/uL [facility] ABSOLUTE LYMPHS 1.61 0.72 - 4.10 K/uL [facility] ABSOLUTE MONOS 0.66 0.16 - 1.10 K/uL [facility] ABSOLUTE EOS 0.32 0.00 - 0.50 K/uL [facility] ABSOLUTE BASOS 0.07 0.00 - 0.15 K/uL [facility] Granulocytes, immature 0.02 0.00 - 0.09 K/uL [facility] Blood 01/01/2025 10:1 0 AM EDT 01/01/2025 10:12 AM EDT us Favian Davis MD LAB BLOOD ORDERABLES Final Re sult Performing Organization Address City/[facility]/ZIP Co de Phone Number [address] [address] * (ABNORMAL) Iron and iron binding capacity (01/01/2025 10:10 AM EDT) IRON 26(L) 45 - 160 ug/dL [facility] IRON BINDING CAPACITY 342 228 - 428 ug/dL [facility] TRANSFERRIN SATURAT. 8(L) 20 - 55 % [facility] Blood 01/01/2025 10:1 0 AM EDT 01/01/2025 10:12 AM EDT us Favian Davis MD LAB BLOOD ORDERABLES Final Re sult Performing Organization Address [facility]/ZIP Co de Phone Number [address] [address] documented in this encounter Visit Diagnoses Diagnosis Anemia, unspecified type documented in this encounter Additional Health Concerns Assessment Noted Time PHQ-2 Depression Total Score: 0 09/06/19 12:36 PM EDT documented as of this encounter Care Teams Residential Assistant Relationship Specialty Start Date End Date Favian Davis MD [address] [place] [address] [email or web address] PCP - General Internal Medicine 03/19/17 Favian Davis MD [address] [place] [address] [email or web address] Insurance Assigned Provider 07/14/23 Sherman Cha MD [address] [place] [address] Internal Medicine 10/30/19 documented as of this encounter Additional Source Comments The information contained in this document represents components of the legal health record. It is not the complete legal health record.[facility]
--- OUTSIDE RECORDS SUMMARY | 2025-01-07 08:25 | XMS_ITS | Encounter Summary ---
Author Organization [facility] Address [address] [place] [address] Phone Care Team Providers Care Aerodynamics Engineer Name Role Phone Favian Davis MD Primary Care Provider [phone] Favian Davis MD Unavailable [phone] Sherman Cha MD Unavailable [phone] Encounter Details Date Type Department Care Team (Late st Contact Info) Description 12/12/2024 Orders Only [facility] Internal Medicine [address] [place] [address] Provider, MD Keren [address] [place] [address] Social History Tobacco Use Types Packs/Day [...] Description 03/16/2025 9:30 AM EST Office Visit [facility] Internal Medicine [address] [place] [address] Favian Davis MD [address] [place] [address] 09/14/2025 8:30 AM EDT Office Visit [facility] Internal Medicine [address] [place] [address] Favian Davis MD [address] [place] [address] 10/12/2025 9:00 AM EDT Office Visit [facility] [address] [place] [address] 3rd Floor, [address] [place] [address] Chago Reynaga MD, MS 22 [facility], [address] [place] [address] [phone] 03/16/2026 8:00 AM EST Office Visit [facility] Internal Medicine [address] [place] [address] Pedro Lyon PA-C [address] [place], [place] [phone] [email or web address] documented as of this encounter Procedures Procedure [...] documented as of this encounter Care Teams Aerodynamics Engineer Relationship Specialty Start Date End Date Favian Davis MD [address] [place] [address] PCP - General Internal Medicine 03/19/17 Favian Davis MD [address] [place] [address] Insurance Assigned Provider 07/14/23 Sherman Cha MD 3640 [facility] [address] [place] [address] Internal Medicine 10/30/19 documented as of this encounter Additional Source Comments The information contained in this document represents components of the legal health record. It is not the complete legal health record.[facility]
--- OUTSIDE RECORDS SUMMARY | 2025-01-07 08:26 | XMS_ITS | Patient Health Record ---
Author Organization [facility] Address [address] [place] [address] Care Team Providers Care Bulbs Farmworker Name Role Phone Favian Davis MD Primary Care Provider Lazaro Babin Jr Unavailable Allergies No Known Allergies Results Component Value Reference Range Notes Prothrombin Time INR Reviewed date:03/04/2024 03:58:51 PM Interpretation: Performing Lab:[facility], [address] [place] [phone] Notes/Report: Prothrombin Time 14.1 10.9-12.4 SEC INTERNATIONAL [...] Pathology Reviewed date:03/11/2024 03:56:38 PM Interpretation: Performing Lab:[facility], [address] [place] [phone] Notes/Report: Reason For Referral No Information Medications [...] Problem Status W/U Status Risk Notes Problem 186737843 Colon cancer screening (Z12.11) Active confirmed Problem 298436896 halfway (current) use of anticoagulants (Z79.01) Active confirmed Problem 009777143 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 Problem 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 Vital Signs Temperature 97.7 degrees Fahrenheit 01/14/2024 Blood pressure diastolic 00 mm Hg 01/14/2024 Height 70 in 01/14/2024 Blood pressure systolic 000 mm Hg 01/14/2024 Weight 216 lb 6 oz lbs 01/14/2024 BMI 31.04 kg/m2 01/14/2024 Encounters Encounter Location Date Provider Diagnosis [facility] [place] [address] [place] [id number] 03/04/2024 Lazaro Lyn Jr Colon cancer screening Z12.11 ; Gastric polyps K31.7 and Carmona esophagus K22.70 [facility] [address] [place] [phone] 01/14/2024 Lazaro Lyn Jr Barretts esophagus without dysplasia K22.70 ; Colon cancer screening Z12.11 and halfway (current) use of anticoagulants Z79.01 [facility] [address] [place] [phone] 03/10/2024 Lazaro Lyn Jr Assessments Encounter Date [...] 03/04/2024 Carmona esophagus (ICD-10 - K22.70) 01/14/2024 halfway (current) use of anticoagulants (ICD-10 - Z79.01) [...] Provider Name:Lazaro dickson , 03/16/2025 09:00:00 AM, [address] [place] [address], [address], [place], [address], Insurance Providers Payer Name Payer Address Payer Phone Subscriber Number Group Number Insured Name Patient Relationship to Insured Coverage Start Date Coverage End Date MEDICARE OF [facility] [address] [place] [address] [id number] MINERVA JAY Self - patient is the insured [facility] [address] [place] [phone] [id number] MINERVA JAY Self - patient is the [...]
--- OUTSIDE RECORDS SUMMARY | 2025-01-07 08:26 | XMS_ITS | Clinical Summary ---
Author Organization [facility] ity Address [address] [place] [address] Care Team Providers Care Shiftman Name Role Phone Unavailable Primary Care Provider [...]
--- OUTSIDE RECORDS SUMMARY | 2025-01-07 08:26 | XMS_ITS | Encounter Summary ---
Author Organization [facility] Address [address] [place] [address] Phone Care Team Providers Care Wood Carver Hand Name Role Phone Favian Davis MD Primary Care Provider [phone] Favian Davis MD Unavailable [phone] Sherman Cha MD Unavailable [phone] Encounter Details Date Type Department Care Team (Late st Contact Info) Description 12/10/2024 Orders Only [facility] Medical [facility] Internal Medicine [address] [place] [address] Provider, MD Keren [address] [place] [address] Social History Tobacco Use Types Packs/Day [...] Description 03/16/2025 9:30 AM EST Office Visit [facility] Internal Medicine [address] [place] [address] Favian Davis MD [address] [place] [address] 09/14/2025 8:30 AM EDT Office Visit [facility] Internal Medicine [address] [place] [address] Favian Davis MD [address] [place] [address] 10/12/2025 9:00 AM EDT Office Visit [facility] [address] [place] [address] 3rd Floor, [address] [place] [address] Chago Reynaga MD, MS 22 [facility], [address] [place] [address] [phone] 03/16/2026 8:00 AM EST Office Visit [facility] Internal Medicine [address] [place] [address] Pedro Lyon PA-C [address] [place], [place] [phone] documented as of this encounter Procedures Procedure [...] documented as of this encounter Care Teams Wood Carver Hand Relationship Specialty Start Date End Date Favian Davis MD [address] [place] [address] PCP - General Internal Medicine 03/19/17 Favian Davis MD [address] [place] [address] Insurance Assigned Provider 07/14/23 Sherman Cha MD 3640 [facility] [address] [place] [address] Internal Medicine 10/30/19 documented as of this encounter Additional Source Comments The information contained in this document represents components of the legal health record. It is not the complete legal health record.[facility]
--- OUTSIDE RECORDS SUMMARY | 2025-01-07 08:26 | XMS_ITS | Encounter Summary ---
Author Organization [facility] Address [address] [place] [address] Phone Care Team Providers Care Shampoo Assistant Name Role Phone Favian Davis MD Primary Care Provider [phone] Favian Davis MD Unavailable [phone] Sherman Cha MD Unavailable [phone] Encounter Details Date Type Department Care Team (Late st Contact Info) Description 12/09/2024 Orders Only [facility] Internal Medicine [address] [place] [address] Provider, MD Keren [address] [place] [address] Social History Tobacco Use Types Packs/Day [...] Description 03/16/2025 9:30 AM EST Office Visit [facility] Internal Medicine [address] [place] [address] Favian Davis MD [address] [place] [address] 09/14/2025 8:30 AM EDT Office Visit [facility] Internal Medicine [address] [place] [address] Favian Davis MD [address] [place] [address] 10/12/2025 9:00 AM EDT Office Visit [facility] [address] [place] [address] 3rd Floor, [address] [place] [address] Chago Reynaga MD, [place] 22 [facility], [address] [place] [phone] 03/16/2026 8:00 AM EST Office Visit [facility] Internal Medicine [address] [place] [address] Pedro Lyon PA-C [address] [place], [place] [id number] [email or web address] documented as of this encounter Procedures [...] documented as of this encounter Care Teams Shampoo Assistant Relationship Specialty Start Date End Date Favian Davis MD 40 [place] [address] PCP - General Internal Medicine 03/19/17 Favian Davis MD [address] [place] [address] Insurance Assigned Provider 07/14/23 Sherman Cha MD [address] [address] Internal Medicine 10/30/19 documented as of this encounter Additional Source Comments The information contained in this document represents components of the legal health record. It is not the complete legal health record.[facility]
--- OUTSIDE RECORDS SUMMARY | 2025-01-07 08:26 | XMS_ITS | Clinical Summary ---
Author Organization [facility] Address [address] [facility] [address] [place] [address] Phone Care Team Providers Care Cashier Parking Lot Name Role Phone Favian Davis MD Primary Care Provider [phone] Favian Davis MD Unavailable [phone] Sherman Cha MD Unavailable [phone] Allergies Active Allergy Reactions Criticality Noted [...] Active ferrous sulfate 325 mg (65 mg [place] iron) tabletIndications :Anemia, unspecified type Take 1 [...] Discontinued ferrous sulfate 325 mg (65 mg [place] iron) EC tablet Take 325 mg by [...] x-ray of the right hand -Referral to [facility]- Dr Rudolph for possible cortisone injection -Tylenol for pain Adenomatous polyp of colon 07/19/2023 Obstructive sleep apnea of adult 07/19/2023 Prostate cancer 06/26/2022 Overview (12/12/2023): Fol w pv uro last ov 11/22/23 post RALP in 2017 plan f/u 6m for PSA and 1 yr for US saw Ander Hou PA-C Paroxysmal atrial fibrillation 06/08/2020 Kidney stones 05/06/2019 Hypertension 03/20/2017 Hyperlipidemia 03/20/2017 Hereditary hemochromatosis 03/20/2017 Encounters Date Type Department Care Team Description 01/01/2025 10:10 AM EDT - 01/01/2025 11:59 PM EDT Hospital Encounter [facility] [address] [place] [address] Favian Davis MD Discharge Disposition: Home or Self Care 12/21/2024 Telephone [facility] Internal Medicine [address] [place] [address] Favian Davis MD 12/21/2024 Telephone [facility] Internal Medicine [address] [place] [address] Favian Davis MD Results 12/21/2024 Refill [facility] Internal Medicine [address] [place] [address] Favian Davis MD Medication Refill 12/18/2024 10:35 AM EDT - 12/18/2024 11:59 PM EDT Hospital Encounter [facility] Laboratory [address] [place] [address] Favian Davis MD Discharge Disposition: Home or Self Care 12/14/2024 Refill [facility] Internal Medicine [address] [place] [address] Favian Davis MD Medication Refill 12/12/2024 9:54 AM EDT - 12/12/2024 11:59 PM EDT Hospital Encounter [facility] LABORATORY [address] [place] [address] [place] [address] Favian Davis MD Discharge Disposition: Home or Self Care 12/12/2024 9:00 AM EDT Office Visit [facility] Internal Medicine [address] [place] [address] Favian Davis MD Acute upper GI bleed (Primary Dx); Primary hypertension; Paroxysmal atrial fibrillation; Hereditary hemochromatosis; Anemia, unspecified type; Impaired fasting glucose; Essential hypertension 12/12/2024 Orders Only [facility] Internal Medicine [address] [place] [address] Keren Ivey MD 12/10/2024 Orders Only [facility] Internal Medicine [address] [place] [address] Keren Ivey MD 12/09/2024 Orders Only [facility] Internal Medicine [address] [place] [address] Keren Ivey MD 12/09/2024 Telephone [facility] Internal Medicine [address] [place] [address] Favian Davis MD TCM Visit 11/16/2024 Refill [facility] Internal Medicine [address] [address] Favian Davis MD Medication Refill from Last 3 Months Immunizations Immunization Administration [...] cm (5' 8.54 ) 12/12/2024 9:07 AM E DT Body Mass Index 31.94 12/12/2024 9:07 AM EDT Plan of Treatment Upcoming Encounters Date Type Department Care Team (Late st Contact Info) Description 03/16/2025 9:30 AM EST Office Visit [facility] Internal Medicine [address] [place] [address] Favian Davis MD [address] [place] [address] 09/14/2025 8:30 AM EDT Office Visit [facility] Internal Medicine [address] [place] [address] Favian Davis MD [address] [place] [address] 10/12/2025 9:00 AM EDT Office Visit [facility] 22 [facility] 3rd Floor, [address] [place] [address] Chago Reynaga MD, MS 22 [facility], [address] [address] 03/16/2026 8:00 AM EST Office Visit [facility] Internal Medicine [address] [place] [address] Pedro Lyon PA-C [address] [place] [address] [email or web address] Health Maintenance Due Date Last Done Comments [...] Associated Diagnosis Comments CBC AND DIFFERENTIAL Routine 01/01/2025 10:10 AM EDT Anemia, unspecified type IRON AND IRON BINDING CAPACITY Routine 01/01/2025 10:10 AM EDT Anemia, unspecified type CBC AND DIFFERENTIAL Routine 12/18/2024 10:26 AM [...] iron binding capacity (01/01/2025 10:10 AM EDT) Only the most recent of3 resultswithin the time period is included. IRON 26(L) 45 - 160 ug/dL [facility] IRON BINDING CAPACITY 342 228 - 428 ug/dL [facility] TRANSFERRIN SATURAT. 8(L) 20 - 55 % [facility] Blood 01/01/2025 10:1 0 AM EDT 01/01/2025 10:12 AM EDT us Favian Davis MD LAB BLOOD ORDERABLES Final Re sult [facility] [address] [place] [address] * (ABNORMAL) CBC and differential (01/01/2025 10:10 AM EDT) Only the most recent of3 resultswithin the time period is included. WBC 5.84 4.00 - 11.00 K/uL [facility] RBC 4.32(L) 4.50 - 5.90 M/uL [facility] HGB 11.4(L) 13.5 - 17.5 g/dL [facility] HCT 36.5(L) 41.0 - 53.0 % [facility] PLT 348 150 - 450 K/uL [facility] MCV 84.5 80.0 - 100.0 fL [facility] MCH 26.4(L) 27.0 - 31.0 pg [facility] MCHC 31.2(L) 32.0 - 36.0 g/dL [facility] RDW 15.1(H) 11.5 - 14.5 % [facility] MPV 9.7 8.4 - 12.0 fL [facility] NRBC 0.00 0.00 /100 WBCs [facility] ABSOLUTE NRBC 0.00 0.00 K/uL [facility] DIFF METHOD Auto [facility] NEUTS 54.1 48.0 - 76.0 % [facility] LYMPHS 27.6 18.0 - 41.0 % [facility] MONOS 11.3(H) 4.0 - 11.0 % [facility] EOS 5.5(H) 0.0 - 5.0 % [facility] BASOS 1.2 0.0 - 1.5 % [facility] Granulocytes, immature (%) 0.3 0.0 - 0.9 % [facility] ABSOLUTE NEUTS 3.16 1.92 - 7.60 K/uL [facility] ABSOLUTE LYMPHS 1.61 0.72 - 4.10 K/uL [facility] ABSOLUTE MONOS 0.66 0.16 - 1.10 K/uL [facility] ABSOLUTE EOS 0.32 0.00 - 0.50 K/uL [facility] ABSOLUTE BASOS 0.07 0.00 - 0.15 K/uL [facility] Granulocytes, immature 0.02 0.00 - 0.09 K/uL [facility] Blood 01/01/2025 10:1 0 AM EDT 01/01/2025 10:12 AM EDT us Favian Davis MD LAB BLOOD ORDERABLES Final Re sult [facility] [address] [place] [address] * TSH (12/18/2024 10:26 AM EDT) TSH 0.48 0.27 - 4.20 uIU/mL [facility] Blood 12/18/2024 10:2 6 AM EDT 12/18/2024 1:27 PM EDT us Favian Davis MD LAB BLOOD ORDERABLES Final Re sult [address] [address] * Free T4 (12/18/2024 10:26 AM EDT) [facility] FREE T4 1.4 0.9 - 1.7 ng/dL [facility] Blood 12/18/2024 10:2 6 AM EDT 12/18/2024 1:27 PM EDT us Favian Davis MD LAB BLOOD ORDERABLES Final Re sult Performing Organization Address [facility]/ZIP Co de Phone Number [address] [address] * Folate (12/18/2024 10:26 AM EDT) Pathologist [facility] FOLIC ACID 15.8 4.2 - 19.9 ng/mL [facility] Blood 12/18/2024 10:2 6 AM EDT 12/18/2024 1:27 PM EDT us Favian Davis MD LAB BLOOD ORDERABLES Final Re sult Performing Organization Address City/[facility]/ZIP Co de Phone Number [address] [address] * Ferritin (12/18/2024 10:26 AM EDT) Only the most recent of2 resultswithin the time period is included. FERRITIN 33 30 - 400 ug/L [facility] Blood 12/18/2024 10:2 6 AM EDT 12/18/2024 1:27 PM EDT Favian Davis MD LAB BLOOD ORDERABLES Final Re sult Performing Organization Address City/[facility]/ZIP Co de Phone Number [address] [address] * Vitamin B12 (12/18/2024 10:26 AM EDT) VITAMIN B12 353 232 - 1,245 pg/mL [facility] Blood 12/18/2024 10:2 6 AM EDT 12/18/2024 1:27 PM EDT Favian Davis MD LAB BLOOD ORDERABLES Final Re sult Performing Organization Address City/[facility] Co de Phone Number [address] [address] * Outside Lab (12/12/2024 10:59 AM EDT) Only the most recent of2 resultswithin the time period is included. Historical Provider MD LAB BLOOD ORDERABLES Sumaya l Result * Outside Pathology (12/12/2024 10:37 AM EDT) Historical Provider MD PATHOLOGY ORDERABLES Sumaya l Result * (ABNORMAL) Comprehensive metabolic panel (12/12/2024 9:55 AM EDT) SODIUM 140 133 - 146 mmol/L [facility] POTASSIUM 3.5 3.3 - 5.1 mmol/L [facility] CHLORIDE 105 96 - 108 mmol/L [facility] CO2 25 21 - 35 mmol/L [facility] BUN 17 6 - 19 mg/dL [facility] CREATININE 1.10 0.5 - 1.5 mg/dL [facility] GLUCOSE 109(H) 70 - 99 mg/dL [facility] ALBUMIN 4.3 3.9 - 4.8 g/dL [facility] TOTAL PROTEIN 6.9 6.5 - 8.0 g/dL [facility] CALCIUM 9.7 8.4 - 10.3 mg/dL [facility] ALKALINE PHOSPHATASE 95 39 - 117 U/L [facility] TOTAL BILIRUBIN 0.5 0.0 - 1.2 mg/dL [facility] AST 26 0 - 37 U/L [facility] ALT 20 0 - 40 U/L [facility] GLOBULIN 2.6 1 - 4.8 g/dL [facility] EGFR 71 >59 mL/min/1.7 3m2 [facility] Comment:Estimated glomerular filtration rate calculated using the CKD-EPI refit equation. ANION GAP 14 10 - 20 mmol/L [facility] Blood 12/12/2024 9:55 AM EDT 12/12/2024 10:05 AM EDT us Favian Davis MD LAB BLOOD ORDERABLES Final Re sult [address] [address] * TSH with reflex (12/12/2024 9:55 AM EDT) TSH 0.50 0.27 - 4.20 uIU/mL [facility] Blood 12/12/2024 9:55 AM EDT 12/12/2024 10:05 AM EDT us Favian Davis MD LAB BLOOD ORDERABLES Final Re sult [address] [address] * Hemoglobin A1c (12/12/2024 9:55 AM EDT) HEMOGLOBIN A1C 5.4 4.3 - 5.8 % [facility] Blood 12/12/2024 9:55 AM EDT 12/12/2024 10:06 AM EDT us Favian Davis MD LAB BLOOD ORDERABLES Final Re sult Performing Organization Address City/[facility]/ZIP Co de Phone Number [address] [address] * Outside Procedure (12/10/2024 7:41 AM EDT) Historical Provider PROCEDURE/MINOR SURGICAL PERFORMABLES Final Result * Outside ECG Report Only (12/04/2024 10:55 AM EDT) Historical Provider ECG ORDERABLES Edited Re sult - Final * Outside US Imaging??Report Only (11/19/2024 10:53 AM EDT) Historical Provider IMG US OP Edited Re sult - Final * Lipid panel (09/04/2024 8:06 AM EDT) HDL 41 mg/dL [facility] Comment: Interpretation <40 mg/dL: Low HDL cholesterol (major risk factor for CHD) Greater than or equal to 60 mg/dL: High HDL cholesterol ( negative risk factor for CHD) HDL - cholesterol is affected by a number of factors, e.g. smoking, excerise, hormones, sex and age. CHOLESTEROL 144 0 - 240 mg/dL [facility] TRIGLYCERIDES 143 30 - 160 mg/dL [facility] LDL 74 50 - 129 mg/dL [facility] Comment: LDL levels in terms of risk for coronary heart disease: <100 mg/dL: Optimal 100-129 mg/dL: Near or above optimal 130-159 mg/dL: Borderline high 160-189 mg/dL: High >190 mg/dL: Very High CARDIAC RISK RATIO 3.5 3.4 - 5.0 C [facility] Blood 09/04/2024 8:06 AM EDT 09/04/2024 8:11 AM EDT Favian Davis MD LAB BLOOD ORDERABLES Final Re sult Performing Organization Address City/[facility]/ZIP Co de Phone Number [address] [address] * COLONOSCOPY FOR RESULT ENTRY ONLY (03/04/2024 10:54 AM EST) Historical Provider HEALTH MAINTENANCE Final Result * Outside Hepatitis C Virus Screening (04/28/2019) Hepatitis C Screening - External Neg Historical Provider LAB BLOOD ORDERABLES Sumaya l Result from Last 3 Months or Most Recently Relevant to Health Maintenance Insurance MEDICARE PART A & B [facility] [employer] ENHANCE SUPPLEMENT MEDICARE PART A & B [facility] MEDICARE ENHANCE SUPPLEMENT MEDICARE PART A & B [facility] MEDICARE ENHANCE SUPPLEMENT MEDICARE PART A & B [facility] MEDICARE ENHANCE SUPPLEMENT MEDICARE PART A & B [facility] MEDICARE ENHANCE SUPPLEMENT MEDICARE PART A & B [facility] MEDICARE ENHANCE SUPPLEMENT MEDICARE PART A & B [facility] MEDICARE ENHANCE SUPPLEMENT MEDICARE PART A & B [facility] MEDICARE ENH[place] [id number] MEDICARE PART A & B [facility] MEDIC[employer] ENHANCE SUPPLEMENT Care Teams Cashier Parking Lot Relationship Specialty Start Date End Date Favian Davis MD [address] [place] [address] PCP - General Internal Medicine 03/19/17 Favian Davis MD [address] [place] [address] Insurance Assigned Provider 07/14/23 Sherman Cha MD [address] [address] Internal Medicine 10/30/19 Additional Source Comments The information contained in this document represents components of the legal health record. It is not the complete legal health record.[facility]
--- OUTSIDE RECORDS SUMMARY | 2025-01-07 08:26 | XMS_ITS | Encounter Summary ---
Author Organization [facility] Address [address] [facility] [address] [place] [address] Phone Care Team Providers Care Senior Caregiver Name Role Phone Favian Davis MD Primary Care Provider [phone] Favian Davis MD Unavailable [phone] Sherman Cha MD Unavailable [phone] Reason for Referral * Consultation (Within 3 days (urgent)) - Authorized Specialty Diagnoses / Procedures Referred By Scottie sullivan Referred To Contact Diagnoses Adenovillous polyp of colon Favian Davis MD [address] [place] [address] Phone: tel: fax: [email or web address] Lazaro Lindo MD [address] [place] [address] [place] [phone] Phone: tel: Referral ID Status Reason Start Date Expiration Date V isits Requested Visits Authorized [id number] Authorized 01/02/2025 12/22/2025 6 6 Reason for Visit * Reason Onset Date Comments Results 12/21/2024 Encounter Details Date Type Department Care Team (Late st Contact Info) Description 12/21/2024 Telephone [facility] Internal Medicine [address] [place] [address] Favian Davis MD [address] [place] [address] [email or web address] Results Social History Tobacco Use Types Packs/Day [...] as of this encounter Progress Notes * Eva Moore - 01/05/2025 8:49 AM EDT Referral, OV Note, Demographics faxed to [facility] [phone]/confirmation received * Favian Davis MD - 01/02/2025 6:26 PM EDT Referral signed, please fax * Favian Davis MD - 01/02/2025 6:26 PM EDTAddended by: FAVIAN DAVIS. on: 01/02/2025 06:26 PM Modules accepted: Orders * Valerie Corley RN - 12/22/2024 9:58 [...] were not included. Favian Davis MD P [facility] [place] Rn Anemia and low iron. [...] Description 03/16/2025 9:30 AM EST Office Visit [facility] Internal Medicine [address] [place] [address] Favian Davis MD [address] [place] [address] 09/14/2025 8:30 AM EDT Office Visit [facility] Internal Medicine [address] [place] [address] Favian Davis MD [address] [place] [address] 10/12/2025 9:00 AM EDT Office Visit [facility] [address] [place] [address] Floor, [address] [place] [address] Chago Reynaga MD, MS 22 [facility], [address] [address] [email or web address] 03/16/2026 8:00 AM EST Office Visit [facility] Internal Medicine [address] [place] [address] Pedro Lyon PA-C [address] [place], [place] [phone] [email or web address] Scheduled Referrals Name Type Priority Associated Diagnoses Order Schedule Ambulatory referral to External Gastroenterology Outpatient Referral Routine Adenovillous polyp of colon Ordered: 01/02/2025 documented as of this encounter Visit Diagnoses Diagnosis Adenovillous polyp of colon- Primary documented in this encounter Additional Health Concerns Assessment Noted Time PHQ-2 Depression Total Score: 0 09/06/19 25 12:36 PM EDT documented as of this encounter Care Teams Senior Caregiver Relationship Specialty Start Date End Date Favian Davis MD [address] [place] [address] [email or web address] PCP - General Internal Medicine 03/19/17 Favian Davis MD [address] [place] [address] [email or web address] Insurance Assigned Provider 07/14/23 Sherman Cha MD [address] [place] [address] Internal Medicine 10/30/19 documented as of this encounter Additional Source Comments The information contained in this document represents components of the legal health record. It is not the complete legal health record.[facility]
[2025-01-07 08:32] LABS: Prothrombin Time Whole Bld POC 32.7 sec (11.1-13.5); ~PT, ~INR - Anti Coag Clinic 2.7 (0.9-1.1)
--- NOTE | 2025-01-07 08:34 | MHC.OFFVISCO ---
Intake Intake Visit Reasons: Anticoagulation Allergies lisinopril Adverse Reaction (Unknown, Verified 01/07/25 08:21) cough Medication List - Last Reconciled 01/07/25 by Melissa Pierce RN atorvastatin (Lipitor) 10 mg PO DAILY dexlansoprazole (Dexilant) 60 mg PO BEDTIME diltiazem HCl CD 360 mg PO DAILY ferrous sulfate 325 mg PO DAILY fluticasone propionate 50 mcg/actuation 1 spray intranasal DAILY irbesartan-hydrochlorothiazide 150-12.5 mg (Avalide) 1 tab PO DAILY pantoprazole 40 mg PO BID varenicline tartrate (Tyrvaya) intranasal warfarin (Jantoven) 5 mg See Protocol PO DAILY Nursing Note INR: 2.7- in therapeutic range 2-3 Medications and supplements reviewed- no changes No changes in health, diet, medications, or supplements, Denies any signs and symptoms of bleeding or bruising or clotting. Bleeding, bruising, clotting discussed Nutritional guidance given Dose: 5mg x 2, 2.5mg x 5 F/U INR: pt req 4 weeks Patient verbalizes understanding of instructions given pt to have crown at dentist today Anti-Coag Initial Assessment Social Hx Patient Tobacco Use Status: Never used Tobacco alcohol intake: never Coding Level of Care Code Est Patient Level 1 Diagnoses Current use of anticoagulant therapy Z79.01 Results AMB INR Fingerstick AMB INR Fingerstick 2.7 Last Edit by Melissa Pierce RN on 01/07/25 08:29 interface delay Assessment & Plan Assessment & Plan (1) Current use of anticoagulant therapy: Code(s): Z79.01 - body line finisher (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
== END 2025-01-07 09:11 | disposition home or self-care (01) ==
LOC: HO.ACS 08:10
PROVIDERS: PCP Internal Medicine; Visit Provider Internal Medicine Medical Oncology
DX: Z79.01 Long term (current) use of anticoagulants (principal)

== ENCOUNTER → 2025-01-07 08:10 | Outpatient (BNVA) | payer MEDICARE, OTHER, SELFPAY | PROVIDERS: PCP Internal Medicine; Visit Provider Internal Medicine Medical Oncology | DX: Z51.81 Encounter for therapeutic drug level monitoring (principal); Z79.01 Long term (current) use of anticoagulants | CPT/HCPCS: 85610; 99211 ==

== ENCOUNTER 2025-02-04 08:02 | Outpatient (AMB) | payer MEDICARE, OTHER, SELFPAY ==
--- OUTSIDE RECORDS SUMMARY | 2024-03-04 04:20 | XMS_ITS ---
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 Encounters Encounter Location Date Provider Diagnosis [facility] Outpatient [address] [place] [phone] 03/04/2024 Lazaro Lyn Jr Colon cancer screening Z12.11 ; Gastric polyps K31.7 and Carmona esophagus K22.70 Assessments Encounter Date Diagnosis (ICD Code) Assessment Notes Treatment Notes Treatment Clinical Notes Section Notes 03/04/2024 Colon cancer screening (ICD-10 - Z12.11) 03/04/2024 Gastric polyps (ICD-10 - K31.7) 03/04/2024 Camrona esophagus (ICD-10 - K22.70) Plan Of Treatment Next Appt Details Provider Name:Lazaro dickson Jr, 03/04/2025 10:20:00 AM, [address] [facility], [address], [place], [address], Progress Notes * MINERVA GIRARD TDOB:[birth year] (74 yo M)Acc No.[id number]:03/04/2024 EGD and COL/MAC Patient: MINERVA TREVINO Provider: Pedro Luis Lyn MD :1950 A ge:73 Y S ex:Male Date:03/04/2024 Address:[address] [place], [place] [phone] Pcp:Favian Davis MD Subjective: * Chief Complaints: [...] DOCD, 0528F RCMND FLW-UP 10 YRS DOCD, [address] UPPER GI ENDOSCOPY, BIOPSY * * The named appointment provid er may or may not be the originator of this progress note, and it is not deemed complete until electronically signed by the appointment provider. Sign off status: Pending * Provider: Pedro Luis Lyn MD Date: 05/04/2023 Generated for Lisa noguera/Onur/Rubinitting on: 08:04 AM EDT
--- OUTSIDE RECORDS SUMMARY | 2025-02-04 08:04 | XMS_ITS | Data Portability ---
Author Organization [facility] [address] Address [address] [place] [address] Assessment No assessment recorded. Plan of Treatment Reminders Order Date Submit Date Provider Last Modified By Organization Details Last Modified Time Details Appointments None recorded. Lab None recorded. Referral None recorded. Procedures None recorded. Surgeries None recorded. Imaging None recorded. Medication Orders amoxicillin 875 mg tablet 2022 023 [facility], [address] [place], [address], 3 10:04:31 Flonase Allergy Relief 50 mcg/actuati on nasal spray,suspe nsion 2022 023 [facility] [address], [address] [place], [address], 3 10:04:31 Patient TargetsNo targets recorded. Patient Instructions Encounter Date Encounter Id Patient Instructions Last Modified By Organization Details Last Modified Time 05/06/2022 [id number] Acute Sinusitis: Care Instructions [email or web address] Not available 05/06/2022 10:04:30 Reason for Referral None Reported. Problems Name Problem SNOMED Code Status Onset Date Resolution Date Notes Provider Name and Address Organization Details Recorded Time Hypertensive disorder 74729242 Active 2022 [facility] 3 09:49:31 Atrial fibrillation 99692452 Active 2022 PAYAM madden, [place] [facility] 3 09:49:36 Hyperlipidemia 37632951 Active 2022 PAYAM ROBERT null, [place] - [facility] 3 09:49:56 Problem Notes None recorded. Procedures Surgical History Date Name Laterality Status Provider Name and Address Organization Details Recorded Time Removal of prostate completed PAYAM ROBERT PA - [facility] 05/06/2022 09:50:29 [facility]end[facility] - [facility] 05/06/2022 09:50:42 Imaging Results None recorded. Procedure Notes None recorded. Medical Equipment None Reported. Allergies Allergen ID Allergen Name Allergen Category Reaction Reaction Severity Criticality Documentation Date Start Date Code Code System Note Provider Name and Address Organization Details Recorded Time 304982 lisinopri l medicatio n cough Not available Not available 05/06/2022 00411 RxNorm TALLULA ROBERT [facility], [place] - [facility] 3 09:47:57 Medications Name Sig Start Date Stop Date Status Note LastModified by Organization Details LastModified Time doxycycline hyclate 100 mg capsule 05/06 completed Not Available Not Available Not Available irbesartan 150 mg-hydrochl orothiazide 12.5 mg tablet active Not Available Not Available Not Available atorvastati n 10 mg tablet active Not Available Not Available Not Available diltiazem CD 360 mg capsule,ext ended release 24 hr active Not Available Not Available Not Available amoxicillin 875 mg tablet Take 1 tablet every 12 hours by oral route for 10 days. 2022 active Not Available Not Available Not Avai lable doxycycline monohydrate 100 mg capsule 05/06 completed Not Available Not Available Not Available cephalexin 500 mg capsule 05/06 completed Not Available Not Available Not Available amoxicillin 875 mg-potassiu m clavulanate 125 mg tablet 05/06 completed Not Available Not Available Not Available Jantoven 5 mg tablet active Not Available Not Available No t Available dexlansopra zole 60 mg capsule,bip hase delayed release active Not Available Not Available Not Available Flonase Allergy Relief 50 mcg/actuati on nasal spray,suspe nsion [place] 1 spray every day by intranasa l route. 2022 active Not Available Not Available Not Avai lable Vitals Date Recorded Body height Body mass index (BMI) Body weight Pain severity - 0-10 verbal numeric rating [Score] - Reported Respiratory rate Oxygen saturation Oxygen saturation in Arterial blood by Pulse oximetry Heart rate Body temperature Systolic And Diastolic Provider Name and Address Organization Details Last Updated DateTime 3 175.26 cm 30.7 kg/m2 94729.2 1 g 5 18 /min 97 % 97 % 100 /min 97.5 [degF] 126/78 mm[Hg] PAYAM ROBERT [place] - [facility] 09:51:44 Social History Question Answer Notes LastModified by [employer] Details LastModified Time Tobacco Smoking Status Never Smoker PAYAM GARCIAHELEN madden [place] - [facility] 05/06/2022 09:50:11 Have You Recently Traveled Abroad? No [email or web address] Information not available 05/06/2022 Sex: Unknown Functional Status Question Answer Note LastModified by [employer] Details LastModified Time Do you use any illicit or recreational drugs? No [email or web address] Information not available 05/06/2022 Do you or have you ever used any other forms of tobacco or nicotine? No [email or web address] Information not available 05/06/2022 What is your level of alcohol consumption? None [email or web address] Information not available 05/06/2022 Mental Status None recorded. Family History Relationship Description Onset Age of this Age Resolved Age Notes LastModified by Organization Details LastModified Time Father No current problems or disability [email or web address] Not available 05/06 09:49:58 Mother No current problems or disability Not available 05/06 09:49:58 Medical History No medical history recorded. Past Encounters Encounter ID Performer Location Encounter Start Date Encounter Closed Date Diagnosis/Indication Diagnosis SNOMED-CT Code Diagnosis ICD10 Code Diagnosis IMO Codes Diagnosis Note [id number] [address] [place] [address] 06/03/2015 16:12:31 06/03/2015 16:54:43 [id number] [address] [place] [address] 05/25/2015 17:35:51 05/25/2015 19:24:18 [id number] [address] [place] [address] 10/10/2015 08:37:09 10/10/2015 09:05:21 [id number] Saul Ferrer DO [address] [place] [address] 05/06/2022 08:22:32 05/06/2022 10:11:36 Acute sinusitis 39203126 J01.90 Given Hx and Sx and PE findings will Rx Antibiotic s and nasal spray Take antibiotic with food. Eat a yogurt daily or take a probiotic while taking the antibiotic . Recommend humidified airrest, fluidstyle nol/ibu prn Patient advised to follow up as needed for worsening symptoms or no improvemen t. Discussed concerning red flags with patient and reasons to follow up in the Emergency Department urgently. Health Concerns Section Related Observation LastModified by Organization Detai ls LastModified Time None Recorded Concern Status LastModified by Organization Details LastModified Time None Recorded Advance Directives Directive None Recorded Payers Insurance Date Sequence Insurance Name Policy Number Policy Garcia Covered Member ID Garcia Member ID Guarantor Name 05/06/2022 1 MEDICARE B-CT: [employer] Rashawn Stephane Pérez [id number] Rashawn Stephane Pérez 05/06/2022 2 [facility] Rashawn Stephane Pérez [id number] Rashawn Stephane Pérez 05/06/2022 1 [facility] (O) [id number] Sari Beto [id number] Rashawn Stephane Pérez Notes Date Note Type Note Provider Name and Address Organization Details Recorded Time 05/06/2022 text/html Sinus Complaints UCReported by [email or web address] yo malec/o Pressure in sinuses, left ear pain started 1 week ago No feverNo chillsNo coughNo difficulty breathing or respiratory distressNo CPNo sore throatNo Abdominal painNo nauseaNo vomitingNp diarrheaNo myalgiaNo fatigueNo rashNo HANo dizzinessNo recent travelNo known sick contactsROS as noted in the HPI Saul Ferrer DO [address] [place], [address], [place] - [facility] 05/06/2022 10:04:55
--- OUTSIDE RECORDS SUMMARY | 2025-02-04 08:04 | XMS_ITS | Patient Health Record ---
Author Organization [facility] Address [address] [place] [address] Care Team Providers Care Teacher Physically Impaired Name Role Phone Favian Davis MD Primary Care Provider Lazaro Babin Jr Unavailable Allergies No Known Allergies Results Component Value Reference Range Notes Prothrombin Time INR Reviewed date:03/04/2024 03:58:51 PM Interpretation: Performing Lab:[facility], [address] [place] [phone] Notes/Report: Prothrombin Time 14.1 10.9-12.4 [employer] [...] Pathology Reviewed date:03/11/2024 03:56:38 PM Interpretation: Performing Lab:[facility], [address] [place] [address] Notes/Report: Reason For Referral No Information Medications Medication SIG (Take, Route, Frequency, Duration) Notes Start Date End Date Status Coumadin 5 MG 1 tablet Orally Once a day Active dilTIAZem HCl ER Coated Beads 360 MG 1 capsule Orally Once a day Active Colyte with Flavor Packs 240 GM As directed Orally Over the specified time.; Duration: 1 day(s) 07/03/2018 Active Dexilant 60mg 1 capsule Orally Onc e a day Active Irbesartan-hydroCHLOROthia zide 150-12.5 MG 1 tablet Orally Once a day; Duration: 30 day(s) Active Immunizations Vaccine Route Administration Date Status Comme nts Influenza Unknown 02/20/2023 Administered Influenza Unknown 07/03/2018 Refused Problems Problem Type SNOMED Code ICD Code Onset Dates Problem Status W/U Status Risk Notes Problem Colon cancer screening (523290200) Colon cancer screening (Z12.11) Active confirmed Problem Long-term current use of anticoagulant (076360300) manager intermediate (current) use of anticoagulants (Z79.01) Active confirmed Problem Carmona's esophagus (118994090) Barretts esophagus without dysplasia (K22.70) Active confirmed Problem Benign neoplasm of stomach (83839638) Gastric polyps (K31.7) Active confirmed Problem Carmona esophagus (439525504) 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 Encounters Encounter Location Date Provider Diagnosis [facility] [address] [place] [id number] 03/04/2024 Lazaro Lyn Jr Colon cancer screening Z12.11 ; Gastric polyps K31.7 and Carmona esophagus K22.70 [facility] [address] [facility] [address] [place] [phone] 03/10/2024 Lazaro Lyn Jr Assessments Encounter Date Diagnosis (ICD Code) Assessment Notes Treatment Notes Treatment Clinical Notes Section Notes 03/04/2024 Colon cancer screening (ICD-10 - Z12.11) 03/04/2024 Gastric polyps (ICD-10 - K31.7) 03/04/2024 Carmona esophagus (ICD-10 - K22.70) Plan Of Treatment Future Test Test Name Order Date UPPER GI ENDOSCOPY 06/25/2013 UPPER GI ENDOSCOPY 09/15/2015 COLONOSCOPY 09/15/2015 UPPER GI ENDOSCOPY 07/03/2018 COLONOSCOPY 07/03/2018 UPPER GI ENDOSCOPY 01/14/2024 COLONOSCOPY 01/14/2024 Next Appt Details Provider Name:Lazaro dickson Jr, 03/04/2025 10:20:00 AM, [address] [place] [address], [address], [place], [address], Insurance Providers Payer Name Payer Address Payer Phone Subscriber Number Group Number Insured Name Patient Relationship to Insured Coverage Start Date Coverage End Date MEDICARE OF [place] [address] [place] [id number] [place] Self - patient is the insured [place] [employer] [address] [place] [id number] [place] J[place] Self - patient is the [...]
--- OUTSIDE RECORDS SUMMARY | 2025-02-04 08:04 | XMS_ITS | Clinical Summary ---
Author Organization [facility] Address [address] [facility] [address] [place] [phone] Phone Care Team Providers Care Solar Energy Systems Designer Name Role Phone Favian Davis MD Primary Care Provider [phone] Favian Davis MD Unavailable [phone] Sherman Cha MD Unavailable [phone] Allergies Active Allergy Reactions Criticality Noted Date Comments Lisinopril Cough 03/20/2017 Other reaction(s): cough Medications dilTIAZem 360 mg 24hr Take 360 mg by mouth daily. 08/08/19 18 Active warfarin (JANTOVEN) 5 MG tabletIndications: Paroxysmal atrial fibrillation Take 1 tablet (5 mg total) by mouth daily. Based on INR results 90 tablet 3 12/24/19 24 Active triamcinolone acetonide 0.1 % cream APPLY TOPICALLY TO THE AFFECTED AREA(S) TWO TIMES A DAY 30 g 05/15/19 25 Active Additional Information Patient not taking.Reported on 12/12/2024 TYRVAYA 0.03 mg/spray nasal spray 1 spray by Each Nare route 2 (two) times a day. 09/04/19 25 Active cyclobenzaprine (FLEXERIL) 5 MG tabletIndications: Cervicalgia 1-2 tablets qhs prn neck pain 20 tablet 09/13/19 25 Active atorvastatin (LIPITOR) 10 MG tabletIndications: Mixed hyperlipidemia TAKE ONE TABLET BY MOUTH EVERY DAY 90 tablet 3 11/18/19 25 Active pantoprazole (PROTONIX) 40 MG tablet Take 40 mg by mouth 2 (two) times a day. Active ferrous sulfate 325 mg (65 mg te-moak iron) tabletIndications: Anemia, unspecified type Take 1 tablet (325 mg total) by mouth daily with breakfast. 30 tablet 1 12/13/19 25 Active dexlansoprazole delayed release (DEXILANT) 60 mg capsule TAKE ONE CAPSULE BY MOUTH EVERY DAY 90 capsule 3 12/16/19 25 Active irbesartan-hydroCH LOROthiazide (AVALIDE) 150-12.5 mg per tabletIndications: Essential hypertension TAKE ONE TABLET BY MOUTH EVERY DAY 90 tablet 3 12/23/19 25 Active Hospital, Clinic, or Other Facility Administered Medication [...] x-ray of the right hand -Referral to [facility]- Dr Rudolph for possible cortisone injection [...] - 01/01/2025 11:59 PM EDT Hospital Encounter [facility] Laboratory [address] [place] [address] Favian Davis MD Discharge Disposition: Home or Self Care 12/21/2024 Telephone [facility] Internal Medicine [address] [place] [address] Favian Davis MD 12/21/2024 Telephone [facility] Internal Medicine [address] [place] [address] Favian Davis MD Results 12/21/2024 Refill [facility] Internal Medicine [address] [facility] [place] [address] Favian Davis MD Medication Refill 12/18/2024 10:35 AM EDT - 12/18/2024 11:59 PM EDT Hospital Encounter [facility] Laboratory [address] [facility] [place] [address] Favian Davis MD Discharge Disposition: Home or Self Care 12/14/2024 Refill [facility] Internal Medicine [address] [place] [address] Favian Davis MD Medication Refill 12/12/2024 9:54 AM EDT - 12/12/2024 11:59 PM EDT Hospital Encounter [facility] [address] [place] [address] Dr Donald, [place] [address] Favian Davis MD Discharge Disposition: Home or Self Care 12/12/2024 9:00 AM EDT Office Visit [facility] Internal [facility] [address] [place] [address] Favian Davis MD Acute upper GI bleed (Primary Dx); Primary hypertension; Paroxysmal atrial fibrillation; Hereditary hemochromatosis; Anemia, unspecified type; Impaired fasting glucose; Essential hypertension 12/12/2024 Orders Only [facility] Internal Medicine [address] [place] [address] ProviderKeren MD 12/10/2024 Orders Only [facility] Internal Medicine [address] [place] [address] Keren Ivey MD 12/09/2024 Orders Only [facility] Internal Medicine [address] [place] [address] Keren Ivey MD 12/09/2024 Telephone [facility] Internal Medicine [address] [place] [address] Favian Davis MD TCM Visit 11/16/2024 Refill [facility] Internal Medicine [address] [place] [address] Favian Davis MD Medication Refill from Last [...] Description 03/16/2025 9:30 AM EST Office Visit [facility] Internal Medicine [address] [place] [address] Favian Davis MD [address] [place] [address] [email or web address] 09/14/2025 8:30 AM EDT Office Visit [facility] Internal Medicine [address] [place], [place] [phone] Favian Davis MD [address] [place] [address] [phone] [email or web address] 10/12/2025 9:00 AM EDT Office Visit [facility] [address] [place] [address] 3rd Floor, [address] [place] [address] Chago Reynaga MD, MS [address] [facility], [address] [place] [address] [phone] 03/16/2026 8:00 AM EST Office Visit [facility] Internal Medicine [address] [place], [place] [phone] Pedro Lyon PA-C [address] [place], [place] [phone] [email or web address] Health Maintenance Due Date Last Done Comments COLOGUARD 1997 FIT TEST 1997 FOBT 1997 SIGMOIDOSCOPY 1997 VIRTUAL COLONOSCOPY 1997 ZOSTER VACCINES (1 of 2) 04/22/2015 02/25/2015 Adult Td,Tdap Booster 09/07/2018 09/07/2008 INFLUENZA VACCINE (#1) 2024 , 01/11/2023, 01/11/2023, Additional history exists COVID-19 VACCINE (2024- season) 2024 05/22/2024, 01/11/2023, 01/11/2022, Additional history exists BLOOD PRESSURE 06/11/2025 12/12/2024 DEPRESSION SCREENING 09/05/2025 09/05/2024 CREATININE LEVEL 12/12/2025 12/12/2024, , 01/14/2024, Additional history exists POTASSIUM LEVEL 12/12/2025 12/12/2024, 08/08, 01/14/2024, Additional history exists RSV VACCINE (1 - 1-dose 75+ series) 2027 COLONOSCOPY 03/04/2029 03/04/2024, 06/0 10/2018, 09/05/2006 COLORECTAL [...] Routine 09/04/2024 8:06 AM EDT Mixed hyperlipidemia COLONOSCOPY FOR RESULT ENTRY ONLY Routine 03/04/2024 10:54 AM EST OUTSIDE HEPATITIS C VIRUS SCREENING Routine 04/28/2019 from Last 3 Months or Most Recently Relevant to Health Maintenance Results * (ABNORMAL) Iron and iron binding capacity (01/01/2025 10:10 AM EDT) Only the most recent of3 resultswithin the time period is included. IRON 26(L) 45 - 160 ug/dL [facility] IRON BINDING CAPACITY 342 228 - 428 ug/dL [facility] TRANSFERRIN SATURAT. 8(L) 20 - 55 % [facility] Blood 01/01/2025 10:1 0 AM EDT 01/01/2025 10:12 AM EDT us Favian Davis MD LAB BLOOD ORDERABLES Final Re sult [facility] [address] [place], [place] [phone] * (ABNORMAL) CBC and differential (01/01/2025 10:10 AM EDT) Only the most recent of3 resultswithin the time period is included. WBC 5.84 4.00 - 11.00 K/uL [facility] RBC 4.32(L) 4.50 - 5.90 M/uL [facility] HGB 11.4(L) 13.5 - 17.5 g/dL [facility] HCT 36.5(L) 41.0 - 53.0 % [facility] PLT 348 150 - 450 K/uL [facility] MCV 84.5 80.0 - 100.0 fL [facility] MCH 26.4(L) 27.0 - 31.0 pg [facility] MCHC 31.2(L) 32.0 - 36.0 g/dL [facility] RDW 15.1(H) 11.5 - 14.5 % [facility] MPV 9.7 8.4 - 12.0 fL [facility] NRBC 0.00 0.00 /100 WBCs [facility] ABSOLUTE NRBC 0.00 0.00 K/uL [facility] DIFF METHOD Auto [facility] NEUTS 54.1 48.0 - 76.0 % [facility] LYMPHS 27.6 18.0 - 41.0 % [facility] MONOS 11.3(H) 4.0 - 11.0 % [facility] EOS 5.5(H) 0.0 - 5.0 % [facility] BASOS 1.2 0.0 - 1.5 % [facility] Granulocytes, immature (%) 0.3 0.0 - 0.9 % [facility] ABSOLUTE NEUTS 3.16 1.92 - 7.60 K/uL [facility] ABSOLUTE LYMPHS 1.61 0.72 - 4.10 K/uL [facility] ABSOLUTE MONOS 0.66 0.16 - 1.10 K/uL [facility] ABSOLUTE EOS 0.32 0.00 - 0.50 K/uL [facility] ABSOLUTE BASOS 0.07 0.00 - 0.15 K/uL [facility] Granulocytes, immature 0.02 0.00 - 0.09 K/uL [facility] Blood 01/01/2025 10:1 0 AM EDT 01/01/2025 10:12 AM EDT us Favian Davis MD LAB BLOOD ORDERABLES Final Re sult [address] [address] * TSH (12/18/2024 10:26 AM EDT) TSH 0.48 0.27 - 4.20 uIU/mL [facility] Blood 12/18/2024 10:2 6 AM EDT 12/18/2024 1:27 PM EDT Favian Davis MD LAB BLOOD ORDERABLES Final Re sult Performing Organization Address City/Va Hospital/ZIP Co de Phone Number [address] [address] * Free T4 (12/18/2024 10:26 AM EDT) FREE T4 1.4 0.9 - 1.7 ng/dL [facility] Blood 12/18/2024 10:2 6 AM EDT 12/18/2024 1:27 PM EDT Favian Davis MD LAB BLOOD ORDERABLES Final Re sult Performing Organization Address [facility] Co de Phone Number [address] [address] * Folate (12/18/2024 10:26 AM EDT) FOLIC ACID 15.8 4.2 - 19.9 ng/mL [facility] Blood 12/18/2024 10:2 6 AM EDT 12/18/2024 1:27 PM EDT us Favian Davis MD LAB BLOOD ORDERABLES Final Re sult Performing Organization Address [facility] Co de Phone Number [address] [address] * Ferritin (12/18/2024 10:26 AM EDT) Only the most recent of2 resultswithin the time period is included. FERRITIN 33 30 - 400 ug/L [facility] Blood 12/18/2024 10:2 6 AM EDT 12/18/2024 1:27 PM EDT us Favian Davis MD LAB BLOOD ORDERABLES Final Re sult Performing Organization Address [facility]/ZIP Co de Phone Number [address] [address] * Vitamin B12 (12/18/2024 10:26 AM EDT) VITAMIN B12 353 232 - 1,245 pg/mL [facility] Blood 12/18/2024 10:2 6 AM EDT 12/18/2024 1:27 PM EDT Favian Davis MD LAB BLOOD ORDERABLES Final Re sult [address] [address] * Outside Lab (12/12/2024 10:59 AM EDT) Only the most recent of2 resultswithin the time period is included. [facility] Provider LAB BLOOD ORDERABLES Sumaya l Result * Outside Pathology (12/12/2024 10:37 AM EDT) [facility] Provider PATHOLOGY ORDERABLES Sumaya l Result * (ABNORMAL) Comprehensive metabolic panel (12/12/2024 9:55 AM EDT) SODIUM 140 133 - 146 mmol/L [facility] POTASSIUM 3.5 3.3 - 5.1 mmol/L [facility] CHLORIDE 105 96 - 108 mmol/L [facility] CO2 25 21 - 35 mmol/L [facility] BUN 17 6 - 19 mg/dL [facility] CREATININE 1.10 0.5 - 1.5 mg/dL [facility] GLUCOSE 109(H) 70 - 99 mg/dL [facility] ALBUMIN 4.3 3.9 - 4.8 g/dL [facility] TOTAL PROTEIN 6.9 6.5 - 8.0 g/dL [facility] CALCIUM 9.7 8.4 - 10.3 mg/dL [facility] ALKALINE PHOSPHATASE 95 39 - 117 U/L [facility] TOTAL BILIRUBIN 0.5 0.0 - 1.2 mg/dL [facility] AST 26 0 - 37 U/L [facility] ALT 20 0 - 40 U/L [facility] GLOBULIN 2.6 1 - 4.8 g/dL [facility] EGFR 71 >59 mL/min/1.7 3m2 [facility] Comment:Estimated glomerular filtration rate calculated using the CKD-EPI refit equation. ANION GAP 14 10 - 20 mmol/L [facility] Blood 12/12/2024 9:55 AM EDT 12/12/2024 10:05 AM EDT Favian Davis MD LAB BLOOD ORDERABLES Final Re sult Performing Organization Address City/[facility] Hospital/ZIP Co de Phone Number [address] [address] * TSH with reflex (12/12/2024 9:55 AM EDT) TSH 0.50 0.27 - 4.20 uIU/mL [facility] Blood 12/12/2024 9:55 AM EDT 12/12/2024 10:05 AM EDT Favian Davis MD LAB BLOOD ORDERABLES Final Re sult Performing Organization Address [facility] Co de Phone Number [address] [address] * Hemoglobin A1c (12/12/2024 9:55 AM EDT) HEMOGLOBIN A1C 5.4 4.3 - 5.8 % [facility] Blood 12/12/2024 9:55 AM EDT 12/12/2024 10:06 AM EDT Favian Davis MD LAB BLOOD ORDERABLES Final Re sult Performing Organization Address City/[facility] Co de Phone Number [address] [address] * Outside Procedure (12/10/2024 7:41 AM EDT) Keren Ivey MD PROCEDURE/MINOR SURGICAL PERFORMABLES Final Result * Outside ECG Report Only (12/04/2024 10:55 AM EDT) Historical Provider ECG ORDERABLES Edited Re sult - Final * Outside US Imaging??Report Only (11/19/2024 10:53 AM EDT) Result [facility] Historical Provider IMG US OP Edited Re sult - Final * Lipid panel (09/04/2024 8:06 AM EDT) HDL 41 mg/dL [facility] Comment: Interpretation <40 mg/dL: Low HDL cholesterol (major risk factor for CHD) Greater than or equal to 60 mg/dL: High HDL cholesterol ( negative risk factor for CHD) HDL - cholesterol is affected by a number of factors, e.g. smoking, excerise, hormones, sex and age. CHOLESTEROL 144 0 - 240 mg/dL [facility] TRIGLYCERIDES 143 30 - 160 mg/dL [facility] LDL 74 50 - 129 mg/dL [facility] Comment: LDL levels in terms of risk for coronary heart disease: <100 mg/dL: Optimal 100-129 mg/dL: Near or above optimal 130-159 mg/dL: Borderline high 160-189 mg/dL: High >190 mg/dL: Very High CARDIAC RISK RATIO 3.5 3.4 - 5.0 [facility] Blood 09/04/2024 8:06 AM EDT 09/04/2024 8:11 AM EDT Result [facility] Favian Davis MD LAB BLOOD ORDERABLES Final Re sult [address] [address] * HM COLONOSCOPY FOR RESULT ENTRY ONLY (03/04/2024 10:54 AM EST) Result [facility] Historical [facility] Final Result * Outside Hepatitis C Virus Screening (04/28/2019) Hepatitis C Screening - External Neg Result [facility] Historical [facility] LAB BLOOD ORDERABLES Sumaya l Result from Last 3 Months or Most Recently Relevant to Health Maintenance Insurance MEDICARE PART A & B [facility] MEDICARE ENHANCE SUPPLEMENT MEDICARE PART A & B [facility] MEDICARE ENHANCE SUPPLEMENT MEDICARE PART A & B [facility] MEDICARE ENHANCE SUPPLEMENT MEDICARE PART A & B [facility] MEDICARE ENHANCE SUPPLEMENT MEDICARE PART A & B [facility] MEDICARE ENHANCE SUPPLEMENT MEDICARE PART A & B Member Subscriber Plan / Payer (Ef fective 2017-Present) Name:Rashawn Pérez Member ID:[id number] Relation to Subscriber:Self Name:Rashawn Pérez Subscriber ID:[id number] Payer ID:[id number] Group ID:Not on file Type:Medicare Address: [employer] [address] [place] [id number] [place] [address] MEDICARE ENHANCE SUPPLEMENT MEDICARE PART A & B [facility] MEDICARE ENH[place] [facility] [place]: [address] [place] [address] MEDICARE PART A & B [facility] MEDICARE ENHANCE [place] [facility] [place] Address: [facility] [phone] [place] [address] MEDICARE PART A & B [facility] MEDICARE ENHANCE SUPPLEMENT Care Teams Solar Energy Systems Designer Relationship Specialty Start Date End Date Favian Davis MD [address] [place] [address] PCP - General Internal Medicine 03/19/17 Favian Davis MD [address] [place] [address] Insurance Assigned Provider 07/14/23 Sherman Cha MD [address] [facility] [address] [place] [address] Internal Medicine 10/30/19 Additional Source Comments The information contained in this document represents components of the legal health record. It is not the complete legal health record.[facility]
[2025-02-04 08:12] LABS: Prothrombin Time Whole Bld POC 33.1 sec (11.1-13.5); ~PT, ~INR - Anti Coag Clinic 2.8 (0.9-1.1)
--- NOTE | 2025-02-04 08:20 | MHC.OFFVISCO ---
Intake Intake Visit Reasons: Anticoagulation Allergies lisinopril Adverse Reaction (Unknown, Verified 02/04/25 08:06) cough Medication List - Last Reconciled 02/04/25 by Yanni Hong RN atorvastatin (Lipitor) 10 mg PO DAILY dexlansoprazole (Dexilant) 60 mg PO BEDTIME diltiazem HCl CD 360 mg PO DAILY ferrous sulfate 325 mg PO DAILY fluticasone propionate 50 mcg/actuation 1 spray intranasal DAILY irbesartan-hydrochlorothiazide 150-12.5 mg (Avalide) 1 tab PO DAILY pantoprazole 40 mg PO BID varenicline tartrate (Tyrvaya) intranasal warfarin (Jantoven) 5 mg See Protocol PO DAILY Nursing Note NO CP,SOB,DIET/MED CHANGES,FALLS OR SX OF BLEEDING. CONTINUE PRESENT DOSE AND FOLLOW-UP IN 4 WEEKS GOOD UNDERSTANDING OF DOSING INSTR. Anti-Coag Initial Assessment Social Hx Patient Tobacco Use Status: Never used Tobacco alcohol intake: never Coding Level of Care Code Est Patient Level 1 Diagnoses Current use of anticoagulant therapy Z79.01 Assessment & Plan Assessment & Plan (1) Current use of anticoagulant therapy: Code(s): Z79.01 - [facility] (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
== END 2025-02-04 08:26 | disposition home or self-care (01) ==
LOC: HO.ACS 08:02
PROVIDERS: PCP Internal Medicine; Visit Provider Internal Medicine Medical Oncology
DX: Z79.01 Long term (current) use of anticoagulants (principal)

== ENCOUNTER → 2025-02-04 08:02 | Outpatient (BNVA) | payer MEDICARE, OTHER, SELFPAY | PROVIDERS: PCP Internal Medicine; Visit Provider Internal Medicine Medical Oncology | DX: I48.0 Paroxysmal atrial fibrillation (principal); Z79.01 Long term (current) use of anticoagulants; Z51.81 Encounter for therapeutic drug level monitoring | CPT/HCPCS: 85610; 99211 ==

== ENCOUNTER 2025-03-04 09:24 | Outpatient (AMB) | payer MEDICARE, OTHER, SELFPAY ==
--- NOTE | 2025-03-04 09:32 | MHC.OFFVISCO ---
Intake Intake Visit Reasons: Anticoagulation Allergies lisinopril Adverse Reaction (Unknown, Verified 03/04/25 09:26) cough Medication List - Last Reconciled 03/04/25 by Melissa Pierce, RN atorvastatin (Lipitor) 10 mg PO DAILY dexlansoprazole (Dexilant) 60 mg PO BEDTIME diltiazem HCl CD 360 mg PO DAILY ferrous sulfate 325 mg PO DAILY fluticasone propionate 50 mcg/actuation 1 spray intranasal DAILY irbesartan-hydrochlorothiazide 150-12.5 mg (Avalide) 1 tab PO DAILY varenicline tartrate (Tyrvaya) intranasal warfarin (Jantoven) 5 mg See Protocol PO DAILY Nursing Note INR: 2.3- in therapeutic range of 2-3 Medications and supplements reviewed- restarted dexilant feb 07. had been off of it dec/jan pt aware may interact with warfarin however pt states when on it prev it did not No changes in health, diet, medications, or supplements, Denies any signs and symptoms of bleeding or bruising or clotting. Bleeding, bruising, clotting discussed Nutritional guidance given Dose: 5mg x 2 , 2.5mg x 5 F/U INR: pt req 4 weeks Patient verbalizes understanding of instructions given Anti-Coag Initial Assessment Social Hx Patient Tobacco Use Status: Never used Tobacco alcohol intake: never Coding Level of Care Code Est Patient Level 1 Diagnoses Current use of anticoagulant therapy Z79.01 Assessment & Plan Assessment & Plan (1) Current use of anticoagulant therapy: Code(s): Z79.01 - snf (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
[2025-03-04 09:34] LABS: Prothrombin Time Whole Bld POC 27.8 sec (11.1-13.5); ~PT, ~INR - Anti Coag Clinic 2.3 (0.9-1.1)
--- OUTSIDE RECORDS SUMMARY | 2025-03-04 10:26 | XMS_ITS | Data Portability ---
Author Organization [facility] [address] Address [address] [place] [address] Assessment No assessment recorded. Plan of Treatment Reminders Order Date Submit Date Provider Last Modified By Organization Details Last Modified Time Details Appointments None recorded. Lab None recorded. Referral None recorded. Procedures None recorded. Surgeries None recorded. Imaging None recorded. Medication Orders amoxicillin 875 mg tablet 2022 023 [facility], [address] [place], [address], 3 10:04:31 Flonase Allergy Relief 50 mcg/actuati on nasal spray,suspe nsion 2022 023 [facility], [address] [place], [address], 3 10:04:31 Patient TargetsNo targets recorded. Patient Instructions Encounter Date Encounter Id Patient Instructions Last Modified By Organization Details Last Modified Time 05/06/2022 [id number] Acute Sinusitis: Care Instructions [email or web address] Not available 05/06/2022 10:04:30 Reason for Referral None Reported. Problems Name Problem SNOMED Code Status Onset Date Resolution Date Notes Provider Name and Address Organization Details Recorded Time Hypertensive disorder 51441944 Active 2022 [facility] 3 09:49:31 Atrial fibrillation 79698947 Active 2022 PAYAM madden, [place] [facility] 3 09:49:36 Hyperlipidemia 35475155 Active 2022 PAYAM ROBERT null, [place] - [facility] 3 09:49:56 Problem Notes None recorded. Procedures Surgical History Date Name Laterality Status Provider Name and Address Organization Details Recorded Time Removal of prostate completed PAYAM ROBERT [place] - [facility] 05/06/2022 09:50:29 Appendectomy completed PAYAM ROBERT [place] - [facility] 05/06/2022 09:50:42 Imaging Results None recorded. Procedure Notes None recorded. Medical Equipment None Reported. Allergies Allergen ID Allergen Name Allergen Category Reaction Reaction Severity Criticality Documentation Date Start Date Code Code System Note Provider Name and Address Organization Details Recorded Time 074984 lisinopri l medicatio n cough Not available Not available 05/06/2022 80835 RxNorm [place] ROBERT [facility] [place] - [facility] 3 09:47:57 Medications Name [...] Relief 50 mcg/actuati on nasal spray,suspe nsion [place] 1 spray every day by intranasa l route. 2022 active Not Available Not Available Not Avai lable Vitals Date Recorded Body height Body mass index (BMI) Body weight Pain severity - 0-10 verbal numeric rating [Score] - Reported Respiratory rate Oxygen saturation Heart rate Body temperature Systolic And Diastolic Provider Name and Address Organization Details Last Updated DateTime 3 175.26 cm 30.7 kg/m2 48784.2 1 g 5 18 /min 97 % 100 /min 97.5 [degF] 126/78 mm[Hg] PAYAM ROBERT [facility] - [facility] 3 09:51:44 Social History Question Answer Notes LastModified by [employer] Details LastModified Time Tobacco Smoking Status Never Smoker PAYAMREGINA GARCIAHELEN madden [place] [facility] 05/06/2022 09:50:11 Have You Recently Traveled Abroad? No [email or web address] Information not available 05/06/2022 Sex: Unknown Functional Status Question Answer Note LastModified by [employer] Details LastModified Time Do you use any illicit or recreational drugs? No [email or web address] Information not available 05/06/2022 Do you or have you ever used any other forms of tobacco or nicotine? No [email or web address] Information not available 05/06/2022 What is your level of alcohol consumption? None [email or web address] Information not available 05/06/2022 Mental Status None recorded. Family History Relationship Description Onset Age of this Age Resolved Age Notes LastModified by Organization Details LastModified Time Father No current problems or disability [email or web address] Not available 05/06 09:49:58 Mother No current problems or disability [email or web address] Not available 05/06 09:49:58 Medical History No medical history recorded. Past Encounters Encounter ID Performer Location Encounter Start Date Encounter Closed Date Diagnosis/Indication Diagnosis SNOMED-CT Code Diagnosis ICD10 Code Diagnosis IMO Codes Diagnosis Note [id number] [address] [place] [address] 06/03/2015 16:12:31 06/03/2015 16:54:43 [id number] [address] [place] [address] 05/25/2015 17:35:51 05/25/2015 19:24:18 [id number] [address] [place] [address] 10/10/2015 08:37:09 10/10/2015 09:05:21 [id number] Saul Ferrer DO [address] [facility] [place] [address] 05/06/2022 08:22:32 05/06/2022 10:11:36 Acute sinusitis 26662942 J01.90 Given Hx and Sx and PE [...] Member ID Guarantor Name 05/06/2022 1 MEDICARE B-IN: [employer] Rashawn T Beto [id number] Rashawn Calderón Beto 05/06/2022 2 [facility] Rashawn Stephane Pérez [id number] Rashawn Calderón Beto 05/06/2022 1 [facility] (HMO) [id number] Sari Beto [id number] Rashawn T Beto Notes Date Note Type Note Provider Name and Address Organization Details Recorded Time 05/06/2022 text/html Sinus Complaints UCReported by [email or web address] yo malec/o Pressure in sinuses, left ear pain started 1 week ago No feverNo chillsNo coughNo difficulty breathing or respiratory distressNo CPNo sore throatNo Abdominal painNo nauseaNo vomitingNp diarrheaNo myalgiaNo fatigueNo rashNo HANo dizzinessNo recent travelNo known sick contactsROS as noted in the HPI Saul Ferrer DO [address] [place], [address], [place] - [facility] 05/06/2022 10:04:55
--- OUTSIDE RECORDS SUMMARY | 2025-03-04 10:26 | XMS_ITS | Clinical Summary ---
Author Organization [facility] ity Address [address] [place] [address] Care Team Providers Care Smocking Machine Operator Name Role Phone Unavailable Primary Care Provider [...] Depression Screening 04/09/2024 COVID-19 Vaccine (1 - 2024-2 6 season) 2024 Influenza Vaccine (#1) 2024 RSV [...]
== END 2025-03-04 09:39 | disposition home or self-care (01) ==
LOC: HO.ACS 09:24
PROVIDERS: PCP Internal Medicine; Visit Provider Internal Medicine Medical Oncology
DX: Z79.01 Long term (current) use of anticoagulants (principal)

== ENCOUNTER → 2025-03-04 09:24 | Outpatient (BNVA) | payer MEDICARE, OTHER, SELFPAY | PROVIDERS: PCP Internal Medicine; Visit Provider Internal Medicine Medical Oncology | DX: I48.0 Paroxysmal atrial fibrillation (principal); Z51.81 Encounter for therapeutic drug level monitoring; Z79.01 Long term (current) use of anticoagulants | CPT/HCPCS: 85610; 99211 ==

== ENCOUNTER 2025-04-01 08:06 | Outpatient (AMB) | payer MEDICARE, OTHER, SELFPAY ==
--- OUTSIDE RECORDS SUMMARY | 2024-03-04 03:20 | XMS_ITS ---
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 Encounters Encounter Location Date Provider Diagnosis [facility] Outpatient [address] [place] [id number] 03/04/2024 Lazaro Lyn Jr Colon cancer screening Z12.11 ; Gastric polyps K31.7 and Carmona esophagus K22.70 Assessments Encounter Date Diagnosis (ICD Code) Assessment Notes Treatment Notes Treatment Clinical Notes Section Notes 03/04/2024 Colon cancer screening (ICD-10 - Z12.11) 03/04/2024 Gastric polyps (ICD-10 - K31.7) 03/04/2024 Carmona esophagus (ICD-10 - K22.70) Plan Of Treatment Next Appt Details Provider Name:Lazaro dickson Jr, 06/09/2025 07:30:00 AM, [address] [place] [address], [phone], Progress Notes * MINERVA GIRARD TDOB:[birth year] (75 yo M)Acc No.[id number]:03/04/2024 EGD and COL/MAC Patient: MINERVA TREVINO Provider: Pedro Luis Lyn MD :1950 A ge:73 Y S ex:Male Date:03/04/2024 Address:[address] [place], [place] [phone] Pcp:Favian Davis MD Subjective: * Chief Complaints: * B arretts, screening Assessment: * Assessment: 1. C olon cancer screening - Z12.11 (Primary) 2 . G astric polyps - K31.7? 3. B arrett esophagus - K22.70 Plan: * Procedure Codes: 4 5378 DIAGNOSTIC [id number] INTRVL 3+YRS PTS CLNSCP [id number] RCMND FLW-UP 10 YRS [id number] UPPER GI ENDOSCOPY, BIOPSY Billing Information: * Procedure Codes: 82981 DIAGNOSTIC COLONOSCOPY. 0529F INTRVL 3+YRS PTS CLNSCP DOCD. 0528F RCMND FLW-UP 10 YRS DOCD. [address] UPPER GI ENDOSCOPY, BIOPSY. * The named appointment provid er may or may not be the originator of this progress note, and it is not deemed complete until electronically signed by the appointment provider. Sign off status: Pending * Provider: Pedro Luis Lyn MD Date: 05/04/2023 Generated for Lisa noguera/Onur/Jaswantsmitting on: 06/02/2024 08:08 AM EST
--- OUTSIDE RECORDS SUMMARY | 2025-03-04 05:20 | XMS_ITS ---
Author Organization [facility] Address [address] [place] [phone] Care Team Providers Care Supervisor Typesetting Name Role Phone Favian Davis MD Primary Care Provider Lazaro Babin Jr Allergies No Known Allergies REASON FOR VISIT Patient presents today for anemia Medications Medication SIG (Take, Route, Frequency, Duration) Notes Start Date End Date Status Dexilant 60mg Capsule Delayed Release 1 capsule Orally Once a day Active Irbesartan-hydroCHLOROthia zide 150-12.5 MG Tablet 1 tablet Orally Once a day; Duration: 30 day(s) Active Coumadin 5 MG Tablet 1 tablet Orally Once a day Active dilTIAZem HCl ER Coated Beads 360 MG Capsule Extended Release 24 Hour 1 capsule Orally Once a day Active Social History Social History Additional Details Category Social Info Options Details Miscellaneous: Marital status: 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 [employer] Vital Signs Temperature 97.1 degrees Fahrenheit 03/04/20 25 Blood pressure systolic 001 mm Hg 03/04/20 25 Blood pressure diastolic 01 mm Hg 025 Height 70 in 03/04/2025 Weight 215 lbs 03/04/2025 BMI 30.85 kg/m2 03/04/2025 Encounters Encounter Location Date Provider Diagnosis [facility] [address] [place] [phone] 03/04/2025 Lazaro Lyn Jr GI bleeding K92.2 Assessments Encounter Date Diagnosis (ICD Code) Assessment Notes Treatment Notes Treatment Clinical Notes Section Notes 03/04/2025 GI bleeding (ICD-10 - K92.2) Plan Of Treatment Future Test Test Name Order Date UPPER GI ENDOSCOPY 03/04/2025 Next Appt Details Provider Name:Lazaro Lion Lewiscody dickson , 06/09/2025 07:30:00 AM, [address] [place] [address] , [place], [place], [id number], Progress Notes * MINERVA GIRARD TDOB:[birth year] (75 yo M)Acc No.[id number]:03/04/2025 Progress Notes Patient: MINERVA TREVINO Provider: Pedro Luis Lyn MD :1950 A ge:74 Y S ex:Male Date:03/04/2025 Address:[address] [place], [place] [id number] Pcp:Favian Davis MD Subjective: * Chief Complaints: * P atient presents today for anemia * Medical History: Colon polyps, colonoscopy 09/25, tubular adenoma, five-year followup Elevated liver function tests, heterozygous for her hemachromatosis DNA testing Carmona's esophagus, EGD 09/25, 2 cm segment Carmona's esophagus, no dysplasia Hypertension Prostate cancer Atrial fibrillation GABBIE/CPAP Medical History Verified * Surgical History: appendectomy prostatectomy Surgical History verified. * Hospitalization/Major Diagno stic Procedure: upper gi bleed Hospitalization Verified. * Family History: F ather: , diagnosed with HTN (hypertension). M other: , diagnosed with Heart disease. F amily History Verified.. The patient has no family history of hemachromatosis or liver disease that he is aware of. No family history of colon cancer or liver cancer. * Social History: T obacco Use: T obacco Use/Smoking A re you a: nonsmoker. D rugs/Alcohol: A lcohol Screen P oints: 1, Interpretation: Negative. M iscellaneous: M arital status: . 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 Social History Verified. * Medications: T akingDexilant 60mg Capsule Delayed Release 1 capsule Orally Once a day Irbesartan-hydroCHLOROthiazide 150-12.5 MG Tablet 1 tablet Orally Once a day Coumadin 5 MG Tablet 1 tablet Orally Once a day dilTIAZem HCl ER Coated Beads 360 MG Capsule Extended Release 24 Hour 1 capsule Orally Once a day Taking Dexilant 60mg Capsule Delayed Release 1 capsule Orally Once a day Taking Irbesartan- hydroCHLOROthiazide 150-12.5 MG Tablet 1 tablet Orally Once a day Taking Coumadin 5 MG Tablet 1 tablet Orally Once a day Taking dilTIAZem HCl ER Coated Beads 360 MG Capsule Extended Release 24 Hour 1 capsule Orally Once a day DiscontinuedColyte with Flavor Packs 240 GM Solution Reconstituted As directed Orally Over the specified time. Medication List reviewed and reconciled with the patientDiscontinued Colyte with Flavor Packs 240 GM Solution Reconstituted As directed Orally Over the specified time. Medication List reviewed and reconciled with the patient * Allergies: N .K.MargaritayesAllergies Verified. Objective: * Vitals: W t:215lbs, Ht: 70 in, BMI:30.85Index, BP:001/01mm Hg, Temp:97.1F, Ht-cm: 177.8 cm, Wt-k.52 kg. Assessment: * Assessment: 1. G I bleeding - K92.2 (Primary) Plan: * Treatment: * Preventive Medicine: Counseling: C are goal follow-up plan: A gaby Normal BMI Follow-up D ietary management education, guidance, and counseling, B DE management provided Y es. Screenings: F all Risk Screening F all Risk Assessment: N o falls in the past year, S creening: N o falls in the past year, P mandi of Care: N ot documented, no reason specified. Billing Information: * Procedure Codes: * The named appointment provid er may or may not be the originator of this progress note, and it is not deemed complete until electronically signed by the appointment provider. Sign off status: Pending * Provider: Pedro Luis Lyn MD Date: 05/04/2024 Generated for Lisa noguera/Onur/Vianney on: 06/02/2024 08:08 AM EST
--- OUTSIDE RECORDS SUMMARY | 2025-04-01 08:08 | XMS_ITS | Encounter Summary ---
Author Organization [facility] Address [address] [place] [address] Phone Care Team Providers Care Diesel Plant Operator Name Role Phone Favian Davis MD Primary Care Provider [phone] Favian Davis MD Unavailable [phone] Sherman Cha MD Unavailable [phone] Reason for Visit * Reason Comments Medication Refill Encounter Details Date Type Department Care Team (Late st Contact Info) Description 02/23/2025 Refill [facility] [address] [place], [place] [phone] Favian Davis MD [address] [place] [address] [email or web address] Medication Refill [...] as of this encounter Progress Notes * Lucian Sanford MA - 02/23/2025 4:40 PM EST IMPORTANT - At least one Rx mismatch identified. Original(s) may be discontinued, , or different strength/form. Review required. Rx Care Gap Status - Instructions for Clinical Staff (prescriber discretion applies): > Mismatch review guide > At least one request does not meet full criteria. Specifics below. Visit Info Last visit: 12/12/2024 Favian Davis MD - Internal Medicine [facility] > Requested f/u: Not specified Upcoming visit: 03/16/2025 Favian Davis MD - Internal Medicine [facility] ACTIONS TAKEN BY Lucian Sanford MA - Sig/Pt Instructions matches med list. Warfarin (Coumadin) Rx Protocol NOTE: Pls remind pt to get lab draws on schedule. - warfarin sodium Rx mismatch - Original discontinued, , or different strength/form. Criteria for reference: Visit in the past 14 months: Yes Clinical criteria: - INR within past 6 weeks: No - BMP within past year: Yes Lab Results Component Value Date SODIUM 140 12/12/2024 POTASSIUM 3.5 12/12/2024 CHLORIDE 105 12/12/2024 CO2 25 12/12/2024 BUN 17 12/12/2024 CREATININE 1.10 12/12/2024 EGFR 71 12/12/2024 documented in this encounter Plan of Treatment Upcoming Encounters Date Type Department Care Team (Late st Contact Info) Description 09/14/2025 8:30 AM EDT Office Visit [facility] [address] [place] [address] Favian Davis MD [address] [place] [address] [phone] 10/12/2025 9:00 AM EDT Office Visit [facility] [address] [facility] [address] Floor, [address] [place], [place] [phone] Chago Reynaga MD, MS [address] [facility], [address] [phone] 03/16/2026 8:00 AM EST Office Visit [facility] [address] [place], [place] [phone] Pedro Lyon PA-C [address] [place] [phone] documented as of this encounter Visit Diagnoses Diagnosis Paroxysmal atrial fibrillation Atrial fibrillation documented in this encounter Additional Health Concerns Assessment Noted Time PHQ-2 Depression Total Score: 0 09/06/19 25 12:36 PM EDT documented as of this encounter Care Teams Diesel Plant Operator Relationship Specialty Start Date End Date Favian Davis MD [address] [place] [address] [phone] PCP - General Internal Medicine 03/19/17 Favian Davis MD [address] [place] [address] [phone] Insurance Assigned Provider 07/14/23 Sherman Cha MD [address] [address] Internal Medicine 10/30/19 documented as of this encounter Additional Source Comments The information contained in this document represents components of the legal health record. It is not the complete legal health record.[facility]
--- OUTSIDE RECORDS SUMMARY | 2025-04-01 08:08 | XMS_ITS | Clinical Summary ---
Author Organization [facility] Address [address] [employer] [address] [address] Phone Care Team Providers Care Complex Manager Name Role Phone Favian Davis MD Primary Care Provider [phone] Favian Davis MD Unavailable [phone] Sherman Cha MD Unavailable [phone] Allergies Active Allergy Reactions Criticality Noted Date Comments Lisinopril Cough 03/20/2017 Other reaction(s): cough Medications dilTIAZem 360 mg 24hr Take 360 mg by mouth daily. 8 Active TYRVAYA 0.03 mg/spray nasal spray 1 spray by Each Nare route 2 (two) times a day. 5 Active atorvastatin (LIPITOR) 10 MG tabletIndications:M ixed hyperlipidemia TAKE ONE TABLET BY MOUTH EVERY DAY 90 tablet 3 5 Active ferrous sulfate 325 mg (65 mg [place] iron) tabletIndications:A nemia, unspecified type Take 1 tablet (325 mg total) by mouth daily with breakfast. 30 tablet 1 5 Active dexlansoprazole delayed release (DEXILANT) 60 mg capsule TAKE ONE CAPSULE BY MOUTH EVERY DAY 90 capsule 3 5 Active irbesartan-hydroCHL OROthiazide (AVALIDE) 150-12.5 mg per tabletIndications:E ssential hypertension TAKE ONE TABLET BY MOUTH EVERY DAY 90 tablet 3 5 Active JANTOVEN 5 mg tabletIndications:P aroxysmal atrial fibrillation TAKE ONE TABLET BY MOUTH EVERY DAY BASED ON INR RESULTS 90 tablet 5 Active Hospital, Clinic, or Other Facility Administered [...] x-ray of the right hand -Referral to [facility]- Dr Rudolph for possible cortisone injection [...] Encounters Date Type Department Care Team Description 03/16/2025 9:30 AM EST Office Visit [facility] [address] [place] [address] Favian Davis MD Impaired fasting glucose (Primary Dx); Primary hypertension; Paroxysmal atrial fibrillation; Hereditary hemochromatosis; Obstructive sleep apnea of adult; Mixed hyperlipidemia; Anemia, unspecified type; Iron deficiency anemia, unspecified iron deficiency anemia type 02/23/2025 Refill [facility] [address] [place] [address] Favian Davis MD Medication Refill 02/16/2025 1:00 PM EST Office Visit [facility] [address] [place] [address] Patrizia Sage PA-C Trigger middle finger of left hand (Primary Dx) 01/01/2025 10:10 AM EDT - 01/01/2025 11:59 PM EDT Hospital Encounter [facility] [address] [place] [address] Favian Davis MD Discharge Disposition: Home or Self Care from Last 3 Months Immunizations Immunization Administration Dates Next Due COVID-19 (Pre-01/29) Pfizer Vaccine, mRNA, PF 02/02/2021,05/30/2020,05/10/2020 Influenza High-Dose Quadriva lent Preservative Free IM 01/11/2023,01/29/2022,02/18/2021,02/17 Influenza High-Dose Trivalen t Preservative Free IM 02/05/2025,02/01/2024 Pneumococcal conjugate PCV13 04/19/2017 Pneumococcal polysaccharide PPSV23 [...] Sign Reading Time Taken Comments Blood Pressure 130/70 03/16/2025 9:36 AM EST Pulse 71 03/16/2025 9:36 AM EST Temperature 36.3 C (97.4 F) 03/16/2025 9:36 AM EST Respiratory Rate 16 03/16/2025 9:36 AM EST Oxygen Saturation 96% 03/16/2025 9:36 AM EST Inhaled Oxygen Concentration - - Weight 97.7 kg (215 lb 6.4 oz) 03/16/2025 9:36 A M EST Height 174.1 cm (5' 8.54 ) 03/16/2025 9:36 AM ES T Body Mass Index 32.23 03/16/2025 9:36 AM EST Plan of Treatment Upcoming Encounters Date Type Department Care Team (Late st Contact Info) Description 09/14/2025 8:30 AM EDT Office Visit [facility] [address] [place] [address] Favian Davis MD [address] [place] [address] 10/12/2025 9:00 AM EDT Office Visit [facility] [address] [facility] 3rd Floor, [address] [place], [place] [id number] Chago Reynaga MD, MS [address] [facility], [address] [place] [phone] 03/16/2026 8:00 AM EST Office Visit [facility] [address] [place] [address] Pedro Lyon PA-C [address] [place] [address] [email or web address] Health Maintenance Due Date Last Done Comments COLOGUARD 1997 FIT TEST 1997 FOBT 1997 SIGMOIDOSCOPY 1997 VIRTUAL COLONOSCOPY 1997 ZOSTER VACCINES (1 of 2) 04/22/2015 02/25/2015 Adult Td,Tdap Booster 09/07/2018 09/07/2008 COVID-19 VACCINE ( season) 2025 02/05/2025, 05/22/2024, 01/11/2023, Additional history exists DEPRESSION SCREENING 09/05/2025 09/05/2024 BLOOD PRESSURE 09/14/2025 03/16/2025 CREATININE LEVEL 03/16/2026 03/16/2025, 08/2024, 09/04/2024, Additional history exists POTASSIUM LEVEL 03/16/2026 03/16/2025, 0 08/2024, 09/04/2024, Additional history exists RSV VACCINE (1 - 1-dose 75+ series) 2027 COLONOSCOPY 03/04/2029 03/04/2024, 0 10/2018, 09/05/2006 COLORECTAL CANCER SCREENING 03/04/2029 LIPID PANEL 09/04/2029 09/04/2024, 04/0 08/2023, 06/13/2022, Additional history exists PNEUMOCOCCAL VACCINES (50+ years) Completed 05/02/2018, 04/19/2017 HEPATITIS C SCREENING Completed 04/28/2019, 020 INFLUENZA VACCINE Completed 02/05/2025, , 01/11/2023, Additional history exists SMOKING STATUS SCREENING (Once After 26 Yrs) Completed 03/16/2025 HEPATITIS A VACCINES Aged Out No long [...] Associated Diagnosis Comments CBC AND DIFFERENTIAL Routine 03/16/2025 10:41 AM EST Primary hypertension Anemia, unspecified type Iron deficiency anemia, unspecified iron deficiency anemia type CBC AND DIFFERENTIAL Routine 03/16/2025 10:41 AM EST Primary hypertension Anemia, unspecified type Iron deficiency anemia, unspecified iron deficiency anemia type HEMOGLOBIN A1C Routine 03/16/2025 10:41 AM EST Impaired fasting glucose VITAMIN B12 Routine 03/16/2025 10:41 AM EST Anemia, unspecified type FOLATE Routine 03/16/2025 10:41 AM EST Anemia, unspecified type FERRITIN Routine 03/16/2025 10:41 AM EST Anemia, unspecified type IRON AND IRON BINDING CAPACITY Routine 03/16/2025 10:41 AM EST Anemia, unspecified type COMPREHENSIVE METABOLIC PANEL (CMP) Routine 03/16/2025 10:41 AM EST Primary hypertension Anemia, unspecified type CBC AND DIFFERENTIAL Routine 01/01/2025 10:10 AM EDT Anemia, unspecified type IRON AND IRON BINDING CAPACITY Routine 01/01/2025 10:10 AM EDT Anemia, unspecified type LIPID PANEL Routine 09/04/2024 8:06 AM EDT Mixed hyperlipidemia HM COLONOSCOPY FOR RESULT ENTRY ONLY Routine 03/04/2024 10:54 AM EST OUTSIDE HEPATITIS C VIRUS SCREENING Routine 04/28/2019 from Last 3 Months or Most Recently Relevant to Health Maintenance Results * Comprehensive Metabolic Panel (CMP) (03/16/2025 10:41 AM EST) [facility] Sodium 141 136 - 145 mmol/L 03/16/2025 9:27 PM [facility] Potassium 3.8 3.4 - 5.1 mmol/L 03/16/2025 9:27 PM [facility] Comment:NOTE: Specimen hemol yzed. Results may be falsely increased. Chloride 105 98 - 107 mmol/L 03/16/2025 9:27 PM [facility] CO2 21 20 - 31 mmol/L 03/16/2025 9:27 PM [facility] BUN 18 6 - 23 mg/dL 03/16/2025 9:27 PM [facility] Creatinine 1.20 0.60 - 1.30 mg/dL 03/16/2025 9:27 PM [facility] Glucose 95 70 - 99 mg/dL 03/16/2025 9:27 PM [facility] Calcium 10.1 8.5 - 10.5 mg/dL 03/16/2025 9:27 PM [facility] AST 22 <40 U/L 03/16/2025 9:27 PM [facility] ALT 24 <50 U/L 03/16/2025 9:27 PM [facility] Alkaline Phosphatase 99 40 - 130 U/L 03/16/2025 9:27 PM [facility] Bilirubin, Total 0.6 0.0 - 1.2 mg/dL 03/16/2025 9:27 PM [facility] Total Protein 7.4 6.4 - 8.3 g/dL 03/16/2025 9:27 PM [facility] Albumin 4.3 3.5 - 5.2 g/dL 03/16/2025 9:27 PM [facility] Globulin 3.1 1.9 - 4.1 g/dL 03/16/2025 9:27 PM [facility] eGFR 64 >59 mL/min/1.7 3m2 03/16/2025 9:27 PM [facility] Comment:Estimated glomerular filtration rate calculated using the CKD-EPI refit equation. Anion Gap 15 3 - 17 mmol/L 03/16/2025 9:27 PM [facility] Blood (Blood) Venipuncture / Unknown 03/16/2025 10:41 AM EST 03/16/2025 10:41 AM EST us Favian Davis MD LAB BLOOD BKR ORDERABLES [facility] Result [facility] [address] [place] [address] * (ABNORMAL) CBC and Differential (03/16/2025 10:41 AM EST) WBC 5.99 4.00 - 11.00 K/uL 03/16/2025 8:09 PM [facility] RBC 5.89 4.50 - 5.90 M/uL 03/16/2025 8:09 PM [facility] Hemoglobin 15.5 13.5 - 17.5 g/dL 03/16/2025 8:09 PM [facility] Hematocrit 49.2 41.0 - 53.0 % 03/16/2025 8:09 PM [facility] MCV 83.5 80.0 - 100.0 fL 03/16/2025 8:09 PM [facility] MCH 26.3(L) 27.0 - 31.0 pg 03/16/2025 8:09 PM [facility] MCHC 31.5(L) 32.0 - 36.0 g/dL 03/16/2025 8:09 PM [facility] MPV 9.6 8.4 - 12.0 fL 03/16/2025 8:09 PM [facility] RDW-CV 19.1(H) 11.5 - 14.5 % 03/16/2025 8:09 PM [facility] PLT 265 150 - 450 K/uL 03/16/2025 8:09 PM [facility] Neutrophils 62.7 % 03/16/2025 8:09 PM [facility] Lymphocytes 18.2 % 03/16/2025 8:09 PM [facility] Monocytes 13.4 % 03/16/2025 8:09 PM [facility] Eosinophils 4.0 % 03/16/2025 8:09 PM [facility] Basophils 1.2 % 03/16/2025 8:09 PM [facility] Imm Grans 0.5 % 03/16/2025 8:09 PM [facility] NRBC 0.0 <=0.0 /100 WBCs 03/16/2025 8:09 PM [facility] Absolute Neutrophils 3.76 1.92 - 7.60 K/uL 03/16/2025 8:09 PM [facility] Absolute Lymphocytes 1.09 0.72 - 4.10 K/uL 03/16/2025 8:09 PM [facility] Absolute Monocytes 0.80 0.16 - 1.10 K/uL 03/16/2025 8:09 PM [facility] Absolute Eosinophils 0.24 0.00 - 0.50 K/uL 03/16/2025 8:09 PM [facility] Absolute Basophils 0.07 0.00 - 0.15 K/uL 03/16/2025 8:09 PM [facility] Absolute Imm Grans 0.03 0.00 - 0.09 K/uL 03/16/2025 8:09 PM [facility] Absolute NRBC 0.00 <=0.00 K cells/uL 03/16/2025 8:09 PM [facility] Absolute Neutrophils 3.76 1.92 - 7.60 K/uL 03/16/2025 8:09 PM [facility] Comment:Automated cell count . Manual ANC may differ if performed. Diff Type Auto 03/16/2025 8:09 PM [facility] Blood (Blood) Venipuncture / Unknown 03/16/2025 10:41 AM EST 03/16/2025 10:41 AM EST Favian Davis MD LAB BLOOD BKR ORDERABLES [facility] l Result Performing Organization Address [facility] Co de Phone Number [address] [address] * Iron and Total Iron Binding Capacity (Iron/TIBC) (03/16/2025 10:41 AM EST) Only the most recent of2 resultswithin the time period is included. Iron 50 45 - 182 ug/dL 03/16/2025 9:27 PM [facility] Total Iron-Binding Capacity (TIBC) 300 220 - 460 ug/dL 03/16/2025 9:27 PM [facility] Transferrin Saturation 17 14 - 50 % 03/16/2025 9:27 PM [facility] Blood (Blood) Venipuncture / Unknown 03/16/2025 10:41 AM EST 03/16/2025 10:41 AM EST Favian Davis MD LAB BLOOD BKR ORDERABLES [facility] Result [address] [address] * (ABNORMAL) Hemoglobin A1c (03/16/2025 10:41 AM EST) Hemoglobin A1c 6.0(H) 4.3 - 5.6 % 03/16/2025 8:59 PM [facility] Calculated Mean Blood Glucose 126 mg/dL 03/16/2025 8:59 PM [facility] Comment:There is no establis [facility] normal range for the Estimated Average Glucose (EAG). However, a HbA1c of 5.6% (upper limit of normal) represents an EAG of 114 mg/dL. The diagnostic HbA1c level for diabetes is greater than or equal to 6.5%, which represents an EAG greater than or equal to 140 mg/dL. Blood (Blood) Venipuncture / Unknown 03/16/2025 10:41 AM EST 03/16/2025 10:41 AM EST Favian Davis MD LAB BLOOD BKR ORDERABLES [facility] Result Performing Organization Address [facility]/ZIP Co de Phone Number [address] [address] * Folate (03/16/2025 10:41 AM EST) Folic Acid >20.0 >4.7 ng/mL 03/16/2025 9:14 PM [facility] Blood (Blood) Venipuncture / Unknown 03/16/2025 10:41 AM EST 03/16/2025 10:41 AM EST Favian Davis MD LAB BLOOD BKR ORDERABLES [facility] Result Performing Organization Address [facility] Co de Phone Number [address] [address] * Ferritin (03/16/2025 10:41 AM EST) Ferritin 66 30 - 400 ug/L 03/16/2025 9:27 PM [facility] Blood (Blood) Venipuncture / Unknown 03/16/2025 10:41 AM EST 03/16/2025 10:41 AM EST Favian Davis MD LAB BLOOD BKR ORDERABLES [facility] Result Performing Organization Address City/[facility] Co de Phone Number [address] [address] * Vitamin B12 (03/16/2025 10:41 AM EST) Vitamin B12 976 232 - 1,245 pg/mL 03/16/2025 9:12 PM EST [facility] Blood (Blood) Venipuncture / Unknown 03/16/2025 10:41 AM EST 03/16/2025 10:41 AM EST us Favian Davis MD LAB BLOOD BKR ORDERABLES [facility] Result [facility] [address] [place] [address] * (ABNORMAL) CBC and differential (01/01/2025 10:10 AM EDT) WBC 5.84 4.00 - 11.00 K/uL [facility] RBC 4.32(L) 4.50 - 5.90 M/uL [facility] HGB 11.4(L) 13.5 - 17.5 g/dL [facility] HCT 36.5(L) 41.0 - 53.0 % [facility] PLT 348 150 - 450 K/uL [facility] MCV 84.5 80.0 - 100.0 fL [facility] MCH 26.4(L) 27.0 - 31.0 pg [facility] MCHC 31.2(L) 32.0 - 36.0 g/dL [facility] RDW 15.1(H) 11.5 - 14.5 % [facility] MPV 9.7 8.4 - 12.0 fL [facility] NRBC 0.00 0.00 /100 WBCs [facility] ABSOLUTE NRBC 0.00 0.00 K/uL [facility] DIFF METHOD Auto [facility] NEUTS 54.1 48.0 - 76.0 % [facility] LYMPHS 27.6 18.0 - 41.0 % [facility] MONOS 11.3(H) 4.0 - 11.0 % [facility] EOS 5.5(H) 0.0 - 5.0 % [facility] BASOS 1.2 0.0 - 1.5 % [facility] Granulocytes, immature (%) 0.3 0.0 - 0.9 % [facility] ABSOLUTE NEUTS 3.16 1.92 - 7.60 K/uL [facility] ABSOLUTE LYMPHS 1.61 0.72 - 4.10 K/uL [facility] ABSOLUTE MONOS 0.66 0.16 - 1.10 K/uL [facility] ABSOLUTE EOS 0.32 0.00 - 0.50 K/uL [facility] ABSOLUTE BASOS 0.07 0.00 - 0.15 K/uL [facility] Granulocytes, immature 0.02 0.00 - 0.09 K/uL [facility] Blood 01/01/2025 10:1 0 AM EDT 01/01/2025 10:12 AM EDT us Favian Davis MD LAB BLOOD BKR ORDERABLES [facility] Result [address] [address] * Lipid panel (09/04/2024 8:06 AM EDT) HDL 41 mg/dL [facility] Comment: Interpretation <40 mg/dL: Low HDL cholesterol (major risk factor for CHD) Greater than or equal to 60 mg/dL: High HDL cholesterol ( negative risk factor for CHD) HDL - cholesterol is affected by a number of factors, e.g. smoking, excerise, hormones, sex and age. CHOLESTEROL 144 0 - 240 mg/dL [facility] TRIGLYCERIDES 143 30 - 160 mg/dL [facility] LDL 74 50 - 129 mg/dL [facility] Comment: LDL levels in terms of risk for coronary heart disease: <100 mg/dL: Optimal 100-129 mg/dL: Near or above optimal 130-159 mg/dL: Borderline high 160-189 mg/dL: High >190 mg/dL: Very High CARDIAC RISK RATIO 3.5 3.4 - 5.0 C [facility] Blood 09/04/2024 8:06 AM EDT 09/04/2024 8:11 AM EDT us Favian J Lebanon MD LAB BLOOD BKR ORDERABLES [facility] Result [facility] [address] [place] [address] * COLONOSCOPY FOR RESULT ENTRY ONLY (03/04/2024 [...] ENHANCE SUPPLEMENT MEDICARE PART A & B [facility] MEDICARE ENHANCE SUPPLEMENT MEDICARE PART A & B [facility] MEDICARE ENHANCE SUPPLEMENT MEDICARE PART A & [place] [address] [place] [address] MEDICARE ENHANCE SUPPLEMENT MEDICARE PART A & B [id number] [place] [address] MEDICARE ENHANCE SUPPLEMENT MEDICARE PART A & B [facility] MEDICARE ENHANCE SUPPLEMENT MEDICARE PART A & B [facility] MEDICARE ENHANCE SUPPLEMENT MEDICARE PART A & B [facility] MEDICARE ENHANCE SUPPLEMENT MEDICARE PART A & B [facility] MEDICARE ENHANCE SUPPLEMENT Care Teams Complex Manager Relationship Specialty Start Date End Date Favian Davis MD [address] [place] [address] PCP - General Internal Medicine 03/19/17 Favian Davis MD [address] [place] [address] [email or web address] Insurance Assigned Provider 07/14/23 Sherman Cha MD [address] [address] Internal Medicine 10/30/19 Additional Source Comments The information contained in this document represents components of the legal health record. It is not the complete legal health record.[facility]
--- OUTSIDE RECORDS SUMMARY | 2025-04-01 08:08 | XMS_ITS | Patient Health Record ---
Author Organization [facility] Address [address] [place] [address] Care Team Providers Care Terrazzo Grinder Name Role Phone Favian Davis MD Primary Care Provider Lazaro Babin Jr Unavailable Allergies No Known Allergies Reason For Referral No Information Medications Medication [...] 1 capsule Orally Once a day Active Immunizations Vaccine Route Administration Date Status Comme nts Influenza Unknown 07/03/2018 Refused Influenza Unknown 02/20/2023 Administered Influenza Unknown 03/04/2025 Administered Social History Social History Additional Details Category Social Info Options Details Miscellaneous: Marital status: 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 [employer] Problems Problem Type SNOMED Code ICD Code Onset Dates Problem Status W/U Status Risk Notes Problem Colon cancer screening (518434900) Colon cancer screening (Z12.11) Active confirmed Problem Long-term current use of anticoagulant (069780349) half-way (current) use of anticoagulants (Z79.01) Active confirmed Problem Carmona's esophagus (593606404) Barretts esophagus without dysplasia (K22.70) Active confirmed Problem Benign neoplasm of stomach (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) Gastric polyps (K31.7) Active confirmed Problem Carmona esophagus (776536581) 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 Vital Signs Temperature 97.1 degrees Fahrenheit 03/04/2025 Blood pressure diastolic 01 mm Hg 03/04/2025 Height 70 in 03/04/2025 Blood pressure systolic 001 mm Hg 03/04/2025 Weight 215 lbs 03/04/2025 BMI 30.85 kg/m2 03/04/2025 Encounters Encounter Location Date Provider Diagnosis [facility] [address] [place] [address] 03/04/2025 Lazaro Lyn Jr GI bleeding K92.2 Assessments Encounter Date Diagnosis (ICD Code) Assessment Notes Treatment Notes Treatment Clinical Notes Section Notes 03/04/2025 GI bleeding (ICD-10 - K92.2) Plan Of Treatment Future Test Test Name Order Date UPPER GI ENDOSCOPY 06/25/2013 UPPER GI ENDOSCOPY 09/15/2015 COLONOSCOPY 09/15/2015 UPPER GI ENDOSCOPY 07/03/2018 COLONOSCOPY 07/03/2018 UPPER GI ENDOSCOPY 01/14/2024 COLONOSCOPY 01/14/2024 UPPER GI ENDOSCOPY 03/04/2025 Next Appt Details Provider Name:Lazaro dickson Jr, 06/09/2025 07:30:00 AM, [address] [place] [address] , [place], [place], [id number], Insurance Providers Payer Name Payer Address Payer Phone Subscriber Number Group Number Insured Name Patient Relationship to Insured Coverage Start Date Coverage End Date MEDICARE OF [place] [address] [place] [address] [phone] [id number] MIN[place] JAY Self - patient is the insured [employer] [address] [place] [address] [id number] MINERVA JAY Self - patient is the insured Medical (General) History Medical History History ICD Code Colon polyps, colonoscopy 09/25, tubular adenoma, five-year followup Elevated liver function test s, 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 Hospitalization History Reason Date(Month/Year) upper gi bleed
--- OUTSIDE RECORDS SUMMARY | 2025-04-01 08:08 | XMS_ITS | Data Portability ---
Author Organization [facility] Coronado [facility] [address] Address [address] [place] [address] Assessment No assessment recorded. Plan of Treatment Reminders Order Date Submit Date Provider Last Modified By Organization Details Last Modified Time Details Appointments None recorded. Lab None recorded. Referral None recorded. Procedures None recorded. Surgeries None recorded. Imaging None recorded. Medication Orders amoxicillin 875 mg tablet 2022 023 [facility] [address], [address] [place], [address], 3 10:04:31 Flonase Allergy Relief 50 mcg/actuati on nasal spray,suspe nsion 2022 023 [facility] [address], [address] [place], [address], 3 10:04:31 Patient TargetsNo targets recorded. Patient Instructions Encounter Date Encounter Id Patient Instructions Last Modified By Organization Details Last Modified Time 05/06/2022 [id number] Acute Sinusitis: Care Instructions [email or web address] Not available 05/06/2022 10:04:30 Reason for Referral None Reported. Problems Name Problem SNOMED Code Status Onset Date Resolution Date Notes Provider Name and Address Organization Details Recorded Time Hypertensive disorder 90916016 Active 2022 [facility] 3 09:49:31 Atrial fibrillation 97757565 Active 2022 PAYAM madden, [place] [facility] 3 09:49:36 Hyperlipidemia 98339024 Active 2022 PAYAM ROBERT null, PA - [...] Name and Address Organization Details Recorded Time 416261 lisinopri l medicatio n cough Not available Not available 05/06/[id number] [facility] [place] - [facility] 3 09:47:57 Medications Name [...] Relief 50 mcg/actuati on nasal spray,suspe nsion Keldron 1 spray every day by intranasa l route. 2022 active Not Available Not Available Not Avai lable Vitals Date Recorded Body height Body mass index (BMI) Body weight Pain severity - 0-10 verbal numeric rating [Score] - Reported Respiratory rate Oxygen saturation Heart rate Body temperature Systolic And Diastolic Provider Name and Address Organization Details Last Updated DateTime 3 175.26 cm 30.7 kg/m2 49886.2 1 g 5 18 /min 97 % 100 /min 97.5 [degF] 126/78 mm[Hg] PAYAM ROBERT [facility] - [facility] 3 09:51:44 Social History Question Answer Notes LastModified by [employer] Details LastModified Time Tobacco Smoking Status Never Smoker PAYAMREGINA GARCIAHELEN madden [place] [facility] 05/06/2022 09:50:11 Have You Recently Traveled Abroad? No Information not available 05/06/2022 Sex: Unknown Functional Status Question Answer Note LastModified by [employer] Details LastModified Time Do you use any illicit or recreational drugs? No [email or web address] Information not available 05/06/2022 Do you or have you ever used any other forms of tobacco or nicotine? No [email or web address] Information not available 05/06/2022 What is your level of alcohol consumption? None [email or web address] Information not available 05/06/2022 Mental Status None recorded. Family History Relationship Description Onset Age of this Age Resolved Age Notes LastModified by Organization Details LastModified Time Father No current problems or disability Not available 05/06 09:49:58 Mother No current problems or disability Not available 05/06 09:49:58 Medical History No medical history recorded. Past Encounters Encounter ID Performer Location Encounter Start Date Encounter Closed Date Diagnosis/Indication Diagnosis SNOMED-CT Code Diagnosis ICD10 Code Diagnosis IMO Codes Diagnosis Note [id number] [address] [place] [address] 06/03/2015 16:12:31 06/03/2015 16:54:43 [id number] [address] [place] [address] 05/25/2015 17:35:51 05/25/2015 19:24:18 [id number] [address] [place] [address] 10/10/2015 08:37:09 10/10/2015 09:05:21 [id number] Saul Ferrer DO [address] [facility] [place] [address] 05/06/2022 08:22:32 05/06/2022 10:11:36 Acute sinusitis 29721422 J01.90 Given Hx and Sx and PE [...] Member ID Guarantor Name 05/06/2022 1 MEDICARE B-NH: [employer] Rashawn T Beto [id number] Rashawn Calderón Beto 05/06/2022 2 [facility] Rashawn Stephane Pérez [id number] Rashawn Calderón Beto 05/06/2022 1 [facility] CARE PLAN (HMO) [id number] Sari Beto [id number] Rashawn T Beto Notes Date Note Type Note Provider Name and Address Organization Details Recorded Time 05/06/2022 text/html Sinus Complaints UCReported by [email or web address] yo malec/o Pressure in sinuses, left ear pain started 1 week ago No feverNo chillsNo coughNo difficulty breathing or respiratory distressNo CPNo sore throatNo Abdominal painNo nauseaNo vomitingNp diarrheaNo myalgiaNo fatigueNo rashNo HANo dizzinessNo recent travelNo known sick contactsROS as noted in the HPI Saul Ferrer DO [address] [place], [address], [place] - [facility] 05/06/2022 10:04:55
--- NOTE | 2025-04-01 08:14 | MHC.OFFVISCO ---
Intake Intake Visit Reasons: Anticoagulation Allergies lisinopril Adverse Reaction (Unknown, Verified 04/01/25 08:09) cough Medication List - Last Reconciled 04/01/25 by Melissa Pierce RN atorvastatin (Lipitor) 10 mg PO DAILY dexlansoprazole (Dexilant) 60 mg PO BEDTIME diltiazem HCl CD 360 mg PO DAILY ferrous sulfate 325 mg PO DAILY fluticasone propionate 50 mcg/actuation 1 spray intranasal DAILY irbesartan-hydrochlorothiazide 150-12.5 mg (Avalide) 1 tab PO DAILY varenicline tartrate (Tyrvaya) intranasal warfarin (Jantoven) 5 mg See Protocol PO DAILY Nursing Note INR: 3.0- in therapeutic range 2-3 Medications and supplements reviewed No changes in health, diet, medications, or supplements, Denies any signs and symptoms of bleeding or bruising or clotting. Bleeding, bruising, clotting discussed Nutritional guidance given - eat a green today Dose: 5mg x 2, 2.5mg x 5 F/U INR: 4 weeks Patient verbalizes understanding of instructions given Anti-Coag Initial Assessment Social Hx Patient Tobacco Use Status: Never used Tobacco alcohol intake: never Coding Level of Care Code Est Patient Level 1 Diagnoses Current use of anticoagulant therapy Z79.01 Assessment & Plan Assessment & Plan (1) Current use of anticoagulant therapy: Code(s): Z79.01 - snf (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
[2025-04-01 08:15] LABS: Prothrombin Time Whole Bld POC 35.5 sec (11.1-13.5); ~PT, ~INR - Anti Coag Clinic 3.0 (0.9-1.1)
== END 2025-04-01 08:22 | disposition home or self-care (01) ==
LOC: HO.ACS 08:06
PROVIDERS: PCP Internal Medicine; Visit Provider Internal Medicine Medical Oncology
DX: Z79.01 Long term (current) use of anticoagulants (principal)

== ENCOUNTER → 2025-04-01 08:06 | Outpatient (BNVA) | payer MEDICARE, OTHER, SELFPAY | PROVIDERS: PCP Internal Medicine; Visit Provider Internal Medicine Medical Oncology | DX: I48.0 Paroxysmal atrial fibrillation (principal); Z51.81 Encounter for therapeutic drug level monitoring; Z79.01 Long term (current) use of anticoagulants | CPT/HCPCS: 85610; 99211 ==